=== PATIENT | female | born 1995 | race Caucasian/White ===

== ENCOUNTER 2018-02-27 17:17 | Emergency (ER) | payer BC, OTHER ==
[~2018-02-27] VITALS: Ht 160 cm; Wt 59.0 kg
--- OUTSIDE RECORDS SUMMARY | 2018-02-27 17:25 | XMS REPORT | Continuity of Care Document ---
Author Author [facility] Organization [facility] Address Unknown Phone Unavailable Allergies Active Description Code Type Severity Reaction Onset Reported/Identified Relationship to Patient Clinical Status Yes No Known Drug Intolerances No Known Drug Intolerances Drug Allergy Unknown N/A 1997 Yes AMOXICILLIN [id number] Drug Allergy N/A hives 08/25/1999 Yes OMNICEF 39091 Drug Allergy N/A HIVES 02/28/2009 Yes No Known Drug Intolerances No Known Drug Intolerances Drug Allergy Unknown UNKNOWN 12/08/2014 Yes penicillin penicillin Drug Allergy Unknown UNKNOWN 12/08/2014 Yes No Known Drug Intolerances No Known Drug Intolerances Drug Allergy Unknown UNKNOWN 12/08/2014 Yes penicillin penicillin Drug Allergy Unknown UNKNOWN 12/08/2014 Yes penicillin penicillin Drug Allergy Unknown hives 03/23/2015 Yes penicillin penicillin Drug Allergy Unknown hives 03/23/2015 Medications Medication Packaging Start Date Stop Date Route Dosage Sig NITROFURANTOIN MACROCRYSTAL 01/19 AZO TABS 01/19/2015 ORTHO TRI-CYCLEN LO 02/06/2015 Oral 0.18/0.215/0.25 Problems There is no data. Procedures There is no data. <section xmlns="urn:hl7-org:v3" xmlns:xsi="http:// www.3.org/2001/XMLSchema-instance"> <templateId root= "[email or web address]" /> <templateId root= "[id number]" /> <code codeSystemName="LOINC" codeSystem= "[id number]" code="50073-0" displayName="Results" /> <title>Results< /title> <text> <table> <thead> <tr> <th>Test</th> <th>Result</th> <th>Range</th> </tr> </thead> < tbody> <tr> < colspan="10">UR TEST - 03/23/15 10:02< /th> </tr> <tr> <td>UR TEST</td> <td> NEGATIVE </td> <td>NEGATIVE</td> </tr> <tr> <th colspan="10">CALCIUM IONIZED - 04/20/15 13:10</th> </tr> <tr> <td>CALCIUM IONIZED</td> <td>4.7 mg/dL</td> <td>4.5-5.3< /td> </tr> <tr> < colspan="10">METABOLIC PANEL, COMPREHN - 04/20/15 13:10</th> </tr> <tr> <td>POTASSIUM</ td> <td>3.7 mmol/L</td> <td>3.5-5.3</td> </tr> < tr> <td>ANION GAP</td> <td>8 mmol/L</td> <td>5-15</td > </tr> <tr> <td>GLUCOSE</td> <td>73 mg/dL</td> <td>70-99</td> </tr> <tr> <td>CALCIUM</td> <td>8.8 mg/dL</td> <td>8.5-10.1</td> </tr> <tr> <td>BLOOD UREA NITROGEN</td> <td>9 mg/dL</td> <td>7-20< /td> </tr> <tr> <td>CREATININE</td> <td>0.9 mg/ dL</td> <td>0.5-1.0</td> </tr> <tr> <td>SODIUM</ td> <td>140 mmol/L</td> <td>135-148</td> </tr> < tr> <td>CHLORIDE</td> <td>104 mmol/L</td> <td>98-110< /td> </tr> <tr> <td>AST/SGOT</td> <td>12 Units/L </td> <td>10-37</td> </tr> <tr> <td>ALT/SGPT</td > <td>12 Units/L</td> <td>< 66</td> </tr> <tr > <td>CARBON DIOXIDE</td> <td>28 mmol/L</td> <td>21- 32</td> </tr> <tr> <td>TOTAL PROTEIN</td> <td> 8.0 gm/dL</td> <td>5.7-8.0</td> </tr> <tr> <td> ALBUMIN</td> <td>3.8 gm/dL</td> <td>3.4-5.0</td> </tr> <tr> <td>BILI TOTAL</td> <td>0.5 mg/dL</td> < td>0.0-1.0</td> </tr> <tr> <td>ALKALINE PHOSPHATASE TOTAL </td> <td>61 IU/L</td> <td>45-117</td> </tr> <tr > <th colspan="10">PHOSPHORUS - 04/20/15 13:10</th> </tr> <tr> <td>PHOSPHORUS</td> <td>3.6 mg/dL</td> <td>2.5 -4.9</td> </tr> <tr> <th colspan="10">T4 FREE - 04/20/15 13:10</th> </tr> <tr> <td>T4 FREE</td> <td>1.1 ng/dL</td> <td>0.8-1.3</td> </tr> <tr> <th colspan="10">THYROID STIM HORMONE (TSH) - 04/20/15 13:10</th> </tr> <tr> <td>THYROID STIM HORMONE (TSH)</td> <td>2.63 uIU/mL</ td> <td>0.46-4.13</td> </tr> <tr> <th colspan= "10">PARATHYROID HORMONE (INTACT) - 04/20/15 13:10</th> </tr> <tr > <td>PARATHYROID HORMONE (INTACT)</td> <td>35 pg/mL</td> <td>14-85</td> </tr> <tr> <th colspan="10">VITAMIN D 25-HYDROXY - 04/20/15 13:10</th> </tr> <tr> <td> VITAMIN D 25-HYDROXY</td> <td>26.1 ng/mL</td> <td>30.0-100.0</ td> </tr> <tr> <th colspan="10">URINALYSIS, ROUTINE - 02/25 12:12</th> </tr> <tr> <td>UA LEUKOCYTE ESTERASE DIPSTICK</td> <td>1+ </td> <td>NEGATIVE</td> </tr> <tr> <td>UA NITRITE DIPSTICK</td> <td>NEGATIVE </td> <td>NEGATIVE</td> </tr> <tr> <td>UA PROTEIN DIPSTICK </td> <td>1+ </td> <td>NEGATIVE</td> </tr> <tr> <td>UA GLUCOSE DIPSTICK</td> <td>NEGATIVE </td> <td> NEGATIVE</td> </tr> <tr> <td>UA KETONE DIPSTICK</td> <td>4+ </td> <td>NEGATIVE</td> </tr> <tr> <td>UA UROBILINOGEN DIPSTICK</td> <td>3+ </td> <td>NORMAL</td > </tr> <tr> <td>UA BILIRUBIN DIPSTICK</td> <td> 2+ </td> <td>NEGATIVE</td> </tr> <tr> <td>UA BLOOD DIPSTICK</td> <td>1+ </td> <td>NEGATIVE</td> </tr > <tr> <td>UA SPECIFIC GRAVITY</td> <td>1.025 </td> <td>1.015-1.025</td> </tr> <tr> <td>UR PH</td> <td>6.0 </td> <td>5.0-7.0</td> </tr> <tr> <th colspan="10">UA MICROSCOPIC - 11/11/15 12:12</th> </tr> <tr > <td>UA BACTERIA</td> <td>4+ </td> <td>NEGATIVE</td > </tr> <tr> <td>UA EPITHELIAL CELLS</td> <td>4 + epi/hpf</td> <td>0 - 1+</td> </tr> <tr> <td> UA RBC</td> <td>3-5 rbc/hpf</td> <td>0 - 3</td> </tr> <tr> <td>UA VOLUME FOR EXAM</td> <td>12.0 mL</td> <td>(12mL STD)</td> </tr> <tr> <td>UA WBC</td> <td>5-10 wbc/hpf</td> <td>0 - 5</td> </tr> <tr> < colspan="10">UR TEST - 11/11/15 12:12</th> </tr> <tr> <td>UR TEST</td> <td>NEGATIVE </td> <td>NEGATIVE</td> </tr> <tr> <th colspan="10">CBC W/ DIFF - 11/13/15 09:27</th> </tr> <tr> <td>BASOPHIL #</td > <td>0.1 k/cumm</td> <td>0.0-0.2</td> </tr> <tr > <td>BASOPHIL %</td> <td>2 %</td> <td>0-1</ td> </tr> <tr> <td>COMMENT</td> <td>REVIEWED </ td> <td /> </tr> <tr> <td>GRANULOCYTE #</td> <td>1.9 k/cumm</td> <td>2.0-9.0</td> </tr> <tr> <td>GRANULOCYTE %</td> <td>42 %</td> <td>50-75 </td> </tr> <tr> <td>LYMPHOCYTE #</td> <td>1.9 k /cumm</td> <td>1.0-4.0</td> </tr> <tr> <td> LYMPHOCYTE %</td> <td>42 %</td> <td>20-30</td> </tr> <tr> <td>MEAN CELL HGB</td> <td>29.6 pg</td> <td>27.0-33.0</td> </tr> <tr> <td>MEAN CELL HGB CONCENTRATION</td> <td>34.5 g/dL</td> <td>32.0-37.0</td> </tr> <tr> <td>MEAN CELL VOLUME</td> <td>85.8 fl</td > <td>80.0-100.0</td> </tr> <tr> <td>MONOCYTE #< /td> <td>0.6 k/cumm</td> <td>0.1-1.0</td> </tr> <tr> <td>MONOCYTE %</td> <td>14 %</td> <td>4- 6</td> </tr> <tr> <td>RED BLOOD CELL</td> <td> 4.59 m/cumm</td> <td>4.00-6.00</td> </tr> <tr> < td>RED CELL DISTRIBUTION WIDTH</td> <td>13.4 %</td> <td> 11.0-15.6</td> </tr> <tr> <td>WHITE BLOOD CELL</td> <td>4.5 k/cumm</td> <td>5.0-10.0</td> </tr> <tr> <td>HEMOGLOBIN</td> <td>13.6 gm/dL</td> <td>12.0-16.0</ td> </tr> <tr> <td>HEMATOCRIT</td> <td>39.4 &#37 ;</td> <td>37.0-47.0</td> </tr> <tr> <td> PLATELET COUNT</td> <td>155 k/cumm</td> <td>150-400</td> </tr> <tr> <th colspan="10">HEPATIC FUNCTION PANEL - 09:27</th> </tr> <tr> <td>BILI UNCONJUGATED</td> <td>0.8 mg/dL</td> <td>0.0-0.7</td> </tr> <tr> <td>AST/SGOT</td> <td>91 Units/L</td> <td>10-37</td> </tr> <tr> <td>ALT/SGPT</td> <td>69 Units/L</td> <td>< 66</td> </tr> <tr> <td>TOTAL PROTEIN</td > <td>7.2 gm/dL</td> <td>6.4-8.2</td> </tr> <tr > <td>ALBUMIN</td> <td>3.2 gm/dL</td> <td>3.4-5.0</td > </tr> <tr> <td>BILI TOTAL</td> <td>1.5 mg/dL</ td> <td>0.0-1.0</td> </tr> <tr> <td>ALKALINE PHOSPHATASE TOTAL</td> <td>118 IU/L</td> <td>45-117</td> </tr> <tr> <td>BILI CONJUGATED</td> <td>0.7 mg/dL</ td> <td>0.0-0.3</td> </tr> <tr> <th colspan="10 ">LIPASE - 11/13/15 09:27</th> </tr> <tr> <td>LIPASE</td > <td>169 Units/L</td> <td>73-393</td> </tr> <tr > <th colspan="10">INFECTIOUS MONO SCREEN - 11/13/15 09:27</th> </tr> <tr> <td>INFECTIOUS MONO SCREEN</td> <td> POSITIVE </td> <td>NEGATIVE</td> </tr> <tr> <th colspan="10">HEPATITIS PANEL-ACUTE - 11/13/15 09:27</th> </tr> <tr > <td>AB HEPATITIS A IGM</td> <td>NEGATIVE </td> <td> NEGATIVE</td> </tr> <tr> <td>AG HEPATITIS B SURF.</td> <td>NEGATIVE </td> <td>NEGATIVE</td> </tr> <tr> <td>AB HEPATITIS B CORE IGM</td> <td>NEGATIVE </td> < td>NEGATIVE</td> </tr> <tr> <td>AB HEPATITIS C</td> <td>NEGATIVE </td> <td>NEGATIVE</td> </tr> <tr> <th colspan="10">CHEM/HEM PROFILE-BEDSIDE - 11/13/15 09:35</th> </ tr> <tr> <td>POTASSIUM</td> <td>3.6 mmol/L</td> <td>3.5-5.3</td> </tr> <tr> <td>METHOD</td> < td>Bedside </td> <td /> </tr> <tr> <td>ANION GAP </td> <td>13 mmol/L</td> <td>10-20</td> </tr> < tr> <td>METHOD</td> <td>Bedside </td> <td /> < /tr> <tr> <td>GLUCOSE</td> <td>80 mg/dL</td> < td>70-99</td> </tr> <tr> <td>BLOOD UREA NITROGEN</td> <td>11 mg/dL</td> <td>7-20</td> </tr> <tr> <td>CREATININE</td> <td>1.3 mg/dL</td> <td>0.5-1.0</td> </tr> <tr> <td>HEMOGLOBIN</td> <td>12.2 gm/dL</td > <td>12.0-16.0</td> </tr> <tr> <td>HEMATOCRIT</ td> <td>36.0 %</td> <td>37.0-47.0</td> </tr> <tr> <td>SODIUM</td> <td>135 mmol/L</td> <td>135- 148</td> </tr> <tr> <td>CHLORIDE</td> <td>105 mmol/L</td> <td>98-110</td> </tr> <tr> <td> CARBON DIOXIDE</td> <td>21 mmol/L</td> <td>21-32</td> < /tr> <tr> <td>CALCIUM IONIZED</td> <td>4.4 mg/dL</td> <td>4.5-5.3</td> </tr> <tr> <th colspan="10"> URINALYSIS, ROUTINE - 11/13/15 09:44</th> </tr> <tr> <td> UA LEUKOCYTE ESTERASE DIPSTICK</td> <td>TRACE </td> <td> NEGATIVE</td> </tr> <tr> <td>UA NITRITE DIPSTICK</td> <td>NEGATIVE </td> <td>NEGATIVE</td> </tr> <tr> <td>UA PROTEIN DIPSTICK</td> <td>TRACE </td> <td> NEGATIVE</td> </tr> <tr> <td>UA GLUCOSE DIPSTICK</td> <td>NEGATIVE </td> <td>NEGATIVE</td> </tr> <tr> <td>UA KETONE DIPSTICK</td> <td>2+ </td> <td>NEGATIVE< /td> </tr> <tr> <td>UA UROBILINOGEN DIPSTICK</td> <td>2+ </td> <td>NORMAL</td> </tr> <tr> <td> UA BILIRUBIN DIPSTICK</td> <td>2+ </td> <td>NEGATIVE</td> </tr> <tr> <td>UA BLOOD DIPSTICK</td> <td>TRACE </ td> <td>NEGATIVE</td> </tr> <tr> <td>UA SPECIFIC GRAVITY</td> <td>1.010 </td> <td>1.015-1.025</td> </tr> <tr> <td>UR PH</td> <td>5.5 </td> < td>5.0-7.0</td> </tr> <tr> < colspan="10">UA MICROSCOPIC - 11/13/15 09:44</th> </tr> <tr> <td>UA BACTERIA</td> <td>2+ </td> <td>NEGATIVE</td> </tr> <tr> <td>UA EPITHELIAL CELLS</td> <td>4+ epi/hpf</td> <td>0 - 1+</td> </tr> <tr> <td>UA RBC</td> <td>3-5 rbc/hpf</td> <td>0 - 3</td> </tr> <tr> <td>UA VOLUME FOR EXAM</td> <td>12.0 mL</td> <td>(12mL STD)< /td> </tr> <tr> <td>UA WBC</td> <td>5-10 wbc/hpf </td> <td>0 - 5</td> </tr> <tr> <th colspan="10 ">UR TEST - 11/13/15 09:44</th> </tr> <tr> <td> UR TEST</td> <td>NEGATIVE </td> <td>NEGATIVE</td> </tr> <tr> <th colspan="10">VIRUS RESPIRATORY PROFILE - 14:11</th> </tr> <tr> <td>Microbiology</td> <td> </td> <td /> </tr> <tr> <th colspan="10 ">METABOLIC PANEL, COMPREHN - 11/14/15 04:25</th> </tr> <tr> <td>POTASSIUM</td> <td>3.2 mmol/L</td> <td>3.5-5.3</td> </tr> <tr> <td>EST GFR (MDRD)</td> <td>59 mL/min </td> <td>> 59</td> </tr> <tr> <td>ANION GAP< /td> <td>9 mmol/L</td> <td>5-15</td> </tr> <tr> <td>EST CrCl (CG)</td> <td>> 60 mL/min</td> <td>& gt; 59</td> </tr> <tr> <td>GLUCOSE</td> <td>116 mg/dL</td> <td>70-99</td> </tr> <tr> <td>CALCIUM </td> <td>7.9 mg/dL</td> <td>8.5-10.1</td> </tr> <tr> <td>BLOOD UREA NITROGEN</td> <td>7 mg/dL</td> <td>7-20</td> </tr> <tr> <td>CREATININE</td> <td >1.2 mg/dL</td> <td>0.5-1.0</td> </tr> <tr> <td> SODIUM</td> <td>139 mmol/L</td> <td>135-148</td> </tr> <tr> <td>CHLORIDE</td> <td>106 mmol/L</td> < td>98-110</td> </tr> <tr> <td>AST/SGOT</td> <td> 80 Units/L</td> <td>10-37</td> </tr> <tr> <td> ALT/SGPT</td> <td>68 Units/L</td> <td>< 66</td> </tr > <tr> <td>CARBON DIOXIDE</td> <td>24 mmol/L</td> <td>21-32</td> </tr> <tr> <td>TOTAL PROTEIN</td> <td>5.9 gm/dL</td> <td>6.4-8.2</td> </tr> <tr> <td>ALBUMIN</td> <td>2.4 gm/dL</td> <td>3.4-5.0</td> </tr> <tr> <td>BILI TOTAL</td> <td>1.0 mg/dL</td > <td>0.0-1.0</td> </tr> <tr> <td>ALKALINE PHOSPHATASE TOTAL</td> <td>102 IU/L</td> <td>45-117</td> </tr> <tr> < colspan="10">CBC W/DIFF - 11/14/15 04:25</th> </tr> <tr> <td>COMMENT</td> <td>REVIEWED </td> <td /> </tr> <tr> <td>GRANULOCYTE #</td> <td>1.7 k/cumm</td> <td>2.0-9.0</td> </tr> <tr> <td>GRANULOCYTE %</td> <td>38 %</td> <td>50-75</ td> </tr> <tr> <td>LYMPHOCYTE #</td> <td>2.2 k/ cumm</td> <td>1.0-4.0</td> </tr> <tr> <td> LYMPHOCYTE %</td> <td>50 %</td> <td>20-30</td> </tr> <tr> <td>MEAN CELL HGB</td> <td>29.7 pg</td> <td>27.0-33.0</td> </tr> <tr> <td>MEAN CELL HGB CONCENTRATION</td> <td>33.7 g/dL</td> <td>32.0-37.0</td> </tr> <tr> <td>MEAN CELL VOLUME</td> <td>88.1 fl</td > <td>80.0-100.0</td> </tr> <tr> <td>MONOCYTE #< /td> <td>0.5 k/cumm</td> <td>0.1-1.0</td> </tr> <tr> <td>MONOCYTE %</td> <td>11 %</td> <td>4- 6</td> </tr> <tr> <td>RED BLOOD CELL</td> <td> 3.87 m/cumm</td> <td>4.00-6.00</td> </tr> <tr> < td>RED CELL DISTRIBUTION WIDTH</td> <td>13.2 %</td> <td> 11.0-15.6</td> </tr> <tr> <td>WHITE BLOOD CELL</td> <td>4.4 k/cumm</td> <td>5.0-10.0</td> </tr> <tr> <td>HEMOGLOBIN</td> <td>11.5 gm/dL</td> <td>12.0-16.0</ td> </tr> <tr> <td>HEMATOCRIT</td> <td>34.1 &#37 ;</td> <td>37.0-47.0</td> </tr> <tr> <td> PLATELET COUNT</td> <td>153 k/cumm</td> <td>150-450</td> </tr> <tr> <th colspan="10">AB MONIQUE SAUL VIR VCA-ACUTE - 11/14/15 04:25</th> </tr> <tr> <td>AB EBV VIRAL CAPSID AG IGM</td> <td>POSITIVE </td> <td>NEGATIVE</td> </tr> <tr> <td>AB EBV VIRAL CAPSID AG IGG</td> <td>40 </td> <td><10</td> </tr> <tr> <th colspan="10"> CBC W/DIFF - 11/15/15 09:31</th> </tr> <tr> <td>COMMENT</ td> <td>REVIEWED </td> <td /> </tr> <tr> <td>GRANULOCYTE #</td> <td>1.5 k/cumm</td> <td>2.0-9.0</td > </tr> <tr> <td>GRANULOCYTE %</td> <td>31 & #37;</td> <td>50-75</td> </tr> <tr> <td> LYMPHOCYTE #</td> <td>2.4 k/cumm</td> <td>1.0-4.0</td> </tr> <tr> <td>LYMPHOCYTE %</td> <td>51 %</td> <td>20-30</td> </tr> <tr> <td>MEAN CELL HGB</td > <td>30.0 pg</td> <td>27.0-33.0</td> </tr> <tr > <td>MEAN CELL HGB CONCENTRATION</td> <td>34.1 g/dL</td> <td>32.0-37.0</td> </tr> <tr> <td>MEAN CELL VOLUME< /td> <td>88.0 fl</td> <td>80.0-100.0</td> </tr> <tr> <td>MONOCYTE #</td> <td>0.9 k/cumm</td> <td>0.1- 1.0</td> </tr> <tr> <td>MONOCYTE %</td> <td> 18 %</td> <td>4-6</td> </tr> <tr> <td>RED BLOOD CELL</td> <td>3.93 m/cumm</td> <td>4.00-6.00</td> </tr> <tr> <td>RED CELL DISTRIBUTION WIDTH</td> <td> 13.6 %</td> <td>11.0-15.6</td> </tr> <tr> < td>WHITE BLOOD CELL</td> <td>4.7 k/cumm</td> <td>5.0-10.0</td > </tr> <tr> <td>HEMOGLOBIN</td> <td>11.8 gm/dL< /td> <td>12.0-16.0</td> </tr> <tr> <td> HEMATOCRIT</td> <td>34.6 %</td> <td>37.0-47.0</td> </tr> <tr> <td>PLATELET COUNT</td> <td>158 k/cumm</td> <td>150-450</td> </tr> <tr> <td>REACTIVE LYMPH< /td> <td>NOTED </td> <td /> </tr> <tr> <th colspan="10">RENAL FUNCTION PANEL - 11/15/15 09:31</th> </tr> <tr> <td>POTASSIUM</td> <td>3.4 mmol/L</td> <td>3.5- 5.3</td> </tr> <tr> <td>EST GFR (MDRD)</td> <td> > 60 mL/min</td> <td>> 59</td> </tr> <tr> <td>ANION GAP</td> <td>8 mmol/L</td> <td>5-15</td> </tr > <tr> <td>EST CrCl (CG)</td> <td>> 60 mL/min</td> <td>> 59</td> </tr> <tr> <td>GLUCOSE</td> <td>107 mg/dL</td> <td>70-99</td> </tr> <tr> <td>CALCIUM</td> <td>8.1 mg/dL</td> <td>8.5-10.1</td> </tr> <tr> <td>BLOOD UREA NITROGEN</td> <td>3 mg/ dL</td> <td>7-20</td> </tr> <tr> <td>CREATININE< /td> <td>1.0 mg/dL</td> <td>0.5-1.0</td> </tr> < tr> <td>SODIUM</td> <td>141 mmol/L</td> <td>135-148</ td> </tr> <tr> <td>CHLORIDE</td> <td>108 mmol/L< /td> <td>98-110</td> </tr> <tr> <td>CARBON DIOXIDE</td> <td>25 mmol/L</td> <td>21-32</td> </tr> <tr> <td>ALBUMIN</td> <td>2.4 gm/dL</td> <td> 3.4-5.0</td> </tr> <tr> <td>PHOSPHORUS</td> <td> 2.4 mg/dL</td> <td>2.5-4.9</td> </tr> <tr> < colspan="10">CBC W/DIFF - 11/16/15 04:24</th> </tr> <tr> <td>GRANULOCYTE #</td> <td>1.2 k/cumm</td> <td>2.0-9.0</td> </tr> <tr> <td>LYMPHOCYTE #</td> <td>3.0 k/cumm</ td> <td>1.0-4.0</td> </tr> <tr> <td>LYMPHOCYTE & #37;</td> <td>69 %</td> <td>20-30</td> </tr> <tr> <td>MEAN CELL HGB</td> <td>30.0 pg</td> <td> 27.0-33.0</td> </tr> <tr> <td>MEAN CELL HGB CONCENTRATION </td> <td>33.7 g/dL</td> <td>32.0-37.0</td> </tr> <tr> <td>MEAN CELL VOLUME</td> <td>89.0 fl</td> < td>80.0-100.0</td> </tr> <tr> <td>MONOCYTE #</td> <td>0.1 k/cumm</td> <td>0.1-1.0</td> </tr> <tr> <td>MONOCYTE %</td> <td>3 %</td> <td>4-6</td> </tr> <tr> <td>RED BLOOD CELL</td> <td>4.00 m/cumm< /td> <td>4.00-6.00</td> </tr> <tr> <td>RED CELL DISTRIBUTION WIDTH</td> <td>13.3 %</td> <td>11.0-15.6</td > </tr> <tr> <td>WHITE BLOOD CELL</td> <td>4.3 k /cumm</td> <td>5.0-10.0</td> </tr> <tr> <td> HEMOGLOBIN</td> <td>12.0 gm/dL</td> <td>12.0-16.0</td> </tr> <tr> <td>HEMATOCRIT</td> <td>35.6 %</td> <td>37.0-47.0</td> </tr> <tr> <td>PLATELET COUNT</ td> <td>154 k/cumm</td> <td>150-450</td> </tr> < tr> <th colspan="10">MANUAL DIFF(R) - 11/16/15 04:24</th> </tr> <tr> <td>BAND %</td> <td>4 %</td> <td >0-10</td> </tr> <tr> <td>DIFFERENTIAL</td> <td> MANUAL </td> <td /> </tr> <tr> <td>RBC MORPH</td > <td>NORMAL </td> <td /> </tr> <tr> < td>SEGMENTED NEUTROPHIL %</td> <td>24 %</td> <td>50-70 </td> </tr> <tr> <th colspan="10">METABOLIC PANEL, COMPREHN - 11/16/15 04:24</th> </tr> <tr> <td>POTASSIUM</ td> <td>3.0 mmol/L</td> <td>3.5-5.3</td> </tr> < tr> <td>EST GFR (MDRD)</td> <td>> 60 mL/min</td> < td>> 59</td> </tr> <tr> <td>ANION GAP</td> < td>6 mmol/L</td> <td>5-15</td> </tr> <tr> <td> EST CrCl (CG)</td> <td>> 60 mL/min</td> <td>> 59</td> </tr> <tr> <td>GLUCOSE</td> <td>104 mg/dL</td> <td>70-99</td> </tr> <tr> <td>CALCIUM</td> <td>8.3 mg/dL</td> <td>8.5-10.1</td> </tr> <tr> <td>BLOOD UREA NITROGEN</td> <td>2 mg/dL</td> <td>7-20</ td> </tr> <tr> <td>CREATININE</td> <td>0.9 mg/dL </td> <td>0.5-1.0</td> </tr> <tr> <td>SODIUM</td > <td>141 mmol/L</td> <td>135-148</td> </tr> <tr > <td>CHLORIDE</td> <td>107 mmol/L</td> <td>98-110</ td> </tr> <tr> <td>AST/SGOT</td> <td>241 Units/L </td> <td>10-37</td> </tr> <tr> <td>ALT/SGPT</td > <td>206 Units/L</td> <td>< 66</td> </tr> < tr> <td>CARBON DIOXIDE</td> <td>28 mmol/L</td> <td>21 -32</td> </tr> <tr> <td>TOTAL PROTEIN</td> <td> 6.1 gm/dL</td> <td>6.4-8.2</td> </tr> <tr> <td> ALBUMIN</td> <td>2.4 gm/dL</td> <td>3.4-5.0</td> </tr> <tr> <td>BILI TOTAL</td> <td>1.6 mg/dL</td> < td>0.0-1.0</td> </tr> <tr> <td>ALKALINE PHOSPHATASE TOTAL </td> <td>156 IU/L</td> <td>45-117</td> </tr> </ tbody> </table> </text> <entry> <organizer moodCode="EVN" classCode= "BATTERY"> <templateId root="[id number]...4.1" /> <id nullFlavor="NA" /> <code codeSystem="local" code="PREGU" displayName="UR TEST" /> <statusCode code="completed" /> <component> <observation moodCode="EVN" classCode="OBS"> <templateId root= "[id number]...4.2" /> <id nullFlavor="NA" /> < code codeSystem="local" code="PREGU" displayName="UR TEST" /> <statusCode code="completed" /> <effectiveTime value="[id number]" / > <value unit="" xsi:type="PQ" value="NEGATIVE" /> < referenceRange> <observationRange> <text>NEGATIVE</text > </observationRange> </referenceRange> </observation > </component> </organizer> </entry> <entry> <organizer moodCode= "EVN" classCode="BATTERY"> <templateId root="[id number].1 " /> <id nullFlavor="NA" /> <code codeSystem="local" code="CAION" displayName="CALCIUM IONIZED" /> <statusCode code="completed" /> < component> <observation moodCode="EVN" classCode="OBS"> < templateId root="[id number]...4.2" /> <id nullFlavor="NA " /> <code codeSystem="local" code="CAION" displayName="CALCIUM IONIZED " /> <statusCode code="completed" /> <effectiveTime value= "[id number]" /> <value unit="mg/dL" xsi:type="PQ" value="4.7" /> <referenceRange> <observationRange> <text>4.5-5.3< /text> </observationRange> </referenceRange> </ observation> </component> </organizer> </entry> <entry> <organizer moodCode="EVN" classCode="BATTERY"> <templateId root= "[id number]" /> <id nullFlavor="NA" /> <code codeSystem="local" code="METABC" displayName="METABOLIC PANEL, COMPREHN" /> <statusCode code="completed" /> <component> <observation moodCode= "EVN" classCode="OBS"> <templateId root="03.28.840.1.073408.10..22.4.2 " /> <id nullFlavor="NA" /> <code codeSystem="local" code="K" displayName="POTASSIUM" /> <statusCode code="completed" /> < effectiveTime value="[id number]" /> <value unit="mmol/L" xsi:type="PQ " value="3.7" /> <referenceRange> <observationRange> <text>3.5-5.3</text> </observationRange> </ referenceRange> </observation> </component> <component> <observation moodCode="EVN" classCode="OBS"> <templateId root= "03.28.840.1.544621.10.22.4.2" /> <id nullFlavor="NA" /> < code codeSystem="local" code="GAP" displayName="ANION GAP" /> < statusCode code="completed" /> <effectiveTime value="157951771255" /> <value unit="mmol/L" xsi:type="PQ" value="8" /> < referenceRange> <observationRange> <text>5-15</text> </observationRange> </referenceRange> </observation> </component> <component> <observation moodCode="EVN" classCode= "OBS"> <templateId root="216.840.1.975640.10..22.4.2" /> < id nullFlavor="NA" /> <code codeSystem="local" code="GLU" displayName= "GLUCOSE" /> <statusCode code="completed" /> <effectiveTime value="394811284693" /> <value unit="mg/dL" xsi:type="PQ" value="73" / > <referenceRange> <observationRange> <text>70- 99</text> </observationRange> </referenceRange> </ observation> </component> <component> <observation moodCode= "EVN" classCode="OBS"> <templateId root="03.28.840.1.809684...4.2 " /> <id nullFlavor="NA" /> <code codeSystem="local" code="CA " displayName="CALCIUM" /> <statusCode code="completed" /> < effectiveTime value="462931543320" /> <value unit="mg/dL" xsi:type="PQ " value="8.8" /> <referenceRange> <observationRange> <text>8.5-10.1</text> </observationRange> </ referenceRange> </observation> </component> <component> <observation moodCode="EVN" classCode="OBS"> <templateId root= "16.840.1.395976.10..22.4.2" /> <id nullFlavor="NA" /> < code codeSystem="local" code="BUN" displayName="BLOOD UREA NITROGEN" /> <statusCode code="completed" /> <effectiveTime value="404309289367" / > <value unit="mg/dL" xsi:type="PQ" value="9" /> < referenceRange> <observationRange> <text>7-20</text> </observationRange> </referenceRange> </observation> </component> <component> <observation moodCode="EVN" classCode= "OBS"> <templateId root="16.840.1.036916.10...4.2" /> < id nullFlavor="NA" /> <code codeSystem="local" code="CREAT" displayName ="CREATININE" /> <statusCode code="completed" /> < effectiveTime value="674951993517" /> <value unit="mg/dL" xsi:type="PQ " value="0.9" /> <referenceRange> <observationRange> <text>0.5-1.0</text> </observationRange> </ referenceRange> </observation> </component> <component> <observation moodCode="EVN" classCode="OBS"> <templateId root= "03.28.840.1.206019...4.2" /> <id nullFlavor="NA" /> < code codeSystem="local" code="NA" displayName="SODIUM" /> <statusCode code="completed" /> <effectiveTime value="348095456177" /> < value unit="mmol/L" xsi:type="PQ" value="140" /> <referenceRange> <observationRange> <text>135-148</text> </ observationRange> </referenceRange> </observation> </ component> <component> <observation moodCode="EVN" classCode="OBS"> <templateId root="03.28.840.1.324150.10.20.22.4.2" /> <id nullFlavor="NA" /> <code codeSystem="local" code="CL" displayName= "CHLORIDE" /> <statusCode code="completed" /> <effectiveTime value="381058763876" /> <value unit="mmol/L" xsi:type="PQ" value="104" /> <referenceRange> <observationRange> <text>98 -110</text> </observationRange> </referenceRange> </ observation> </component> <component> <observation moodCode= "EVN" classCode="OBS"> <templateId root="216.840.1.606175.11.29.21.4.2 " /> <id nullFlavor="NA" /> <code codeSystem="local" code="AST " displayName="AST/SGOT" /> <statusCode code="completed" /> < effectiveTime value="429027180233" /> <value unit="Units/L" xsi:type= "PQ" value="12" /> <referenceRange> <observationRange> <text>10-37</text> </observationRange> </ referenceRange> </observation> </component> <component> <observation moodCode="EVN" classCode="OBS"> <templateId root= "03.28.840.1.919095.11.29.21.4.2" /> <id nullFlavor="NA" /> < code codeSystem="local" code="ALT" displayName="ALT/SGPT" /> < statusCode code="completed" /> <effectiveTime value="317574998699" /> <value unit="Units/L" xsi:type="PQ" value="12" /> < referenceRange> <observationRange> <text>< 66</text> </observationRange> </referenceRange> </observation > </component> <component> <observation moodCode="EVN" classCode="OBS"> <templateId root="216.840.1.565018.22.4.2" /> <id nullFlavor="NA" /> <code codeSystem="local" code="CO2" displayName="CARBON DIOXIDE" /> <statusCode code="completed" /> <effectiveTime value="569225212332" /> <value unit="mmol/L" xsi:type ="PQ" value="28" /> <referenceRange> <observationRange> <text>21-32</text> </observationRange> </ referenceRange> </observation> </component> <component> <observation moodCode="EVN" classCode="OBS"> <templateId root= "216.840.1.327430.10..22.4.2" /> <id nullFlavor="NA" /> < code codeSystem="local" code="TP" displayName="TOTAL PROTEIN" /> < statusCode code="completed" /> <effectiveTime value="649682426409" /> <value unit="gm/dL" xsi:type="PQ" value="8.0" /> < referenceRange> <observationRange> <text>5.7-8.0</text> </observationRange> </referenceRange> </observation > </component> <component> <observation moodCode="EVN" classCode="OBS"> <templateId root="16.840.1.505871.10..22.4.2" /> <id nullFlavor="NA" /> <code codeSystem="local" code="ALB" displayName="ALBUMIN" /> <statusCode code="completed" /> < effectiveTime value="335440199567" /> <value unit="gm/dL" xsi:type="PQ " value="3.8" /> <referenceRange> <observationRange> <text>3.4-5.0</text> </observationRange> </ referenceRange> </observation> </component> <component> <observation moodCode="EVN" classCode="OBS"> <templateId root= "03.28.840.1.562034.10.22.4.2" /> <id nullFlavor="NA" /> < code codeSystem="local" code="BILTOT" displayName="BILI TOTAL" /> < statusCode code="completed" /> <effectiveTime value="153269843804" /> <value unit="mg/dL" xsi:type="PQ" value="0.5" /> < referenceRange> <observationRange> <text>0.0-1.0</text> </observationRange> </referenceRange> </observation > </component> <component> <observation moodCode="EVN" classCode="OBS"> <templateId root="840.1.028373.11.29.21.4.2" /> <id nullFlavor="NA" /> <code codeSystem="local" code="ALKP" displayName="ALKALINE PHOSPHATASE TOTAL" /> <statusCode code="completed " /> <effectiveTime value="109405465421" /> <value unit="IU/L " xsi:type="PQ" value="61" /> <referenceRange> < observationRange> <text>45-117</text> </observationRange > </referenceRange> </observation> </component> </ organizer> </entry> <entry> <organizer moodCode="EVN" classCode="BATTERY"> <templateId root="03.28.840.1.669041.1022.4.1" /> <id nullFlavor= "NA" /> <code codeSystem="local" code="PHOS" displayName="PHOSPHORUS" /> <statusCode code="completed" /> <component> <observation moodCode="EVN" classCode="OBS"> <templateId root= "03.28.840.1.398366.102022.4.2" /> <id nullFlavor="NA" /> < code codeSystem="local" code="PHOS" displayName="PHOSPHORUS" /> < statusCode code="completed" /> <effectiveTime value="177063060362" /> <value unit="mg/dL" xsi:type="PQ" value="3.6" /> < referenceRange> <observationRange> <text>2.5-4.9</text> </observationRange> </referenceRange> </observation > </component> </organizer> </entry> <entry> <organizer moodCode= "EVN" classCode="BATTERY"> <templateId root="16.840.1.833886.10.22.4.1 " /> <id nullFlavor="NA" /> <code codeSystem="local" code="T4F" displayName="T4 FREE" /> <statusCode code="completed" /> <component> <observation moodCode="EVN" classCode="OBS"> <templateId root= "16.840.1.232063.10..22.4.2" /> <id nullFlavor="NA" /> < code codeSystem="local" code="T4F" displayName="T4 FREE" /> < statusCode code="completed" /> <effectiveTime value="816790952143" /> <value unit="ng/dL" xsi:type="PQ" value="1.1" /> < referenceRange> <observationRange> <text>0.8-1.3</text> </observationRange> </referenceRange> </observation > </component> </organizer> </entry> <entry> <organizer moodCode= "EVN" classCode="BATTERY"> <templateId root="03.28.840.1.092737.10.2022.4.1 " /> <id nullFlavor="NA" /> <code codeSystem="local" code="TSH" displayName="THYROID STIM HORMONE (TSH)" /> <statusCode code="completed" / > <component> <observation moodCode="EVN" classCode="OBS"> <templateId root="2.16.840.1.627773.10.20.22.4.2" /> <id nullFlavor="NA " /> <code codeSystem="local" code="TSH" displayName="THYROID STIM HORMONE (TSH)" /> <statusCode code="completed" /> < effectiveTime value="035475560628" /> <value unit="uIU/mL" xsi:type="PQ " value="2.63" /> <referenceRange> <observationRange> <text>0.46-4.13</text> </observationRange> </ referenceRange> </observation> </component> </organizer> </entry > <entry> <organizer moodCode="EVN" classCode="BATTERY"> <templateId root="2.16.840.1.856493.10..22.4.1" /> <id nullFlavor="NA" /> <code codeSystem="local" code="PARA" displayName="PARATHYROID HORMONE (INTACT)" /> <statusCode code="completed" /> <component> <observation moodCode ="EVN" classCode="OBS"> <templateId root= "2.16.840.1.065533.10..22.4.2" /> <id nullFlavor="NA" /> < code codeSystem="local" code="PARA" displayName="PARATHYROID HORMONE (INTACT)" / > <statusCode code="completed" /> <effectiveTime value= "136681724904" /> <value unit="pg/mL" xsi:type="PQ" value="35" /> <referenceRange> <observationRange> <text>14-85</ text> </observationRange> </referenceRange> </ observation> </component> </organizer> </entry> <entry> <organizer moodCode="EVN" classCode="BATTERY"> <templateId root= "840.1.342478.10..4.1" /> <id nullFlavor="NA" /> <code codeSystem="local" code="VITD25" displayName="VITAMIN D 25-HYDROXY" /> < statusCode code="completed" /> <component> <observation moodCode= "EVN" classCode="OBS"> <templateId root="840.1.781836.10.4.2 " /> <id nullFlavor="NA" /> <code codeSystem="local" code= "VITD25" displayName="VITAMIN D 25-HYDROXY" /> <statusCode code= "completed" /> <effectiveTime value="895387532907" /> <value unit="ng/mL" xsi:type="PQ" value="26.1" /> <interpretationCode codeSystem="local" code="*" /> <referenceRange> < observationRange> <text>30.0-100.0</text> </ observationRange> </referenceRange> </observation> </ component> </organizer> </entry> <entry> <organizer moodCode="EVN" classCode="BATTERY"> <templateId root="03.28.840.1.353973.22.4.1" /> <id nullFlavor="NA" /> <code codeSystem="local" code="UA" displayName= "URINALYSIS, ROUTINE" /> <statusCode code="completed" /> <component> <observation moodCode="EVN" classCode="OBS"> <templateId root= "03.28.840.1.872305.10..22.4.2" /> <id nullFlavor="NA" /> < code codeSystem="local" code="LEUESU" displayName="UA LEUKOCYTE ESTERASE DIPSTICK" /> <statusCode code="completed" /> <effectiveTime value="" /> <value unit="" xsi:type="PQ" value="1+" /> <interpretationCode codeSystem="local" code="*" /> < referenceRange> <observationRange> <text>NEGATIVE</text > </observationRange> </referenceRange> </observation > </component> <component> <observation moodCode="EVN" classCode="OBS"> <templateId root="216.840.1.327864.10..22.4.2" /> <id nullFlavor="NA" /> <code codeSystem="local" code="NITRIU" displayName="UA NITRITE DIPSTICK" /> <statusCode code="completed" /> <effectiveTime value="" /> <value unit="" xsi:type= "PQ" value="NEGATIVE" /> <referenceRange> <observationRange > <text>NEGATIVE</text> </observationRange> </ referenceRange> </observation> </component> <component> <observation moodCode="EVN" classCode="OBS"> <templateId root= "216.840.1.516582.10.20.22.4.2" /> <id nullFlavor="NA" /> < code codeSystem="local" code="PROTEIU" displayName="UA PROTEIN DIPSTICK" /> <statusCode code="completed" /> <effectiveTime value= "" /> <value unit="" xsi:type="PQ" value="1+" /> < interpretationCode codeSystem="local" code="*" /> <referenceRange> <observationRange> <text>NEGATIVE</text> </ observationRange> </referenceRange> </observation> </ component> <component> <observation moodCode="EVN" classCode="OBS"> <templateId root="16.840.1.949635.10..22.4.2" /> <id nullFlavor="NA" /> <code codeSystem="local" code="DGLUU" displayName= "UA GLUCOSE DIPSTICK" /> <statusCode code="completed" /> < effectiveTime value="122964958344" /> <value unit="" xsi:type="PQ" value="NEGATIVE" /> <referenceRange> <observationRange> <text>NEGATIVE</text> </observationRange> </ referenceRange> </observation> </component> <component> <observation moodCode="EVN" classCode="OBS"> <templateId root= "16.840.1.444667.10..4.2" /> <id nullFlavor="NA" /> < code codeSystem="local" code="KETONU" displayName="UA KETONE DIPSTICK" /> <statusCode code="completed" /> <effectiveTime value="221208773526 " /> <value unit="" xsi:type="PQ" value="4+" /> < interpretationCode codeSystem="local" code="*" /> <referenceRange> <observationRange> <text>NEGATIVE</text> </ observationRange> </referenceRange> </observation> </ component> <component> <observation moodCode="EVN" classCode="OBS"> <templateId root="16.840.1.303074.10.22.4.2" /> <id nullFlavor="NA" /> <code codeSystem="local" code="UROBILU" displayName= "UA UROBILINOGEN DIPSTICK" /> <statusCode code="completed" /> <effectiveTime value="004307147125" /> <value unit="" xsi:type="PQ" value="3+" /> <interpretationCode codeSystem="local" code="*" /> <referenceRange> <observationRange> <text>NORMAL</ text> </observationRange> </referenceRange> </ observation> </component> <component> <observation moodCode= "EVN" classCode="OBS"> <templateId root="03.28.840.1.129449.10.20.22.4.2 " /> <id nullFlavor="NA" /> <code codeSystem="local" code= "BILU" displayName="UA BILIRUBIN DIPSTICK" /> <statusCode code= "completed" /> <effectiveTime value="" /> <value unit="" xsi:type="PQ" value="2+" /> <interpretationCode codeSystem= "local" code="*" /> <referenceRange> <observationRange> <text>NEGATIVE</text> </observationRange> </ referenceRange> </observation> </component> <component> <observation moodCode="EVN" classCode="OBS"> <templateId root= "840.1.085649...4.2" /> <id nullFlavor="NA" /> < code codeSystem="local" code="CAROLE" displayName="UA BLOOD DIPSTICK" /> < statusCode code="completed" /> <effectiveTime value="" /> <value unit="" xsi:type="PQ" value="1+" /> < interpretationCode codeSystem="local" code="*" /> <referenceRange> <observationRange> <text>NEGATIVE</text> </ observationRange> </referenceRange> </observation> </ component> <component> <observation moodCode="EVN" classCode="OBS"> <templateId root="03.28.840.1.207565.10..22.4.2" /> <id nullFlavor="NA" /> <code codeSystem="local" code="SPGRU" displayName= "UA SPECIFIC GRAVITY" /> <statusCode code="completed" /> < effectiveTime value="" /> <value unit="" xsi:type="PQ" value="1.025" /> <referenceRange> <observationRange> <text>1.015-1.025</text> </observationRange> </ referenceRange> </observation> </component> <component> <observation moodCode="EVN" classCode="OBS"> <templateId root= "03.28.840.1.977874.10.4.2" /> <id nullFlavor="NA" /> < code codeSystem="local" code="ECTOR" displayName="UR PH" /> <statusCode code="completed" /> <effectiveTime value="" /> < value unit="" xsi:type="PQ" value="6.0" /> <referenceRange> <observationRange> <text>5.0-7.0</text> </ observationRange> </referenceRange> </observation> </ component> </organizer> </entry> <entry> <organizer moodCode="EVN" classCode="BATTERY"> <templateId root="03.28.840.1.516326.11.29.21.4.1" /> <id nullFlavor="NA" /> <code codeSystem="local" code="UAMICRO" displayName="UA MICROSCOPIC" /> <statusCode code="completed" /> < component> <observation moodCode="EVN" classCode="OBS"> < templateId root="03.28.840.1.416243.22.4.2" /> <id nullFlavor="NA " /> <code codeSystem="local" code="BACU" displayName="UA BACTERIA" /> <statusCode code="completed" /> <effectiveTime value= "" /> <value unit="" xsi:type="PQ" value="4+" /> < interpretationCode codeSystem="local" code="*" /> <referenceRange> <observationRange> <text>NEGATIVE</text> </ observationRange> </referenceRange> </observation> </ component> <component> <observation moodCode="EVN" classCode="OBS"> <templateId root="16.840.1.469089.11.29.21.4.2" /> <id nullFlavor="NA" /> <code codeSystem="local" code="EPIU" displayName=" UA EPITHELIAL CELLS" /> <statusCode code="completed" /> < effectiveTime value="" /> <value unit="epi/hpf" xsi:type= "PQ" value="4+" /> <interpretationCode codeSystem="local" code="*" /> <referenceRange> <observationRange> <text>0 - 1 +</text> </observationRange> </referenceRange> </ observation> </component> <component> <observation moodCode= "EVN" classCode="OBS"> <templateId root="03.28.840.1.420097.10..4.2 " /> <id nullFlavor="NA" /> <code codeSystem="local" code= "RBCU" displayName="UA RBC" /> <statusCode code="completed" /> <effectiveTime value="" /> <value unit="rbc/hpf" xsi:type ="PQ" value="3-5" /> <interpretationCode codeSystem="local" code="*" / > <referenceRange> <observationRange> <text>0 - 3</text> </observationRange> </referenceRange> </ observation> </component> <component> <observation moodCode= "EVN" classCode="OBS"> <templateId root="03.28.840.1.838857.10..4.2 " /> <id nullFlavor="NA" /> <code codeSystem="local" code= "UAVOL" displayName="UA VOLUME FOR EXAM" /> <statusCode code="completed " /> <effectiveTime value="423299834458" /> <value unit="mL" xsi:type="PQ" value="12.0" /> <referenceRange> < observationRange> <text>(12mL STD)</text> </ observationRange> </referenceRange> </observation> </ component> <component> <observation moodCode="EVN" classCode="OBS"> <templateId root="03.28.840.1.571599.11.29.21.4.2" /> <id nullFlavor="NA" /> <code codeSystem="local" code="WBCU" displayName=" UA WBC" /> <statusCode code="completed" /> <effectiveTime value="254221511549" /> <value unit="wbc/hpf" xsi:type="PQ" value="5-10 " /> <interpretationCode codeSystem="local" code="*" /> < referenceRange> <observationRange> <text>0 - 5</text> </observationRange> </referenceRange> </observation> </component> </organizer> </entry> <entry> <organizer moodCode="EVN " classCode="BATTERY"> <templateId root="03.28.840.1.635999.11.29.21.4.1" / > <id nullFlavor="NA" /> <code codeSystem="local" code="PREGU" displayName="UR TEST" /> <statusCode code="completed" /> < component> <observation moodCode="EVN" classCode="OBS"> < templateId root="03.28.840.1.911742.11.29.21.4.2" /> <id nullFlavor="NA " /> <code codeSystem="local" code="PREGU" displayName="UR TEST" /> <statusCode code="completed" /> <effectiveTime value= "934990723186" /> <value unit="" xsi:type="PQ" value="NEGATIVE" /> <referenceRange> <observationRange> <text>NEGATIVE </text> </observationRange> </referenceRange> </ observation> </component> </organizer> </entry> <entry> <organizer moodCode="EVN" classCode="BATTERY"> <templateId root= "03.28.840.1.773682.11.29.21.4.1" /> <id nullFlavor="NA" /> <code codeSystem="local" code="CBCD" displayName="CBC W/DIFF" /> <statusCode code ="completed" /> <component> <observation moodCode="EVN" classCode= "OBS"> <templateId root="03.28.840.1.096310.11.29.21.4.2" /> < id nullFlavor="NA" /> <code codeSystem="local" code="BA#" displayName= "BASOPHIL #" /> <statusCode code="completed" /> < effectiveTime value="216375816487" /> <value unit="k/cumm" xsi:type="PQ " value="0.1" /> <referenceRange> <observationRange> <text>0.0-0.2</text> </observationRange> </ referenceRange> </observation> </component> <component> <observation moodCode="EVN" classCode="OBS"> <templateId root= "16.840.1.420971.11.29.21.4.2" /> <id nullFlavor="NA" /> < code codeSystem="local" code="BA%" displayName="BASOPHIL %" /> <statusCode code="completed" /> <effectiveTime value="987686149448" /> <value unit="%" xsi:type="PQ" value="2" /> < interpretationCode codeSystem="local" code="*" /> <referenceRange> <observationRange> <text>0-1</text> </ observationRange> </referenceRange> </observation> </ component> <component> <observation moodCode="EVN" classCode="OBS"> <templateId root="2.16.840.1.677061.10...4.2" /> <id nullFlavor="NA" /> <code codeSystem="local" code="CBCCOM" displayName= "COMMENT" /> <statusCode code="completed" /> <effectiveTime value="377205443745" /> <value unit="" xsi:type="PQ" value="REVIEWED" / > <referenceRange> <observationRange> <text /> </observationRange> </referenceRange> </observation > </component> <component> <observation moodCode="EVN" classCode="OBS"> <templateId root="2.16.840.1.913978.10.20.22.4.2" /> <id nullFlavor="NA" /> <code codeSystem="local" code="GR#" displayName="GRANULOCYTE #" /> <statusCode code="completed" /> <effectiveTime value="065629317054" /> <value unit="k/cumm" xsi:type= "PQ" value="1.9" /> <interpretationCode codeSystem="local" code="*" /> <referenceRange> <observationRange> <text>2.0- 9.0</text> </observationRange> </referenceRange> </ observation> </component> <component> <observation moodCode= "EVN" classCode="OBS"> <templateId root="16.840.1.243633.10...4.2 " /> <id nullFlavor="NA" /> <code codeSystem="local" code="GR& #37;" displayName="GRANULOCYTE %" /> <statusCode code="completed" / > <effectiveTime value="860438438593" /> <value unit="%" xsi:type="PQ" value="42" /> <interpretationCode codeSystem="local" code ="*" /> <referenceRange> <observationRange> < text>50-75</text> </observationRange> </referenceRange> </observation> </component> <component> <observation moodCode="EVN" classCode="OBS"> <templateId root= "03.28.840.1.633020.11.29.21.4.2" /> <id nullFlavor="NA" /> < code codeSystem="local" code="LY#" displayName="LYMPHOCYTE #" /> < statusCode code="completed" /> <effectiveTime value="534456538137" /> <value unit="k/cumm" xsi:type="PQ" value="1.9" /> < referenceRange> <observationRange> <text>1.0-4.0</text> </observationRange> </referenceRange> </observation > </component> <component> <observation moodCode="EVN" classCode="OBS"> <templateId root="03.28.840.1.123444.10.22.4.2" /> <id nullFlavor="NA" /> <code codeSystem="local" code="LY% " displayName="LYMPHOCYTE %" /> <statusCode code="completed" /> <effectiveTime value="496557848474" /> <value unit="%" xsi: type="PQ" value="42" /> <interpretationCode codeSystem="local" code="* " /> <referenceRange> <observationRange> <text> 20-30</text> </observationRange> </referenceRange> </ observation> </component> <component> <observation moodCode= "EVN" classCode="OBS"> <templateId root="216.840.1.521037.10...4.2 " /> <id nullFlavor="NA" /> <code codeSystem="local" code="MCH " displayName="MEAN CELL HGB" /> <statusCode code="completed" /> <effectiveTime value="652357863931" /> <value unit="pg" xsi:type= "PQ" value="29.6" /> <referenceRange> <observationRange> <text>27.0-33.0</text> </observationRange> </ referenceRange> </observation> </component> <component> <observation moodCode="EVN" classCode="OBS"> <templateId root= "03.28.840.1.171949.10..4.2" /> <id nullFlavor="NA" /> < code codeSystem="local" code="MCHC" displayName="MEAN CELL HGB CONCENTRATION" / > <statusCode code="completed" /> <effectiveTime value= "507028515408" /> <value unit="g/dL" xsi:type="PQ" value="34.5" /> <referenceRange> <observationRange> <text>32.0- 37.0</text> </observationRange> </referenceRange> </ observation> </component> <component> <observation moodCode= "EVN" classCode="OBS"> <templateId root="03.28.840.1.154974.10..22.4.2 " /> <id nullFlavor="NA" /> <code codeSystem="local" code="MCV " displayName="MEAN CELL VOLUME" /> <statusCode code="completed" /> <effectiveTime value="861672216246" /> <value unit="fl" xsi:type ="PQ" value="85.8" /> <referenceRange> <observationRange> <text>80.0-100.0</text> </observationRange> </ referenceRange> </observation> </component> <component> <observation moodCode="EVN" classCode="OBS"> <templateId root= "216.840.1.973261.10..22.4.2" /> <id nullFlavor="NA" /> < code codeSystem="local" code="MO#" displayName="MONOCYTE #" /> < statusCode code="completed" /> <effectiveTime value="922099205580" /> <value unit="k/cumm" xsi:type="PQ" value="0.6" /> < referenceRange> <observationRange> <text>0.1-1.0</text> </observationRange> </referenceRange> </observation > </component> <component> <observation moodCode="EVN" classCode="OBS"> <templateId root="2.16.840.1.676669.10..22.4.2" /> <id nullFlavor="NA" /> <code codeSystem="local" code="MO% " displayName="MONOCYTE %" /> <statusCode code="completed" /> <effectiveTime value="190513489249" /> <value unit="%" xsi: type="PQ" value="14" /> <interpretationCode codeSystem="local" code="* " /> <referenceRange> <observationRange> <text> 4-6</text> </observationRange> </referenceRange> </ observation> </component> <component> <observation moodCode= "EVN" classCode="OBS"> <templateId root="216.840.1.173627.10..4.2 " /> <id nullFlavor="NA" /> <code codeSystem="local" code="RBC " displayName="RED BLOOD CELL" /> <statusCode code="completed" /> <effectiveTime value="585819978672" /> <value unit="m/cumm" xsi: type="PQ" value="4.59" /> <referenceRange> <observationRange > <text>4.00-6.00</text> </observationRange> </ referenceRange> </observation> </component> <component> <observation moodCode="EVN" classCode="OBS"> <templateId root= "216.840.1.972906...4.2" /> <id nullFlavor="NA" /> < code codeSystem="local" code="RDW" displayName="RED CELL DISTRIBUTION WIDTH" /> <statusCode code="completed" /> <effectiveTime value= "055620554234" /> <value unit="%" xsi:type="PQ" value="13.4" /> <referenceRange> <observationRange> <text>11.0- 15.6</text> </observationRange> </referenceRange> </ observation> </component> <component> <observation moodCode= "EVN" classCode="OBS"> <templateId root="16.840.1.007235.10..22.4.2 " /> <id nullFlavor="NA" /> <code codeSystem="local" code="WBC " displayName="WHITE BLOOD CELL" /> <statusCode code="completed" /> <effectiveTime value="759984428606" /> <value unit="k/cumm" xsi: type="PQ" value="4.5" /> <interpretationCode codeSystem="local" code="* " /> <referenceRange> <observationRange> <text> 5.0-10.0</text> </observationRange> </referenceRange> </observation> </component> <component> <observation moodCode ="EVN" classCode="OBS"> <templateId root= "16.840.1.337358.10..22.4.2" /> <id nullFlavor="NA" /> < code codeSystem="local" code="HGBT" displayName="HEMOGLOBIN" /> < statusCode code="completed" /> <effectiveTime value="063868674130" /> <value unit="gm/dL" xsi:type="PQ" value="13.6" /> < referenceRange> <observationRange> <text>12.0-16.0</text > </observationRange> </referenceRange> </observation > </component> <component> <observation moodCode="EVN" classCode="OBS"> <templateId root="840.1.500739.10..4.2" /> <id nullFlavor="NA" /> <code codeSystem="local" code="HCTT" displayName="HEMATOCRIT" /> <statusCode code="completed" /> < effectiveTime value="195050489880" /> <value unit="%" xsi:type="PQ " value="39.4" /> <referenceRange> <observationRange> <text>37.0-47.0</text> </observationRange> </ referenceRange> </observation> </component> <component> <observation moodCode="EVN" classCode="OBS"> <templateId root= "03.28.840.1.696940.10..22.4.2" /> <id nullFlavor="NA" /> < code codeSystem="local" code="PLT" displayName="PLATELET COUNT" /> < statusCode code="completed" /> <effectiveTime value="068893770532" /> <value unit="k/cumm" xsi:type="PQ" value="155" /> < referenceRange> <observationRange> <text>150-400</text> </observationRange> </referenceRange> </observation > </component> </organizer> </entry> <entry> <organizer moodCode= "EVN" classCode="BATTERY"> <templateId root="03.28.840.1.286127.10..22.4.1 " /> <id nullFlavor="NA" /> <code codeSystem="local" code="LIVER" displayName="HEPATIC FUNCTION PANEL" /> <statusCode code="completed" /> <component> <observation moodCode="EVN" classCode="OBS"> < templateId root="03.28.840.1.806267.10..22.4.2" /> <id nullFlavor="NA " /> <code codeSystem="local" code="BILUC" displayName="BILI UNCONJUGATED" /> <statusCode code="completed" /> < effectiveTime value="399713574651" /> <value unit="mg/dL" xsi:type="PQ " value="0.8" /> <interpretationCode codeSystem="local" code="*" /> <referenceRange> <observationRange> <text>0.0-0.7 </text> </observationRange> </referenceRange> </ observation> </component> <component> <observation moodCode= "EVN" classCode="OBS"> <templateId root="03.28.840.1.472123.10..22.4.2 " /> <id nullFlavor="NA" /> <code codeSystem="local" code="AST " displayName="AST/SGOT" /> <statusCode code="completed" /> < effectiveTime value="641060724236" /> <value unit="Units/L" xsi:type= "PQ" value="91" /> <interpretationCode codeSystem="local" code="*" /> <referenceRange> <observationRange> <text>10-37 </text> </observationRange> </referenceRange> </ observation> </component> <component> <observation moodCode= "EVN" classCode="OBS"> <templateId root="216.840.1.390505.10.20.22.4.2 " /> <id nullFlavor="NA" /> <code codeSystem="local" code="ALT " displayName="ALT/SGPT" /> <statusCode code="completed" /> < effectiveTime value="908100823699" /> <value unit="Units/L" xsi:type= "PQ" value="69" /> <interpretationCode codeSystem="local" code="*" /> <referenceRange> <observationRange> <text>< 66</text> </observationRange> </referenceRange> </ observation> </component> <component> <observation moodCode= "EVN" classCode="OBS"> <templateId root="16.840.1.761987.10.20.22.4.2 " /> <id nullFlavor="NA" /> <code codeSystem="local" code="TP " displayName="TOTAL PROTEIN" /> <statusCode code="completed" /> <effectiveTime value="433659748468" /> <value unit="gm/dL" xsi:type ="PQ" value="7.2" /> <referenceRange> <observationRange> <text>6.4-8.2</text> </observationRange> </ referenceRange> </observation> </component> <component> <observation moodCode="EVN" classCode="OBS"> <templateId root= "03.28.840.1.219841.10..22.4.2" /> <id nullFlavor="NA" /> < code codeSystem="local" code="ALB" displayName="ALBUMIN" /> < statusCode code="completed" /> <effectiveTime value="052632258227" /> <value unit="gm/dL" xsi:type="PQ" value="3.2" /> < interpretationCode codeSystem="local" code="*" /> <referenceRange> <observationRange> <text>3.4-5.0</text> </ observationRange> </referenceRange> </observation> </ component> <component> <observation moodCode="EVN" classCode="OBS"> <templateId root="840.1.004526.11.29.21.4.2" /> <id nullFlavor="NA" /> <code codeSystem="local" code="BILTOT" displayName= "BILI TOTAL" /> <statusCode code="completed" /> < effectiveTime value="818580543369" /> <value unit="mg/dL" xsi:type="PQ " value="1.5" /> <interpretationCode codeSystem="local" code="*" /> <referenceRange> <observationRange> <text>0.0-1.0 </text> </observationRange> </referenceRange> </ observation> </component> <component> <observation moodCode= "EVN" classCode="OBS"> <templateId root="03.28.840.1.869476.11.29.21.4.2 " /> <id nullFlavor="NA" /> <code codeSystem="local" code= "ALKP" displayName="ALKALINE PHOSPHATASE TOTAL" /> <statusCode code= "completed" /> <effectiveTime value="935001473824" /> <value unit="IU/L" xsi:type="PQ" value="118" /> <interpretationCode codeSystem ="local" code="*" /> <referenceRange> <observationRange> <text>45-117</text> </observationRange> </ referenceRange> </observation> </component> <component> <observation moodCode="EVN" classCode="OBS"> <templateId root= "03.28.840.1.366338.11.29.21.4.2" /> <id nullFlavor="NA" /> < code codeSystem="local" code="BILC" displayName="BILI CONJUGATED" /> < statusCode code="completed" /> <effectiveTime value="836624621942" /> <value unit="mg/dL" xsi:type="PQ" value="0.7" /> < interpretationCode codeSystem="local" code="*" /> <referenceRange> <observationRange> <text>0.0-0.3</text> </ observationRange> </referenceRange> </observation> </ component> </organizer> </entry> <entry> <organizer moodCode="EVN" classCode="BATTERY"> <templateId root="03.28.840.1.946964.10..4.1" /> <id nullFlavor="NA" /> <code codeSystem="local" code="LIP" displayName ="LIPASE" /> <statusCode code="completed" /> <component> < observation moodCode="EVN" classCode="OBS"> <templateId root= "03.28.840.1.054948.11.29.21.4.2" /> <id nullFlavor="NA" /> < code codeSystem="local" code="LIP" displayName="LIPASE" /> <statusCode code="completed" /> <effectiveTime value="663191867792" /> < value unit="Units/L" xsi:type="PQ" value="169" /> <referenceRange> <observationRange> <text>73-393</text> </ observationRange> </referenceRange> </observation> </ component> </organizer> </entry> <entry> <organizer moodCode="EVN" classCode="BATTERY"> <templateId root="16.840.1.328208.10..4.1" /> <id nullFlavor="NA" /> <code codeSystem="local" code="MONO" displayName="INFECTIOUS MONO SCREEN" /> <statusCode code="completed" /> <component> <observation moodCode="EVN" classCode="OBS"> < templateId root="16.840.1.111955.10..4.2" /> <id nullFlavor="NA " /> <code codeSystem="local" code="MONO" displayName="INFECTIOUS MONO SCREEN" /> <statusCode code="completed" /> <effectiveTime value="180307389202" /> <value unit="" xsi:type="PQ" value="POSITIVE" / > <interpretationCode codeSystem="local" code="*" /> < referenceRange> <observationRange> <text>NEGATIVE</text > </observationRange> </referenceRange> </observation > </component> </organizer> </entry> <entry> <organizer moodCode= "EVN" classCode="BATTERY"> <templateId root="03.28.840.1.549875.10.4.1 " /> <id nullFlavor="NA" /> <code codeSystem="local" code="HEPAT" displayName="HEPATITIS PANEL-ACUTE" /> <statusCode code="completed" /> <component> <observation moodCode="EVN" classCode="OBS"> < templateId root="03.28.840.1.387364...22.4.2" /> <id nullFlavor="NA " /> <code codeSystem="local" code="HAVMAB" displayName="AB HEPATITIS A IGM" /> <statusCode code="completed" /> <effectiveTime value ="589208446071" /> <value unit="" xsi:type="PQ" value="NEGATIVE" /> <referenceRange> <observationRange> <text> NEGATIVE</text> </observationRange> </referenceRange> </observation> </component> <component> <observation moodCode ="EVN" classCode="OBS"> <templateId root= "216.840.1.935313.11.29.21.4.2" /> <id nullFlavor="NA" /> < code codeSystem="local" code="HBSAG" displayName="AG HEPATITIS B SURF." /> <statusCode code="completed" /> <effectiveTime value="424170153121 " /> <value unit="" xsi:type="PQ" value="NEGATIVE" /> < referenceRange> <observationRange> <text>NEGATIVE</text > </observationRange> </referenceRange> </observation > </component> <component> <observation moodCode="EVN" classCode="OBS"> <templateId root="2.16.840.1.113924.11.29.21.4.2" /> <id nullFlavor="NA" /> <code codeSystem="local" code="HBCMAB" displayName="AB HEPATITIS B CORE IGM" /> <statusCode code="completed" / > <effectiveTime value="" /> <value unit="" xsi: type="PQ" value="NEGATIVE" /> <referenceRange> < observationRange> <text>NEGATIVE</text> </ observationRange> </referenceRange> </observation> </ component> <component> <observation moodCode="EVN" classCode="OBS"> <templateId root="03.28.840.1.050502.10..22.4.2" /> <id nullFlavor="NA" /> <code codeSystem="local" code="HCVAB" displayName= "AB HEPATITIS C" /> <statusCode code="completed" /> < effectiveTime value="896757528945" /> <value unit="" xsi:type="PQ" value="NEGATIVE" /> <referenceRange> <observationRange> <text>NEGATIVE</text> </observationRange> </ referenceRange> </observation> </component> </organizer> </entry > <entry> <organizer moodCode="EVN" classCode="BATTERY"> <templateId root="03.28.840.1.262692.10.4.1" /> <id nullFlavor="NA" /> <code codeSystem="local" code="iCHEM8" displayName="CHEM/HEM PROFILE-BEDSIDE" /> <statusCode code="completed" /> <component> <observation moodCode= "EVN" classCode="OBS"> <templateId root="03.28.840.1.198612.11.29.21.4.2 " /> <id nullFlavor="NA" /> <code codeSystem="local" code="K" displayName="POTASSIUM" /> <statusCode code="completed" /> < effectiveTime value="620481631091" /> <value unit="mmol/L" xsi:type="PQ " value="3.6" /> <referenceRange> <observationRange> <text>3.5-5.3</text> </observationRange> </ referenceRange> </observation> </component> <component> <observation moodCode="EVN" classCode="OBS"> <templateId root= "03.28.840.1.404948.11.29.21.4.2" /> <id nullFlavor="NA" /> < code codeSystem="local" code="CMETHOD" displayName="METHOD" /> < statusCode code="completed" /> <effectiveTime value="104778429027" /> <value unit="" xsi:type="PQ" value="Bedside" /> < referenceRange> <observationRange> <text /> < /observationRange> </referenceRange> </observation> </ component> <component> <observation moodCode="EVN" classCode="OBS"> <templateId root="03.28.840.1.060022.22.4.2" /> <id nullFlavor="NA" /> <code codeSystem="local" code="GAP" displayName= "ANION GAP" /> <statusCode code="completed" /> <effectiveTime value="499795281487" /> <value unit="mmol/L" xsi:type="PQ" value="13" / > <referenceRange> <observationRange> <text>10- 20</text> </observationRange> </referenceRange> </ observation> </component> <component> <observation moodCode= "EVN" classCode="OBS"> <templateId root="03.28.840.1.698956.22.4.2 " /> <id nullFlavor="NA" /> <code codeSystem="local" code= "HMETHOD" displayName="METHOD" /> <statusCode code="completed" /> <effectiveTime value="415028875071" /> <value unit="" xsi:type="PQ " value="Bedside" /> <referenceRange> <observationRange> <text /> </observationRange> </referenceRange> </observation> </component> <component> <observation moodCode="EVN" classCode="OBS"> <templateId root= "03.28.840.1.249556.11.29.21.4.2" /> <id nullFlavor="NA" /> < code codeSystem="local" code="GLU" displayName="GLUCOSE" /> < statusCode code="completed" /> <effectiveTime value="635516622377" /> <value unit="mg/dL" xsi:type="PQ" value="80" /> < referenceRange> <observationRange> <text>70-99</text> </observationRange> </referenceRange> </observation> </component> <component> <observation moodCode="EVN" classCode= "OBS"> <templateId root="2.16.840.1.355915.10..22.4.2" /> < id nullFlavor="NA" /> <code codeSystem="local" code="BUN" displayName= "BLOOD UREA NITROGEN" /> <statusCode code="completed" /> < effectiveTime value="664376157755" /> <value unit="mg/dL" xsi:type="PQ " value="11" /> <referenceRange> <observationRange> <text>7-20</text> </observationRange> </referenceRange > </observation> </component> <component> <observation moodCode="EVN" classCode="OBS"> <templateId root= "2.16.840.1.857709.10..22.4.2" /> <id nullFlavor="NA" /> < code codeSystem="local" code="CREAT" displayName="CREATININE" /> < statusCode code="completed" /> <effectiveTime value="434309203645" /> <value unit="mg/dL" xsi:type="PQ" value="1.3" /> < interpretationCode codeSystem="local" code="*" /> <referenceRange> <observationRange> <text>0.5-1.0</text> </ observationRange> </referenceRange> </observation> </ component> <component> <observation moodCode="EVN" classCode="OBS"> <templateId root="216.840.1.964777.10..4.2" /> <id nullFlavor="NA" /> <code codeSystem="local" code="HGBT" displayName= "HEMOGLOBIN" /> <statusCode code="completed" /> < effectiveTime value="952452998611" /> <value unit="gm/dL" xsi:type="PQ " value="12.2" /> <referenceRange> <observationRange> <text>12.0-16.0</text> </observationRange> </ referenceRange> </observation> </component> <component> <observation moodCode="EVN" classCode="OBS"> <templateId root= "216.840.1.661345.11.29.21.4.2" /> <id nullFlavor="NA" /> < code codeSystem="local" code="HCTT" displayName="HEMATOCRIT" /> < statusCode code="completed" /> <effectiveTime value="147157262509" /> <value unit="%" xsi:type="PQ" value="36.0" /> < interpretationCode codeSystem="local" code="*" /> <referenceRange> <observationRange> <text>37.0-47.0</text> </ observationRange> </referenceRange> </observation> </ component> <component> <observation moodCode="EVN" classCode="OBS"> <templateId root="16.840.1.085262.11.29.21.4.2" /> <id nullFlavor="NA" /> <code codeSystem="local" code="NA" displayName= "SODIUM" /> <statusCode code="completed" /> <effectiveTime value="880354688240" /> <value unit="mmol/L" xsi:type="PQ" value="135" /> <referenceRange> <observationRange> <text> 135-148</text> </observationRange> </referenceRange> </observation> </component> <component> <observation moodCode= "EVN" classCode="OBS"> <templateId root="216.840.1.128513.10..22.4.2 " /> <id nullFlavor="NA" /> <code codeSystem="local" code="CL " displayName="CHLORIDE" /> <statusCode code="completed" /> < effectiveTime value="868302874603" /> <value unit="mmol/L" xsi:type="PQ " value="105" /> <referenceRange> <observationRange> <text>98-110</text> </observationRange> </ referenceRange> </observation> </component> <component> <observation moodCode="EVN" classCode="OBS"> <templateId root= "03.28.840.1.338437.10...4.2" /> <id nullFlavor="NA" /> < code codeSystem="local" code="CO2" displayName="CARBON DIOXIDE" /> < statusCode code="completed" /> <effectiveTime value="072141152272" /> <value unit="mmol/L" xsi:type="PQ" value="21" /> < referenceRange> <observationRange> <text>21-32</text> </observationRange> </referenceRange> </observation> </component> <component> <observation moodCode="EVN" classCode= "OBS"> <templateId root="03.28.840.1.524187.10..22.4.2" /> < id nullFlavor="NA" /> <code codeSystem="local" code="CAION" displayName ="CALCIUM IONIZED" /> <statusCode code="completed" /> < effectiveTime value="562141880578" /> <value unit="mg/dL" xsi:type="PQ " value="4.4" /> <interpretationCode codeSystem="local" code="*" /> <referenceRange> <observationRange> <text>4.5-5.3 </text> </observationRange> </referenceRange> </ observation> </component> </organizer> </entry> <entry> <organizer moodCode="EVN" classCode="BATTERY"> <templateId root= "2.16.840.1.873520.10..22.4.1" /> <id nullFlavor="NA" /> <code codeSystem="local" code="UA" displayName="URINALYSIS, ROUTINE" /> < statusCode code="completed" /> <component> <observation moodCode= "EVN" classCode="OBS"> <templateId root="2.16.840.1.015664.10...4.2 " /> <id nullFlavor="NA" /> <code codeSystem="local" code= "LEUESU" displayName="UA LEUKOCYTE ESTERASE DIPSTICK" /> <statusCode code="completed" /> <effectiveTime value="756444592915" /> < value unit="" xsi:type="PQ" value="TRACE" /> <referenceRange> <observationRange> <text>NEGATIVE</text> </ observationRange> </referenceRange> </observation> </ component> <component> <observation moodCode="EVN" classCode="OBS"> <templateId root="216.840.1.217427.10..4.2" /> <id nullFlavor="NA" /> <code codeSystem="local" code="NITRIU" displayName= "UA NITRITE DIPSTICK" /> <statusCode code="completed" /> < effectiveTime value="" /> <value unit="" xsi:type="PQ" value="NEGATIVE" /> <referenceRange> <observationRange> <text>NEGATIVE</text> </observationRange> </ referenceRange> </observation> </component> <component> <observation moodCode="EVN" classCode="OBS"> <templateId root= "16.840.1.695002.11.29.21.4.2" /> <id nullFlavor="NA" /> < code codeSystem="local" code="PROTEIU" displayName="UA PROTEIN DIPSTICK" /> <statusCode code="completed" /> <effectiveTime value= "" /> <value unit="" xsi:type="PQ" value="TRACE" /> <referenceRange> <observationRange> <text>NEGATIVE</ text> </observationRange> </referenceRange> </ observation> </component> <component> <observation moodCode= "EVN" classCode="OBS"> <templateId root="03.28.840.1.909471.11.29.21.4.2 " /> <id nullFlavor="NA" /> <code codeSystem="local" code= "DGLUU" displayName="UA GLUCOSE DIPSTICK" /> <statusCode code= "completed" /> <effectiveTime value="" /> <value unit="" xsi:type="PQ" value="NEGATIVE" /> <referenceRange> < observationRange> <text>NEGATIVE</text> </ observationRange> </referenceRange> </observation> </ component> <component> <observation moodCode="EVN" classCode="OBS"> <templateId root="03.28.840.1.278403.11.29.21.4.2" /> <id nullFlavor="NA" /> <code codeSystem="local" code="KETONU" displayName= "UA KETONE DIPSTICK" /> <statusCode code="completed" /> < effectiveTime value="773829303374" /> <value unit="" xsi:type="PQ" value="2+" /> <interpretationCode codeSystem="local" code="*" /> <referenceRange> <observationRange> <text>NEGATIVE</ text> </observationRange> </referenceRange> </ observation> </component> <component> <observation moodCode= "EVN" classCode="OBS"> <templateId root="216.840.1.016463.10..22.4.2 " /> <id nullFlavor="NA" /> <code codeSystem="local" code= "UROBILU" displayName="UA UROBILINOGEN DIPSTICK" /> <statusCode code= "completed" /> <effectiveTime value="082604143640" /> <value unit="" xsi:type="PQ" value="2+" /> <interpretationCode codeSystem= "local" code="*" /> <referenceRange> <observationRange> <text>NORMAL</text> </observationRange> </ referenceRange> </observation> </component> <component> <observation moodCode="EVN" classCode="OBS"> <templateId root= "216.840.1.028988.10..22.4.2" /> <id nullFlavor="NA" /> < code codeSystem="local" code="BILU" displayName="UA BILIRUBIN DIPSTICK" /> <statusCode code="completed" /> <effectiveTime value="298656775346 " /> <value unit="" xsi:type="PQ" value="2+" /> < interpretationCode codeSystem="local" code="*" /> <referenceRange> <observationRange> <text>NEGATIVE</text> </ observationRange> </referenceRange> </observation> </ component> <component> <observation moodCode="EVN" classCode="OBS"> <templateId root="216.840.1.706129.10..4.2" /> <id nullFlavor="NA" /> <code codeSystem="local" code="CAROLE" displayName="UA BLOOD DIPSTICK" /> <statusCode code="completed" /> < effectiveTime value="" /> <value unit="" xsi:type="PQ" value="TRACE" /> <interpretationCode codeSystem="local" code="*" /> <referenceRange> <observationRange> <text> NEGATIVE</text> </observationRange> </referenceRange> </observation> </component> <component> <observation moodCode ="EVN" classCode="OBS"> <templateId root= "16.840.1.913869.11.29.214.2" /> <id nullFlavor="NA" /> < code codeSystem="local" code="SPGRU" displayName="UA SPECIFIC GRAVITY" /> <statusCode code="completed" /> <effectiveTime value=" " /> <value unit="" xsi:type="PQ" value="1.010" /> < interpretationCode codeSystem="local" code="*" /> <referenceRange> <observationRange> <text>1.015-1.025</text> </ observationRange> </referenceRange> </observation> </ component> <component> <observation moodCode="EVN" classCode="OBS"> <templateId root="16.840.1.149509.11.29.21.4.2" /> <id nullFlavor="NA" /> <code codeSystem="local" code="ECTOR" displayName="UR PH" /> <statusCode code="completed" /> <effectiveTime value= "" /> <value unit="" xsi:type="PQ" value="5.5" /> <referenceRange> <observationRange> <text>5.0-7.0</text > </observationRange> </referenceRange> </observation > </component> </organizer> </entry> <entry> <organizer moodCode= "EVN" classCode="BATTERY"> <templateId root="03.28.840.1.471576.10..22.4.1 " /> <id nullFlavor="NA" /> <code codeSystem="local" code="UAMICRO" displayName="UA MICROSCOPIC" /> <statusCode code="completed" /> < component> <observation moodCode="EVN" classCode="OBS"> < templateId root="16.840.1.436382.10..22.4.2" /> <id nullFlavor="NA " /> <code codeSystem="local" code="BACU" displayName="UA BACTERIA" /> <statusCode code="completed" /> <effectiveTime value= "899644145416" /> <value unit="" xsi:type="PQ" value="2+" /> < interpretationCode codeSystem="local" code="*" /> <referenceRange> <observationRange> <text>NEGATIVE</text> </ observationRange> </referenceRange> </observation> </ component> <component> <observation moodCode="EVN" classCode="OBS"> <templateId root="03.28.840.1.616539.10..22.4.2" /> <id nullFlavor="NA" /> <code codeSystem="local" code="EPIU" displayName=" UA EPITHELIAL CELLS" /> <statusCode code="completed" /> < effectiveTime value="743787075842" /> <value unit="epi/hpf" xsi:type= "PQ" value="4+" /> <interpretationCode codeSystem="local" code="*" /> <referenceRange> <observationRange> <text>0 - 1 +</text> </observationRange> </referenceRange> </ observation> </component> <component> <observation moodCode= "EVN" classCode="OBS"> <templateId root="216.840.1.177488.10.22.4.2 " /> <id nullFlavor="NA" /> <code codeSystem="local" code= "RBCU" displayName="UA RBC" /> <statusCode code="completed" /> <effectiveTime value="554242173160" /> <value unit="rbc/hpf" xsi:type ="PQ" value="3-5" /> <interpretationCode codeSystem="local" code="*" / > <referenceRange> <observationRange> <text>0 - 3</text> </observationRange> </referenceRange> </ observation> </component> <component> <observation moodCode= "EVN" classCode="OBS"> <templateId root="03.28.840.1.755368.11.29.21.4.2 " /> <id nullFlavor="NA" /> <code codeSystem="local" code= "UAVOL" displayName="UA VOLUME FOR EXAM" /> <statusCode code="completed " /> <effectiveTime value="443520139014" /> <value unit="mL" xsi:type="PQ" value="12.0" /> <referenceRange> < observationRange> <text>(12mL STD)</text> </ observationRange> </referenceRange> </observation> </ component> <component> <observation moodCode="EVN" classCode="OBS"> <templateId root="16.840.1.422511.10..22.4.2" /> <id nullFlavor="NA" /> <code codeSystem="local" code="WBCU" displayName=" UA WBC" /> <statusCode code="completed" /> <effectiveTime value="941421082177" /> <value unit="wbc/hpf" xsi:type="PQ" value="5-10 " /> <interpretationCode codeSystem="local" code="*" /> < referenceRange> <observationRange> <text>0 - 5</text> </observationRange> </referenceRange> </observation> </component> </organizer> </entry> <entry> <organizer moodCode="EVN " classCode="BATTERY"> <templateId root="216.840.1.804730.10..22.4.1" / > <id nullFlavor="NA" /> <code codeSystem="local" code="PREGU" displayName="UR TEST" /> <statusCode code="completed" /> < component> <observation moodCode="EVN" classCode="OBS"> < templateId root="216.840.1.993854.10..22.4.2" /> <id nullFlavor="NA " /> <code codeSystem="local" code="PREGU" displayName="UR TEST" /> <statusCode code="completed" /> <effectiveTime value= "270427565598" /> <value unit="" xsi:type="PQ" value="NEGATIVE" /> <referenceRange> <observationRange> <text>NEGATIVE </text> </observationRange> </referenceRange> </ observation> </component> </organizer> </entry> <entry> <organizer moodCode="EVN" classCode="BATTERY"> <templateId root= "216.840.1.579546.10..22.4.1" /> <id nullFlavor="NA" /> <code codeSystem="local" code="VRP" displayName="VIRUS RESPIRATORY PROFILE" /> < statusCode code="completed" /> <component> <observation moodCode= "EVN" classCode="OBS"> <templateId root="2.16.840.1.232643.10..22.4.2 " /> <id nullFlavor="NA" /> <code codeSystem="local" code="MB " displayName="Microbiology" /> <statusCode code="completed" /> <effectiveTime value="555453746716" /> <value xsi:type="ST" value="< pre><b>RESPIRATORY PROFILE</b> See BelowRESPIRATORY PROFILE(F) Nessa Date /Time: 11/13/2015 14:11 Ariela Date/Time: // :SOURCE : NASOPHARYNGEALSPEC DESC: See BelowRESPIRATORY PROFILE(F) Nessa Date/ Time: 11/13/2015 14:11 Ariela Date/Time: 11/13/2015 21:16SOURCE: NASOPHARYNGEALSPEC DESC: ADENOVIRUSNOT DETECTEDBORDETELLA PERTUSSISNOT DETECTEDCHLAMYDIA PNEUMONIAENOT DETECTEDCORONAVIRUS 229ENOT DETECTEDCORONAVIRUS [id number] DETECTEDCORONAVIRUS [id number] DETECTEDCORONAVIRUS FU99NOH DETECTEDHUMAN METAPNEUMOVIRUSNOT DETECTEDINFLUENZA A 2009 H1NOT DETECTEDINFLUENZA A H1NOT DETECTEDINFLUENZA A H3NOT DETECTEDINFLUENZA ANOT DETECTEDINFLUENZA BNOT DETECTEDMYCOPLASMA PNEUMONIAENOT DETECTEDPARAINFLUENZA 1NOT DETECTEDPARAINFLUENZA 2NOT DETECTEDPARAINFLUENZA 3NOT DETECTEDPARAINFLUENZA 4NOT DETECTEDRHINOVIRUS/ENTEROVIRUSNOT DETECTEDRSVNOT DETECTEDNELSON [facility] SYSTEM[address] [place] [address]</pre>" /> <referenceRange> <observationRange> <text /> </observationRange> </referenceRange> </observation> </ component> </organizer> </entry> <entry> <organizer moodCode="EVN" classCode="BATTERY"> <templateId root="2.16.840.1.373617.10..22.4.1" /> <id nullFlavor="NA" /> <code codeSystem="local" code="METABC" displayName="METABOLIC PANEL, COMPREHN" /> <statusCode code="completed" /> <component> <observation moodCode="EVN" classCode="OBS"> < templateId root="03.28.840.1.001912.10...4.2" /> <id nullFlavor="NA " /> <code codeSystem="local" code="K" displayName="POTASSIUM" /> <statusCode code="completed" /> <effectiveTime value="605328111557 " /> <value unit="mmol/L" xsi:type="PQ" value="3.2" /> < interpretationCode codeSystem="local" code="*" /> <referenceRange> <observationRange> <text>3.5-5.3</text> </ observationRange> </referenceRange> </observation> </ component> <component> <observation moodCode="EVN" classCode="OBS"> <templateId root="840.1.953755...4.2" /> <id nullFlavor="NA" /> <code codeSystem="local" code="eGFR" displayName= "EST GFR (MDRD)" /> <statusCode code="completed" /> < effectiveTime value="117472254355" /> <value unit="mL/min" xsi:type="PQ " value="59" /> <interpretationCode codeSystem="local" code="*" /> <referenceRange> <observationRange> <text>> 59< /text> </observationRange> </referenceRange> </ observation> </component> <component> <observation moodCode= "EVN" classCode="OBS"> <templateId root="03.28.840.1.497884.10...4.2 " /> <id nullFlavor="NA" /> <code codeSystem="local" code="GAP " displayName="ANION GAP" /> <statusCode code="completed" /> < effectiveTime value="" /> <value unit="mmol/L" xsi:type="PQ " value="9" /> <referenceRange> <observationRange> <text>5-15</text> </observationRange> </referenceRange > </observation> </component> <component> <observation moodCode="EVN" classCode="OBS"> <templateId root= "2.16.840.1.210878.10..22.4.2" /> <id nullFlavor="NA" /> < code codeSystem="local" code="eCrCl" displayName="EST CrCl (CG)" /> < statusCode code="completed" /> <effectiveTime value="" /> <value unit="mL/min" xsi:type="PQ" value="> 60" /> < referenceRange> <observationRange> <text>> 59</text> </observationRange> </referenceRange> </observation > </component> <component> <observation moodCode="EVN" classCode="OBS"> <templateId root="2.16.840.1.170921.10..22.4.2" /> <id nullFlavor="NA" /> <code codeSystem="local" code="GLU" displayName="GLUCOSE" /> <statusCode code="completed" /> < effectiveTime value="" /> <value unit="mg/dL" xsi:type="PQ " value="116" /> <interpretationCode codeSystem="local" code="*" /> <referenceRange> <observationRange> <text>70-99</ text> </observationRange> </referenceRange> </ observation> </component> <component> <observation moodCode= "EVN" classCode="OBS"> <templateId root="216.840.1.812704.10..22.4.2 " /> <id nullFlavor="NA" /> <code codeSystem="local" code="CA " displayName="CALCIUM" /> <statusCode code="completed" /> < effectiveTime value="" /> <value unit="mg/dL" xsi:type="PQ " value="7.9" /> <interpretationCode codeSystem="local" code="*" /> <referenceRange> <observationRange> <text>8.5- 10.1</text> </observationRange> </referenceRange> </ observation> </component> <component> <observation moodCode= "EVN" classCode="OBS"> <templateId root="16.840.1.614998.11.29.21.4.2 " /> <id nullFlavor="NA" /> <code codeSystem="local" code="BUN " displayName="BLOOD UREA NITROGEN" /> <statusCode code="completed" /> <effectiveTime value="" /> <value unit="mg/dL" xsi:type="PQ" value="7" /> <referenceRange> < observationRange> <text>7-20</text> </observationRange> </referenceRange> </observation> </component> < component> <observation moodCode="EVN" classCode="OBS"> < templateId root="16.840.1.112287.10..22.4.2" /> <id nullFlavor="NA " /> <code codeSystem="local" code="CREAT" displayName="CREATININE" /> <statusCode code="completed" /> <effectiveTime value= "" /> <value unit="mg/dL" xsi:type="PQ" value="1.2" /> <interpretationCode codeSystem="local" code="*" /> < referenceRange> <observationRange> <text>0.5-1.0</text> </observationRange> </referenceRange> </observation > </component> <component> <observation moodCode="EVN" classCode="OBS"> <templateId root="16.840.1.641624.10..4.2" /> <id nullFlavor="NA" /> <code codeSystem="local" code="NA" displayName="SODIUM" /> <statusCode code="completed" /> < effectiveTime value="" /> <value unit="mmol/L" xsi:type="PQ " value="139" /> <referenceRange> <observationRange> <text>135-148</text> </observationRange> </ referenceRange> </observation> </component> <component> <observation moodCode="EVN" classCode="OBS"> <templateId root= "840.1.733827.11.29.21.4.2" /> <id nullFlavor="NA" /> < code codeSystem="local" code="CL" displayName="CHLORIDE" /> < statusCode code="completed" /> <effectiveTime value="" /> <value unit="mmol/L" xsi:type="PQ" value="106" /> < referenceRange> <observationRange> <text>98-110</text> </observationRange> </referenceRange> </observation> </component> <component> <observation moodCode="EVN" classCode ="OBS"> <templateId root="03.28.840.1.415190.11.29.21.4.2" /> < id nullFlavor="NA" /> <code codeSystem="local" code="AST" displayName= "AST/SGOT" /> <statusCode code="completed" /> <effectiveTime value="767233213411" /> <value unit="Units/L" xsi:type="PQ" value="80" /> <interpretationCode codeSystem="local" code="*" /> < referenceRange> <observationRange> <text>10-37</text> </observationRange> </referenceRange> </observation> </component> <component> <observation moodCode="EVN" classCode= "OBS"> <templateId root="216.840.1.447499.10..22.4.2" /> < id nullFlavor="NA" /> <code codeSystem="local" code="ALT" displayName= "ALT/SGPT" /> <statusCode code="completed" /> <effectiveTime value="869274099742" /> <value unit="Units/L" xsi:type="PQ" value="68" /> <interpretationCode codeSystem="local" code="*" /> < referenceRange> <observationRange> <text>< 66</text> </observationRange> </referenceRange> </observation > </component> <component> <observation moodCode="EVN" classCode="OBS"> <templateId root="03.28.840.1.508476.10.20.22.4.2" /> <id nullFlavor="NA" /> <code codeSystem="local" code="CO2" displayName="CARBON DIOXIDE" /> <statusCode code="completed" /> <effectiveTime value="998851639409" /> <value unit="mmol/L" xsi:type ="PQ" value="24" /> <referenceRange> <observationRange> <text>21-32</text> </observationRange> </ referenceRange> </observation> </component> <component> <observation moodCode="EVN" classCode="OBS"> <templateId root= "03.28.840.1.713732.10.22.4.2" /> <id nullFlavor="NA" /> < code codeSystem="local" code="TP" displayName="TOTAL PROTEIN" /> < statusCode code="completed" /> <effectiveTime value="" /> <value unit="gm/dL" xsi:type="PQ" value="5.9" /> < interpretationCode codeSystem="local" code="*" /> <referenceRange> <observationRange> <text>6.4-8.2</text> </ observationRange> </referenceRange> </observation> </ component> <component> <observation moodCode="EVN" classCode="OBS"> <templateId root="840.1.911402.10.4.2" /> <id nullFlavor="NA" /> <code codeSystem="local" code="ALB" displayName= "ALBUMIN" /> <statusCode code="completed" /> <effectiveTime value="" /> <value unit="gm/dL" xsi:type="PQ" value="2.4" / > <interpretationCode codeSystem="local" code="*" /> < referenceRange> <observationRange> <text>3.4-5.0</text> </observationRange> </referenceRange> </observation > </component> <component> <observation moodCode="EVN" classCode="OBS"> <templateId root="840.1.856578.10.22.4.2" /> <id nullFlavor="NA" /> <code codeSystem="local" code="BILTOT" displayName="BILI TOTAL" /> <statusCode code="completed" /> < effectiveTime value="" /> <value unit="mg/dL" xsi:type="PQ " value="1.0" /> <referenceRange> <observationRange> <text>0.0-1.0</text> </observationRange> </ referenceRange> </observation> </component> <component> <observation moodCode="EVN" classCode="OBS"> <templateId root= "16.840.1.647599.10..22.4.2" /> <id nullFlavor="NA" /> < code codeSystem="local" code="ALKP" displayName="ALKALINE PHOSPHATASE TOTAL" /> <statusCode code="completed" /> <effectiveTime value= "156222457039" /> <value unit="IU/L" xsi:type="PQ" value="102" /> <referenceRange> <observationRange> <text>45-117</ text> </observationRange> </referenceRange> </ observation> </component> </organizer> </entry> <entry> <organizer moodCode="EVN" classCode="BATTERY"> <templateId root= "03.28.840.1.639977.10...4.1" /> <id nullFlavor="NA" /> <code codeSystem="local" code="CBCD" displayName="CBC W/DIFF" /> <statusCode code ="completed" /> <component> <observation moodCode="EVN" classCode= "OBS"> <templateId root="03.28.840.1.540317.10..22.4.2" /> < id nullFlavor="NA" /> <code codeSystem="local" code="CBCCOM" displayName="COMMENT" /> <statusCode code="completed" /> < effectiveTime value="223616605575" /> <value unit="" xsi:type="PQ" value="REVIEWED" /> <referenceRange> <observationRange> <text /> </observationRange> </referenceRange> </observation> </component> <component> <observation moodCode="EVN" classCode="OBS"> <templateId root= "16.840.1.214351.11.29.21.4.2" /> <id nullFlavor="NA" /> < code codeSystem="local" code="GR#" displayName="GRANULOCYTE #" /> < statusCode code="completed" /> <effectiveTime value="287422892599" /> <value unit="k/cumm" xsi:type="PQ" value="1.7" /> < interpretationCode codeSystem="local" code="*" /> <referenceRange> <observationRange> <text>2.0-9.0</text> </ observationRange> </referenceRange> </observation> </ component> <component> <observation moodCode="EVN" classCode="OBS"> <templateId root="03.28.840.1.363474.11.29.214.2" /> <id nullFlavor="NA" /> <code codeSystem="local" code="GR%" displayName= "GRANULOCYTE %" /> <statusCode code="completed" /> < effectiveTime value="167461984493" /> <value unit="%" xsi:type="PQ " value="38" /> <interpretationCode codeSystem="local" code="*" /> <referenceRange> <observationRange> <text>50-75</ text> </observationRange> </referenceRange> </ observation> </component> <component> <observation moodCode= "EVN" classCode="OBS"> <templateId root="16.840.1.972357.11.29.21.4.2 " /> <id nullFlavor="NA" /> <code codeSystem="local" code="LY# " displayName="LYMPHOCYTE #" /> <statusCode code="completed" /> <effectiveTime value="159890972306" /> <value unit="k/cumm" xsi:type ="PQ" value="2.2" /> <referenceRange> <observationRange> <text>1.0-4.0</text> </observationRange> </ referenceRange> </observation> </component> <component> <observation moodCode="EVN" classCode="OBS"> <templateId root= "16.840.1.134979.1022.4.2" /> <id nullFlavor="NA" /> < code codeSystem="local" code="LY%" displayName="LYMPHOCYTE %" /> <statusCode code="completed" /> <effectiveTime value="831399430845" /> <value unit="%" xsi:type="PQ" value="50" /> < interpretationCode codeSystem="local" code="*" /> <referenceRange> <observationRange> <text>20-30</text> </ observationRange> </referenceRange> </observation> </ component> <component> <observation moodCode="EVN" classCode="OBS"> <templateId root="16.840.1.502611.1022.4.2" /> <id nullFlavor="NA" /> <code codeSystem="local" code="MCH" displayName= "MEAN CELL HGB" /> <statusCode code="completed" /> < effectiveTime value="646923515223" /> <value unit="pg" xsi:type="PQ" value="29.7" /> <referenceRange> <observationRange> <text>27.0-33.0</text> </observationRange> </ referenceRange> </observation> </component> <component> <observation moodCode="EVN" classCode="OBS"> <templateId root= "03.28.840.1.838756.22.4.2" /> <id nullFlavor="NA" /> < code codeSystem="local" code="MCHC" displayName="MEAN CELL HGB CONCENTRATION" / > <statusCode code="completed" /> <effectiveTime value= "506885571288" /> <value unit="g/dL" xsi:type="PQ" value="33.7" /> <referenceRange> <observationRange> <text>32.0- 37.0</text> </observationRange> </referenceRange> </ observation> </component> <component> <observation moodCode= "EVN" classCode="OBS"> <templateId root="216.840.1.590806.11.29.21.4.2 " /> <id nullFlavor="NA" /> <code codeSystem="local" code="MCV " displayName="MEAN CELL VOLUME" /> <statusCode code="completed" /> <effectiveTime value="214344625910" /> <value unit="fl" xsi:type ="PQ" value="88.1" /> <referenceRange> <observationRange> <text>80.0-100.0</text> </observationRange> </ referenceRange> </observation> </component> <component> <observation moodCode="EVN" classCode="OBS"> <templateId root= "16.840.1.884250.22.4.2" /> <id nullFlavor="NA" /> < code codeSystem="local" code="MO#" displayName="MONOCYTE #" /> < statusCode code="completed" /> <effectiveTime value="523715448969" /> <value unit="k/cumm" xsi:type="PQ" value="0.5" /> < referenceRange> <observationRange> <text>0.1-1.0</text> </observationRange> </referenceRange> </observation > </component> <component> <observation moodCode="EVN" classCode="OBS"> <templateId root="216.840.1.745377.10..4.2" /> <id nullFlavor="NA" /> <code codeSystem="local" code="MO% " displayName="MONOCYTE %" /> <statusCode code="completed" /> <effectiveTime value="139874315171" /> <value unit="%" xsi: type="PQ" value="11" /> <interpretationCode codeSystem="local" code="* " /> <referenceRange> <observationRange> <text> 4-6</text> </observationRange> </referenceRange> </ observation> </component> <component> <observation moodCode= "EVN" classCode="OBS"> <templateId root="16.840.1.875292.11.29.21.4.2 " /> <id nullFlavor="NA" /> <code codeSystem="local" code="RBC " displayName="RED BLOOD CELL" /> <statusCode code="completed" /> <effectiveTime value="360479613874" /> <value unit="m/cumm" xsi: type="PQ" value="3.87" /> <interpretationCode codeSystem="local" code= "*" /> <referenceRange> <observationRange> < text>4.00-6.00</text> </observationRange> </referenceRange> </observation> </component> <component> <observation moodCode="EVN" classCode="OBS"> <templateId root= "16.840.1.808988.11.29.21.4.2" /> <id nullFlavor="NA" /> < code codeSystem="local" code="RDW" displayName="RED CELL DISTRIBUTION WIDTH" /> <statusCode code="completed" /> <effectiveTime value= "445787201222" /> <value unit="%" xsi:type="PQ" value="13.2" /> <referenceRange> <observationRange> <text>11.0- 15.6</text> </observationRange> </referenceRange> </ observation> </component> <component> <observation moodCode= "EVN" classCode="OBS"> <templateId root="216.840.1.601047.10..22.4.2 " /> <id nullFlavor="NA" /> <code codeSystem="local" code="WBC " displayName="WHITE BLOOD CELL" /> <statusCode code="completed" /> <effectiveTime value="386801675924" /> <value unit="k/cumm" xsi: type="PQ" value="4.4" /> <interpretationCode codeSystem="local" code="* " /> <referenceRange> <observationRange> <text> 5.0-10.0</text> </observationRange> </referenceRange> </observation> </component> <component> <observation moodCode ="EVN" classCode="OBS"> <templateId root= "16.840.1.422816.10.20.22.4.2" /> <id nullFlavor="NA" /> < code codeSystem="local" code="HGBT" displayName="HEMOGLOBIN" /> < statusCode code="completed" /> <effectiveTime value="319277935382" /> <value unit="gm/dL" xsi:type="PQ" value="11.5" /> < interpretationCode codeSystem="local" code="*" /> <referenceRange> <observationRange> <text>12.0-16.0</text> </ observationRange> </referenceRange> </observation> </ component> <component> <observation moodCode="EVN" classCode="OBS"> <templateId root="03.28.840.1.499183.10..22.4.2" /> <id nullFlavor="NA" /> <code codeSystem="local" code="HCTT" displayName= "HEMATOCRIT" /> <statusCode code="completed" /> < effectiveTime value="724549088272" /> <value unit="%" xsi:type="PQ " value="34.1" /> <interpretationCode codeSystem="local" code="*" /> <referenceRange> <observationRange> <text>37.0- 47.0</text> </observationRange> </referenceRange> </ observation> </component> <component> <observation moodCode= "EVN" classCode="OBS"> <templateId root="03.28.840.1.915339.11.29.21.4.2 " /> <id nullFlavor="NA" /> <code codeSystem="local" code="PLT " displayName="PLATELET COUNT" /> <statusCode code="completed" /> <effectiveTime value="182490965046" /> <value unit="k/cumm" xsi: type="PQ" value="153" /> <referenceRange> <observationRange > <text>150-450</text> </observationRange> </ referenceRange> </observation> </component> </organizer> </entry > <entry> <organizer moodCode="EVN" classCode="BATTERY"> <templateId root="03.28.840.1.973342.10..22.4.1" /> <id nullFlavor="NA" /> <code codeSystem="local" code="EBVAB" displayName="AB MONIQUE SAUL VIR [facility]-ACUTE" /> <statusCode code="completed" /> <component> <observation moodCode="EVN" classCode="OBS"> <templateId root= "840.1.006406.10..4.2" /> <id nullFlavor="NA" /> < code codeSystem="local" code="EBVMAB" displayName="AB EBV VIRAL CAPSID AG IGM" / > <statusCode code="completed" /> <effectiveTime value= "761043049295" /> <value unit="" xsi:type="PQ" value="POSITIVE" /> <interpretationCode codeSystem="local" code="*" /> < referenceRange> <observationRange> <text>NEGATIVE</text > </observationRange> </referenceRange> </observation > </component> <component> <observation moodCode="EVN" classCode="OBS"> <templateId root="840.1.253576.11.29.21.4.2" /> <id nullFlavor="NA" /> <code codeSystem="local" code="EBVGAB" displayName="AB EBV VIRAL CAPSID AG IGG" /> <statusCode code="completed " /> <effectiveTime value="821603043279" /> <value unit="" xsi :type="PQ" value="40" /> <referenceRange> <observationRange > <text><10</text> </observationRange> </ referenceRange> </observation> </component> </organizer> </entry > <entry> <organizer moodCode="EVN" classCode="BATTERY"> <templateId root="840.1.311347.11.29.21.4.1" /> <id nullFlavor="NA" /> <code codeSystem="local" code="CBCD" displayName="CBC W/DIFF" /> <statusCode code ="completed" /> <component> <observation moodCode="EVN" classCode= "OBS"> <templateId root="840.1.714318.11.29.21.4.2" /> < id nullFlavor="NA" /> <code codeSystem="local" code="CBCCOM" displayName="COMMENT" /> <statusCode code="completed" /> < effectiveTime value="983672822827" /> <value unit="" xsi:type="PQ" value="REVIEWED" /> <referenceRange> <observationRange> <text /> </observationRange> </referenceRange> </observation> </component> <component> <observation moodCode="EVN" classCode="OBS"> <templateId root= "216.840.1.271801.11.29.21.4.2" /> <id nullFlavor="NA" /> < code codeSystem="local" code="GR#" displayName="GRANULOCYTE #" /> < statusCode code="completed" /> <effectiveTime value="575870205362" /> <value unit="k/cumm" xsi:type="PQ" value="1.5" /> < interpretationCode codeSystem="local" code="*" /> <referenceRange> <observationRange> <text>2.0-9.0</text> </ observationRange> </referenceRange> </observation> </ component> <component> <observation moodCode="EVN" classCode="OBS"> <templateId root="16.840.1.911867.11.29.21.4.2" /> <id nullFlavor="NA" /> <code codeSystem="local" code="GR%" displayName= "GRANULOCYTE %" /> <statusCode code="completed" /> < effectiveTime value="419320899305" /> <value unit="%" xsi:type="PQ " value="31" /> <interpretationCode codeSystem="local" code="*" /> <referenceRange> <observationRange> <text>50-75</ text> </observationRange> </referenceRange> </ observation> </component> <component> <observation moodCode= "EVN" classCode="OBS"> <templateId root="216.840.1.685869.10.2022.4.2 " /> <id nullFlavor="NA" /> <code codeSystem="local" code="LY# " displayName="LYMPHOCYTE #" /> <statusCode code="completed" /> <effectiveTime value="895342571913" /> <value unit="k/cumm" xsi:type ="PQ" value="2.4" /> <referenceRange> <observationRange> <text>1.0-4.0</text> </observationRange> </ referenceRange> </observation> </component> <component> <observation moodCode="EVN" classCode="OBS"> <templateId root= "03.28.840.1.578910.104.2" /> <id nullFlavor="NA" /> < code codeSystem="local" code="LY%" displayName="LYMPHOCYTE %" /> <statusCode code="completed" /> <effectiveTime value="650419786272" /> <value unit="%" xsi:type="PQ" value="51" /> < interpretationCode codeSystem="local" code="*" /> <referenceRange> <observationRange> <text>20-30</text> </ observationRange> </referenceRange> </observation> </ component> <component> <observation moodCode="EVN" classCode="OBS"> <templateId root="16.840.1.479028.10.4.2" /> <id nullFlavor="NA" /> <code codeSystem="local" code="MCH" displayName= "MEAN CELL HGB" /> <statusCode code="completed" /> < effectiveTime value="074180769716" /> <value unit="pg" xsi:type="PQ" value="30.0" /> <referenceRange> <observationRange> <text>27.0-33.0</text> </observationRange> </ referenceRange> </observation> </component> <component> <observation moodCode="EVN" classCode="OBS"> <templateId root= "216.840.1.000215.10...4.2" /> <id nullFlavor="NA" /> < code codeSystem="local" code="MCHC" displayName="MEAN CELL HGB CONCENTRATION" / > <statusCode code="completed" /> <effectiveTime value= "134983507148" /> <value unit="g/dL" xsi:type="PQ" value="34.1" /> <referenceRange> <observationRange> <text>32.0- 37.0</text> </observationRange> </referenceRange> </ observation> </component> <component> <observation moodCode= "EVN" classCode="OBS"> <templateId root="03.28.840.1.758140.10...4.2 " /> <id nullFlavor="NA" /> <code codeSystem="local" code="MCV " displayName="MEAN CELL VOLUME" /> <statusCode code="completed" /> <effectiveTime value="787132327096" /> <value unit="fl" xsi:type ="PQ" value="88.0" /> <referenceRange> <observationRange> <text>80.0-100.0</text> </observationRange> </ referenceRange> </observation> </component> <component> <observation moodCode="EVN" classCode="OBS"> <templateId root= "16.840.1.160561.10.4.2" /> <id nullFlavor="NA" /> < code codeSystem="local" code="MO#" displayName="MONOCYTE #" /> < statusCode code="completed" /> <effectiveTime value="807782132995" /> <value unit="k/cumm" xsi:type="PQ" value="0.9" /> < referenceRange> <observationRange> <text>0.1-1.0</text> </observationRange> </referenceRange> </observation > </component> <component> <observation moodCode="EVN" classCode="OBS"> <templateId root="216.840.1.554475.11.29.214.2" /> <id nullFlavor="NA" /> <code codeSystem="local" code="MO% " displayName="MONOCYTE %" /> <statusCode code="completed" /> <effectiveTime value="168600097016" /> <value unit="%" xsi: type="PQ" value="18" /> <interpretationCode codeSystem="local" code="* " /> <referenceRange> <observationRange> <text> 4-6</text> </observationRange> </referenceRange> </ observation> </component> <component> <observation moodCode= "EVN" classCode="OBS"> <templateId root="216.840.1.377682.104.2 " /> <id nullFlavor="NA" /> <code codeSystem="local" code="RBC " displayName="RED BLOOD CELL" /> <statusCode code="completed" /> <effectiveTime value="832209884265" /> <value unit="m/cumm" xsi: type="PQ" value="3.93" /> <interpretationCode codeSystem="local" code= "*" /> <referenceRange> <observationRange> < text>4.00-6.00</text> </observationRange> </referenceRange> </observation> </component> <component> <observation moodCode="EVN" classCode="OBS"> <templateId root= "03.28.840.1.450266.10.20.22.4.2" /> <id nullFlavor="NA" /> < code codeSystem="local" code="RDW" displayName="RED CELL DISTRIBUTION WIDTH" /> <statusCode code="completed" /> <effectiveTime value= "087389141094" /> <value unit="%" xsi:type="PQ" value="13.6" /> <referenceRange> <observationRange> <text>11.0- 15.6</text> </observationRange> </referenceRange> </ observation> </component> <component> <observation moodCode= "EVN" classCode="OBS"> <templateId root="03.28.840.1.681037.10.22.4.2 " /> <id nullFlavor="NA" /> <code codeSystem="local" code="WBC " displayName="WHITE BLOOD CELL" /> <statusCode code="completed" /> <effectiveTime value="169144381564" /> <value unit="k/cumm" xsi: type="PQ" value="4.7" /> <interpretationCode codeSystem="local" code="* " /> <referenceRange> <observationRange> <text> 5.0-10.0</text> </observationRange> </referenceRange> </observation> </component> <component> <observation moodCode ="EVN" classCode="OBS"> <templateId root= "03.28.840.1.152693.10.20.22.4.2" /> <id nullFlavor="NA" /> < code codeSystem="local" code="HGBT" displayName="HEMOGLOBIN" /> < statusCode code="completed" /> <effectiveTime value="549032781263" /> <value unit="gm/dL" xsi:type="PQ" value="11.8" /> < interpretationCode codeSystem="local" code="*" /> <referenceRange> <observationRange> <text>12.0-16.0</text> </ observationRange> </referenceRange> </observation> </ component> <component> <observation moodCode="EVN" classCode="OBS"> <templateId root="2.16.840.1.033092.10.20.22.4.2" /> <id nullFlavor="NA" /> <code codeSystem="local" code="HCTT" displayName= "HEMATOCRIT" /> <statusCode code="completed" /> < effectiveTime value="294445963520" /> <value unit="%" xsi:type="PQ " value="34.6" /> <interpretationCode codeSystem="local" code="*" /> <referenceRange> <observationRange> <text>37.0- 47.0</text> </observationRange> </referenceRange> </ observation> </component> <component> <observation moodCode= "EVN" classCode="OBS"> <templateId root="2.16.840.1.796857.10..22.4.2 " /> <id nullFlavor="NA" /> <code codeSystem="local" code="PLT " displayName="PLATELET COUNT" /> <statusCode code="completed" /> <effectiveTime value="451360409192" /> <value unit="k/cumm" xsi: type="PQ" value="158" /> <referenceRange> <observationRange > <text>150-450</text> </observationRange> </ referenceRange> </observation> </component> <component> <observation moodCode="EVN" classCode="OBS"> <templateId root= "03.28.840.1.920614.10...4.2" /> <id nullFlavor="NA" /> < code codeSystem="local" code="REACTIVELYMPH" displayName="REACTIVE LYMPH" /> <statusCode code="completed" /> <effectiveTime value= "950601803681" /> <value unit="" xsi:type="PQ" value="NOTED" /> <referenceRange> <observationRange> <text /> </observationRange> </referenceRange> </observation> </ component> </organizer> </entry> <entry> <organizer moodCode="EVN" classCode="BATTERY"> <templateId root="03.28.840.1.326388.10...4.1" /> <id nullFlavor="NA" /> <code codeSystem="local" code="RENAL" displayName="RENAL FUNCTION PANEL" /> <statusCode code="completed" /> <component> <observation moodCode="EVN" classCode="OBS"> < templateId root="16.840.1.601776.10..22.4.2" /> <id nullFlavor="NA " /> <code codeSystem="local" code="K" displayName="POTASSIUM" /> <statusCode code="completed" /> <effectiveTime value="329296244105 " /> <value unit="mmol/L" xsi:type="PQ" value="3.4" /> < interpretationCode codeSystem="local" code="*" /> <referenceRange> <observationRange> <text>3.5-5.3</text> </ observationRange> </referenceRange> </observation> </ component> <component> <observation moodCode="EVN" classCode="OBS"> <templateId root="03.28.840.1.321810.22.4.2" /> <id nullFlavor="NA" /> <code codeSystem="local" code="eGFR" displayName= "EST GFR (MDRD)" /> <statusCode code="completed" /> < effectiveTime value="222219236288" /> <value unit="mL/min" xsi:type="PQ " value="> 60" /> <referenceRange> <observationRange> <text>> 59</text> </observationRange> </ referenceRange> </observation> </component> <component> <observation moodCode="EVN" classCode="OBS"> <templateId root= "216.840.1.371655.11.29.21.4.2" /> <id nullFlavor="NA" /> < code codeSystem="local" code="GAP" displayName="ANION GAP" /> < statusCode code="completed" /> <effectiveTime value="399633302401" /> <value unit="mmol/L" xsi:type="PQ" value="8" /> < referenceRange> <observationRange> <text>5-15</text> </observationRange> </referenceRange> </observation> </component> <component> <observation moodCode="EVN" classCode= "OBS"> <templateId root="16.840.1.864433.11.29.21.4.2" /> < id nullFlavor="NA" /> <code codeSystem="local" code="eCrCl" displayName ="EST CrCl (CG)" /> <statusCode code="completed" /> < effectiveTime value="753693271249" /> <value unit="mL/min" xsi:type="PQ " value="> 60" /> <referenceRange> <observationRange> <text>> 59</text> </observationRange> </ referenceRange> </observation> </component> <component> <observation moodCode="EVN" classCode="OBS"> <templateId root= "216.840.1.216195.10..4.2" /> <id nullFlavor="NA" /> < code codeSystem="local" code="GLU" displayName="GLUCOSE" /> < statusCode code="completed" /> <effectiveTime value="181816121148" /> <value unit="mg/dL" xsi:type="PQ" value="107" /> < interpretationCode codeSystem="local" code="*" /> <referenceRange> <observationRange> <text>70-99</text> </ observationRange> </referenceRange> </observation> </ component> <component> <observation moodCode="EVN" classCode="OBS"> <templateId root="16.840.1.828876.11.29.21.4.2" /> <id nullFlavor="NA" /> <code codeSystem="local" code="CA" displayName= "CALCIUM" /> <statusCode code="completed" /> <effectiveTime value="969910525554" /> <value unit="mg/dL" xsi:type="PQ" value="8.1" / > <interpretationCode codeSystem="local" code="*" /> < referenceRange> <observationRange> <text>8.5-10.1</text > </observationRange> </referenceRange> </observation > </component> <component> <observation moodCode="EVN" classCode="OBS"> <templateId root="216.840.1.756664.11.29.21.4.2" /> <id nullFlavor="NA" /> <code codeSystem="local" code="BUN" displayName="BLOOD UREA NITROGEN" /> <statusCode code="completed" /> <effectiveTime value="548183438700" /> <value unit="mg/dL" xsi: type="PQ" value="3" /> <interpretationCode codeSystem="local" code="*" /> <referenceRange> <observationRange> <text>7- 20</text> </observationRange> </referenceRange> </ observation> </component> <component> <observation moodCode= "EVN" classCode="OBS"> <templateId root="16.840.1.955422.11.29.21.4.2 " /> <id nullFlavor="NA" /> <code codeSystem="local" code= "CREAT" displayName="CREATININE" /> <statusCode code="completed" /> <effectiveTime value="949294564104" /> <value unit="mg/dL" xsi: type="PQ" value="1.0" /> <referenceRange> <observationRange > <text>0.5-1.0</text> </observationRange> </ referenceRange> </observation> </component> <component> <observation moodCode="EVN" classCode="OBS"> <templateId root= "03.28.840.1.185485.11.29.21.4.2" /> <id nullFlavor="NA" /> < code codeSystem="local" code="NA" displayName="SODIUM" /> <statusCode code="completed" /> <effectiveTime value="138384163538" /> < value unit="mmol/L" xsi:type="PQ" value="141" /> <referenceRange> <observationRange> <text>135-148</text> </ observationRange> </referenceRange> </observation> </ component> <component> <observation moodCode="EVN" classCode="OBS"> <templateId root="16.840.1.899163..22.4.2" /> <id nullFlavor="NA" /> <code codeSystem="local" code="CL" displayName= "CHLORIDE" /> <statusCode code="completed" /> <effectiveTime value="974601634389" /> <value unit="mmol/L" xsi:type="PQ" value="108" /> <referenceRange> <observationRange> <text>98 -110</text> </observationRange> </referenceRange> </ observation> </component> <component> <observation moodCode= "EVN" classCode="OBS"> <templateId root="2.16.840.1.540906.10..22.4.2 " /> <id nullFlavor="NA" /> <code codeSystem="local" code="CO2 " displayName="CARBON DIOXIDE" /> <statusCode code="completed" /> <effectiveTime value="298290737157" /> <value unit="mmol/L" xsi: type="PQ" value="25" /> <referenceRange> <observationRange> <text>21-32</text> </observationRange> </ referenceRange> </observation> </component> <component> <observation moodCode="EVN" classCode="OBS"> <templateId root= "2.16.840.1.172511.10..22.4.2" /> <id nullFlavor="NA" /> < code codeSystem="local" code="ALB" displayName="ALBUMIN" /> < statusCode code="completed" /> <effectiveTime value="299578348643" /> <value unit="gm/dL" xsi:type="PQ" value="2.4" /> < interpretationCode codeSystem="local" code="*" /> <referenceRange> <observationRange> <text>3.4-5.0</text> </ observationRange> </referenceRange> </observation> </ component> <component> <observation moodCode="EVN" classCode="OBS"> <templateId root="16.840.1.963164.10..22.4.2" /> <id nullFlavor="NA" /> <code codeSystem="local" code="PHOS" displayName= "PHOSPHORUS" /> <statusCode code="completed" /> < effectiveTime value="777514636591" /> <value unit="mg/dL" xsi:type="PQ " value="2.4" /> <interpretationCode codeSystem="local" code="*" /> <referenceRange> <observationRange> <text>2.5-4.9 </text> </observationRange> </referenceRange> </ observation> </component> </organizer> </entry> <entry> <organizer moodCode="EVN" classCode="BATTERY"> <templateId root= "16.840.1.743060.10..22.4.1" /> <id nullFlavor="NA" /> <code codeSystem="local" code="CBCD" displayName="CBC W/DIFF" /> <statusCode code ="completed" /> <component> <observation moodCode="EVN" classCode= "OBS"> <templateId root="16.840.1.771007.10..22.4.2" /> < id nullFlavor="NA" /> <code codeSystem="local" code="GR#" displayName= "GRANULOCYTE #" /> <statusCode code="completed" /> < effectiveTime value="153929631819" /> <value unit="k/cumm" xsi:type="PQ " value="1.2" /> <interpretationCode codeSystem="local" code="*" /> <referenceRange> <observationRange> <text>2.0-9.0 </text> </observationRange> </referenceRange> </ observation> </component> <component> <observation moodCode= "EVN" classCode="OBS"> <templateId root="16.840.1.879924.10.22.4.2 " /> <id nullFlavor="NA" /> <code codeSystem="local" code="LY# " displayName="LYMPHOCYTE #" /> <statusCode code="completed" /> <effectiveTime value="" /> <value unit="k/cumm" xsi:type ="PQ" value="3.0" /> <referenceRange> <observationRange> <text>1.0-4.0</text> </observationRange> </ referenceRange> </observation> </component> <component> <observation moodCode="EVN" classCode="OBS"> <templateId root= "03.28.840.1.598138.10.4.2" /> <id nullFlavor="NA" /> < code codeSystem="local" code="LY%" displayName="LYMPHOCYTE %" /> <statusCode code="completed" /> <effectiveTime value="" /> <value unit="%" xsi:type="PQ" value="69" /> < interpretationCode codeSystem="local" code="*" /> <referenceRange> <observationRange> <text>20-30</text> </ observationRange> </referenceRange> </observation> </ component> <component> <observation moodCode="EVN" classCode="OBS"> <templateId root="03.28.840.1.858663.10.22.4.2" /> <id nullFlavor="NA" /> <code codeSystem="local" code="MCH" displayName= "MEAN CELL HGB" /> <statusCode code="completed" /> < effectiveTime value="" /> <value unit="pg" xsi:type="PQ" value="30.0" /> <referenceRange> <observationRange> <text>27.0-33.0</text> </observationRange> </ referenceRange> </observation> </component> <component> <observation moodCode="EVN" classCode="OBS"> <templateId root= "03.28.840.1.999596.10.20.22.4.2" /> <id nullFlavor="NA" /> < code codeSystem="local" code="MCHC" displayName="MEAN CELL HGB CONCENTRATION" / > <statusCode code="completed" /> <effectiveTime value= "566504029004" /> <value unit="g/dL" xsi:type="PQ" value="33.7" /> <referenceRange> <observationRange> <text>32.0- 37.0</text> </observationRange> </referenceRange> </ observation> </component> <component> <observation moodCode= "EVN" classCode="OBS"> <templateId root="840.1.383414.10.2022.4.2 " /> <id nullFlavor="NA" /> <code codeSystem="local" code="MCV " displayName="MEAN CELL VOLUME" /> <statusCode code="completed" /> <effectiveTime value="483549347325" /> <value unit="fl" xsi:type ="PQ" value="89.0" /> <referenceRange> <observationRange> <text>80.0-100.0</text> </observationRange> </ referenceRange> </observation> </component> <component> <observation moodCode="EVN" classCode="OBS"> <templateId root= "03.28.840.1.273948.10.20.22.4.2" /> <id nullFlavor="NA" /> < code codeSystem="local" code="MO#" displayName="MONOCYTE #" /> < statusCode code="completed" /> <effectiveTime value="202592240328" /> <value unit="k/cumm" xsi:type="PQ" value="0.1" /> < referenceRange> <observationRange> <text>0.1-1.0</text> </observationRange> </referenceRange> </observation > </component> <component> <observation moodCode="EVN" classCode="OBS"> <templateId root="2.16.840.1.687206.10.20.22.4.2" /> <id nullFlavor="NA" /> <code codeSystem="local" code="MO% " displayName="MONOCYTE %" /> <statusCode code="completed" /> <effectiveTime value="326530653983" /> <value unit="%" xsi: type="PQ" value="3" /> <interpretationCode codeSystem="local" code="*" /> <referenceRange> <observationRange> <text>4- 6</text> </observationRange> </referenceRange> </ observation> </component> <component> <observation moodCode= "EVN" classCode="OBS"> <templateId root="2.16.840.1.726581.10.20.22.4.2 " /> <id nullFlavor="NA" /> <code codeSystem="local" code="RBC " displayName="RED BLOOD CELL" /> <statusCode code="completed" /> <effectiveTime value="700358428685" /> <value unit="m/cumm" xsi: type="PQ" value="4.00" /> <referenceRange> <observationRange > <text>4.00-6.00</text> </observationRange> </ referenceRange> </observation> </component> <component> <observation moodCode="EVN" classCode="OBS"> <templateId root= "03.28.840.1.686394.10.20.22.4.2" /> <id nullFlavor="NA" /> < code codeSystem="local" code="RDW" displayName="RED CELL DISTRIBUTION WIDTH" /> <statusCode code="completed" /> <effectiveTime value= "" /> <value unit="%" xsi:type="PQ" value="13.3" /> <referenceRange> <observationRange> <text>11.0- 15.6</text> </observationRange> </referenceRange> </ observation> </component> <component> <observation moodCode= "EVN" classCode="OBS"> <templateId root="840.1.907577.1022.4.2 " /> <id nullFlavor="NA" /> <code codeSystem="local" code="WBC " displayName="WHITE BLOOD CELL" /> <statusCode code="completed" /> <effectiveTime value="" /> <value unit="k/cumm" xsi: type="PQ" value="4.3" /> <interpretationCode codeSystem="local" code="* " /> <referenceRange> <observationRange> <text> 5.0-10.0</text> </observationRange> </referenceRange> </observation> </component> <component> <observation moodCode ="EVN" classCode="OBS"> <templateId root= "03.28.840.1.135140.10.2022.4.2" /> <id nullFlavor="NA" /> < code codeSystem="local" code="HGBT" displayName="HEMOGLOBIN" /> < statusCode code="completed" /> <effectiveTime value="261103420704" /> <value unit="gm/dL" xsi:type="PQ" value="12.0" /> < referenceRange> <observationRange> <text>12.0-16.0</text > </observationRange> </referenceRange> </observation > </component> <component> <observation moodCode="EVN" classCode="OBS"> <templateId root="216.840.1.665217.10.20.22.4.2" /> <id nullFlavor="NA" /> <code codeSystem="local" code="HCTT" displayName="HEMATOCRIT" /> <statusCode code="completed" /> < effectiveTime value="626801378905" /> <value unit="%" xsi:type="PQ " value="35.6" /> <interpretationCode codeSystem="local" code="*" /> <referenceRange> <observationRange> <text>37.0- 47.0</text> </observationRange> </referenceRange> </ observation> </component> <component> <observation moodCode= "EVN" classCode="OBS"> <templateId root="03.28.840.1.983168.10...4.2 " /> <id nullFlavor="NA" /> <code codeSystem="local" code="PLT " displayName="PLATELET COUNT" /> <statusCode code="completed" /> <effectiveTime value="867400014891" /> <value unit="k/cumm" xsi: type="PQ" value="154" /> <referenceRange> <observationRange > <text>150-450</text> </observationRange> </ referenceRange> </observation> </component> </organizer> </entry > <entry> <organizer moodCode="EVN" classCode="BATTERY"> <templateId root="216.840.1.289507.10..22.4.1" /> <id nullFlavor="NA" /> <code codeSystem="local" code="DIFFM" displayName="MANUAL DIFF(R)" /> < statusCode code="completed" /> <component> <observation moodCode= "EVN" classCode="OBS"> <templateId root="03.28.840.1.644296.11.29.21.4.2 " /> <id nullFlavor="NA" /> <code codeSystem="local" code= "BAND%" displayName="BAND %" /> <statusCode code="completed" / > <effectiveTime value="" /> <value unit="%" xsi:type="PQ" value="4" /> <referenceRange> < observationRange> <text>0-10</text> </observationRange> </referenceRange> </observation> </component> < component> <observation moodCode="EVN" classCode="OBS"> < templateId root="840.1.229601.11.29.214.2" /> <id nullFlavor="NA " /> <code codeSystem="local" code="MANDIFF" displayName="DIFFERENTIAL " /> <statusCode code="completed" /> <effectiveTime value= "" /> <value unit="" xsi:type="PQ" value="MANUAL" /> <referenceRange> <observationRange> <text /> </observationRange> </referenceRange> </observation> < /component> <component> <observation moodCode="EVN" classCode="OBS" > <templateId root="840.1.391765.11.29.21.4.2" /> <id nullFlavor="NA" /> <code codeSystem="local" code="RMORPH" displayName= "RBC MORPH" /> <statusCode code="completed" /> <effectiveTime value="" /> <value unit="" xsi:type="PQ" value="NORMAL" /> <referenceRange> <observationRange> <text /> </observationRange> </referenceRange> </observation> </component> <component> <observation moodCode="EVN" classCode ="OBS"> <templateId root="840.1.126028.10.2022.4.2" /> < id nullFlavor="NA" /> <code codeSystem="local" code="SEG%" displayName="SEGMENTED NEUTROPHIL %" /> <statusCode code="completed " /> <effectiveTime value="618118251629" /> <value unit="% " xsi:type="PQ" value="24" /> <interpretationCode codeSystem="local" code="*" /> <referenceRange> <observationRange> <text>50-70</text> </observationRange> </referenceRange> </observation> </component> </organizer> </entry> <entry> < organizer moodCode="EVN" classCode="BATTERY"> <templateId root= "840.1.551669.1022.4.1" /> <id nullFlavor="NA" /> <code codeSystem="local" code="METABC" displayName="METABOLIC PANEL, COMPREHN" /> <statusCode code="completed" /> <component> <observation moodCode= "EVN" classCode="OBS"> <templateId root="840.1.908783.10.2022.4.2 " /> <id nullFlavor="NA" /> <code codeSystem="local" code="K" displayName="POTASSIUM" /> <statusCode code="completed" /> < effectiveTime value="586387511164" /> <value unit="mmol/L" xsi:type="PQ " value="3.0" /> <interpretationCode codeSystem="local" code="*" /> <referenceRange> <observationRange> <text>3.5-5.3 </text> </observationRange> </referenceRange> </ observation> </component> <component> <observation moodCode= "EVN" classCode="OBS"> <templateId root="16.840.1.491813.10...4.2 " /> <id nullFlavor="NA" /> <code codeSystem="local" code= "eGFR" displayName="EST GFR (MDRD)" /> <statusCode code="completed" /> <effectiveTime value="206479378879" /> <value unit="mL/min" xsi:type="PQ" value="> 60" /> <referenceRange> < observationRange> <text>> 59</text> </ observationRange> </referenceRange> </observation> </ component> <component> <observation moodCode="EVN" classCode="OBS"> <templateId root="03.28.840.1.022570.10.4.2" /> <id nullFlavor="NA" /> <code codeSystem="local" code="GAP" displayName= "ANION GAP" /> <statusCode code="completed" /> <effectiveTime value="071758312191" /> <value unit="mmol/L" xsi:type="PQ" value="6" / > <referenceRange> <observationRange> <text>5- 15</text> </observationRange> </referenceRange> </ observation> </component> <component> <observation moodCode= "EVN" classCode="OBS"> <templateId root="03.28.840.1.701625.10.20.22.4.2 " /> <id nullFlavor="NA" /> <code codeSystem="local" code= "eCrCl" displayName="EST CrCl (CG)" /> <statusCode code="completed" /> <effectiveTime value="060018626747" /> <value unit="mL/min" xsi:type="PQ" value="> 60" /> <referenceRange> < observationRange> <text>> 59</text> </ observationRange> </referenceRange> </observation> </ component> <component> <observation moodCode="EVN" classCode="OBS"> <templateId root="216.840.1.521818.10..22.4.2" /> <id nullFlavor="NA" /> <code codeSystem="local" code="GLU" displayName= "GLUCOSE" /> <statusCode code="completed" /> <effectiveTime value="762278564993" /> <value unit="mg/dL" xsi:type="PQ" value="104" / > <interpretationCode codeSystem="local" code="*" /> < referenceRange> <observationRange> <text>70-99</text> </observationRange> </referenceRange> </observation> </component> <component> <observation moodCode="EVN" classCode= "OBS"> <templateId root="16.840.1.777055.10.20.22.4.2" /> < id nullFlavor="NA" /> <code codeSystem="local" code="CA" displayName= "CALCIUM" /> <statusCode code="completed" /> <effectiveTime value="818344833768" /> <value unit="mg/dL" xsi:type="PQ" value="8.3" / > <interpretationCode codeSystem="local" code="*" /> < referenceRange> <observationRange> <text>8.5-10.1</text > </observationRange> </referenceRange> </observation > </component> <component> <observation moodCode="EVN" classCode="OBS"> <templateId root="216.840.1.531226.10..22.4.2" /> <id nullFlavor="NA" /> <code codeSystem="local" code="BUN" displayName="BLOOD UREA NITROGEN" /> <statusCode code="completed" /> <effectiveTime value="105686223681" /> <value unit="mg/dL" xsi: type="PQ" value="2" /> <interpretationCode codeSystem="local" code="*" /> <referenceRange> <observationRange> <text>7- 20</text> </observationRange> </referenceRange> </ observation> </component> <component> <observation moodCode= "EVN" classCode="OBS"> <templateId root="16.840.1.594217.10..22.4.2 " /> <id nullFlavor="NA" /> <code codeSystem="local" code= "CREAT" displayName="CREATININE" /> <statusCode code="completed" /> <effectiveTime value="818683176926" /> <value unit="mg/dL" xsi: type="PQ" value="0.9" /> <referenceRange> <observationRange > <text>0.5-1.0</text> </observationRange> </ referenceRange> </observation> </component> <component> <observation moodCode="EVN" classCode="OBS"> <templateId root= "16.840.1.408680.10.20.22.4.2" /> <id nullFlavor="NA" /> < code codeSystem="local" code="NA" displayName="SODIUM" /> <statusCode code="completed" /> <effectiveTime value="067383761086" /> < value unit="mmol/L" xsi:type="PQ" value="141" /> <referenceRange> <observationRange> <text>135-148</text> </ observationRange> </referenceRange> </observation> </ component> <component> <observation moodCode="EVN" classCode="OBS"> <templateId root="2.16.840.1.573324.10.4.2" /> <id nullFlavor="NA" /> <code codeSystem="local" code="CL" displayName= "CHLORIDE" /> <statusCode code="completed" /> <effectiveTime value="" /> <value unit="mmol/L" xsi:type="PQ" value="107" /> <referenceRange> <observationRange> <text>98 -110</text> </observationRange> </referenceRange> </ observation> </component> <component> <observation moodCode= "EVN" classCode="OBS"> <templateId root="216.840.1.710147.11.29.21.4.2 " /> <id nullFlavor="NA" /> <code codeSystem="local" code="AST " displayName="AST/SGOT" /> <statusCode code="completed" /> < effectiveTime value="" /> <value unit="Units/L" xsi:type= "PQ" value="241" /> <interpretationCode codeSystem="local" code="*" /> <referenceRange> <observationRange> <text>10- 37</text> </observationRange> </referenceRange> </ observation> </component> <component> <observation moodCode= "EVN" classCode="OBS"> <templateId root="216.840.1.064718...4.2 " /> <id nullFlavor="NA" /> <code codeSystem="local" code="ALT " displayName="ALT/SGPT" /> <statusCode code="completed" /> < effectiveTime value="" /> <value unit="Units/L" xsi:type= "PQ" value="206" /> <interpretationCode codeSystem="local" code="*" /> <referenceRange> <observationRange> <text>&lt ; 66</text> </observationRange> </referenceRange> </ observation> </component> <component> <observation moodCode= "EVN" classCode="OBS"> <templateId root="216.840.1.233615.1022.4.2 " /> <id nullFlavor="NA" /> <code codeSystem="local" code="CO2 " displayName="CARBON DIOXIDE" /> <statusCode code="completed" /> <effectiveTime value="738818971912" /> <value unit="mmol/L" xsi: type="PQ" value="28" /> <referenceRange> <observationRange> <text>21-32</text> </observationRange> </ referenceRange> </observation> </component> <component> <observation moodCode="EVN" classCode="OBS"> <templateId root= "03.28.840.1.728615.11.29.21.4.2" /> <id nullFlavor="NA" /> < code codeSystem="local" code="TP" displayName="TOTAL PROTEIN" /> < statusCode code="completed" /> <effectiveTime value="154247341233" /> <value unit="gm/dL" xsi:type="PQ" value="6.1" /> < interpretationCode codeSystem="local" code="*" /> <referenceRange> <observationRange> <text>6.4-8.2</text> </ observationRange> </referenceRange> </observation> </ component> <component> <observation moodCode="EVN" classCode="OBS"> <templateId root="16.840.1.220313.10.20.22.4.2" /> <id nullFlavor="NA" /> <code codeSystem="local" code="ALB" displayName= "ALBUMIN" /> <statusCode code="completed" /> <effectiveTime value="" /> <value unit="gm/dL" xsi:type="PQ" value="2.4" / > <interpretationCode codeSystem="local" code="*" /> < referenceRange> <observationRange> <text>3.4-5.0</text> </observationRange> </referenceRange> </observation > </component> <component> <observation moodCode="EVN" classCode="OBS"> <templateId root="16.840.1.552304.11.29.214.2" /> <id nullFlavor="NA" /> <code codeSystem="local" code="BILTOT" displayName="BILI TOTAL" /> <statusCode code="completed" /> < effectiveTime value="" /> <value unit="mg/dL" xsi:type="PQ " value="1.6" /> <interpretationCode codeSystem="local" code="*" /> <referenceRange> <observationRange> <text>0.0-1.0 </text> </observationRange> </referenceRange> </ observation> </component> <component> <observation moodCode= "EVN" classCode="OBS"> <templateId root="16.840.1.487452.104.2 " /> <id nullFlavor="NA" /> <code codeSystem="local" code= "ALKP" displayName="ALKALINE PHOSPHATASE TOTAL" /> <statusCode code= "completed" /> <effectiveTime value="" /> <value unit="IU/L" xsi:type="PQ" value="156" /> <interpretationCode codeSystem ="local" code="*" /> <referenceRange> <observationRange> <text>45-117</text> </observationRange> </ referenceRange> </observation> </component> </organizer> </entry ></section> Encounters ACCT No. Visit Date/Time Discharge Status Pt. Type Provider Facility Loc./Unit Complaint [id number] 11/14/2015 11:12:00 11/16/2015 15:00:00 DIS Inpatient Geri Bauman MD, Janak [facility] E.T4 [id number] 03/23/2015 09:46:00 03/23/2015 11:29:00 DIS Emergency Davie BARBER, Pradeep [facility] E.ED [id number] 01/20/2018 15:48:24 01/20/2018 15:48:24 DIS Outpatient [id number] 11/13/2015 09:05:00 11/13/2015 13:05:00 DIS Emergency Tanmay SAAVEDRA, Scott Randolph [facility] W.MARCO [id number] 11/11/2015 11:52:00 11/11/2015 13:38:00 DIS Emergency Dejuan BARBER, Jose [facility].ED [id number] 04/20/2015 12:48:00 04/20/2015 12:48:00 DIS Outpatient Miki BARBER, Andres Costa [facility] W.[place] [id number] 12/08/2014 20:48:00 12/08/2014 22:12:00 DIS Emergency Kingsley BARBER, Carl Quach [facility] W.EDN
--- NOTE | 2018-02-27 18:16 | Diagnostic Imaging Report ---
PROCEDURE: CT head and CT cervical spine without contrast. TECHNIQUE: Multiple contiguous axial images were obtained through the brain and cervical spine without the use of intravenous contrast. Sagittal and coronal reformations through the cervical spine were then performed. INDICATION: Fall, headache, neck pain. COMPARISON: None. FINDINGS: CT head: Ventricles are normal in size, shape, and position. There is no midline shift or mass effect. There is no hemorrhage or evidence of acute ischemia. No extra-axial fluid collection is seen. There is no skull fracture. Paranasal sinuses and mastoids are normal. IMPRESSION: Negative CT head. CT cervical spine: Alignment is normal. There is no subluxation or fracture. No degeneration is seen. No osseous lesion. Paraspinous soft tissues are normal. IMPRESSION: No traumatic malalignment or fracture. Dictated by: Dictated on workstation # [id number]
--- NOTE | 2018-02-27 18:27 | ED Head Injury ---
General Chief Complaint: Head/Cervical Problems Stated Complaint: PAIN IN HEAD, PRESSURE, EYE PAIN HITTING HEAD Nursing Triage Note: Pt. advises last night at approximately 8pm she was pulling laundry out of the dryer when she hit the back of her head. She advises headache and continual neck pain today that has not improved. She advises she took 3 advil at approximately 1430. She denies loss of consciousness at the time of the incident. Source: patient Exam Limitations: no limitations History of Present Illness Date Seen by Provider: Feb 27, 2018 Time Seen by Provider: 18:50 Initial Comments 22-year-old female who presents to the emergency room with complaints of head and neck pain. She reports last night after removing laundry from the prior she struck the back of her head on the dryer door. She denies loss of consciousness. She reports that her head pain has gradually became worse throughout the day and is not improving with ibuprofen and Tylenol. Occurred: yesterday Location: occipital, global Method of Injury: direct blow Loss of Consciousness: no loss of consciousness Associated Systoms: Denies Symptoms Allergies and Home Medications Allergies Uncoded Allergies: PCN (Allergy, Unknown, 02/27/18) Patient Home Medication List Home Medication List Reviewed: Yes Review of Systems Review of Systems Constitutional: see HPI, dizziness Musculoskeletal: see HPI, neck pain Psychiatric/Neurological: See HPI, Headache All Other Systems Reviewed Negative Unless Noted: Yes Past Wijrfme-Vgymbs-Qrbxpo Hx Past Med/Social Hx: Reviewed Nursing Past Med/Soc Hx Patient Social History Alcohol Use: Denies Use Recreational Drug Use: No Smoking Status: Never a Smoker 2nd Hand Smoke Exposure: No Recent Foreign Travel: No Contact w/Someone Who Travel: No Recent Infectious Disease Expo: No Recent Hopitalizations: No Seasonal Allergies Seasonal Allergies: No Past Medical History Surgeries: Yes (dental) Respiratory: No Cardiac: No Neurological: No Genitourinary: No Gastrointestinal: No Musculoskeletal: No Endocrine: No HEENT: No Cancer: No Psychosocial: No Blood Disorders: No Family Medical History Reviewed Nursing Family Hx Physical Exam Vital Signs Vital Signs - First Documented 02/27/18 17:38 Pulse 78 Resp 14 B/P (MAP) 103/62 (76) Pulse Ox 100 O2 Delivery Room Air Capillary Refill : Less Than 3 Seconds Height, Weight, BMI Height: 5'3.00" Weight: 130lbs. oz. 58.442876st; BMI Method:Stated General Appearance: WD/WN, no apparent distress HEENT: PERRL/EOMI, normal ENT inspection, TMs normal, pharynx normal Neck: full range of motion, supple, normal inspection, tender midline Cardiovascular: normal peripheral pulses, regular rate, rhythm, no edema, no gallop, no JVD, no murmur Respiratory: chest non-tender, lungs clear, normal breath sounds, no respiratory distress, no accessory muscle use Extremities: normal capillary refill Psychiatric: alert, oriented x 3 Crainal Nerves: normal hearing, normal speech, PERRL Coordination/Gait: normal finger to nose, normal gait Motor/Sensory: no motor deficit, no sensory deficit Skin: normal color, warm/dry Lincoln Coma Score Best Eye Response: (4) Open Spontaneously Best Verbal Response: (5) Oriented Best Motor Response: (6) Obeys Commands Chriss Total: 15 Progress/Results/Core Measures Results/Orders My Orders Orders - JAYANT HODGE Ct Head/Cervical Spine Wo (02/27/18 17:42) Vital Signs/I&O Blood Pressure Mean: 76 Progress Progress Note : Time: 18:26 Progress Note I have seen and evaluated the patient. I have informed her of imaging studies. She agrees with plan of care, plans for discharge, return precautions were given. Diagnostic Imaging Diagonstic Imaging: CT Plain Films/CT/US/NM/MRI: c-spine, head Comments NAME: LUIS HUERTAS [facility] REC#: [id number] PHYSICIAN: JAYANT HODGE CC: BENI HODGE DANIEL J Page 2 of 2 RADIOLOGY REPORT [facility], [place] CC: BENI HODGE DANIEL J Page 1 of 1 RADIOLOGY REPORT NAME: LUIS HUERTAS [facility] REC#: [id number] PT STATUS: REG ER : 1995 PHYSICIAN: JAYANT HODGE ADMIT DATE: 02/27/18/ER Signed Date of Exam: 02/27/18 CT HEAD/CERVICAL SPINE WO PROCEDURE: CT head and CT cervical spine without contrast. TECHNIQUE: Multiple contiguous axial images were obtained through the brain and cervical spine without the use of intravenous contrast. Sagittal and coronal reformations through the cervical spine were then performed. INDICATION: Fall, headache, neck pain. COMPARISON: None. FINDINGS: CT head: Ventricles are normal in size, shape, and position. There is no midline shift or mass effect. There is no hemorrhage or evidence of acute ischemia. No extra-axial fluid collection is seen. There is no skull fracture. Paranasal sinuses and mastoids are normal. IMPRESSION: Negative CT head. CT cervical spine: Alignment is normal. There is no subluxation or fracture. No degeneration is seen. No osseous lesion. Paraspinous soft tissues are normal. IMPRESSION: No traumatic malalignment or fracture. Dictated by: Dictated on workstation # [id number] Dict: 02/27/181811 Trans: 02/27/181825 Interpreted by: KISHAN WIGGINS Electronically signed by: KISHAN WIGGINS 02/27/181825 Reviewed: Reviewed by Ok Departure Impression Primary Impression: Concussion without loss of consciousness Additional Impression: Headache Disposition: 01 HOME, SELF-CARE Condition: Stable/Unchanged Departure-Patient Inst. Decision time for Depature: 18:26 Patient Instructions: Concussion, Adult (DC) Add. Discharge Instructions: You may continue to use ibuprofen and Tylenol as directed by the bottle for pain relief. Reduce stimulation such as bright lights, loud noises, television, phone or tablet screens as much as possible. Follow-up with her primary care provider within 1 week for recheck. Return back to the emergency room for worsening symptoms or concerns as needed. All discharge instructions reviewed with patient and/or family. Voiced understanding. JAYANT HODGE Feb 27, 2018 18:27
[2018-02-27 18:38] VITALS: BP 103/62
== END 2018-02-27 18:38 | disposition home or self-care (01) ==
LOC: ER 17:21
DX: S06.0X0A Concussion without loss of consciousness, initial encounter (principal); R51 Headache; R40.2142 Coma scale, eyes open, spontaneous, at arrival to emergency department; R40.2252 Coma scale, best verbal response, oriented, at arrival to emergency department; R40.2362 Coma scale, best motor response, obeys commands, at arrival to emergency department; Z88.0 Allergy status to penicillin; W22.09XA Striking against other stationary object, initial encounter
CPT/HCPCS: 70450; 72125

== ENCOUNTER 2018-04-30 16:12 | Emergency (ER) | payer BC ==
[~2018-04-30] VITALS: Ht 160 cm; Wt 56.7 kg
--- OUTSIDE RECORDS SUMMARY | 2018-04-30 16:16 | XMS REPORT | Continuity of Care Document ---
Author Author [facility] Organization [facility] Address Unknown Phone Unavailable Allergies Active Description Code Type Severity Reaction Onset Reported/Identified Relationship to Patient Clinical Status Yes No Known Drug Intolerances No Known Drug Intolerances Drug Allergy Unknown N/A 1997 Yes AMOXICILLIN [id number] Drug Allergy N/A hives 08/25/1999 Yes OMNICEF 36152 Drug Allergy N/A HIVES 02/28/2009 Yes No [...] penicillin Drug Allergy Unknown hives 03/23/2015 Yes PCN PCN Unknown N/ A 02/27/2018 Medications Medication Packaging Start Date Stop Date Route Dosage Sig NITROFURANTOIN MACROCRYSTAL 01/19 AZO TABS 01/19/2015 ORTHO TRI-CYCLEN LO 02/06/2015 Oral 0.18/0.215/0.25 Problems Date Dx Coded Attending Type Code Diagnosis Diagnosed By 02/27/2018 JAYANT HODGE Ot R40.2142 COMA SCALE, EYES OPEN, SPONTANEOUS, EMR 02/27/2018 JAYANT HODGE Ot R40.2252 COMA SCALE, BEST VERBAL RESPONSE, ORIENT 02/27/2018 JAYANT HODGE Ot R40.2362 COMA SCALE, BEST MOTOR RESPONSE, OBEYS C 02/27/2018 JAYANT HODGE Ot R51 HEADACHE 02/27/2018 JAYANT HODGE Ot S06.0X0A CONCUSSION WITHOUT LOSS OF CONSCIOUSNESS 02/27/2018 JAYANT HODGE Ot W22.09XA STRIKING AGAINST OTHER STATIONARY OBJECT 02/27/2018 JAYANT HODGE Ot Z88.0 ALLERGY STATUS TO PENICILLIN 03/05/2018 JAYANT HODGE Ot R40.2142 COMA SCALE, EYES OPEN, SPONTANEOUS, EMR 03/05/2018 JAYANT HODGE Ot R40.2252 COMA SCALE, BEST VERBAL RESPONSE, ORIENT 03/05/2018 JAYANT HODGE Ot R40.2362 COMA SCALE, BEST MOTOR RESPONSE, OBEYS C 03/05/2018 JAYANT HODGE Ot R51 HEADACHE 03/05/2018 JAYANT HODGE Ot S06.0X0A CONCUSSION WITHOUT LOSS OF CONSCIOUSNESS 03/05/2018 JAYANT HODGE Ot W22.09XA STRIKING AGAINST OTHER STATIONARY OBJECT 03/05/2018 JAYANT HODGE Ot Z88.0 ALLERGY STATUS TO PENICILLIN Procedures There is no data. <section xmlns="urn:hl7-org:v3" xmlns:xsi="http:// www.SearchMe[employer].org/2001/XMLSchema-instance"> <templateId root= "2.16.840.1.282612.10.20.22.2.3" /> <templateId root= "2.16.840.1.800133.10.20.22.2.3.1" /> <code codeSystemName="LOINC" codeSystem= "2.16.840.1.837742.6.1" code="62428-5" displayName="Results" /> <title>Results< /title> <text> <table> <thead> <tr> <th>Test</th> <th>Result</th> <th>Range</th> </tr> </thead> < tbody> <tr> <th colspan="10">UR TEST - 03/23/15 10:02< /th> </tr> <tr> <td>UR TEST</td> <td> NEGATIVE </td> <td>NEGATIVE</td> </tr> <tr> <th colspan="10">CALCIUM IONIZED - 04/20/15 13:10</th> </tr> <tr> <td>CALCIUM IONIZED</td> <td>4.7 mg/dL</td> <td>4.5-5.3< /td> </tr> <tr> <th colspan="10">METABOLIC PANEL, COMPREHN - 04/20/15 13:10</th> </tr> [...] <td>5-10 wbc/hpf</td> <td>0 - 5</td> </tr> <tr> <th colspan="10">UR TEST - 11/11/15 12:12</th> </tr> <tr> [...] <td>CALCIUM IONIZED</td> <td>4.4 mg/dL</td> <td>4.5-5.3</td> </tr> <tr> < colspan="10"> URINALYSIS, ROUTINE - 11/13/15 09:44</th> </tr> [...] PH</td> <td>5.5 </td> < td>5.0-7.0</td> </tr> <tr> <th colspan="10">UA MICROSCOPIC - 11/13/15 09:44</th> </tr> <tr> [...] </text> <entry> <organizer moodCode="EVN" classCode= "BATTERY"> <templateId root="216.840.1.837365.10..22.4.1" /> <id nullFlavor="NA" /> <code codeSystem="local" code="PREGU" displayName="UR TEST" /> <statusCode code="completed" /> <component> <observation moodCode="EVN" classCode="OBS"> <templateId root= "216.840.1.177053.10..22.4.2" /> <id nullFlavor="NA" /> < code codeSystem="local" code="PREGU" displayName="UR TEST" /> <statusCode code="completed" /> <effectiveTime value="805312395381" / > <value unit="" xsi:type="PQ" value="NEGATIVE" /> < referenceRange> <observationRange> <text>NEGATIVE</text > </observationRange> </referenceRange> </observation > </component> </organizer> </entry> <entry> <organizer moodCode= "EVN" classCode="BATTERY"> <templateId root="216.840.1.637589.10..22.4.1 " /> <id nullFlavor="NA" /> <code codeSystem="local" code="CAION" displayName="CALCIUM IONIZED" /> <statusCode code="completed" /> < component> <observation moodCode="EVN" classCode="OBS"> < templateId root="216.840.1.373479..22.4.2" /> <id nullFlavor="NA " /> <code codeSystem="local" code="CAION" displayName="CALCIUM IONIZED " /> <statusCode code="completed" /> <effectiveTime value= "119594740072" /> <value unit="mg/dL" xsi:type="PQ" value="4.7" /> <referenceRange> <observationRange> <text>4.5-5.3< /text> </observationRange> </referenceRange> </ observation> </component> </organizer> </entry> <entry> <organizer moodCode="EVN" classCode="BATTERY"> <templateId root= "216.840.1.928189.10..22.4.1" /> <id nullFlavor="NA" /> <code codeSystem="local" code="METABC" displayName="METABOLIC PANEL, COMPREHN" /> <statusCode code="completed" /> <component> <observation moodCode= "EVN" classCode="OBS"> <templateId root="216.840.1.309124.10..22.4.2 " /> <id nullFlavor="NA" /> <code codeSystem="local" code="K" displayName="POTASSIUM" /> <statusCode code="completed" /> < effectiveTime value="019144693027" /> <value unit="mmol/L" xsi:type="PQ " value="3.7" /> <referenceRange> <observationRange> <text>3.5-5.3</text> </observationRange> </ referenceRange> </observation> </component> <component> <observation moodCode="EVN" classCode="OBS"> <templateId root= "16.840.1.300141.10..4.2" /> <id nullFlavor="NA" /> < code codeSystem="local" code="GAP" displayName="ANION GAP" /> < statusCode code="completed" /> <effectiveTime value="593671723003" /> <value unit="mmol/L" xsi:type="PQ" value="8" /> < referenceRange> <observationRange> <text>5-15</text> </observationRange> </referenceRange> </observation> </component> <component> <observation moodCode="EVN" classCode= "OBS"> <templateId root="16.840.1.709569.10.22.4.2" /> < id nullFlavor="NA" /> <code codeSystem="local" code="GLU" displayName= "GLUCOSE" /> <statusCode code="completed" /> <effectiveTime value="679143792701" /> <value unit="mg/dL" xsi:type="PQ" value="73" / > <referenceRange> <observationRange> <text>70- 99</text> </observationRange> </referenceRange> </ observation> </component> <component> <observation moodCode= "EVN" classCode="OBS"> <templateId root="216.840.1.027782.10..22.4.2 " /> <id nullFlavor="NA" /> <code codeSystem="local" code="CA " displayName="CALCIUM" /> <statusCode code="completed" /> < effectiveTime value="185080971406" /> <value unit="mg/dL" xsi:type="PQ " value="8.8" /> <referenceRange> <observationRange> <text>8.5-10.1</text> </observationRange> </ referenceRange> </observation> </component> <component> <observation moodCode="EVN" classCode="OBS"> <templateId root= "03.28.840.1.066906.11.29.21.4.2" /> <id nullFlavor="NA" /> < code codeSystem="local" code="BUN" displayName="BLOOD UREA NITROGEN" /> <statusCode code="completed" /> <effectiveTime value="210066456297" / > <value unit="mg/dL" xsi:type="PQ" value="9" /> < referenceRange> <observationRange> <text>7-20</text> </observationRange> </referenceRange> </observation> </component> <component> <observation moodCode="EVN" classCode= "OBS"> <templateId root="03.28.840.1.903234...22.4.2" /> < id nullFlavor="NA" /> <code codeSystem="local" code="CREAT" displayName ="CREATININE" /> <statusCode code="completed" /> < effectiveTime value="466174766967" /> <value unit="mg/dL" xsi:type="PQ " value="0.9" /> <referenceRange> <observationRange> <text>0.5-1.0</text> </observationRange> </ referenceRange> </observation> </component> <component> <observation moodCode="EVN" classCode="OBS"> <templateId root= "216.840.1.043534.10...4.2" /> <id nullFlavor="NA" /> < code codeSystem="local" code="NA" displayName="SODIUM" /> <statusCode code="completed" /> <effectiveTime value="106574204408" /> < value unit="mmol/L" xsi:type="PQ" value="140" /> <referenceRange> <observationRange> <text>135-148</text> </ observationRange> </referenceRange> </observation> </ component> <component> <observation moodCode="EVN" classCode="OBS"> <templateId root="03.28.840.1.375480.10..4.2" /> <id nullFlavor="NA" /> <code codeSystem="local" code="CL" displayName= "CHLORIDE" /> <statusCode code="completed" /> <effectiveTime value="372145877341" /> <value unit="mmol/L" xsi:type="PQ" value="104" /> <referenceRange> <observationRange> <text>98 -110</text> </observationRange> </referenceRange> </ observation> </component> <component> <observation moodCode= "EVN" classCode="OBS"> <templateId root="03.28.840.1.583095.10.20.22.4.2 " /> <id nullFlavor="NA" /> <code codeSystem="local" code="AST " displayName="AST/SGOT" /> <statusCode code="completed" /> < effectiveTime value="715944325962" /> <value unit="Units/L" xsi:type= "PQ" value="12" /> <referenceRange> <observationRange> <text>10-37</text> </observationRange> </ referenceRange> </observation> </component> <component> <observation moodCode="EVN" classCode="OBS"> <templateId root= "16.840.1.990351.11.29.21.4.2" /> <id nullFlavor="NA" /> < code codeSystem="local" code="ALT" displayName="ALT/SGPT" /> < statusCode code="completed" /> <effectiveTime value="303857717471" /> <value unit="Units/L" xsi:type="PQ" value="12" /> < referenceRange> <observationRange> <text>< 66</text> </observationRange> </referenceRange> </observation > </component> <component> <observation moodCode="EVN" classCode="OBS"> <templateId root="16.840.1.999450.11.29.21.4.2" /> <id nullFlavor="NA" /> <code codeSystem="local" code="CO2" displayName="CARBON DIOXIDE" /> <statusCode code="completed" /> <effectiveTime value="779888648215" /> <value unit="mmol/L" xsi:type ="PQ" value="28" /> <referenceRange> <observationRange> <text>21-32</text> </observationRange> </ referenceRange> </observation> </component> <component> <observation moodCode="EVN" classCode="OBS"> <templateId root= "216.840.1.046928.11.29.21.4.2" /> <id nullFlavor="NA" /> < code codeSystem="local" code="TP" displayName="TOTAL PROTEIN" /> < statusCode code="completed" /> <effectiveTime value="806706370532" /> <value unit="gm/dL" xsi:type="PQ" value="8.0" /> < referenceRange> <observationRange> <text>5.7-8.0</text> </observationRange> </referenceRange> </observation > </component> <component> <observation moodCode="EVN" classCode="OBS"> <templateId root="2.16.840.1.604317.10..22.4.2" /> <id nullFlavor="NA" /> <code codeSystem="local" code="ALB" displayName="ALBUMIN" /> <statusCode code="completed" /> < effectiveTime value="665399036406" /> <value unit="gm/dL" xsi:type="PQ " value="3.8" /> <referenceRange> <observationRange> <text>3.4-5.0</text> </observationRange> </ referenceRange> </observation> </component> <component> <observation moodCode="EVN" classCode="OBS"> <templateId root= "216.840.1.103330.10..22.4.2" /> <id nullFlavor="NA" /> < code codeSystem="local" code="BILTOT" displayName="BILI TOTAL" /> < statusCode code="completed" /> <effectiveTime value="130553125927" /> <value unit="mg/dL" xsi:type="PQ" value="0.5" /> < referenceRange> <observationRange> <text>0.0-1.0</text> </observationRange> </referenceRange> </observation > </component> <component> <observation moodCode="EVN" classCode="OBS"> <templateId root="16.840.1.787397.10...4.2" /> <id nullFlavor="NA" /> <code codeSystem="local" code="ALKP" displayName="ALKALINE PHOSPHATASE TOTAL" /> <statusCode code="completed " /> <effectiveTime value="774890680666" /> <value unit="IU/L " xsi:type="PQ" value="61" /> <referenceRange> < observationRange> <text>45-117</text> </observationRange > </referenceRange> </observation> </component> </ organizer> </entry> <entry> <organizer moodCode="EVN" classCode="BATTERY"> <templateId root="216.840.1.896226.10...4.1" /> <id nullFlavor= "NA" /> <code codeSystem="local" code="PHOS" displayName="PHOSPHORUS" /> <statusCode code="completed" /> <component> <observation moodCode="EVN" classCode="OBS"> <templateId root= "216.840.1.970101.10...4.2" /> <id nullFlavor="NA" /> < code codeSystem="local" code="PHOS" displayName="PHOSPHORUS" /> < statusCode code="completed" /> <effectiveTime value="451215923539" /> <value unit="mg/dL" xsi:type="PQ" value="3.6" /> < referenceRange> <observationRange> <text>2.5-4.9</text> </observationRange> </referenceRange> </observation > </component> </organizer> </entry> <entry> <organizer moodCode= "EVN" classCode="BATTERY"> <templateId root="16.840.1.975064.10..22.4.1 " /> <id nullFlavor="NA" /> <code codeSystem="local" code="T4F" displayName="T4 FREE" /> <statusCode code="completed" /> <component> <observation moodCode="EVN" classCode="OBS"> <templateId root= "16.840.1.166127.10...4.2" /> <id nullFlavor="NA" /> < code codeSystem="local" code="T4F" displayName="T4 FREE" /> < statusCode code="completed" /> <effectiveTime value="736273660919" /> <value unit="ng/dL" xsi:type="PQ" value="1.1" /> < referenceRange> <observationRange> <text>0.8-1.3</text> </observationRange> </referenceRange> </observation > </component> </organizer> </entry> <entry> <organizer moodCode= "EVN" classCode="BATTERY"> <templateId root="03.28.840.1.720856....4.1 " /> <id nullFlavor="NA" /> <code codeSystem="local" code="TSH" displayName="THYROID STIM HORMONE (TSH)" /> <statusCode code="completed" / > <component> <observation moodCode="EVN" classCode="OBS"> <templateId root="16.840.1.950246.10...4.2" /> <id nullFlavor="NA " /> <code codeSystem="local" code="TSH" displayName="THYROID STIM HORMONE (TSH)" /> <statusCode code="completed" /> < effectiveTime value="229260758353" /> <value unit="uIU/mL" xsi:type="PQ " value="2.63" /> <referenceRange> <observationRange> <text>0.46-4.13</text> </observationRange> </ referenceRange> </observation> </component> </organizer> </entry > <entry> <organizer moodCode="EVN" classCode="BATTERY"> <templateId root="03.28.840.1.447584.10..22.4.1" /> <id nullFlavor="NA" /> <code codeSystem="local" code="PARA" displayName="PARATHYROID HORMONE (INTACT)" /> <statusCode code="completed" /> <component> <observation moodCode ="EVN" classCode="OBS"> <templateId root= "840.1.488249....4.2" /> <id nullFlavor="NA" /> < code codeSystem="local" code="PARA" displayName="PARATHYROID HORMONE (INTACT)" / > <statusCode code="completed" /> <effectiveTime value= "718754957718" /> <value unit="pg/mL" xsi:type="PQ" value="35" /> <referenceRange> <observationRange> <text>14-85</ text> </observationRange> </referenceRange> </ observation> </component> </organizer> </entry> <entry> <organizer moodCode="EVN" classCode="BATTERY"> <templateId root= "840.1.512769...22.4.1" /> <id nullFlavor="NA" /> <code codeSystem="local" code="VITD25" displayName="VITAMIN D 25-HYDROXY" /> < statusCode code="completed" /> <component> <observation moodCode= "EVN" classCode="OBS"> <templateId root="03.28.840.1.924084.10..22.4.2 " /> <id nullFlavor="NA" /> <code codeSystem="local" code= "VITD25" displayName="VITAMIN D 25-HYDROXY" /> <statusCode code= "completed" /> <effectiveTime value="394433714486" /> <value unit="ng/mL" xsi:type="PQ" value="26.1" /> <interpretationCode codeSystem="local" code="*" /> <referenceRange> < observationRange> <text>30.0-100.0</text> </ observationRange> </referenceRange> </observation> </ component> </organizer> </entry> <entry> <organizer moodCode="EVN" classCode="BATTERY"> <templateId root="216.840.1.419728.10..22.4.1" /> <id nullFlavor="NA" /> <code codeSystem="local" code="UA" displayName= "URINALYSIS, ROUTINE" /> <statusCode code="completed" /> <component> <observation moodCode="EVN" classCode="OBS"> <templateId root= "216.840.1.740427.10..22.4.2" /> <id nullFlavor="NA" /> < code codeSystem="local" code="LEUESU" displayName="UA LEUKOCYTE ESTERASE DIPSTICK" /> <statusCode code="completed" /> <effectiveTime value="483418578497" /> <value unit="" xsi:type="PQ" value="1+" /> <interpretationCode codeSystem="local" code="*" /> < referenceRange> <observationRange> <text>NEGATIVE</text > </observationRange> </referenceRange> </observation > </component> <component> <observation moodCode="EVN" classCode="OBS"> <templateId root="216.840.1.293285.10..22.4.2" /> <id nullFlavor="NA" /> <code codeSystem="local" code="NITRIU" displayName="UA NITRITE DIPSTICK" /> <statusCode code="completed" /> <effectiveTime value="" /> <value unit="" xsi:type= "PQ" value="NEGATIVE" /> <referenceRange> <observationRange > <text>NEGATIVE</text> </observationRange> </ referenceRange> </observation> </component> <component> <observation moodCode="EVN" classCode="OBS"> <templateId root= "2.16.840.1.762771.10..22.4.2" /> <id nullFlavor="NA" /> < code codeSystem="local" code="PROTEIU" displayName="UA PROTEIN DIPSTICK" /> <statusCode code="completed" /> <effectiveTime value= "" /> <value unit="" xsi:type="PQ" value="1+" /> < interpretationCode codeSystem="local" code="*" /> <referenceRange> <observationRange> <text>NEGATIVE</text> </ observationRange> </referenceRange> </observation> </ component> <component> <observation moodCode="EVN" classCode="OBS"> <templateId root="2.16.840.1.477876.10..22.4.2" /> <id nullFlavor="NA" /> <code codeSystem="local" code="DGLUU" displayName= "UA GLUCOSE DIPSTICK" /> <statusCode code="completed" /> < effectiveTime value="" /> <value unit="" xsi:type="PQ" value="NEGATIVE" /> <referenceRange> <observationRange> <text>NEGATIVE</text> </observationRange> </ referenceRange> </observation> </component> <component> <observation moodCode="EVN" classCode="OBS"> <templateId root= "16.840.1.953433.10..22.4.2" /> <id nullFlavor="NA" /> < code codeSystem="local" code="KETONU" displayName="UA KETONE DIPSTICK" /> <statusCode code="completed" /> <effectiveTime value=" " /> <value unit="" xsi:type="PQ" value="4+" /> < interpretationCode codeSystem="local" code="*" /> <referenceRange> <observationRange> <text>NEGATIVE</text> </ observationRange> </referenceRange> </observation> </ component> <component> <observation moodCode="EVN" classCode="OBS"> <templateId root="03.28.840.1.392598...4.2" /> <id nullFlavor="NA" /> <code codeSystem="local" code="UROBILU" displayName= "UA UROBILINOGEN DIPSTICK" /> <statusCode code="completed" /> <effectiveTime value="" /> <value unit="" xsi:type="PQ" value="3+" /> <interpretationCode codeSystem="local" code="*" /> <referenceRange> <observationRange> <text>NORMAL</ text> </observationRange> </referenceRange> </ observation> </component> <component> <observation moodCode= "EVN" classCode="OBS"> <templateId root="16.840.1.816409.10..22.4.2 " /> <id nullFlavor="NA" /> <code codeSystem="local" code= "BILU" displayName="UA BILIRUBIN DIPSTICK" /> <statusCode code= "completed" /> <effectiveTime value="" /> <value unit="" xsi:type="PQ" value="2+" /> <interpretationCode codeSystem= "local" code="*" /> <referenceRange> <observationRange> <text>NEGATIVE</text> </observationRange> </ referenceRange> </observation> </component> <component> <observation moodCode="EVN" classCode="OBS"> <templateId root= "216.840.1.638394.10..4.2" /> <id nullFlavor="NA" /> < code codeSystem="local" code="CAROLE" displayName="UA BLOOD DIPSTICK" /> < statusCode code="completed" /> <effectiveTime value="" /> <value unit="" xsi:type="PQ" value="1+" /> < interpretationCode codeSystem="local" code="*" /> <referenceRange> <observationRange> <text>NEGATIVE</text> </ observationRange> </referenceRange> </observation> </ component> <component> <observation moodCode="EVN" classCode="OBS"> <templateId root="03.28.840.1.757170.11.29.21.4.2" /> <id nullFlavor="NA" /> <code codeSystem="local" code="SPGRU" displayName= "UA SPECIFIC GRAVITY" /> <statusCode code="completed" /> < effectiveTime value="" /> <value unit="" xsi:type="PQ" value="1.025" /> <referenceRange> <observationRange> <text>1.015-1.025</text> </observationRange> </ referenceRange> </observation> </component> <component> <observation moodCode="EVN" classCode="OBS"> <templateId root= "16.840.1.996931.10..4.2" /> <id nullFlavor="NA" /> < code codeSystem="local" code="ECTOR" displayName="UR PH" /> <statusCode code="completed" /> <effectiveTime value="" /> < value unit="" xsi:type="PQ" value="6.0" /> <referenceRange> <observationRange> <text>5.0-7.0</text> </ observationRange> </referenceRange> </observation> </ component> </organizer> </entry> <entry> <organizer moodCode="EVN" classCode="BATTERY"> <templateId root="16.840.1.172481.10..4.1" /> <id nullFlavor="NA" /> <code codeSystem="local" code="UAMICRO" displayName="UA MICROSCOPIC" /> <statusCode code="completed" /> < component> <observation moodCode="EVN" classCode="OBS"> < templateId root="03.28.840.1.692396.10...4.2" /> <id nullFlavor="NA " /> <code codeSystem="local" code="BACU" displayName="UA BACTERIA" /> <statusCode code="completed" /> <effectiveTime value= "" /> <value unit="" xsi:type="PQ" value="4+" /> < interpretationCode codeSystem="local" code="*" /> <referenceRange> <observationRange> <text>NEGATIVE</text> </ observationRange> </referenceRange> </observation> </ component> <component> <observation moodCode="EVN" classCode="OBS"> <templateId root="03.28.840.1.789296.10..4.2" /> <id nullFlavor="NA" /> <code codeSystem="local" code="EPIU" displayName=" UA EPITHELIAL CELLS" /> <statusCode code="completed" /> < effectiveTime value="" /> <value unit="epi/hpf" xsi:type= "PQ" value="4+" /> <interpretationCode codeSystem="local" code="*" /> <referenceRange> <observationRange> <text>0 - 1 +</text> </observationRange> </referenceRange> </ observation> </component> <component> <observation moodCode= "EVN" classCode="OBS"> <templateId root="216.840.1.833221.10.20.22.4.2 " /> <id nullFlavor="NA" /> <code codeSystem="local" code= "RBCU" displayName="UA RBC" /> <statusCode code="completed" /> <effectiveTime value="" /> <value unit="rbc/hpf" xsi:type ="PQ" value="3-5" /> <interpretationCode codeSystem="local" code="*" / > <referenceRange> <observationRange> <text>0 - 3</text> </observationRange> </referenceRange> </ observation> </component> <component> <observation moodCode= "EVN" classCode="OBS"> <templateId root="216.840.1.945033.10.20.22.4.2 " /> <id nullFlavor="NA" /> <code codeSystem="local" code= "UAVOL" displayName="UA VOLUME FOR EXAM" /> <statusCode code="completed " /> <effectiveTime value="" /> <value unit="mL" xsi:type="PQ" value="12.0" /> <referenceRange> < observationRange> <text>(12mL STD)</text> </ observationRange> </referenceRange> </observation> </ component> <component> <observation moodCode="EVN" classCode="OBS"> <templateId root="216.840.1.553934.10..22.4.2" /> <id nullFlavor="NA" /> <code codeSystem="local" code="WBCU" displayName=" UA WBC" /> <statusCode code="completed" /> <effectiveTime value="177249146278" /> <value unit="wbc/hpf" xsi:type="PQ" value="5-10 " /> <interpretationCode codeSystem="local" code="*" /> < referenceRange> <observationRange> <text>0 - 5</text> </observationRange> </referenceRange> </observation> </component> </organizer> </entry> <entry> <organizer moodCode="EVN " classCode="BATTERY"> <templateId root="216.840.1.737762.10..22.4.1" / > <id nullFlavor="NA" /> <code codeSystem="local" code="PREGU" displayName="UR TEST" /> <statusCode code="completed" /> < component> <observation moodCode="EVN" classCode="OBS"> < templateId root="216.840.1.790992.10..22.4.2" /> <id nullFlavor="NA " /> <code codeSystem="local" code="PREGU" displayName="UR TEST" /> <statusCode code="completed" /> <effectiveTime value= "957740131353" /> <value unit="" xsi:type="PQ" value="NEGATIVE" /> <referenceRange> <observationRange> <text>NEGATIVE </text> </observationRange> </referenceRange> </ observation> </component> </organizer> </entry> <entry> <organizer moodCode="EVN" classCode="BATTERY"> <templateId root= "[id number]" /> <id nullFlavor="NA" /> <code codeSystem="local" code="CBCD" displayName="CBC W/DIFF" /> <statusCode code ="completed" /> <component> <observation moodCode="EVN" classCode= "OBS"> <templateId root="[id number]" /> < id nullFlavor="NA" /> <code codeSystem="local" code="BA#" displayName= "BASOPHIL #" /> <statusCode code="completed" /> < effectiveTime value="[id number]" /> <value unit="k/cumm" xsi:type="PQ " value="0.1" /> <referenceRange> <observationRange> <text>0.0-0.2</text> </observationRange> </ referenceRange> </observation> </component> <component> <observation moodCode="EVN" classCode="OBS"> <templateId root= "[id number]" /> <id nullFlavor="NA" /> < code codeSystem="local" code="BA%" displayName="BASOPHIL %" /> <statusCode code="completed" /> <effectiveTime value="276588649428" /> <value unit="%" xsi:type="PQ" value="2" /> < interpretationCode codeSystem="local" code="*" /> <referenceRange> <observationRange> <text>0-1</text> </ observationRange> </referenceRange> </observation> </ component> <component> <observation moodCode="EVN" classCode="OBS"> <templateId root="216.840.1.739918.11.29.21.4.2" /> <id nullFlavor="NA" /> <code codeSystem="local" code="CBCCOM" displayName= "COMMENT" /> <statusCode code="completed" /> <effectiveTime value="033973538856" /> <value unit="" xsi:type="PQ" value="REVIEWED" / > <referenceRange> <observationRange> <text /> </observationRange> </referenceRange> </observation > </component> <component> <observation moodCode="EVN" classCode="OBS"> <templateId root="2.16.840.1.068721.10..22.4.2" /> <id nullFlavor="NA" /> <code codeSystem="local" code="GR#" displayName="GRANULOCYTE #" /> <statusCode code="completed" /> <effectiveTime value="254283667386" /> <value unit="k/cumm" xsi:type= "PQ" value="1.9" /> <interpretationCode codeSystem="local" code="*" /> <referenceRange> <observationRange> <text>2.0- 9.0</text> </observationRange> </referenceRange> </ observation> </component> <component> <observation moodCode= "EVN" classCode="OBS"> <templateId root="2.16.840.1.109101.10..22.4.2 " /> <id nullFlavor="NA" /> <code codeSystem="local" code="GR& #37;" displayName="GRANULOCYTE %" /> <statusCode code="completed" / > <effectiveTime value="222140604483" /> <value unit="%" xsi:type="PQ" value="42" /> <interpretationCode codeSystem="local" code ="*" /> <referenceRange> <observationRange> < text>50-75</text> </observationRange> </referenceRange> </observation> </component> <component> <observation moodCode="EVN" classCode="OBS"> <templateId root= "216.840.1.387470.10..4.2" /> <id nullFlavor="NA" /> < code codeSystem="local" code="LY#" displayName="LYMPHOCYTE #" /> < statusCode code="completed" /> <effectiveTime value="884506893340" /> <value unit="k/cumm" xsi:type="PQ" value="1.9" /> < referenceRange> <observationRange> <text>1.0-4.0</text> </observationRange> </referenceRange> </observation > </component> <component> <observation moodCode="EVN" classCode="OBS"> <templateId root="216.840.1.502031.11.29.214.2" /> <id nullFlavor="NA" /> <code codeSystem="local" code="LY% " displayName="LYMPHOCYTE %" /> <statusCode code="completed" /> <effectiveTime value="468872378911" /> <value unit="%" xsi: type="PQ" value="42" /> <interpretationCode codeSystem="local" code="* " /> <referenceRange> <observationRange> <text> 20-30</text> </observationRange> </referenceRange> </ observation> </component> <component> <observation moodCode= "EVN" classCode="OBS"> <templateId root="16.840.1.018864.10..4.2 " /> <id nullFlavor="NA" /> <code codeSystem="local" code="MCH " displayName="MEAN CELL HGB" /> <statusCode code="completed" /> <effectiveTime value="242529587226" /> <value unit="pg" xsi:type= "PQ" value="29.6" /> <referenceRange> <observationRange> <text>27.0-33.0</text> </observationRange> </ referenceRange> </observation> </component> <component> <observation moodCode="EVN" classCode="OBS"> <templateId root= "216.840.1.820599.10..22.4.2" /> <id nullFlavor="NA" /> < code codeSystem="local" code="MCHC" displayName="MEAN CELL HGB CONCENTRATION" / > <statusCode code="completed" /> <effectiveTime value= "162922823722" /> <value unit="g/dL" xsi:type="PQ" value="34.5" /> <referenceRange> <observationRange> <text>32.0- 37.0</text> </observationRange> </referenceRange> </ observation> </component> <component> <observation moodCode= "EVN" classCode="OBS"> <templateId root="03.28.840.1.982907.10...4.2 " /> <id nullFlavor="NA" /> <code codeSystem="local" code="MCV " displayName="MEAN CELL VOLUME" /> <statusCode code="completed" /> <effectiveTime value="665344308588" /> <value unit="fl" xsi:type ="PQ" value="85.8" /> <referenceRange> <observationRange> <text>80.0-100.0</text> </observationRange> </ referenceRange> </observation> </component> <component> <observation moodCode="EVN" classCode="OBS"> <templateId root= "216.840.1.730428.10..22.4.2" /> <id nullFlavor="NA" /> < code codeSystem="local" code="MO#" displayName="MONOCYTE #" /> < statusCode code="completed" /> <effectiveTime value="675491668657" /> <value unit="k/cumm" xsi:type="PQ" value="0.6" /> < referenceRange> <observationRange> <text>0.1-1.0</text> </observationRange> </referenceRange> </observation > </component> <component> <observation moodCode="EVN" classCode="OBS"> <templateId root="2.16.840.1.707489.10...4.2" /> <id nullFlavor="NA" /> <code codeSystem="local" code="MO% " displayName="MONOCYTE %" /> <statusCode code="completed" /> <effectiveTime value="744181868030" /> <value unit="%" xsi: type="PQ" value="14" /> <interpretationCode codeSystem="local" code="* " /> <referenceRange> <observationRange> <text> 4-6</text> </observationRange> </referenceRange> </ observation> </component> <component> <observation moodCode= "EVN" classCode="OBS"> <templateId root="2.16.840.1.786662.10..22.4.2 " /> <id nullFlavor="NA" /> <code codeSystem="local" code="RBC " displayName="RED BLOOD CELL" /> <statusCode code="completed" /> <effectiveTime value="200225458386" /> <value unit="m/cumm" xsi: type="PQ" value="4.59" /> <referenceRange> <observationRange > <text>4.00-6.00</text> </observationRange> </ referenceRange> </observation> </component> <component> <observation moodCode="EVN" classCode="OBS"> <templateId root= "216.840.1.900909.10..4.2" /> <id nullFlavor="NA" /> < code codeSystem="local" code="RDW" displayName="RED CELL DISTRIBUTION WIDTH" /> <statusCode code="completed" /> <effectiveTime value= "142543579170" /> <value unit="%" xsi:type="PQ" value="13.4" /> <referenceRange> <observationRange> <text>11.0- 15.6</text> </observationRange> </referenceRange> </ observation> </component> <component> <observation moodCode= "EVN" classCode="OBS"> <templateId root="03.28.840.1.294355.11.29.214.2 " /> <id nullFlavor="NA" /> <code codeSystem="local" code="WBC " displayName="WHITE BLOOD CELL" /> <statusCode code="completed" /> <effectiveTime value="635141191622" /> <value unit="k/cumm" xsi: type="PQ" value="4.5" /> <interpretationCode codeSystem="local" code="* " /> <referenceRange> <observationRange> <text> 5.0-10.0</text> </observationRange> </referenceRange> </observation> </component> <component> <observation moodCode ="EVN" classCode="OBS"> <templateId root= "16.840.1.972103...4.2" /> <id nullFlavor="NA" /> < code codeSystem="local" code="HGBT" displayName="HEMOGLOBIN" /> < statusCode code="completed" /> <effectiveTime value="378820545373" /> <value unit="gm/dL" xsi:type="PQ" value="13.6" /> < referenceRange> <observationRange> <text>12.0-16.0</text > </observationRange> </referenceRange> </observation > </component> <component> <observation moodCode="EVN" classCode="OBS"> <templateId root="2.16.840.1.337464.10..22.4.2" /> <id nullFlavor="NA" /> <code codeSystem="local" code="HCTT" displayName="HEMATOCRIT" /> <statusCode code="completed" /> < effectiveTime value="797416187086" /> <value unit="%" xsi:type="PQ " value="39.4" /> <referenceRange> <observationRange> <text>37.0-47.0</text> </observationRange> </ referenceRange> </observation> </component> <component> <observation moodCode="EVN" classCode="OBS"> <templateId root= "216.840.1.957733.10..22.4.2" /> <id nullFlavor="NA" /> < code codeSystem="local" code="PLT" displayName="PLATELET COUNT" /> < statusCode code="completed" /> <effectiveTime value="608066330026" /> <value unit="k/cumm" xsi:type="PQ" value="155" /> < referenceRange> <observationRange> <text>150-400</text> </observationRange> </referenceRange> </observation > </component> </organizer> </entry> <entry> <organizer moodCode= "EVN" classCode="BATTERY"> <templateId root="2.16.840.1.735654.10.20.22.4.1 " /> <id nullFlavor="NA" /> <code codeSystem="local" code="LIVER" displayName="HEPATIC FUNCTION PANEL" /> <statusCode code="completed" /> <component> <observation moodCode="EVN" classCode="OBS"> < templateId root="16.840.1.015917.10..22.4.2" /> <id nullFlavor="NA " /> <code codeSystem="local" code="BILUC" displayName="BILI UNCONJUGATED" /> <statusCode code="completed" /> < effectiveTime value="808030333152" /> <value unit="mg/dL" xsi:type="PQ " value="0.8" /> <interpretationCode codeSystem="local" code="*" /> <referenceRange> <observationRange> <text>0.0-0.7 </text> </observationRange> </referenceRange> </ observation> </component> <component> <observation moodCode= "EVN" classCode="OBS"> <templateId root="03.28.840.1.102073.10...4.2 " /> <id nullFlavor="NA" /> <code codeSystem="local" code="AST " displayName="AST/SGOT" /> <statusCode code="completed" /> < effectiveTime value="440100206550" /> <value unit="Units/L" xsi:type= "PQ" value="91" /> <interpretationCode codeSystem="local" code="*" /> <referenceRange> <observationRange> <text>10-37 </text> </observationRange> </referenceRange> </ observation> </component> <component> <observation moodCode= "EVN" classCode="OBS"> <templateId root="03.28.840.1.763064.10..22.4.2 " /> <id nullFlavor="NA" /> <code codeSystem="local" code="ALT " displayName="ALT/SGPT" /> <statusCode code="completed" /> < effectiveTime value="011973675945" /> <value unit="Units/L" xsi:type= "PQ" value="69" /> <interpretationCode codeSystem="local" code="*" /> <referenceRange> <observationRange> <text>< 66</text> </observationRange> </referenceRange> </ observation> </component> <component> <observation moodCode= "EVN" classCode="OBS"> <templateId root="216.840.1.856572.11.29.21.4.2 " /> <id nullFlavor="NA" /> <code codeSystem="local" code="TP " displayName="TOTAL PROTEIN" /> <statusCode code="completed" /> <effectiveTime value="" /> <value unit="gm/dL" xsi:type ="PQ" value="7.2" /> <referenceRange> <observationRange> <text>6.4-8.2</text> </observationRange> </ referenceRange> </observation> </component> <component> <observation moodCode="EVN" classCode="OBS"> <templateId root= "216.840.1.171897.1022.4.2" /> <id nullFlavor="NA" /> < code codeSystem="local" code="ALB" displayName="ALBUMIN" /> < statusCode code="completed" /> <effectiveTime value="" /> <value unit="gm/dL" xsi:type="PQ" value="3.2" /> < interpretationCode codeSystem="local" code="*" /> <referenceRange> <observationRange> <text>3.4-5.0</text> </ observationRange> </referenceRange> </observation> </ component> <component> <observation moodCode="EVN" classCode="OBS"> <templateId root="216.840.1.139443.10..4.2" /> <id nullFlavor="NA" /> <code codeSystem="local" code="BILTOT" displayName= "BILI TOTAL" /> <statusCode code="completed" /> < effectiveTime value="" /> <value unit="mg/dL" xsi:type="PQ " value="1.5" /> <interpretationCode codeSystem="local" code="*" /> <referenceRange> <observationRange> <text>0.0-1.0 </text> </observationRange> </referenceRange> </ observation> </component> <component> <observation moodCode= "EVN" classCode="OBS"> <templateId root="16.840.1.347300.11.29.21.4.2 " /> <id nullFlavor="NA" /> <code codeSystem="local" code= "ALKP" displayName="ALKALINE PHOSPHATASE TOTAL" /> <statusCode code= "completed" /> <effectiveTime value="580869852691" /> <value unit="IU/L" xsi:type="PQ" value="118" /> <interpretationCode codeSystem ="local" code="*" /> <referenceRange> <observationRange> <text>45-117</text> </observationRange> </ referenceRange> </observation> </component> <component> <observation moodCode="EVN" classCode="OBS"> <templateId root= "216.840.1.515719.11.29.21.4.2" /> <id nullFlavor="NA" /> < code codeSystem="local" code="BILC" displayName="BILI CONJUGATED" /> < statusCode code="completed" /> <effectiveTime value="649971272702" /> <value unit="mg/dL" xsi:type="PQ" value="0.7" /> < interpretationCode codeSystem="local" code="*" /> <referenceRange> <observationRange> <text>0.0-0.3</text> </ observationRange> </referenceRange> </observation> </ component> </organizer> </entry> <entry> <organizer moodCode="EVN" classCode="BATTERY"> <templateId root="216.840.1.310920.10..22.4.1" /> <id nullFlavor="NA" /> <code codeSystem="local" code="LIP" displayName ="LIPASE" /> <statusCode code="completed" /> <component> < observation moodCode="EVN" classCode="OBS"> <templateId root= "216.840.1.870429.10...4.2" /> <id nullFlavor="NA" /> < code codeSystem="local" code="LIP" displayName="LIPASE" /> <statusCode code="completed" /> <effectiveTime value="750365135126" /> < value unit="Units/L" xsi:type="PQ" value="169" /> <referenceRange> <observationRange> <text>73-393</text> </ observationRange> </referenceRange> </observation> </ component> </organizer> </entry> <entry> <organizer moodCode="EVN" classCode="BATTERY"> <templateId root="216.840.1.358658.10..22.4.1" /> <id nullFlavor="NA" /> <code codeSystem="local" code="MONO" displayName="INFECTIOUS MONO SCREEN" /> <statusCode code="completed" /> <component> <observation moodCode="EVN" classCode="OBS"> < templateId root="16.840.1.217041.10..22.4.2" /> <id nullFlavor="NA " /> <code codeSystem="local" code="MONO" displayName="INFECTIOUS MONO SCREEN" /> <statusCode code="completed" /> <effectiveTime value="016126072631" /> <value unit="" xsi:type="PQ" value="POSITIVE" / > <interpretationCode codeSystem="local" code="*" /> < referenceRange> <observationRange> <text>NEGATIVE</text > </observationRange> </referenceRange> </observation > </component> </organizer> </entry> <entry> <organizer moodCode= "EVN" classCode="BATTERY"> <templateId root="16.840.1.709111.10..22.4.1 " /> <id nullFlavor="NA" /> <code codeSystem="local" code="HEPAT" displayName="HEPATITIS PANEL-ACUTE" /> <statusCode code="completed" /> <component> <observation moodCode="EVN" classCode="OBS"> < templateId root="216.840.1.640338.10..22.4.2" /> <id nullFlavor="NA " /> <code codeSystem="local" code="HAVMAB" displayName="AB HEPATITIS A IGM" /> <statusCode code="completed" /> <effectiveTime value ="509995610368" /> <value unit="" xsi:type="PQ" value="NEGATIVE" /> <referenceRange> <observationRange> <text> NEGATIVE</text> </observationRange> </referenceRange> </observation> </component> <component> <observation moodCode ="EVN" classCode="OBS"> <templateId root= "16.840.1.354666.11.29.22.4.2" /> <id nullFlavor="NA" /> < code codeSystem="local" code="HBSAG" displayName="AG HEPATITIS B SURF." /> <statusCode code="completed" /> <effectiveTime value="644827181404 " /> <value unit="" xsi:type="PQ" value="NEGATIVE" /> < referenceRange> <observationRange> <text>NEGATIVE</text > </observationRange> </referenceRange> </observation > </component> <component> <observation moodCode="EVN" classCode="OBS"> <templateId root="2.16.840.1.123617.10...4.2" /> <id nullFlavor="NA" /> <code codeSystem="local" code="HBCMAB" displayName="AB HEPATITIS B CORE IGM" /> <statusCode code="completed" / > <effectiveTime value="699448089373" /> <value unit="" xsi: type="PQ" value="NEGATIVE" /> <referenceRange> < observationRange> <text>NEGATIVE</text> </ observationRange> </referenceRange> </observation> </ component> <component> <observation moodCode="EVN" classCode="OBS"> <templateId root="2.16.840.1.407020.10...4.2" /> <id nullFlavor="NA" /> <code codeSystem="local" code="HCVAB" displayName= "AB HEPATITIS C" /> <statusCode code="completed" /> < effectiveTime value="079600033902" /> <value unit="" xsi:type="PQ" value="NEGATIVE" /> <referenceRange> <observationRange> <text>NEGATIVE</text> </observationRange> </ referenceRange> </observation> </component> </organizer> </entry > <entry> <organizer moodCode="EVN" classCode="BATTERY"> <templateId root="16.840.1.909785.10..22.4.1" /> <id nullFlavor="NA" /> <code codeSystem="local" code="iCHEM8" displayName="CHEM/HEM PROFILE-BEDSIDE" /> <statusCode code="completed" /> <component> <observation moodCode= "EVN" classCode="OBS"> <templateId root="03.28.840.1.378397.11.29.21.4.2 " /> <id nullFlavor="NA" /> <code codeSystem="local" code="K" displayName="POTASSIUM" /> <statusCode code="completed" /> < effectiveTime value="548619415420" /> <value unit="mmol/L" xsi:type="PQ " value="3.6" /> <referenceRange> <observationRange> <text>3.5-5.3</text> </observationRange> </ referenceRange> </observation> </component> <component> <observation moodCode="EVN" classCode="OBS"> <templateId root= "03.28.840.1.676607.11.29.21.4.2" /> <id nullFlavor="NA" /> < code codeSystem="local" code="CMETHOD" displayName="METHOD" /> < statusCode code="completed" /> <effectiveTime value="629861669779" /> <value unit="" xsi:type="PQ" value="Bedside" /> < referenceRange> <observationRange> <text /> < /observationRange> </referenceRange> </observation> </ component> <component> <observation moodCode="EVN" classCode="OBS"> <templateId root="03.28.840.1.349097...4.2" /> <id nullFlavor="NA" /> <code codeSystem="local" code="GAP" displayName= "ANION GAP" /> <statusCode code="completed" /> <effectiveTime value="468783555748" /> <value unit="mmol/L" xsi:type="PQ" value="13" / > <referenceRange> <observationRange> <text>10- 20</text> </observationRange> </referenceRange> </ observation> </component> <component> <observation moodCode= "EVN" classCode="OBS"> <templateId root="03.28.840.1.591892..22.4.2 " /> <id nullFlavor="NA" /> <code codeSystem="local" code= "HMETHOD" displayName="METHOD" /> <statusCode code="completed" /> <effectiveTime value="104243235021" /> <value unit="" xsi:type="PQ " value="Bedside" /> <referenceRange> <observationRange> <text /> </observationRange> </referenceRange> </observation> </component> <component> <observation moodCode="EVN" classCode="OBS"> <templateId root= "03.28.840.1.298765.22.4.2" /> <id nullFlavor="NA" /> < code codeSystem="local" code="GLU" displayName="GLUCOSE" /> < statusCode code="completed" /> <effectiveTime value="213150988194" /> <value unit="mg/dL" xsi:type="PQ" value="80" /> < referenceRange> <observationRange> <text>70-99</text> </observationRange> </referenceRange> </observation> </component> <component> <observation moodCode="EVN" classCode= "OBS"> <templateId root="03.28.840.1.090031.11.29.21.4.2" /> < id nullFlavor="NA" /> <code codeSystem="local" code="BUN" displayName= "BLOOD UREA NITROGEN" /> <statusCode code="completed" /> < effectiveTime value="881138718416" /> <value unit="mg/dL" xsi:type="PQ " value="11" /> <referenceRange> <observationRange> <text>7-20</text> </observationRange> </referenceRange > </observation> </component> <component> <observation moodCode="EVN" classCode="OBS"> <templateId root= "2.16.840.1.297821.11.29.21.4.2" /> <id nullFlavor="NA" /> < code codeSystem="local" code="CREAT" displayName="CREATININE" /> < statusCode code="completed" /> <effectiveTime value="323441490089" /> <value unit="mg/dL" xsi:type="PQ" value="1.3" /> < interpretationCode codeSystem="local" code="*" /> <referenceRange> <observationRange> <text>0.5-1.0</text> </ observationRange> </referenceRange> </observation> </ component> <component> <observation moodCode="EVN" classCode="OBS"> <templateId root="2.16.840.1.975541.11.29.21.4.2" /> <id nullFlavor="NA" /> <code codeSystem="local" code="HGBT" displayName= "HEMOGLOBIN" /> <statusCode code="completed" /> < effectiveTime value="215231919798" /> <value unit="gm/dL" xsi:type="PQ " value="12.2" /> <referenceRange> <observationRange> <text>12.0-16.0</text> </observationRange> </ referenceRange> </observation> </component> <component> <observation moodCode="EVN" classCode="OBS"> <templateId root= "216.840.1.687007.10...4.2" /> <id nullFlavor="NA" /> < code codeSystem="local" code="HCTT" displayName="HEMATOCRIT" /> < statusCode code="completed" /> <effectiveTime value="585947391863" /> <value unit="%" xsi:type="PQ" value="36.0" /> < interpretationCode codeSystem="local" code="*" /> <referenceRange> <observationRange> <text>37.0-47.0</text> </ observationRange> </referenceRange> </observation> </ component> <component> <observation moodCode="EVN" classCode="OBS"> <templateId root="16.840.1.568483.11.29.21.4.2" /> <id nullFlavor="NA" /> <code codeSystem="local" code="NA" displayName= "SODIUM" /> <statusCode code="completed" /> <effectiveTime value="572872505409" /> <value unit="mmol/L" xsi:type="PQ" value="135" /> <referenceRange> <observationRange> <text> 135-148</text> </observationRange> </referenceRange> </observation> </component> <component> <observation moodCode= "EVN" classCode="OBS"> <templateId root="216.840.1.032607.10..4.2 " /> <id nullFlavor="NA" /> <code codeSystem="local" code="CL " displayName="CHLORIDE" /> <statusCode code="completed" /> < effectiveTime value="167958998954" /> <value unit="mmol/L" xsi:type="PQ " value="105" /> <referenceRange> <observationRange> <text>98-110</text> </observationRange> </ referenceRange> </observation> </component> <component> <observation moodCode="EVN" classCode="OBS"> <templateId root= "16.840.1.887571.10..22.4.2" /> <id nullFlavor="NA" /> < code codeSystem="local" code="CO2" displayName="CARBON DIOXIDE" /> < statusCode code="completed" /> <effectiveTime value="765303562907" /> <value unit="mmol/L" xsi:type="PQ" value="21" /> < referenceRange> <observationRange> <text>21-32</text> </observationRange> </referenceRange> </observation> </component> <component> <observation moodCode="EVN" classCode= "OBS"> <templateId root="16.840.1.007225.10...4.2" /> < id nullFlavor="NA" /> <code codeSystem="local" code="CAION" displayName ="CALCIUM IONIZED" /> <statusCode code="completed" /> < effectiveTime value="836291582136" /> <value unit="mg/dL" xsi:type="PQ " value="4.4" /> <interpretationCode codeSystem="local" code="*" /> <referenceRange> <observationRange> <text>4.5-5.3 </text> </observationRange> </referenceRange> </ observation> </component> </organizer> </entry> <entry> <organizer moodCode="EVN" classCode="BATTERY"> <templateId root= "16.840.1.571176.10..22.4.1" /> <id nullFlavor="NA" /> <code codeSystem="local" code="UA" displayName="URINALYSIS, ROUTINE" /> < statusCode code="completed" /> <component> <observation moodCode= "EVN" classCode="OBS"> <templateId root="16.840.1.831814.10.4.2 " /> <id nullFlavor="NA" /> <code codeSystem="local" code= "LEUESU" displayName="UA LEUKOCYTE ESTERASE DIPSTICK" /> <statusCode code="completed" /> <effectiveTime value="" /> < value unit="" xsi:type="PQ" value="TRACE" /> <referenceRange> <observationRange> <text>NEGATIVE</text> </ observationRange> </referenceRange> </observation> </ component> <component> <observation moodCode="EVN" classCode="OBS"> <templateId root="03.28.840.1.006290.11.29.21.4.2" /> <id nullFlavor="NA" /> <code codeSystem="local" code="NITRIU" displayName= "UA NITRITE DIPSTICK" /> <statusCode code="completed" /> < effectiveTime value="" /> <value unit="" xsi:type="PQ" value="NEGATIVE" /> <referenceRange> <observationRange> <text>NEGATIVE</text> </observationRange> </ referenceRange> </observation> </component> <component> <observation moodCode="EVN" classCode="OBS"> <templateId root= "03.28.840.1.732873.10.4.2" /> <id nullFlavor="NA" /> < code codeSystem="local" code="PROTEIU" displayName="UA PROTEIN DIPSTICK" /> <statusCode code="completed" /> <effectiveTime value= "624337175121" /> <value unit="" xsi:type="PQ" value="TRACE" /> <referenceRange> <observationRange> <text>NEGATIVE</ text> </observationRange> </referenceRange> </ observation> </component> <component> <observation moodCode= "EVN" classCode="OBS"> <templateId root="216.840.1.385405.10..22.4.2 " /> <id nullFlavor="NA" /> <code codeSystem="local" code= "DGLUU" displayName="UA GLUCOSE DIPSTICK" /> <statusCode code= "completed" /> <effectiveTime value="" /> <value unit="" xsi:type="PQ" value="NEGATIVE" /> <referenceRange> < observationRange> <text>NEGATIVE</text> </ observationRange> </referenceRange> </observation> </ component> <component> <observation moodCode="EVN" classCode="OBS"> <templateId root="03.28.840.1.313017.10...4.2" /> <id nullFlavor="NA" /> <code codeSystem="local" code="KETONU" displayName= "UA KETONE DIPSTICK" /> <statusCode code="completed" /> < effectiveTime value="" /> <value unit="" xsi:type="PQ" value="2+" /> <interpretationCode codeSystem="local" code="*" /> <referenceRange> <observationRange> <text>NEGATIVE</ text> </observationRange> </referenceRange> </ observation> </component> <component> <observation moodCode= "EVN" classCode="OBS"> <templateId root="03.28.840.1.274742.10..22.4.2 " /> <id nullFlavor="NA" /> <code codeSystem="local" code= "UROBILU" displayName="UA UROBILINOGEN DIPSTICK" /> <statusCode code= "completed" /> <effectiveTime value="138123040632" /> <value unit="" xsi:type="PQ" value="2+" /> <interpretationCode codeSystem= "local" code="*" /> <referenceRange> <observationRange> <text>NORMAL</text> </observationRange> </ referenceRange> </observation> </component> <component> <observation moodCode="EVN" classCode="OBS"> <templateId root= "2.16.840.1.003737.10..22.4.2" /> <id nullFlavor="NA" /> < code codeSystem="local" code="BILU" displayName="UA BILIRUBIN DIPSTICK" /> <statusCode code="completed" /> <effectiveTime value="902110366814 " /> <value unit="" xsi:type="PQ" value="2+" /> < interpretationCode codeSystem="local" code="*" /> <referenceRange> <observationRange> <text>NEGATIVE</text> </ observationRange> </referenceRange> </observation> </ component> <component> <observation moodCode="EVN" classCode="OBS"> <templateId root="2.16.840.1.775783.10...4.2" /> <id nullFlavor="NA" /> <code codeSystem="local" code="CAROLE" displayName="UA BLOOD DIPSTICK" /> <statusCode code="completed" /> < effectiveTime value="424931135148" /> <value unit="" xsi:type="PQ" value="TRACE" /> <interpretationCode codeSystem="local" code="*" /> <referenceRange> <observationRange> <text> NEGATIVE</text> </observationRange> </referenceRange> </observation> </component> <component> <observation moodCode ="EVN" classCode="OBS"> <templateId root= "216.840.1.111712.10..4.2" /> <id nullFlavor="NA" /> < code codeSystem="local" code="SPGRU" displayName="UA SPECIFIC GRAVITY" /> <statusCode code="completed" /> <effectiveTime value=" " /> <value unit="" xsi:type="PQ" value="1.010" /> < interpretationCode codeSystem="local" code="*" /> <referenceRange> <observationRange> <text>1.015-1.025</text> </ observationRange> </referenceRange> </observation> </ component> <component> <observation moodCode="EVN" classCode="OBS"> <templateId root="03.28.840.1.365920.11.29.21.4.2" /> <id nullFlavor="NA" /> <code codeSystem="local" code="ECTOR" displayName="UR PH" /> <statusCode code="completed" /> <effectiveTime value= "425334124528" /> <value unit="" xsi:type="PQ" value="5.5" /> <referenceRange> <observationRange> <text>5.0-7.0</text > </observationRange> </referenceRange> </observation > </component> </organizer> </entry> <entry> <organizer moodCode= "EVN" classCode="BATTERY"> <templateId root="216.840.1.995069.11.29.21.4.1 " /> <id nullFlavor="NA" /> <code codeSystem="local" code="UAMICRO" displayName="UA MICROSCOPIC" /> <statusCode code="completed" /> < component> <observation moodCode="EVN" classCode="OBS"> < templateId root="216.840.1.658940.10..4.2" /> <id nullFlavor="NA " /> <code codeSystem="local" code="BACU" displayName="UA BACTERIA" /> <statusCode code="completed" /> <effectiveTime value= "124368893020" /> <value unit="" xsi:type="PQ" value="2+" /> < interpretationCode codeSystem="local" code="*" /> <referenceRange> <observationRange> <text>NEGATIVE</text> </ observationRange> </referenceRange> </observation> </ component> <component> <observation moodCode="EVN" classCode="OBS"> <templateId root="16.840.1.578798.11.29.21.4.2" /> <id nullFlavor="NA" /> <code codeSystem="local" code="EPIU" displayName=" UA EPITHELIAL CELLS" /> <statusCode code="completed" /> < effectiveTime value="" /> <value unit="epi/hpf" xsi:type= "PQ" value="4+" /> <interpretationCode codeSystem="local" code="*" /> <referenceRange> <observationRange> <text>0 - 1 +</text> </observationRange> </referenceRange> </ observation> </component> <component> <observation moodCode= "EVN" classCode="OBS"> <templateId root="16.840.1.761686.11.29.21.4.2 " /> <id nullFlavor="NA" /> <code codeSystem="local" code= "RBCU" displayName="UA RBC" /> <statusCode code="completed" /> <effectiveTime value="432612526588" /> <value unit="rbc/hpf" xsi:type ="PQ" value="3-5" /> <interpretationCode codeSystem="local" code="*" / > <referenceRange> <observationRange> <text>0 - 3</text> </observationRange> </referenceRange> </ observation> </component> <component> <observation moodCode= "EVN" classCode="OBS"> <templateId root="2.16.840.1.060464.10.22.4.2 " /> <id nullFlavor="NA" /> <code codeSystem="local" code= "UAVOL" displayName="UA VOLUME FOR EXAM" /> <statusCode code="completed " /> <effectiveTime value="038220866649" /> <value unit="mL" xsi:type="PQ" value="12.0" /> <referenceRange> < observationRange> <text>(12mL STD)</text> </ observationRange> </referenceRange> </observation> </ component> <component> <observation moodCode="EVN" classCode="OBS"> <templateId root="2.16.840.1.748773.10...4.2" /> <id nullFlavor="NA" /> <code codeSystem="local" code="WBCU" displayName=" UA WBC" /> <statusCode code="completed" /> <effectiveTime value="958093114316" /> <value unit="wbc/hpf" xsi:type="PQ" value="5-10 " /> <interpretationCode codeSystem="local" code="*" /> < referenceRange> <observationRange> <text>0 - 5</text> </observationRange> </referenceRange> </observation> </component> </organizer> </entry> <entry> <organizer moodCode="EVN " classCode="BATTERY"> <templateId root="2.16.840.1.900982.10.20.22.4.1" / > <id nullFlavor="NA" /> <code codeSystem="local" code="PREGU" displayName="UR TEST" /> <statusCode code="completed" /> < component> <observation moodCode="EVN" classCode="OBS"> < templateId root="2.16.840.1.078944.10..22.4.2" /> <id nullFlavor="NA " /> <code codeSystem="local" code="PREGU" displayName="UR TEST" /> <statusCode code="completed" /> <effectiveTime value= "737258101586" /> <value unit="" xsi:type="PQ" value="NEGATIVE" /> <referenceRange> <observationRange> <text>NEGATIVE </text> </observationRange> </referenceRange> </ observation> </component> </organizer> </entry> <entry> <organizer moodCode="EVN" classCode="BATTERY"> <templateId root= "2.16.840.1.097572.10..22.4.1" /> <id nullFlavor="NA" /> <code codeSystem="local" code="VRP" displayName="VIRUS RESPIRATORY PROFILE" /> < statusCode code="completed" /> <component> <observation moodCode= "EVN" classCode="OBS"> <templateId root="216.840.1.172282.10.20.22.4.2 " /> <id nullFlavor="NA" /> <code codeSystem="local" code="MB " displayName="Microbiology" /> <statusCode code="completed" /> <effectiveTime value="874097470949" /> <value xsi:type="ST" value="< pre><b>RESPIRATORY PROFILE</b> See BelowRESPIRATORY PROFILE(F) Nessa Date /Time: 11/13/2015 14:11 Ariela Date/Time: // :SOURCE : NASOPHARYNGEALSPEC DESC: See BelowRESPIRATORY PROFILE(F) Nessa Date/ Time: 11/13/2015 14:11 Ariela Date/Time: 11/13/2015 21:16SOURCE: NASOPHARYNGEALSPEC DESC: ADENOVIRUSNOT DETECTEDBORDETELLA PERTUSSISNOT DETECTEDCHLAMYDIA PNEUMONIAENOT DETECTEDCORONAVIRUS 229ENOT DETECTEDCORONAVIRUS GAJ6MNA DETECTEDCORONAVIRUS RS75UCK DETECTEDCORONAVIRUS RH73XIZ DETECTEDHUMAN METAPNEUMOVIRUSNOT DETECTEDINFLUENZA A 2009 H1NOT DETECTEDINFLUENZA A H1NOT DETECTEDINFLUENZA A H3NOT DETECTEDINFLUENZA ANOT DETECTEDINFLUENZA BNOT DETECTEDMYCOPLASMA PNEUMONIAENOT DETECTEDPARAINFLUENZA 1NOT DETECTEDPARAINFLUENZA 2NOT DETECTEDPARAINFLUENZA 3NOT DETECTEDPARAINFLUENZA 4NOT DETECTEDRHINOVIRUS/ENTEROVIRUSNOT DETECTEDRSVNOT DETECTEDSAN[facility] [place] [address]</pre>" /> <referenceRange> <observationRange> <text /> </observationRange> </referenceRange> </observation> </ component> </organizer> </entry> <entry> <organizer moodCode="EVN" classCode="BATTERY"> <templateId root="2.16.840.1.435278.10..4.1" /> <id nullFlavor="NA" /> <code codeSystem="local" code="METABC" displayName="METABOLIC PANEL, COMPREHN" /> <statusCode code="completed" /> <component> <observation moodCode="EVN" classCode="OBS"> < templateId root="2.16.840.1.527836.10...4.2" /> <id nullFlavor="NA " /> <code codeSystem="local" code="K" displayName="POTASSIUM" /> <statusCode code="completed" /> <effectiveTime value="703893507763 " /> <value unit="mmol/L" xsi:type="PQ" value="3.2" /> < interpretationCode codeSystem="local" code="*" /> <referenceRange> <observationRange> <text>3.5-5.3</text> </ observationRange> </referenceRange> </observation> </ component> <component> <observation moodCode="EVN" classCode="OBS"> <templateId root="03.28.840.1.644392.11.29.21.4.2" /> <id nullFlavor="NA" /> <code codeSystem="local" code="eGFR" displayName= "EST GFR (MDRD)" /> <statusCode code="completed" /> < effectiveTime value="207443430207" /> <value unit="mL/min" xsi:type="PQ " value="59" /> <interpretationCode codeSystem="local" code="*" /> <referenceRange> <observationRange> <text>> 59< /text> </observationRange> </referenceRange> </ observation> </component> <component> <observation moodCode= "EVN" classCode="OBS"> <templateId root="03.28.840.1.951626.11.29.21.4.2 " /> <id nullFlavor="NA" /> <code codeSystem="local" code="GAP " displayName="ANION GAP" /> <statusCode code="completed" /> < effectiveTime value="020238318040" /> <value unit="mmol/L" xsi:type="PQ " value="9" /> <referenceRange> <observationRange> <text>5-15</text> </observationRange> </referenceRange > </observation> </component> <component> <observation moodCode="EVN" classCode="OBS"> <templateId root= "03.28.840.1.309035...4.2" /> <id nullFlavor="NA" /> < code codeSystem="local" code="eCrCl" displayName="EST CrCl (CG)" /> < statusCode code="completed" /> <effectiveTime value="" /> <value unit="mL/min" xsi:type="PQ" value="> 60" /> < referenceRange> <observationRange> <text>> 59</text> </observationRange> </referenceRange> </observation > </component> <component> <observation moodCode="EVN" classCode="OBS"> <templateId root="2.16.840.1.927493.10..22.4.2" /> <id nullFlavor="NA" /> <code codeSystem="local" code="GLU" displayName="GLUCOSE" /> <statusCode code="completed" /> < effectiveTime value="" /> <value unit="mg/dL" xsi:type="PQ " value="116" /> <interpretationCode codeSystem="local" code="*" /> <referenceRange> <observationRange> <text>70-99</ text> </observationRange> </referenceRange> </ observation> </component> <component> <observation moodCode= "EVN" classCode="OBS"> <templateId root="2.16.840.1.526657.10..22.4.2 " /> <id nullFlavor="NA" /> <code codeSystem="local" code="CA " displayName="CALCIUM" /> <statusCode code="completed" /> < effectiveTime value="" /> <value unit="mg/dL" xsi:type="PQ " value="7.9" /> <interpretationCode codeSystem="local" code="*" /> <referenceRange> <observationRange> <text>8.5- 10.1</text> </observationRange> </referenceRange> </ observation> </component> <component> <observation moodCode= "EVN" classCode="OBS"> <templateId root="216.840.1.714420.11.29.21.4.2 " /> <id nullFlavor="NA" /> <code codeSystem="local" code="BUN " displayName="BLOOD UREA NITROGEN" /> <statusCode code="completed" /> <effectiveTime value="" /> <value unit="mg/dL" xsi:type="PQ" value="7" /> <referenceRange> < observationRange> <text>7-20</text> </observationRange> </referenceRange> </observation> </component> < component> <observation moodCode="EVN" classCode="OBS"> < templateId root="216.840.1.480410.11.29.21.4.2" /> <id nullFlavor="NA " /> <code codeSystem="local" code="CREAT" displayName="CREATININE" /> <statusCode code="completed" /> <effectiveTime value= "" /> <value unit="mg/dL" xsi:type="PQ" value="1.2" /> <interpretationCode codeSystem="local" code="*" /> < referenceRange> <observationRange> <text>0.5-1.0</text> </observationRange> </referenceRange> </observation > </component> <component> <observation moodCode="EVN" classCode="OBS"> <templateId root="16.840.1.810053.11.29.21.4.2" /> <id nullFlavor="NA" /> <code codeSystem="local" code="NA" displayName="SODIUM" /> <statusCode code="completed" /> < effectiveTime value="" /> <value unit="mmol/L" xsi:type="PQ " value="139" /> <referenceRange> <observationRange> <text>135-148</text> </observationRange> </ referenceRange> </observation> </component> <component> <observation moodCode="EVN" classCode="OBS"> <templateId root= "216.840.1.385613.10.20.22.4.2" /> <id nullFlavor="NA" /> < code codeSystem="local" code="CL" displayName="CHLORIDE" /> < statusCode code="completed" /> <effectiveTime value="542363593879" /> <value unit="mmol/L" xsi:type="PQ" value="106" /> < referenceRange> <observationRange> <text>98-110</text> </observationRange> </referenceRange> </observation> </component> <component> <observation moodCode="EVN" classCode ="OBS"> <templateId root="03.28.840.1.691309.10..22.4.2" /> < id nullFlavor="NA" /> <code codeSystem="local" code="AST" displayName= "AST/SGOT" /> <statusCode code="completed" /> <effectiveTime value="072905522967" /> <value unit="Units/L" xsi:type="PQ" value="80" /> <interpretationCode codeSystem="local" code="*" /> < referenceRange> <observationRange> <text>10-37</text> </observationRange> </referenceRange> </observation> </component> <component> <observation moodCode="EVN" classCode= "OBS"> <templateId root="03.28.840.1.246878.10.20.22.4.2" /> < id nullFlavor="NA" /> <code codeSystem="local" code="ALT" displayName= "ALT/SGPT" /> <statusCode code="completed" /> <effectiveTime value="281087215314" /> <value unit="Units/L" xsi:type="PQ" value="68" /> <interpretationCode codeSystem="local" code="*" /> < referenceRange> <observationRange> <text>< 66</text> </observationRange> </referenceRange> </observation > </component> <component> <observation moodCode="EVN" classCode="OBS"> <templateId root="2.16.840.1.425959.10..22.4.2" /> <id nullFlavor="NA" /> <code codeSystem="local" code="CO2" displayName="CARBON DIOXIDE" /> <statusCode code="completed" /> <effectiveTime value="" /> <value unit="mmol/L" xsi:type ="PQ" value="24" /> <referenceRange> <observationRange> <text>21-32</text> </observationRange> </ referenceRange> </observation> </component> <component> <observation moodCode="EVN" classCode="OBS"> <templateId root= "216.840.1.617290.10..22.4.2" /> <id nullFlavor="NA" /> < code codeSystem="local" code="TP" displayName="TOTAL PROTEIN" /> < statusCode code="completed" /> <effectiveTime value="374534938655" /> <value unit="gm/dL" xsi:type="PQ" value="5.9" /> < interpretationCode codeSystem="local" code="*" /> <referenceRange> <observationRange> <text>6.4-8.2</text> </ observationRange> </referenceRange> </observation> </ component> <component> <observation moodCode="EVN" classCode="OBS"> <templateId root="216.840.1.345318.10...4.2" /> <id nullFlavor="NA" /> <code codeSystem="local" code="ALB" displayName= "ALBUMIN" /> <statusCode code="completed" /> <effectiveTime value="" /> <value unit="gm/dL" xsi:type="PQ" value="2.4" / > <interpretationCode codeSystem="local" code="*" /> < referenceRange> <observationRange> <text>3.4-5.0</text> </observationRange> </referenceRange> </observation > </component> <component> <observation moodCode="EVN" classCode="OBS"> <templateId root="16.840.1.028209.11.29.21.4.2" /> <id nullFlavor="NA" /> <code codeSystem="local" code="BILTOT" displayName="BILI TOTAL" /> <statusCode code="completed" /> < effectiveTime value="" /> <value unit="mg/dL" xsi:type="PQ " value="1.0" /> <referenceRange> <observationRange> <text>0.0-1.0</text> </observationRange> </ referenceRange> </observation> </component> <component> <observation moodCode="EVN" classCode="OBS"> <templateId root= "216.840.1.769162.10..4.2" /> <id nullFlavor="NA" /> < code codeSystem="local" code="ALKP" displayName="ALKALINE PHOSPHATASE TOTAL" /> <statusCode code="completed" /> <effectiveTime value= "" /> <value unit="IU/L" xsi:type="PQ" value="102" /> <referenceRange> <observationRange> <text>45-117</ text> </observationRange> </referenceRange> </ observation> </component> </organizer> </entry> <entry> <organizer moodCode="EVN" classCode="BATTERY"> <templateId root= "16.840.1.445267.10..4.1" /> <id nullFlavor="NA" /> <code codeSystem="local" code="CBCD" displayName="CBC W/DIFF" /> <statusCode code ="completed" /> <component> <observation moodCode="EVN" classCode= "OBS"> <templateId root="16.840.1.257377.10..4.2" /> < id nullFlavor="NA" /> <code codeSystem="local" code="CBCCOM" displayName="COMMENT" /> <statusCode code="completed" /> < effectiveTime value="883367153398" /> <value unit="" xsi:type="PQ" value="REVIEWED" /> <referenceRange> <observationRange> <text /> </observationRange> </referenceRange> </observation> </component> <component> <observation moodCode="EVN" classCode="OBS"> <templateId root= "16.840.1.785203.10.4.2" /> <id nullFlavor="NA" /> < code codeSystem="local" code="GR#" displayName="GRANULOCYTE #" /> < statusCode code="completed" /> <effectiveTime value="253721826015" /> <value unit="k/cumm" xsi:type="PQ" value="1.7" /> < interpretationCode codeSystem="local" code="*" /> <referenceRange> <observationRange> <text>2.0-9.0</text> </ observationRange> </referenceRange> </observation> </ component> <component> <observation moodCode="EVN" classCode="OBS"> <templateId root="03.28.840.1.937803.10.2022.4.2" /> <id nullFlavor="NA" /> <code codeSystem="local" code="GR%" displayName= "GRANULOCYTE %" /> <statusCode code="completed" /> < effectiveTime value="610004249751" /> <value unit="%" xsi:type="PQ " value="38" /> <interpretationCode codeSystem="local" code="*" /> <referenceRange> <observationRange> <text>50-75</ text> </observationRange> </referenceRange> </ observation> </component> <component> <observation moodCode= "EVN" classCode="OBS"> <templateId root="840.1.724123.11.29.21.4.2 " /> <id nullFlavor="NA" /> <code codeSystem="local" code="LY# " displayName="LYMPHOCYTE #" /> <statusCode code="completed" /> <effectiveTime value="625168176012" /> <value unit="k/cumm" xsi:type ="PQ" value="2.2" /> <referenceRange> <observationRange> <text>1.0-4.0</text> </observationRange> </ referenceRange> </observation> </component> <component> <observation moodCode="EVN" classCode="OBS"> <templateId root= "03.28.840.1.558103.102022.4.2" /> <id nullFlavor="NA" /> < code codeSystem="local" code="LY%" displayName="LYMPHOCYTE %" /> <statusCode code="completed" /> <effectiveTime value="933047855178" /> <value unit="%" xsi:type="PQ" value="50" /> < interpretationCode codeSystem="local" code="*" /> <referenceRange> <observationRange> <text>20-30</text> </ observationRange> </referenceRange> </observation> </ component> <component> <observation moodCode="EVN" classCode="OBS"> <templateId root="03.28.840.1.571176.10.20.22.4.2" /> <id nullFlavor="NA" /> <code codeSystem="local" code="MCH" displayName= "MEAN CELL HGB" /> <statusCode code="completed" /> < effectiveTime value="966712588636" /> <value unit="pg" xsi:type="PQ" value="29.7" /> <referenceRange> <observationRange> <text>27.0-33.0</text> </observationRange> </ referenceRange> </observation> </component> <component> <observation moodCode="EVN" classCode="OBS"> <templateId root= "03.28.840.1.929894.10.20.22.4.2" /> <id nullFlavor="NA" /> < code codeSystem="local" code="MCHC" displayName="MEAN CELL HGB CONCENTRATION" / > <statusCode code="completed" /> <effectiveTime value= "090989320346" /> <value unit="g/dL" xsi:type="PQ" value="33.7" /> <referenceRange> <observationRange> <text>32.0- 37.0</text> </observationRange> </referenceRange> </ observation> </component> <component> <observation moodCode= "EVN" classCode="OBS"> <templateId root="03.28.830.1.341669.11.29.21.4.2 " /> <id nullFlavor="NA" /> <code codeSystem="local" code="MCV " displayName="MEAN CELL VOLUME" /> <statusCode code="completed" /> <effectiveTime value="881352717472" /> <value unit="fl" xsi:type ="PQ" value="88.1" /> <referenceRange> <observationRange> <text>80.0-100.0</text> </observationRange> </ referenceRange> </observation> </component> <component> <observation moodCode="EVN" classCode="OBS"> <templateId root= "216.840.1.258367.11.29.21.4.2" /> <id nullFlavor="NA" /> < code codeSystem="local" code="MO#" displayName="MONOCYTE #" /> < statusCode code="completed" /> <effectiveTime value="" /> <value unit="k/cumm" xsi:type="PQ" value="0.5" /> < referenceRange> <observationRange> <text>0.1-1.0</text> </observationRange> </referenceRange> </observation > </component> <component> <observation moodCode="EVN" classCode="OBS"> <templateId root="03.28.840.1.581756.11.29.21.4.2" /> <id nullFlavor="NA" /> <code codeSystem="local" code="MO% " displayName="MONOCYTE %" /> <statusCode code="completed" /> <effectiveTime value="780007471792" /> <value unit="%" xsi: type="PQ" value="11" /> <interpretationCode codeSystem="local" code="* " /> <referenceRange> <observationRange> <text> 4-6</text> </observationRange> </referenceRange> </ observation> </component> <component> <observation moodCode= "EVN" classCode="OBS"> <templateId root="216.840.1.882594.10.20.22.4.2 " /> <id nullFlavor="NA" /> <code codeSystem="local" code="RBC " displayName="RED BLOOD CELL" /> <statusCode code="completed" /> <effectiveTime value="417360304923" /> <value unit="m/cumm" xsi: type="PQ" value="3.87" /> <interpretationCode codeSystem="local" code= "*" /> <referenceRange> <observationRange> < text>4.00-6.00</text> </observationRange> </referenceRange> </observation> </component> <component> <observation moodCode="EVN" classCode="OBS"> <templateId root= "840.1.631091...4.2" /> <id nullFlavor="NA" /> < code codeSystem="local" code="RDW" displayName="RED CELL DISTRIBUTION WIDTH" /> <statusCode code="completed" /> <effectiveTime value= "385844132409" /> <value unit="%" xsi:type="PQ" value="13.2" /> <referenceRange> <observationRange> <text>11.0- 15.6</text> </observationRange> </referenceRange> </ observation> </component> <component> <observation moodCode= "EVN" classCode="OBS"> <templateId root="03.28.840.1.209609.10.20.22.4.2 " /> <id nullFlavor="NA" /> <code codeSystem="local" code="WBC " displayName="WHITE BLOOD CELL" /> <statusCode code="completed" /> <effectiveTime value="857632519395" /> <value unit="k/cumm" xsi: type="PQ" value="4.4" /> <interpretationCode codeSystem="local" code="* " /> <referenceRange> <observationRange> <text> 5.0-10.0</text> </observationRange> </referenceRange> </observation> </component> <component> <observation moodCode ="EVN" classCode="OBS"> <templateId root= "216.840.1.067675.10.20.22.4.2" /> <id nullFlavor="NA" /> < code codeSystem="local" code="HGBT" displayName="HEMOGLOBIN" /> < statusCode code="completed" /> <effectiveTime value="983496253835" /> <value unit="gm/dL" xsi:type="PQ" value="11.5" /> < interpretationCode codeSystem="local" code="*" /> <referenceRange> <observationRange> <text>12.0-16.0</text> </ observationRange> </referenceRange> </observation> </ component> <component> <observation moodCode="EVN" classCode="OBS"> <templateId root="2.16.840.1.423852.10.20.22.4.2" /> <id nullFlavor="NA" /> <code codeSystem="local" code="HCTT" displayName= "HEMATOCRIT" /> <statusCode code="completed" /> < effectiveTime value="395318515547" /> <value unit="%" xsi:type="PQ " value="34.1" /> <interpretationCode codeSystem="local" code="*" /> <referenceRange> <observationRange> <text>37.0- 47.0</text> </observationRange> </referenceRange> </ observation> </component> <component> <observation moodCode= "EVN" classCode="OBS"> <templateId root="2.16.840.1.212070.10..22.4.2 " /> <id nullFlavor="NA" /> <code codeSystem="local" code="PLT " displayName="PLATELET COUNT" /> <statusCode code="completed" /> <effectiveTime value="221975017532" /> <value unit="k/cumm" xsi: type="PQ" value="153" /> <referenceRange> <observationRange > <text>150-450</text> </observationRange> </ referenceRange> </observation> </component> </organizer> </entry > <entry> <organizer moodCode="EVN" classCode="BATTERY"> <templateId root="2.16.840.1.512001.10..22.4.1" /> <id nullFlavor="NA" /> <code codeSystem="local" code="EBVAB" displayName="AB MONIQUE SAUL VIR VCA-ACUTE" /> <statusCode code="completed" /> <component> <observation moodCode="EVN" classCode="OBS"> <templateId root= "2.16.840.1.659300.10.20.22.4.2" /> <id nullFlavor="NA" /> < code codeSystem="local" code="EBVMAB" displayName="AB EBV VIRAL CAPSID AG IGM" / > <statusCode code="completed" /> <effectiveTime value= "488089175001" /> <value unit="" xsi:type="PQ" value="POSITIVE" /> <interpretationCode codeSystem="local" code="*" /> < referenceRange> <observationRange> <text>NEGATIVE</text > </observationRange> </referenceRange> </observation > </component> <component> <observation moodCode="EVN" classCode="OBS"> <templateId root="840.1.929759.10..4.2" /> <id nullFlavor="NA" /> <code codeSystem="local" code="EBVGAB" displayName="AB EBV VIRAL CAPSID AG IGG" /> <statusCode code="completed " /> <effectiveTime value="390238365083" /> <value unit="" xsi :type="PQ" value="40" /> <referenceRange> <observationRange > <text><10</text> </observationRange> </ referenceRange> </observation> </component> </organizer> </entry > <entry> <organizer moodCode="EVN" classCode="BATTERY"> <templateId root="840.1.845000.10..4.1" /> <id nullFlavor="NA" /> <code codeSystem="local" code="CBCD" displayName="CBC W/DIFF" /> <statusCode code ="completed" /> <component> <observation moodCode="EVN" classCode= "OBS"> <templateId root="840.1.348926.10...4.2" /> < id nullFlavor="NA" /> <code codeSystem="local" code="CBCCOM" displayName="COMMENT" /> <statusCode code="completed" /> < effectiveTime value="846839332998" /> <value unit="" xsi:type="PQ" value="REVIEWED" /> <referenceRange> <observationRange> <text /> </observationRange> </referenceRange> </observation> </component> <component> <observation moodCode="EVN" classCode="OBS"> <templateId root= "840.1.611847.11.29.21.4.2" /> <id nullFlavor="NA" /> < code codeSystem="local" code="GR#" displayName="GRANULOCYTE #" /> < statusCode code="completed" /> <effectiveTime value="932421948653" /> <value unit="k/cumm" xsi:type="PQ" value="1.5" /> < interpretationCode codeSystem="local" code="*" /> <referenceRange> <observationRange> <text>2.0-9.0</text> </ observationRange> </referenceRange> </observation> </ component> <component> <observation moodCode="EVN" classCode="OBS"> <templateId root="16.840.1.017188.11.29.21.4.2" /> <id nullFlavor="NA" /> <code codeSystem="local" code="GR%" displayName= "GRANULOCYTE %" /> <statusCode code="completed" /> < effectiveTime value="123973316286" /> <value unit="%" xsi:type="PQ " value="31" /> <interpretationCode codeSystem="local" code="*" /> <referenceRange> <observationRange> <text>50-75</ text> </observationRange> </referenceRange> </ observation> </component> <component> <observation moodCode= "EVN" classCode="OBS"> <templateId root="03.28.840.1.195558.10.4.2 " /> <id nullFlavor="NA" /> <code codeSystem="local" code="LY# " displayName="LYMPHOCYTE #" /> <statusCode code="completed" /> <effectiveTime value="930356281418" /> <value unit="k/cumm" xsi:type ="PQ" value="2.4" /> <referenceRange> <observationRange> <text>1.0-4.0</text> </observationRange> </ referenceRange> </observation> </component> <component> <observation moodCode="EVN" classCode="OBS"> <templateId root= "16.840.1.596333.10.2022.4.2" /> <id nullFlavor="NA" /> < code codeSystem="local" code="LY%" displayName="LYMPHOCYTE %" /> <statusCode code="completed" /> <effectiveTime value="517388508569" /> <value unit="%" xsi:type="PQ" value="51" /> < interpretationCode codeSystem="local" code="*" /> <referenceRange> <observationRange> <text>20-30</text> </ observationRange> </referenceRange> </observation> </ component> <component> <observation moodCode="EVN" classCode="OBS"> <templateId root="03.28.840.1.693068.10.4.2" /> <id nullFlavor="NA" /> <code codeSystem="local" code="MCH" displayName= "MEAN CELL HGB" /> <statusCode code="completed" /> < effectiveTime value="198381970793" /> <value unit="pg" xsi:type="PQ" value="30.0" /> <referenceRange> <observationRange> <text>27.0-33.0</text> </observationRange> </ referenceRange> </observation> </component> <component> <observation moodCode="EVN" classCode="OBS"> <templateId root= "03.28.840.1.525051.10.2022.4.2" /> <id nullFlavor="NA" /> < code codeSystem="local" code="MCHC" displayName="MEAN CELL HGB CONCENTRATION" / > <statusCode code="completed" /> <effectiveTime value= "951446676562" /> <value unit="g/dL" xsi:type="PQ" value="34.1" /> <referenceRange> <observationRange> <text>32.0- 37.0</text> </observationRange> </referenceRange> </ observation> </component> <component> <observation moodCode= "EVN" classCode="OBS"> <templateId root="03.28.840.1.029404.10..4.2 " /> <id nullFlavor="NA" /> <code codeSystem="local" code="MCV " displayName="MEAN CELL VOLUME" /> <statusCode code="completed" /> <effectiveTime value="408092172817" /> <value unit="fl" xsi:type ="PQ" value="88.0" /> <referenceRange> <observationRange> <text>80.0-100.0</text> </observationRange> </ referenceRange> </observation> </component> <component> <observation moodCode="EVN" classCode="OBS"> <templateId root= "03.28.840.1.858420.11.29.21.4.2" /> <id nullFlavor="NA" /> < code codeSystem="local" code="MO#" displayName="MONOCYTE #" /> < statusCode code="completed" /> <effectiveTime value="233838077547" /> <value unit="k/cumm" xsi:type="PQ" value="0.9" /> < referenceRange> <observationRange> <text>0.1-1.0</text> </observationRange> </referenceRange> </observation > </component> <component> <observation moodCode="EVN" classCode="OBS"> <templateId root="03.28.840.1.007335.11.29.21.4.2" /> <id nullFlavor="NA" /> <code codeSystem="local" code="MO% " displayName="MONOCYTE %" /> <statusCode code="completed" /> <effectiveTime value="197266915511" /> <value unit="%" xsi: type="PQ" value="18" /> <interpretationCode codeSystem="local" code="* " /> <referenceRange> <observationRange> <text> 4-6</text> </observationRange> </referenceRange> </ observation> </component> <component> <observation moodCode= "EVN" classCode="OBS"> <templateId root="16.840.1.668466.10..4.2 " /> <id nullFlavor="NA" /> <code codeSystem="local" code="RBC " displayName="RED BLOOD CELL" /> <statusCode code="completed" /> <effectiveTime value="936627986441" /> <value unit="m/cumm" xsi: type="PQ" value="3.93" /> <interpretationCode codeSystem="local" code= "*" /> <referenceRange> <observationRange> < text>4.00-6.00</text> </observationRange> </referenceRange> </observation> </component> <component> <observation moodCode="EVN" classCode="OBS"> <templateId root= "03.28.840.1.132638.10.22.4.2" /> <id nullFlavor="NA" /> < code codeSystem="local" code="RDW" displayName="RED CELL DISTRIBUTION WIDTH" /> <statusCode code="completed" /> <effectiveTime value= "268800808430" /> <value unit="%" xsi:type="PQ" value="13.6" /> <referenceRange> <observationRange> <text>11.0- 15.6</text> </observationRange> </referenceRange> </ observation> </component> <component> <observation moodCode= "EVN" classCode="OBS"> <templateId root="16.840.1.721583.10.20.22.4.2 " /> <id nullFlavor="NA" /> <code codeSystem="local" code="WBC " displayName="WHITE BLOOD CELL" /> <statusCode code="completed" /> <effectiveTime value="087595550455" /> <value unit="k/cumm" xsi: type="PQ" value="4.7" /> <interpretationCode codeSystem="local" code="* " /> <referenceRange> <observationRange> <text> 5.0-10.0</text> </observationRange> </referenceRange> </observation> </component> <component> <observation moodCode ="EVN" classCode="OBS"> <templateId root= "03.28.840.1.524075.10.22.4.2" /> <id nullFlavor="NA" /> < code codeSystem="local" code="HGBT" displayName="HEMOGLOBIN" /> < statusCode code="completed" /> <effectiveTime value="829571075669" /> <value unit="gm/dL" xsi:type="PQ" value="11.8" /> < interpretationCode codeSystem="local" code="*" /> <referenceRange> <observationRange> <text>12.0-16.0</text> </ observationRange> </referenceRange> </observation> </ component> <component> <observation moodCode="EVN" classCode="OBS"> <templateId root="16.840.1.968983.10.20.22.4.2" /> <id nullFlavor="NA" /> <code codeSystem="local" code="HCTT" displayName= "HEMATOCRIT" /> <statusCode code="completed" /> < effectiveTime value="397175774244" /> <value unit="%" xsi:type="PQ " value="34.6" /> <interpretationCode codeSystem="local" code="*" /> <referenceRange> <observationRange> <text>37.0- 47.0</text> </observationRange> </referenceRange> </ observation> </component> <component> <observation moodCode= "EVN" classCode="OBS"> <templateId root="2.16.840.1.806660.10...4.2 " /> <id nullFlavor="NA" /> <code codeSystem="local" code="PLT " displayName="PLATELET COUNT" /> <statusCode code="completed" /> <effectiveTime value="022521198429" /> <value unit="k/cumm" xsi: type="PQ" value="158" /> <referenceRange> <observationRange > <text>150-450</text> </observationRange> </ referenceRange> </observation> </component> <component> <observation moodCode="EVN" classCode="OBS"> <templateId root= "2.16.840.1.281172.10...4.2" /> <id nullFlavor="NA" /> < code codeSystem="local" code="REACTIVELYMPH" displayName="REACTIVE LYMPH" /> <statusCode code="completed" /> <effectiveTime value= "785701687637" /> <value unit="" xsi:type="PQ" value="NOTED" /> <referenceRange> <observationRange> <text /> </observationRange> </referenceRange> </observation> </ component> </organizer> </entry> <entry> <organizer moodCode="EVN" classCode="BATTERY"> <templateId root="03.28.840.1.384538.10..22.4.1" /> <id nullFlavor="NA" /> <code codeSystem="local" code="RENAL" displayName="RENAL FUNCTION PANEL" /> <statusCode code="completed" /> <component> <observation moodCode="EVN" classCode="OBS"> < templateId root="03.28.840.1.552615.10..22.4.2" /> <id nullFlavor="NA " /> <code codeSystem="local" code="K" displayName="POTASSIUM" /> <statusCode code="completed" /> <effectiveTime value="280413958056 " /> <value unit="mmol/L" xsi:type="PQ" value="3.4" /> < interpretationCode codeSystem="local" code="*" /> <referenceRange> <observationRange> <text>3.5-5.3</text> </ observationRange> </referenceRange> </observation> </ component> <component> <observation moodCode="EVN" classCode="OBS"> <templateId root="03.28.840.1.912493.10...4.2" /> <id nullFlavor="NA" /> <code codeSystem="local" code="eGFR" displayName= "EST GFR (MDRD)" /> <statusCode code="completed" /> < effectiveTime value="409102885092" /> <value unit="mL/min" xsi:type="PQ " value="> 60" /> <referenceRange> <observationRange> <text>> 59</text> </observationRange> </ referenceRange> </observation> </component> <component> <observation moodCode="EVN" classCode="OBS"> <templateId root= "840.1.454293.10..22.4.2" /> <id nullFlavor="NA" /> < code codeSystem="local" code="GAP" displayName="ANION GAP" /> < statusCode code="completed" /> <effectiveTime value="602849049459" /> <value unit="mmol/L" xsi:type="PQ" value="8" /> < referenceRange> <observationRange> <text>5-15</text> </observationRange> </referenceRange> </observation> </component> <component> <observation moodCode="EVN" classCode= "OBS"> <templateId root="2.16.840.1.633193...4.2" /> < id nullFlavor="NA" /> <code codeSystem="local" code="eCrCl" displayName ="EST CrCl (CG)" /> <statusCode code="completed" /> < effectiveTime value="489893034470" /> <value unit="mL/min" xsi:type="PQ " value="> 60" /> <referenceRange> <observationRange> <text>> 59</text> </observationRange> </ referenceRange> </observation> </component> <component> <observation moodCode="EVN" classCode="OBS"> <templateId root= "216.840.1.508529.11.29.21.4.2" /> <id nullFlavor="NA" /> < code codeSystem="local" code="GLU" displayName="GLUCOSE" /> < statusCode code="completed" /> <effectiveTime value="027145394525" /> <value unit="mg/dL" xsi:type="PQ" value="107" /> < interpretationCode codeSystem="local" code="*" /> <referenceRange> <observationRange> <text>70-99</text> </ observationRange> </referenceRange> </observation> </ component> <component> <observation moodCode="EVN" classCode="OBS"> <templateId root="16.840.1.521329.10.2022.4.2" /> <id nullFlavor="NA" /> <code codeSystem="local" code="CA" displayName= "CALCIUM" /> <statusCode code="completed" /> <effectiveTime value="166537841589" /> <value unit="mg/dL" xsi:type="PQ" value="8.1" / > <interpretationCode codeSystem="local" code="*" /> < referenceRange> <observationRange> <text>8.5-10.1</text > </observationRange> </referenceRange> </observation > </component> <component> <observation moodCode="EVN" classCode="OBS"> <templateId root="03.28.840.1.956342.22.4.2" /> <id nullFlavor="NA" /> <code codeSystem="local" code="BUN" displayName="BLOOD UREA NITROGEN" /> <statusCode code="completed" /> <effectiveTime value="718863387802" /> <value unit="mg/dL" xsi: type="PQ" value="3" /> <interpretationCode codeSystem="local" code="*" /> <referenceRange> <observationRange> <text>7- 20</text> </observationRange> </referenceRange> </ observation> </component> <component> <observation moodCode= "EVN" classCode="OBS"> <templateId root="03.28.840.1.452747.10.20.22.4.2 " /> <id nullFlavor="NA" /> <code codeSystem="local" code= "CREAT" displayName="CREATININE" /> <statusCode code="completed" /> <effectiveTime value="205872442806" /> <value unit="mg/dL" xsi: type="PQ" value="1.0" /> <referenceRange> <observationRange > <text>0.5-1.0</text> </observationRange> </ referenceRange> </observation> </component> <component> <observation moodCode="EVN" classCode="OBS"> <templateId root= "16.840.1.915536.10...4.2" /> <id nullFlavor="NA" /> < code codeSystem="local" code="NA" displayName="SODIUM" /> <statusCode code="completed" /> <effectiveTime value="337943906099" /> < value unit="mmol/L" xsi:type="PQ" value="141" /> <referenceRange> <observationRange> <text>135-148</text> </ observationRange> </referenceRange> </observation> </ component> <component> <observation moodCode="EVN" classCode="OBS"> <templateId root="03.28.840.1.903635.11.29.21.4.2" /> <id nullFlavor="NA" /> <code codeSystem="local" code="CL" displayName= "CHLORIDE" /> <statusCode code="completed" /> <effectiveTime value="025269605256" /> <value unit="mmol/L" xsi:type="PQ" value="108" /> <referenceRange> <observationRange> <text>98 -110</text> </observationRange> </referenceRange> </ observation> </component> <component> <observation moodCode= "EVN" classCode="OBS"> <templateId root="16.840.1.029062.10.22.4.2 " /> <id nullFlavor="NA" /> <code codeSystem="local" code="CO2 " displayName="CARBON DIOXIDE" /> <statusCode code="completed" /> <effectiveTime value="217374295822" /> <value unit="mmol/L" xsi: type="PQ" value="25" /> <referenceRange> <observationRange> <text>21-32</text> </observationRange> </ referenceRange> </observation> </component> <component> <observation moodCode="EVN" classCode="OBS"> <templateId root= "216.840.1.232597.10...4.2" /> <id nullFlavor="NA" /> < code codeSystem="local" code="ALB" displayName="ALBUMIN" /> < statusCode code="completed" /> <effectiveTime value="248850815938" /> <value unit="gm/dL" xsi:type="PQ" value="2.4" /> < interpretationCode codeSystem="local" code="*" /> <referenceRange> <observationRange> <text>3.4-5.0</text> </ observationRange> </referenceRange> </observation> </ component> <component> <observation moodCode="EVN" classCode="OBS"> <templateId root="16.840.1.728665.10..22.4.2" /> <id nullFlavor="NA" /> <code codeSystem="local" code="PHOS" displayName= "PHOSPHORUS" /> <statusCode code="completed" /> < effectiveTime value="705015002793" /> <value unit="mg/dL" xsi:type="PQ " value="2.4" /> <interpretationCode codeSystem="local" code="*" /> <referenceRange> <observationRange> <text>2.5-4.9 </text> </observationRange> </referenceRange> </ observation> </component> </organizer> </entry> <entry> <organizer moodCode="EVN" classCode="BATTERY"> <templateId root= "16.840.1.729786.11.29.21.4.1" /> <id nullFlavor="NA" /> <code codeSystem="local" code="CBCD" displayName="CBC W/DIFF" /> <statusCode code ="completed" /> <component> <observation moodCode="EVN" classCode= "OBS"> <templateId root="16.840.1.665719.11.29.21.4.2" /> < id nullFlavor="NA" /> <code codeSystem="local" code="GR#" displayName= "GRANULOCYTE #" /> <statusCode code="completed" /> < effectiveTime value="543407166546" /> <value unit="k/cumm" xsi:type="PQ " value="1.2" /> <interpretationCode codeSystem="local" code="*" /> <referenceRange> <observationRange> <text>2.0-9.0 </text> </observationRange> </referenceRange> </ observation> </component> <component> <observation moodCode= "EVN" classCode="OBS"> <templateId root="03.28.840.1.828941.11.29.21.4.2 " /> <id nullFlavor="NA" /> <code codeSystem="local" code="LY# " displayName="LYMPHOCYTE #" /> <statusCode code="completed" /> <effectiveTime value="930318789500" /> <value unit="k/cumm" xsi:type ="PQ" value="3.0" /> <referenceRange> <observationRange> <text>1.0-4.0</text> </observationRange> </ referenceRange> </observation> </component> <component> <observation moodCode="EVN" classCode="OBS"> <templateId root= "216.840.1.371081.10..4.2" /> <id nullFlavor="NA" /> < code codeSystem="local" code="LY%" displayName="LYMPHOCYTE %" /> <statusCode code="completed" /> <effectiveTime value="" /> <value unit="%" xsi:type="PQ" value="69" /> < interpretationCode codeSystem="local" code="*" /> <referenceRange> <observationRange> <text>20-30</text> </ observationRange> </referenceRange> </observation> </ component> <component> <observation moodCode="EVN" classCode="OBS"> <templateId root="216.840.1.505879.11.29.214.2" /> <id nullFlavor="NA" /> <code codeSystem="local" code="MCH" displayName= "MEAN CELL HGB" /> <statusCode code="completed" /> < effectiveTime value="271837011214" /> <value unit="pg" xsi:type="PQ" value="30.0" /> <referenceRange> <observationRange> <text>27.0-33.0</text> </observationRange> </ referenceRange> </observation> </component> <component> <observation moodCode="EVN" classCode="OBS"> <templateId root= "216.840.1.838002.10..4.2" /> <id nullFlavor="NA" /> < code codeSystem="local" code="MCHC" displayName="MEAN CELL HGB CONCENTRATION" / > <statusCode code="completed" /> <effectiveTime value= "" /> <value unit="g/dL" xsi:type="PQ" value="33.7" /> <referenceRange> <observationRange> <text>32.0- 37.0</text> </observationRange> </referenceRange> </ observation> </component> <component> <observation moodCode= "EVN" classCode="OBS"> <templateId root="03.28.840.1.198259.10.4.2 " /> <id nullFlavor="NA" /> <code codeSystem="local" code="MCV " displayName="MEAN CELL VOLUME" /> <statusCode code="completed" /> <effectiveTime value="807195497700" /> <value unit="fl" xsi:type ="PQ" value="89.0" /> <referenceRange> <observationRange> <text>80.0-100.0</text> </observationRange> </ referenceRange> </observation> </component> <component> <observation moodCode="EVN" classCode="OBS"> <templateId root= "840.1.058215.11.29.21.4.2" /> <id nullFlavor="NA" /> < code codeSystem="local" code="MO#" displayName="MONOCYTE #" /> < statusCode code="completed" /> <effectiveTime value="849905415397" /> <value unit="k/cumm" xsi:type="PQ" value="0.1" /> < referenceRange> <observationRange> <text>0.1-1.0</text> </observationRange> </referenceRange> </observation > </component> <component> <observation moodCode="EVN" classCode="OBS"> <templateId root="03.28.840.1.112542.10.22.4.2" /> <id nullFlavor="NA" /> <code codeSystem="local" code="MO% " displayName="MONOCYTE %" /> <statusCode code="completed" /> <effectiveTime value="478766632176" /> <value unit="%" xsi: type="PQ" value="3" /> <interpretationCode codeSystem="local" code="*" /> <referenceRange> <observationRange> <text>4- 6</text> </observationRange> </referenceRange> </ observation> </component> <component> <observation moodCode= "EVN" classCode="OBS"> <templateId root="2.16.840.1.644817.10..22.4.2 " /> <id nullFlavor="NA" /> <code codeSystem="local" code="RBC " displayName="RED BLOOD CELL" /> <statusCode code="completed" /> <effectiveTime value="" /> <value unit="m/cumm" xsi: type="PQ" value="4.00" /> <referenceRange> <observationRange > <text>4.00-6.00</text> </observationRange> </ referenceRange> </observation> </component> <component> <observation moodCode="EVN" classCode="OBS"> <templateId root= "2.16.840.1.315188.10..22.4.2" /> <id nullFlavor="NA" /> < code codeSystem="local" code="RDW" displayName="RED CELL DISTRIBUTION WIDTH" /> <statusCode code="completed" /> <effectiveTime value= "751062360717" /> <value unit="%" xsi:type="PQ" value="13.3" /> <referenceRange> <observationRange> <text>11.0- 15.6</text> </observationRange> </referenceRange> </ observation> </component> <component> <observation moodCode= "EVN" classCode="OBS"> <templateId root="216.840.1.431614.10.20.22.4.2 " /> <id nullFlavor="NA" /> <code codeSystem="local" code="WBC " displayName="WHITE BLOOD CELL" /> <statusCode code="completed" /> <effectiveTime value="" /> <value unit="k/cumm" xsi: type="PQ" value="4.3" /> <interpretationCode codeSystem="local" code="* " /> <referenceRange> <observationRange> <text> 5.0-10.0</text> </observationRange> </referenceRange> </observation> </component> <component> <observation moodCode ="EVN" classCode="OBS"> <templateId root= "03.28.840.1.456070.11.29.21.4.2" /> <id nullFlavor="NA" /> < code codeSystem="local" code="HGBT" displayName="HEMOGLOBIN" /> < statusCode code="completed" /> <effectiveTime value="" /> <value unit="gm/dL" xsi:type="PQ" value="12.0" /> < referenceRange> <observationRange> <text>12.0-16.0</text > </observationRange> </referenceRange> </observation > </component> <component> <observation moodCode="EVN" classCode="OBS"> <templateId root="16.840.1.068332.10.20.22.4.2" /> <id nullFlavor="NA" /> <code codeSystem="local" code="HCTT" displayName="HEMATOCRIT" /> <statusCode code="completed" /> < effectiveTime value="" /> <value unit="%" xsi:type="PQ " value="35.6" /> <interpretationCode codeSystem="local" code="*" /> <referenceRange> <observationRange> <text>37.0- 47.0</text> </observationRange> </referenceRange> </ observation> </component> <component> <observation moodCode= "EVN" classCode="OBS"> <templateId root="216.840.1.586457.11.29.21.4.2 " /> <id nullFlavor="NA" /> <code codeSystem="local" code="PLT " displayName="PLATELET COUNT" /> <statusCode code="completed" /> <effectiveTime value="643423114273" /> <value unit="k/cumm" xsi: type="PQ" value="154" /> <referenceRange> <observationRange > <text>150-450</text> </observationRange> </ referenceRange> </observation> </component> </organizer> </entry > <entry> <organizer moodCode="EVN" classCode="BATTERY"> <templateId root="03.28.840.1.706532.11.29.21.4.1" /> <id nullFlavor="NA" /> <code codeSystem="local" code="DIFFM" displayName="MANUAL DIFF(R)" /> < statusCode code="completed" /> <component> <observation moodCode= "EVN" classCode="OBS"> <templateId root="03.28.840.1.829597.11.29.21.4.2 " /> <id nullFlavor="NA" /> <code codeSystem="local" code= "BAND%" displayName="BAND %" /> <statusCode code="completed" / > <effectiveTime value="894281024857" /> <value unit="%" xsi:type="PQ" value="4" /> <referenceRange> < observationRange> <text>0-10</text> </observationRange> </referenceRange> </observation> </component> < component> <observation moodCode="EVN" classCode="OBS"> < templateId root="16.840.1.145943.102022.4.2" /> <id nullFlavor="NA " /> <code codeSystem="local" code="MANDIFF" displayName="DIFFERENTIAL " /> <statusCode code="completed" /> <effectiveTime value= "" /> <value unit="" xsi:type="PQ" value="MANUAL" /> <referenceRange> <observationRange> <text /> </observationRange> </referenceRange> </observation> < /component> <component> <observation moodCode="EVN" classCode="OBS" > <templateId root="03.28.840.1.921630.1022.4.2" /> <id nullFlavor="NA" /> <code codeSystem="local" code="RMORPH" displayName= "RBC MORPH" /> <statusCode code="completed" /> <effectiveTime value="" /> <value unit="" xsi:type="PQ" value="NORMAL" /> <referenceRange> <observationRange> <text /> </observationRange> </referenceRange> </observation> </component> <component> <observation moodCode="EVN" classCode ="OBS"> <templateId root="03.28.840.1.888668.10.2022.4.2" /> < id nullFlavor="NA" /> <code codeSystem="local" code="SEG%" displayName="SEGMENTED NEUTROPHIL %" /> <statusCode code="completed " /> <effectiveTime value="" /> <value unit="% " xsi:type="PQ" value="24" /> <interpretationCode codeSystem="local" code="*" /> <referenceRange> <observationRange> <text>50-70</text> </observationRange> </referenceRange> </observation> </component> </organizer> </entry> <entry> < organizer moodCode="EVN" classCode="BATTERY"> <templateId root= "03.28.840.1.420881.10..4.1" /> <id nullFlavor="NA" /> <code codeSystem="local" code="METABC" displayName="METABOLIC PANEL, COMPREHN" /> <statusCode code="completed" /> <component> <observation moodCode= "EVN" classCode="OBS"> <templateId root="03.28.840.1.291349.10..4.2 " /> <id nullFlavor="NA" /> <code codeSystem="local" code="K" displayName="POTASSIUM" /> <statusCode code="completed" /> < effectiveTime value="165612701593" /> <value unit="mmol/L" xsi:type="PQ " value="3.0" /> <interpretationCode codeSystem="local" code="*" /> <referenceRange> <observationRange> <text>3.5-5.3 </text> </observationRange> </referenceRange> </ observation> </component> <component> <observation moodCode= "EVN" classCode="OBS"> <templateId root="03.28.840.1.555733.11.29.21.4.2 " /> <id nullFlavor="NA" /> <code codeSystem="local" code= "eGFR" displayName="EST GFR (MDRD)" /> <statusCode code="completed" /> <effectiveTime value="168031308379" /> <value unit="mL/min" xsi:type="PQ" value="> 60" /> <referenceRange> < observationRange> <text>> 59</text> </ observationRange> </referenceRange> </observation> </ component> <component> <observation moodCode="EVN" classCode="OBS"> <templateId root="03.28.840.1.580867.10..22.4.2" /> <id nullFlavor="NA" /> <code codeSystem="local" code="GAP" displayName= "ANION GAP" /> <statusCode code="completed" /> <effectiveTime value="980184407121" /> <value unit="mmol/L" xsi:type="PQ" value="6" / > <referenceRange> <observationRange> <text>5- 15</text> </observationRange> </referenceRange> </ observation> </component> <component> <observation moodCode= "EVN" classCode="OBS"> <templateId root="840.1.212815.10...4.2 " /> <id nullFlavor="NA" /> <code codeSystem="local" code= "eCrCl" displayName="EST CrCl (CG)" /> <statusCode code="completed" /> <effectiveTime value="242479701956" /> <value unit="mL/min" xsi:type="PQ" value="> 60" /> <referenceRange> < observationRange> <text>> 59</text> </ observationRange> </referenceRange> </observation> </ component> <component> <observation moodCode="EVN" classCode="OBS"> <templateId root="03.28.840.1.814511.10.20.22.4.2" /> <id nullFlavor="NA" /> <code codeSystem="local" code="GLU" displayName= "GLUCOSE" /> <statusCode code="completed" /> <effectiveTime value="921048437200" /> <value unit="mg/dL" xsi:type="PQ" value="104" / > <interpretationCode codeSystem="local" code="*" /> < referenceRange> <observationRange> <text>70-99</text> </observationRange> </referenceRange> </observation> </component> <component> <observation moodCode="EVN" classCode= "OBS"> <templateId root="216.840.1.066201.10.20.22.4.2" /> < id nullFlavor="NA" /> <code codeSystem="local" code="CA" displayName= "CALCIUM" /> <statusCode code="completed" /> <effectiveTime value="554180902801" /> <value unit="mg/dL" xsi:type="PQ" value="8.3" / > <interpretationCode codeSystem="local" code="*" /> < referenceRange> <observationRange> <text>8.5-10.1</text > </observationRange> </referenceRange> </observation > </component> <component> <observation moodCode="EVN" classCode="OBS"> <templateId root="2.16.840.1.589411.10.20.22.4.2" /> <id nullFlavor="NA" /> <code codeSystem="local" code="BUN" displayName="BLOOD UREA NITROGEN" /> <statusCode code="completed" /> <effectiveTime value="169106982096" /> <value unit="mg/dL" xsi: type="PQ" value="2" /> <interpretationCode codeSystem="local" code="*" /> <referenceRange> <observationRange> <text>7- 20</text> </observationRange> </referenceRange> </ observation> </component> <component> <observation moodCode= "EVN" classCode="OBS"> <templateId root="16.840.1.792967.10..22.4.2 " /> <id nullFlavor="NA" /> <code codeSystem="local" code= "CREAT" displayName="CREATININE" /> <statusCode code="completed" /> <effectiveTime value="036739319159" /> <value unit="mg/dL" xsi: type="PQ" value="0.9" /> <referenceRange> <observationRange > <text>0.5-1.0</text> </observationRange> </ referenceRange> </observation> </component> <component> <observation moodCode="EVN" classCode="OBS"> <templateId root= "16.840.1.481942.10...4.2" /> <id nullFlavor="NA" /> < code codeSystem="local" code="NA" displayName="SODIUM" /> <statusCode code="completed" /> <effectiveTime value="" /> < value unit="mmol/L" xsi:type="PQ" value="141" /> <referenceRange> <observationRange> <text>135-148</text> </ observationRange> </referenceRange> </observation> </ component> <component> <observation moodCode="EVN" classCode="OBS"> <templateId root="03.28.840.1.457820.10.20.22.4.2" /> <id nullFlavor="NA" /> <code codeSystem="local" code="CL" displayName= "CHLORIDE" /> <statusCode code="completed" /> <effectiveTime value="406616485898" /> <value unit="mmol/L" xsi:type="PQ" value="107" /> <referenceRange> <observationRange> <text>98 -110</text> </observationRange> </referenceRange> </ observation> </component> <component> <observation moodCode= "EVN" classCode="OBS"> <templateId root="216.840.1.772868.10..4.2 " /> <id nullFlavor="NA" /> <code codeSystem="local" code="AST " displayName="AST/SGOT" /> <statusCode code="completed" /> < effectiveTime value="" /> <value unit="Units/L" xsi:type= "PQ" value="241" /> <interpretationCode codeSystem="local" code="*" /> <referenceRange> <observationRange> <text>10- 37</text> </observationRange> </referenceRange> </ observation> </component> <component> <observation moodCode= "EVN" classCode="OBS"> <templateId root="03.28.840.1.874393.11.29.21.4.2 " /> <id nullFlavor="NA" /> <code codeSystem="local" code="ALT " displayName="ALT/SGPT" /> <statusCode code="completed" /> < effectiveTime value="645793247331" /> <value unit="Units/L" xsi:type= "PQ" value="206" /> <interpretationCode codeSystem="local" code="*" /> <referenceRange> <observationRange> <text>&lt ; 66</text> </observationRange> </referenceRange> </ observation> </component> <component> <observation moodCode= "EVN" classCode="OBS"> <templateId root="16.840.1.807230.11.29.21.4.2 " /> <id nullFlavor="NA" /> <code codeSystem="local" code="CO2 " displayName="CARBON DIOXIDE" /> <statusCode code="completed" /> <effectiveTime value="810953341596" /> <value unit="mmol/L" xsi: type="PQ" value="28" /> <referenceRange> <observationRange> <text>21-32</text> </observationRange> </ referenceRange> </observation> </component> <component> <observation moodCode="EVN" classCode="OBS"> <templateId root= "03.28.840.1.948258.22.4.2" /> <id nullFlavor="NA" /> < code codeSystem="local" code="TP" displayName="TOTAL PROTEIN" /> < statusCode code="completed" /> <effectiveTime value="723783503799" /> <value unit="gm/dL" xsi:type="PQ" value="6.1" /> < interpretationCode codeSystem="local" code="*" /> <referenceRange> <observationRange> <text>6.4-8.2</text> </ observationRange> </referenceRange> </observation> </ component> <component> <observation moodCode="EVN" classCode="OBS"> <templateId root="03.28.840.1.413379.10.22.4.2" /> <id nullFlavor="NA" /> <code codeSystem="local" code="ALB" displayName= "ALBUMIN" /> <statusCode code="completed" /> <effectiveTime value="983241932570" /> <value unit="gm/dL" xsi:type="PQ" value="2.4" / > <interpretationCode codeSystem="local" code="*" /> < referenceRange> <observationRange> <text>3.4-5.0</text> </observationRange> </referenceRange> </observation > </component> <component> <observation moodCode="EVN" classCode="OBS"> <templateId root="03.28.830.1.058196.10.20.22.4.2" /> <id nullFlavor="NA" /> <code codeSystem="local" code="BILTOT" displayName="BILI TOTAL" /> <statusCode code="completed" /> < effectiveTime value="122740207038" /> <value unit="mg/dL" xsi:type="PQ " value="1.6" /> <interpretationCode codeSystem="local" code="*" /> <referenceRange> <observationRange> <text>0.0-1.0 </text> </observationRange> </referenceRange> </ observation> </component> <component> <observation moodCode= "EVN" classCode="OBS"> <templateId root="2.16.840.1.273685.10.20.22.4.2 " /> <id nullFlavor="NA" /> <code codeSystem="local" code= "ALKP" displayName="ALKALINE PHOSPHATASE TOTAL" /> <statusCode code= "completed" /> <effectiveTime value="890303312130" /> <value unit="IU/L" xsi:type="PQ" value="156" /> <interpretationCode codeSystem ="local" code="*" /> <referenceRange> <observationRange> <text>45-117</text> </observationRange> </ referenceRange> </observation> </component> </organizer> </entry ></section> Encounters ACCT No. Visit Date/Time Discharge Status Pt. Type Provider Facility Loc./Unit Complaint [id number] 11/14/2015 11:12:00 11/16/2015 15:00:00 DIS Inpatient Geri Bauman MD, [facility] ER E.T4 [id number] 03/23/2015 09:46:00 03/23/2015 11:29:00 DIS Emergency Davie BARBER, Pradeep Mares [facility] & ER E.ED [id number] 01/20/2018 15:48:24 01/20/2018 15:48:24 DIS Outpatient [id number] 11/13/2015 09:05:00 11/13/2015 13:05:00 DIS Emergency Tanmay SAAVEDRA, [facility] W.MARCO [id number] 11/11/2015 11:52:00 11/11/2015 13:38:00 DIS Emergency Dejuan BARBER, [facility].ED [id number] 04/20/2015 12:48:00 04/20/2015 12:48:00 DIS Outpatient Miki BARBER, And[facility] W.WRAU [id number] 12/08/2014 20:48:00 12/08/2014 22:12:00 DIS Emergency Kingsley BARBER, Carl Quach [facility] W.EDN [id number] 02/27/2018 17:21:00 02/27/2018 18:38:00 DIS Emergency JAYANT HODGE [facility] ER PAIN IN HEAD, PRESSURE, EYE PAIN HITTING HEAD
[2018-04-30] MEDS ORDERED: NS IV 1000 ML 1,000 ML IV ONE ×3 (17:44→22:07)
[2018-04-30 18:00] LABS: BASOPHILS % (AUTO) 0 % (0-10); EOSINOPHILS % (AUTO) 0 % (0-10); HEMATOCRIT 40 % (35-52); HEMOGLOBIN 13.6 G/DL (11.5-16.0); LYMPHOCYTES # (AUTO) 0.8 X 10^3 (1.0-4.0); LYMPHOCYTES % (AUTO) 4 % (12-44); MEAN CORPUSCULAR HEMOGLOBIN 30 PG (25-34); MEAN CORPUSCULAR HGB CONC 34 G/DL (32-36); MEAN CORPUSCULAR VOLUME 86 FL (80-99); MEAN PLATELET VOLUME 9.2 FL (7.4-10.4); MONOCYTES % (AUTO) 5 % (0-12); NEUTROPHILS # (AUTO) 17.9 X 10^3 (1.8-7.8); NEUTROPHILS % (AUTO) 91 % (42-75); PLATELET COUNT 304 10^3/uL (130-400); RED CELL DISTRIBUTION WIDTH 12.8 % (10.0-14.5); WHITE BLOOD COUNT 19.7 10^3/uL (4.3-11.0)
[2018-04-30] MEDS ORDERED: fentaNYL INJECTION 100 MCG/2 ML AMP IVP ONE ×3 (18:00→21:30)
[2018-04-30] MEDS ORDERED: ONDANSETRON 4 MG/2 ML (SDV) Z0FRAN IVP ONE (18:00)
[2018-04-30 18:17] LABS: BILIRUBIN,URINE NEGATIVE (NEGATIVE); CLARITY,URINE VERY CLOUDY; COLOR,URINE AMBER; GLUCOSE, URINE (UA) NEGATIVE (NEGATIVE); KETONES,URINE 4+ (NEGATIVE); LEUKOCYTE ESTERASE ,URINE 1+ (NEGATIVE); NITRITE,URINE NEGATIVE (NEGATIVE); PH,URINE 8 (5-9); PROTEIN,URINE 1+ (NEGATIVE); UROBILINOGEN,URINE 1 MG/DL (NORMAL)
[2018-04-30 18:21] LABS: ALANINE AMINOTRANSFERASE 10 U/L (0-55); ALBUMIN 4.4 GM/DL (3.2-4.5); ALKALINE PHOSPHATASE 65 U/L (40-136); BILIRUBIN,TOTAL 1.3 MG/DL (0.1-1.0); BUN/CREATININE RATIO 12; CALCIUM 9.4 MG/DL (8.5-10.1); CARBON DIOXIDE 18 MMOL/L (21-32); CHLORIDE 101 MMOL/L (98-107); CREATININE SERUM 0.85 MG/DL (0.60-1.30); GFR ESTIMATED > 60; GLUCOSE 97 MG/DL (70-105); POTASSIUM 3.8 MMOL/L (3.6-5.0); SODIUM 132 MMOL/L (135-145); TOTAL PROTEIN 7.8 GM/DL (6.4-8.2)
[2018-04-30 18:23] LABS: MAGNESIUM 1.6 MG/DL (1.8-2.4)
[2018-04-30 18:24] LABS: BACTERIA,URINE MODERATE /HPF
[2018-04-30 18:32] LABS: BAND NEUTROPHILS 15 %; EOSINOPHILS % (MANUAL) 1 %; LYMPHOCYTES % (MANUAL) 3 %; MONOCYTES % (MANUAL) 4 %; NEUTROPHILS % (MANUAL) 77 %; RBC MORPH NORMAL
--- NOTE | 2018-04-30 19:11 | Diagnostic Imaging Report ---
CHEST PA/LAT (2 VIEW) Indication: Shortness of air Comparison: None available. Findings: No focal pneumonic consolidation, pleural effusion or pneumothorax. Normal heart size and pulmonary vasculature. Impression: No acute cardiopulmonary process. Dictated by: Dictated on workstation # [id number]
--- NOTE | 2018-04-30 19:12 | Diagnostic Imaging Report ---
INDICATION: Foot pain after fall. COMPARISON: Right ankle radiographs performed concurrently. TECHNIQUE: Three views of the right foot were obtained. FINDINGS: No fracture or traumatic malalignment. Joint spaces are preserved. No radiopaque foreign body. IMPRESSION: No acute osseous abnormality in the right foot. Dictated by: Dictated on workstation # [id number]
--- NOTE | 2018-04-30 19:14 | Diagnostic Imaging Report ---
INDICATION: Right ankle pain after fall. COMPARISON: Right foot radiographs performed concurrently. TECHNIQUE: Three views of the right ankle were obtained without weightbearing. FINDINGS: Moderate soft tissue swelling involving the lateral ankle. No acute fracture. No osteochondral lesion of the talar dome. Joint spaces are preserved. No features of ankle joint effusion. IMPRESSION: Soft tissue swelling without acute fracture. Dictated by: Dictated on workstation # [id number]
[2018-04-30] MEDS ORDERED: HOLD METFORMIN - RECEIVED CONTRAST 20 ML VIAL IV SCH (19:15)
[2018-04-30] MEDS ORDERED: IOHEXOL 350 MG/ML 100 ML (OMNIPAQUE 350) VIAL IV ONE (19:15)
--- NOTE | 2018-04-30 19:26 | Diagnostic Imaging Report ---
PROCEDURE: CT abdomen and pelvis with contrast. TECHNIQUE: Multiple contiguous axial images were obtained through the abdomen and pelvis after administration of intravenous contrast. Auto Exposure Controls were utilized during the CT exam to meet ALARA standards for radiation dose reduction. INDICATION: Left-sided flank pain and hematuria. COMPARISON: None available. FINDINGS: Lower chest: The lung bases are clear. No pericardial or pleural effusion. Peritoneum: No free intraperitoneal air or fluid. Liver and biliary system: The liver is normal. The gallbladder is normal. No biliary duct dilation. Spleen and Pancreas: Spleen is normal. The pancreas enhances normally without mass lesion or peripancreatic inflammatory changes. Adrenals: Normal. tract: The kidneys enhance normally without suspicious mass or obstruction. No renal or ureteral stones. Urinary bladder is distended without wall thickening. Uterus and ovaries are normal in appearance. GI tract: Stomach is partially filled with fluid and air, and there is no wall thickening. No bowel obstruction. No pericolonic inflammatory changes. Normal appendix. Vasculature and Lymph nodes: Normal caliber aorta. No abdominal or pelvic lymphadenopathy. Musculoskeletal: No concerning osseous lesion. IMPRESSION: 1. No urinary tract calculi or features of pyelonephritis. 2. No acute obstructive or inflammatory process elsewhere within the abdomen or pelvis. Dictated by: Dictated on workstation # [id number]
--- NOTE | 2018-04-30 20:00 | ED Abdominal Pain ---
General Chief Complaint: Abdominal/GI Problems Stated Complaint: VOMITING Nursing Triage Note: PT AMB TO TRIAGE WITH COMPLAINT OF ABD PAIN, VOMITING, GENERALIZED PAIN. PT STATES SYMPTOMS HAVE BEEN GOING FOR OVER A MONTH. PT STATES SHE FEELS THIS IS SIMILAR TO WHEN SHE HAD MONO. Sepsis Screen: No Definite Risk Source of Information: Patient Exam Limitations: No Limitations History of Present Illness Date Seen by Provider: May 01, 2018 Time Seen by Provider: 17:46 Initial Comments This 22-year-old young lady presents to the emergency room with numerous symptoms including fever, nausea, vomiting, myalgia, back ache, otalgia, neck pain, left flank and abdominal pain, and shortness of air. Symptoms started this morning. She also reports having episodes of fever, nausea, vomiting, and diarrhea about 6 weeks ago and then again 2 weeks ago that resolved without treatment. She has a secondary complaint of right ankle pain from rolling her ankle last night. Patient is sexually active and has had an estimated 4 partners in the last year. She does not always use protection. She denies any vaginal symptoms. She denies any hematuria or dysuria. She is pale and appears rather ill upon arrival. She is notably tachycardic and initial systolic blood pressure was 84. Allergies and Home Medications Allergies Uncoded Allergies: PCN (Allergy, Unknown, 02/27/18) Patient Home Medication List Home Medication List Reviewed: Yes Review of Systems Review of Systems Constitutional: see HPI EENTM: No Symptoms Reported Respiratory: See HPI Cardiovascular: See HPI Gastrointestinal: See HPI Genitourinary: No Symptoms Reported Musculoskeletal: see HPI Skin: no symptoms reported Psychiatric/Neurological: See HPI Endocrine: No Symptoms Reported Hematologic/Lymphatic: No Symptoms Reported Past Yhngtxy-Bqcftj-Ippjns Hx Past Med/Social Hx: Reviewed Nursing Past Med/Soc Hx Patient Social History Alcohol Use: Denies Use Recreational Drug Use: No Smoking Status: Never a Smoker 2nd Hand Smoke Exposure: No Recent Foreign Travel: No Contact w/Someone Who Travel: No Recent Infectious Disease Expo: No Recent Hopitalizations: No Immunizations Up To Date PED Vaccines UTD: Yes Seasonal Allergies Seasonal Allergies: No Past Medical History Surgeries: Yes (dental) Respiratory: No Cardiac: No Neurological: No : No Reproductive Disorders: No Genitourinary: No Gastrointestinal: No Musculoskeletal: No Endocrine: No HEENT: No Cancer: No Psychosocial: No Blood Disorders: No Physical Exam Vital Signs Vital Signs - First Documented 04/30/18 17:36 Temp 101.5 Pulse 124 Resp 22 B/P (MAP) 84/46 (59) Pulse Ox 100 O2 Delivery Room Air Capillary Refill : Less Than 3 Seconds Height/Weight/BMI Height: 5'3.00" Weight: 125lbs. oz. 56.130075st; BMI Method:Stated General Appearance: WD/WN, moderate distress HEENT: PERRL/EOMI, normal ENT inspection, TMs normal, pharyngeal erythema Neck: supple, normal inspection Respiratory: lungs clear, normal breath sounds, no respiratory distress, no accessory muscle use Cardiovascular: no edema, no murmur, tachycardia Gastrointestinal: normal bowel sounds, soft, tenderness (generalized and more focused in the left) Extremities: non-tender, normal inspection, no pedal edema Neurologic/Psychiatric: v belt finisher II-XII nml as tested, no motor/sensory deficits, alert, normal mood/affect, oriented x 3 Skin: normal color, warm/dry Focused Exam Lactate Level 04/30/18 20:20: Lactic Acid Level 0.90 Lactic Acid Level Laboratory Tests Test 04/30/18 20:20 Lactic Acid Level 0.90 MMOL/L (0.50-2.00) Progress/Results/Core Measures Results/Orders Lab Results Laboratory Tests Test 04/30/18 17:51 04/30/18 17:57 04/30/18 18:05 04/30/18 20:20 Range/Units White Blood Count 19.7 H 4.3-11.0 10^3/uL Red Blood Count 4.60 4.35-5.85 10^6/uL Hemoglobin 13.6 11.5-16.0 G/DL Hematocrit 40 35-52 % Mean Corpuscular Volume 86 80-99 FL Mean Corpuscular Hemoglobin 30 25-34 PG Mean Corpuscular Hemoglobin Concent 34 32-36 G/DL Red Cell Distribution Width 12.8 10.0-14.5 % Platelet Count 304 130-400 10^3/uL Mean Platelet Volume 9.2 7.4-10.4 FL Neutrophils (%) (Auto) 91 H 42-75 % Lymphocytes (%) (Auto) 4 L 12-44 % Monocytes (%) (Auto) 5 0-12 % Eosinophils (%) (Auto) 0 0-10 % Basophils (%) (Auto) 0 0-10 % Neutrophils # (Auto) 17.9 H 1.8-7.8 X 10^3 Lymphocytes # (Auto) 0.8 L 1.0-4.0 X 10^3 Monocytes # (Auto) 1.0 0.0-1.0 X 10^3 Eosinophils # (Auto) 0.0 0.0-0.3 10^3/uL Basophils # (Auto) 0.0 0.0-0.1 10^3/uL Neutrophils % (Manual) 77 % Lymphocytes % (Manual) 3 % Monocytes % (Manual) 4 % Eosinophils % (Manual) 1 % Band Neutrophils 15 % Blood Morphology Comment NORMAL Sodium Level 132 L 135-145 MMOL/L Potassium Level 3.8 3.6-5.0 MMOL/L Chloride Level 101 98-107 MMOL/L Carbon Dioxide Level 18 L 21-32 MMOL/L Anion Gap 13 5-14 MMOL/L Blood Urea Nitrogen 10 7-18 MG/DL Creatinine 0.85 0.60-1.30 MG/DL Estimat Glomerular Filtration Rate > 60 BUN/Creatinine Ratio 12 Glucose Level 97 70-105 MG/DL Calcium Level 9.4 8.5-10.1 MG/DL Corrected Calcium 9.1 8.5-10.1 MG/DL Total Bilirubin 1.3 H 0.1-1.0 MG/DL Aspartate Amino Transf (AST/SGOT) 15 5-34 U/L Alanine Aminotransferase (ALT/SGPT) 10 0-55 U/L Alkaline Phosphatase 65 40-136 U/L C-Reactive Protein High Sensitivity 3.54 H 0.00-0.50 MG/DL Total Protein 7.8 6.4-8.2 GM/DL Albumin 4.4 3.2-4.5 GM/DL Serum Test, Qualitative NEGATIVE NEGATIVE Group A Streptococcus Screen NEGATIVE NEGATIVE Magnesium Level 1.6 L 1.8-2.4 MG/DL Lipase 26 8-78 U/L Monoscreen NEGATIVE NEGATIVE Urine Color DASHA H Urine Clarity VERY CLOUDY H Urine pH 8 5-9 Urine Specific [place] 1.010 L 1.016-1.022 Urine Protein 1+ H NEGATIVE Urine Glucose (UA) NEGATIVE NEGATIVE Urine Ketones 4+ H NEGATIVE Urine Nitrite NEGATIVE NEGATIVE Urine Bilirubin NEGATIVE NEGATIVE Urine Urobilinogen 1 NORMAL MG/DL Urine Leukocyte Esterase 1+ H NEGATIVE Urine RBC (Auto) 1+ H NEGATIVE Urine RBC 5-10 H /HPF Urine WBC 2-5 /HPF Urine Squamous Epithelial Cells 10-25 H /HPF Urine Crystals NONE /LPF Urine Bacteria MODERATE H /HPF Urine Casts NONE /LPF Urine Mucus NEGATIVE /LPF Urine Culture Indicated YES Lactic Acid Level 0.90 0.50-2.00 MMOL/L Test 04/30/18 21:55 04/30/18 23:00 Range/Units CSF Tube Number 4 CSF Appearance CLEAR CSF Color COLORLESS CSF WBC 1 0-5 CELLS CSF RBC 8 H 0-0 CELLS CSF Lymphocytes % CSF Mononuclear WBCs % CSF Polynuclear WBCs % CSF Glucose 57 50-80 MG/DL CSF Total Protein 25 15-40 MG/DL Micro Results Microbiology 04/30/18 Gram Stain - Final, Resulted 04/30/18 CSF Culture, Resulted Pending 04/30/18 Genital Culture, Resulted Pending 04/30/18 UNRULY Preparation - Final, Resulted 04/30/18 Wet Prep - Final, Resulted 04/30/18 Throat Culture - Final, Complete Strep, Beta Hemolytic Group C 04/30/18 Influenza Types A,B Antigen (VAMSI) - Final, Complete My Orders Orders - DONTE ENRIQUEZ MD Cbc With Automated Diff (04/30/18 17:44) Comprehensive Metabolic Panel (04/30/18 17:44) Hcg,Qualitative Serum (04/30/18 17:44) Ua Culture If Indicated (04/30/18 17:44) Saline Lock/Iv-Start (04/30/18 17:44) Ns Iv 1000 Ml (Sodium Chloride 0.9%) (04/30/18 17:44) Manual Differential (04/30/18 17:51) Rapid Strep A Screen (04/30/18 17:57) Influenza A And B Antigens (04/30/18 17:57) Fentanyl Injection (Sublimaze Injection (04/30/18 18:00) Ondansetron Injection (Zofran Injectio (04/30/18 18:00) Monotest (04/30/18 17:57) Lipase (04/30/18 17:57) Magnesium (04/30/18 17:57) Chest Pa/Lat (2 View) (04/30/18 18:12) Urine Culture (04/30/18 18:05) Ns Iv 1000 Ml (Sodium Chloride 0.9%) (04/30/18 18:27) Foot, Right, 3 View (04/30/18 18:36) Ankle, Right, 3 Views (04/30/18 18:36) Ct Abdomen/Pelvis W (04/30/18 18:36) Hs C Reactive Protein (04/30/18 18:38) Iohexol Injection (Omnipaque 350 Mg/Ml 1 (04/30/18 19:15) Received Contrast (Hold Metformin- Contr (04/30/18 19:15) Ketorolac Injection (Toradol Injection) (04/30/18 20:15) Acetaminophen Tablet/Caplet (Tylenol T (04/30/18 20:30) Fentanyl Injection (Sublimaze Injection (04/30/18 20:30) Ceftriaxone For Iv Use (Rocephin For I (04/30/18 20:30) Ct Head Wo (04/30/18 20:20) Csf Cell Count (04/30/18 20:23) Csf Glucose (04/30/18 20:23) Csf Total Protein (04/30/18 20:23) Csf Culture (04/30/18 20:23) Virus Culture (04/30/18 20:23) Blood Culture (04/30/18 20:23) Lactic Acid Analyzer (04/30/18 20:23) Fentanyl Injection (Sublimaze Injection (04/30/18 21:30) Lidocaine 2% Pf 5 Ml (Xylocaine 2% Pf) (04/30/18 21:37) Wet Prep (04/30/18 22:01) Neisseria Gonorrhea Swab (04/30/18 22:01) Genital Culture (04/30/18 22:01) Unruly Prep (04/30/18 22:01) Chlamydia Trachomatis Swab (04/30/18 22:01) Ns Iv 1000 Ml (Sodium Chloride 0.9%) (04/30/18 22:07) Ibuprofen Tablet (Motrin Tablet) (04/30/18 22:15) Medications Given in ED Vital Signs/I&O 04/30/18 04/30/18 17:36 22:43 Temp 101.5 Pulse 124 112 Resp 22 22 B/P (MAP) 84/46 (59) 93/51 Pulse Ox 100 100 O2 Delivery Room Air Room Air 05/01/18 00:00 Intake Total 3020 ml Balance 3020 ml Blood Pressure Mean: 59 Progress Progress Note : Time: 01:22 Progress Note Patient was seen and examined promptly upon arrival. IV fluids were started. Labs were obtained. No source of infection or fever was found. Screens for strep, influenza, and mono were all negative. No source of bacterial infection was identified. Workup proceeded with CT scan of the abdomen and pelvis which also revealed no source of infection. Due to neck pain and headache in the absence of other sources, LP was felt necessary to rule out meningitis. Anesthesia was consulted and performed an LP. Opening pressure was 23.75 cm. CSF was ultimately negative for evidence of infection/meningitis. Patient's pain was treated periodically with fentanyl. Nausea was treated with Zofran. After 2 L of fluid and LP, patient had an episode of hypotension at 2200 with blood pressure of 89/43. A repeat at 22:04 was 93/42 with a map of 58. A third liter of IV fluid was started at that time. Blood pressure did rebound. Patient received 2 g of Rocephin after blood cultures. Rocephin was received prior to LP. Patient was to be admitted at [facility] but then became hypotensive again after the third liter of IV fluid. A fourth liter of IV fluid is now being administered and Levophed is being initiated. I discussed transfer with patient and her mother as there are no ICU beds available at this facility. They are agreeable to transfer. I discussed the case with Dr. Jang, mouse breeder at [facility], who accepts the transfer. Patient will also receive vancomycin for further broad-spectrum antibiotic coverage. Pelvic exam was performed showing a fairly normal-appearing cervix without cervical motion tenderness. There was some thick mucus at the cervical os without evidence of inflammation. Initial screen from vaginal swabs showed moderate WBC but no other evidence of infection. Despite no source of infection, patient has had recurrent episodes of hypotension and was behaving as though she could be septic. Patient is having rebound nausea at this time. Additional Zofran is being given. Patient also received Tylenol and ibuprofen during her ER stay for fever. Diagnostic Imaging Diagonstic Imaging: CT Plain Films/CT/US/NM/MRI: abdomen, pelvis Comments CT scan viewed by me and report reviewed. See report below: NAME: LUIS HUERTAS [facility] REC#: [id number] PT STATUS: REG ER : 1995 PHYSICIAN: DONTE ENRIQUEZ MD ADMIT DATE: 04/30/18/ER Draft Date of Exam:04/30/18 CT ABDOMEN/PELVIS W PROCEDURE: CT abdomen and pelvis with contrast. TECHNIQUE: Multiple contiguous axial images were obtained through the abdomen and pelvis after administration of intravenous contrast. Auto Exposure Controls were utilized during the CT exam to meet ALARA standards for radiation dose reduction. INDICATION: Left-sided flank pain and hematuria. COMPARISON: None available. FINDINGS: Lower chest: The lung bases are clear. No pericardial or pleural effusion. Peritoneum: No free intraperitoneal air or fluid. Liver and biliary system: The liver is normal. The gallbladder is normal. No biliary duct dilation. Spleen and Pancreas: Spleen is normal. The pancreas enhances normally without mass lesion or peripancreatic inflammatory changes. Adrenals: Normal. tract: The kidneys enhance normally without suspicious mass or obstruction. No renal or ureteral stones. Urinary bladder is distended without wall thickening. Uterus and ovaries are normal in appearance. GI tract: Stomach is partially filled with fluid and air, and there is no wall thickening. No bowel obstruction. No pericolonic inflammatory changes. Normal appendix. Vasculature and Lymph nodes: Normal caliber aorta. No abdominal or pelvic lymphadenopathy. Musculoskeletal: No concerning osseous lesion. IMPRESSION: 1. No urinary tract calculi or features of pyelonephritis. 2. No acute obstructive or inflammatory process elsewhere within the abdomen or pelvis. Dictated on workstation # [id number] Dict: 04/30/181921 Trans: 04/30/181925 [id number] Interpreted by: KARISHMA LAY MD Diagonstic Imaging: Xray Plain Films/CT/US/NM/MRI: chest Comments Chest x-ray viewed by me and report reviewed. See report below: NAME: LUIS HUERTAS [facility] REC#: [id number] PT STATUS: REG ER : 1995 PHYSICIAN: DONTE ENRIQUEZ MD ADMIT DATE: 04/30/18/ER Signed Date of Exam: 04/30/18 CHEST PA/LAT (2 VIEW) Indication: Shortness of air Comparison: None available. Findings: No focal pneumonic consolidation, pleural effusion or pneumothorax. Normal heart size and pulmonary vasculature. Impression: No acute cardiopulmonary process. Dictated by: Dictated on workstation # [id number] Dict: 04/30/181907 Trans: 04/30/181908 Interpreted by: KARISHMA LAY MD Electronically signed by: KARISHMA LAY MD 04/30/181908 Diagonstic Imaging: Xray Plain Films/CT/US/NM/MRI: other (right foot) Comments Right foot x-ray viewed by me and report reviewed. See report below: NAME: LUIS HUERTAS [facility] REC#: [id number] PT STATUS: REG ER : 1995 PHYSICIAN: DONTE ENRIQUEZ MD ADMIT DATE: 04/30/18/ER Signed Date of Exam: 04/30/18 FOOT, RIGHT, 3 VIEW INDICATION: Foot pain after fall. COMPARISON: Right ankle radiographs performed concurrently. TECHNIQUE: Three views of the right foot were obtained. FINDINGS: No fracture or traumatic malalignment. Joint spaces are preserved. No radiopaque foreign body. IMPRESSION: No acute osseous abnormality in the right foot. Dictated by: Dictated on workstation # [id number] Dict: 04/30/181908 Trans: 04/30/182216 Interpreted by: KARISHMA LAY MD Electronically signed by: KARISHMA LAY MD 04/30/182216 Diagonstic Imaging: Xray Plain Films/CT/US/NM/MRI: ankle Comments Right ankle x-ray viewed by me and report reviewed. See report below: NAME: LUIS HUERTAS [facility] REC#: [id number] PT STATUS: REG ER : 1995 PHYSICIAN: DONTE ENRIQUEZ MD ADMIT DATE: 04/30/18/ER Signed Date of Exam: 04/30/18 ANKLE, RIGHT, 3 VIEWS INDICATION: Right ankle pain after fall. COMPARISON: Right foot radiographs performed concurrently. TECHNIQUE: Three views of the right ankle were obtained without weightbearing. FINDINGS: Moderate soft tissue swelling involving the lateral ankle. No acute fracture. No osteochondral lesion of the talar dome. Joint spaces are preserved. No features of ankle joint effusion. IMPRESSION: Soft tissue swelling without acute fracture. Dictated by: Dictated on workstation # [id number] Dict: 04/30/181910 Trans: 04/30/182216 Interpreted by: KARISHMA LAY MD Electronically signed by: KARISHMA LAY MD 04/30/182216 Diagonstic Imaging: CT Plain Films/CT/US/NM/MRI: head Comments CT head viewed by me and report reviewed. See report below: NAME: LUIS HUERTAS [facility] REC#: [id number] PT STATUS: REG ER : 1995 PHYSICIAN: DONTE ENRIQUEZ MD ADMIT DATE: 04/30/18/ER Signed Date of Exam: 04/30/18 CT HEAD WO PROCEDURE: CT head without contrast. TECHNIQUE: Multiple contiguous axial images were obtained through the brain without the use of intravenous contrast. Auto Exposure Controls were utilized during the CT exam to meet ALARA standards for radiation dose reduction. INDICATION: Headache. COMPARISON: 02/27/2018 FINDINGS: No hyperdense hemorrhage or space-occupying mass. Hyperattenuation within the vasculature is secondary to recent contrast administration for CT abdomen and pelvis performed less than 2 hours prior. No hydrocephalus or midline shift. Hughes-white matter differentiation is well preserved. No acute skull fracture. Paranasal sinuses and mastoid air cells are clear. IMPRESSION: No acute intracranial process by CT. Dictated by: Dictated on workstation # [id number] Dict: 04/30/182118 Trans: 04/30/182220 Interpreted by: KARISHMA LAY MD Electronically signed by: KARISHMA LAY MD 04/30/182220 Departure Communication (Admissions) Time/Spoke to Admitting Phy: 23:57 Dr. Murphy Impression Primary Impression: Febrile illness Additional Impressions: Tachycardia Nausea vomiting and diarrhea Generalized abdominal pain Leukocytosis Qualified Codes: D72.829 - Elevated white blood cell count, unspecified Right ankle sprain Qualified Codes: S93.401A - Sprain of unspecified ligament of right ankle, initial encounter Hypotension Qualified Codes: I95.9 - Hypotension, unspecified Disposition: 09 ADMITTED INPATIENT Condition: Improved Admissions Decision to Admit Reason: Admit from ER (General) Decision to Admit/Date: Apr 30, 2018 Time/Decision to Admit Time: 20:20 Transfer Time Spoke to Accepting Phy: 00:59 Transfer Progress Notes Transfer excepted by Dr. Jang at [facility]. Transfer Time: 02:42 Method of Transfer: EMS Departure-Patient Inst. Referrals: NO,LOCAL PHYSICIAN (PCP/Family) Primary Care Physician DONTE ENRIQUEZ MD Apr 30, 2018 20:00
[2018-04-30] MEDS ORDERED: KETOROLAC 30 MG/ML VIAL IVP ONE (20:15)
[2018-04-30] MEDS ORDERED: ACETAMINOPHEN 325 MG TABLET PO ONE (20:30)
[2018-04-30] MEDS ORDERED: cefTRIAXone FOR IV USE 2,000 MG in WATER (STERILE) FOR INJECTION 20 ML IV ONE (20:30)
--- NOTE | 2018-04-30 21:27 | Diagnostic Imaging Report ---
PROCEDURE: CT head without contrast. TECHNIQUE: Multiple contiguous axial images were obtained through the brain without the use of intravenous contrast. Auto Exposure Controls were utilized during the CT exam to meet ALARA standards for radiation dose reduction. INDICATION: Headache. COMPARISON: 02/27/2018 FINDINGS: No hyperdense hemorrhage or space-occupying mass. Hyperattenuation within the vasculature is secondary to recent contrast administration for CT abdomen and pelvis performed less than 2 hours prior. No hydrocephalus or midline shift. Hughes-white matter differentiation is well preserved. No acute skull fracture. Paranasal sinuses and mastoid air cells are clear. IMPRESSION: No acute intracranial process by CT. Dictated by: Dictated on workstation # [id number]
[2018-04-30] MEDS ORDERED: LIDOCAINE PF 2% 5 ML (XYLOCAINE) VIAL ONE (21:37)
--- NOTE | 2018-04-30 22:09 | Anesthesia-Procedure Note ---
Procedures/Interventions Procedure Start/Stop/Diagnosis Date of Procedure: Apr 30, 2018 Start Time: 21:30 Referring Physician: Kassy Brief History headache/vomiting/neck pain/ febrile Stop Time: 22:00 Lumbar Puncture Discussed Risk,Benefits: Yes Patient Consents: Yes Position: Lying, L3-4, L4-5, Right Sterile Technique: Yes Opening Pressure: 23.75 Fluid Color: clear Spinal Needle Used: 22g Vargas 3 1/2 inch Procedure Notes Platelet count WNL and CT head negative. Discussed procedure, pt wishes to proceed. Localized with Lido 2% 3mL @ L3-4 interspace. X 1 attempt at this level , with redirect per SRNA, Melech. -heme or parasthesia. Opening pressure 23.75. Clear CSF. Collected 3mL x 4 vials to be sent to lab. Specimens labeled and delivered to lab by ER staff. Pt tolerated procedure well. No adverse issues at this time. SHEILA NORTON CRNA Apr 30, 2018 22:09
[2018-04-30] MEDS ORDERED: IBUPROFEN TABLET 200 MG TAB PO ONE (22:15)
[2018-04-30 22:23] LABS: APPEARANCE,CSF CLEAR; COLOR,CSF COLORLESS; CSF TUBE NUMBER 4; RED BLOOD CELL,CSF 8 CELLS (0-0); WHITE BLOOD CELL,CSF 1 CELLS (0-5)
[2018-04-30 22:32] LABS: CSF GLUCOSE 57 MG/DL (50-80); CSF TOTAL PROTEIN 25 MG/DL (15-40)
--- NOTE | 2018-05-01 00:22 | NUR ---
RN "wasted" the appropriate 50mcg of fentanyl in omnicell after removal. pt then refused medication administration d/t no pain complaints. RN wasted the full vial of 100 mcg of fentanyl in sharps container.
[2018-05-01] MEDS ORDERED: NS IV 1000 ML 1,000 ML IV ONE (00:57)
--- OUTSIDE RECORDS SUMMARY | 2018-05-01 00:59 | XMS REPORT | Continuity of Care Document ---
Author Author [facility] Organization [facility] Address Unknown Phone Unavailable Allergies Active Description Code Type Severity Reaction Onset Reported/Identified Relationship to Patient Clinical Status Yes No Known Drug Intolerances No Known Drug Intolerances Drug Allergy Unknown N/A 1997 Yes AMOXICILLIN [id number] Drug Allergy N/A hives 08/25/1999 Yes OMNICEF 76325 Drug Allergy N/A HIVES 02/28/2009 Yes No [...] There is no data. <section xmlns="urn:hl7-org:v3" xmlns:xsi="http:// www.[place].org/2001/XMLSchema-instance"> <templateId root= "2.16.840.1.738436.10.20.22.2.3" /> <templateId root= "2.16.840.1.228259.10.20.22.2.3.1" /> <code codeSystemName="LOINC" codeSystem= "2.16.840.1.550874.6.1" code="07900-6" displayName="Results" /> <title>Results< /title> <text> <table> <thead> [...] PHOSPHATASE TOTAL </td> <td>156 IU/L</td> <td>45-117</td> </tr> < tr> <th colspan="10">Complete blood count (CBC) with automated white blood cell (WBC) differential - 04/30/18 17:51</th> </tr> <tr> <td>Blood leukocytes automated count (number/volume)</td> <td> 19.7 10*3/uL</td> <td>4.3-11.0</td> </tr> <tr> < td>Blood erythrocytes automated count (number/volume)</td> <td>4.60 10* 6/uL</td> <td>4.35-5.85</td> </tr> <tr> <td> Venous blood hemoglobin measurement (mass/volume)</td> <td>13.6 g/dL</ td> <td>11.5-16.0</td> </tr> <tr> <td>Blood hematocrit (volume fraction)</td> <td>40 %</td> <td>35-52< /td> </tr> <tr> <td>Automated erythrocyte mean corpuscular volume</td> <td>86 [foz_us]</td> <td>80-99</td> </tr> <tr> <td>Automated erythrocyte mean corpuscular hemoglobin (mass per erythrocyte)</td> <td>30 pg</td> <td>25- 34</td> </tr> <tr> <td>Automated erythrocyte mean corpuscular hemoglobin concentration measurement (mass/volume)</td> <td >34 g/dL</td> <td>32-36</td> </tr> <tr> <td> Automated erythrocyte distribution width ratio</td> <td>12.8 %</td > <td>10.0-14.5</td> </tr> <tr> <td>Automated blood platelet count (count/volume)</td> <td>304 10*3/uL</td> <td>130-400</td> </tr> <tr> <td>Automated blood platelet mean volume measurement</td> <td>9.2 [foz_us]</td> <td>7.4- 10.4</td> </tr> <tr> <td>Automated blood neutrophils/100 leukocytes</td> <td>91 %</td> <td>42-75</td> </tr> <tr> <td>Automated blood lymphocytes/100 leukocytes</td> <td>4 %</td> <td>12-44</td> </tr> <tr> < td>Blood monocytes/100 leukocytes</td> <td>5 %</td> <td>0- 12</td> </tr> <tr> <td>Automated blood eosinophils/100 leukocytes</td> <td>0 %</td> <td>0-10</td> </tr> <tr> <td>Automated blood basophils/100 leukocytes</td> < td>0 %</td> <td>0-10</td> </tr> <tr> <td> Blood neutrophils automated count (number/volume)</td> <td>17.9 10*3</ td> <td>1.8-7.8</td> </tr> <tr> <td>Blood lymphocytes automated count (number/volume)</td> <td>0.8 10*3</td> <td>1.0-4.0</td> </tr> <tr> <td>Blood monocytes automated count (number/volume)</td> <td>1.0 10*3</td> <td>0.0 -1.0</td> </tr> <tr> <td>Automated eosinophil count</td> <td>0.0 10*3/uL</td> <td>0.0-0.3</td> </tr> <tr > <td>Automated blood basophil count (count/volume)</td> <td> 0.0 10*3/uL</td> <td>0.0-0.1</td> </tr> <tr> < th colspan="10">Serum or plasma choriogonadotropin ( test) detection - 04/30/18 17:51</th> </tr> <tr> <td>Serum or plasma choriogonadotropin ( test) detection</td> <td>NEGATIVE </td> <td>NEGATIVE</td> </tr> <tr> <th colspan="10"> Streptococcus pyogenes antigen detection - 04/30/18 17:51</th> </tr> <tr> <td>Streptococcus pyogenes antigen detection</td> <td >NEGATIVE </td> <td>NEGATIVE</td> </tr> <tr> < th colspan="10">Comprehensive metabolic panel - 04/30/18 17:51</th> </tr > <tr> <td>Serum or plasma sodium measurement (moles/volume)</td > <td>132 mmol/L</td> <td>135-145</td> </tr> <tr > <td>Serum or plasma potassium measurement (moles/volume)</td> <td>3.8 mmol/L</td> <td>3.6-5.0</td> </tr> <tr> <td>Serum or plasma chloride measurement (moles/volume)</td> <td> 101 mmol/L</td> <td>98-107</td> </tr> <tr> <td> Carbon dioxide</td> <td>18 mmol/L</td> <td>21-32</td> < /tr> <tr> <td>Serum or plasma anion gap determination (moles/ volume)</td> <td>13 mmol/L</td> <td>5-14</td> </tr> <tr> <td>Serum or plasma urea nitrogen measurement (mass/volume)</ td> <td>10 mg/dL</td> <td>7-18</td> </tr> <tr> <td>Serum or plasma creatinine measurement (mass/volume)</td> <td>0.85 mg/dL</td> <td>0.60-1.30</td> </tr> <tr> <td>Serum or plasma urea nitrogen/creatinine mass ratio</td> <td>12 </td> <td>NRG</td> </tr> <tr> <td>Serum or plasma creatinine measurement with calculation of estimated glomerular filtration rate</td> <td>> </td> <td>NRG</td> </tr> <tr> <td>Serum or plasma glucose measurement (mass/volume)</td > <td>97 mg/dL</td> <td>70-105</td> </tr> <tr> <td>Serum or plasma calcium measurement (mass/volume)</td> <td >9.4 mg/dL</td> <td>8.5-10.1</td> </tr> <tr> <td >Serum or plasma total bilirubin measurement (mass/volume)</td> <td> 1.3 mg/dL</td> <td>0.1-1.0</td> </tr> <tr> <td> Serum or plasma alkaline phosphatase measurement (enzymatic activity/volume)</td > <td>65 U/L</td> <td>40-136</td> </tr> <tr> <td>Serum or plasma aspartate aminotransferase measurement (enzymatic activity/volume)</td> <td>15 U/L</td> <td>5-34</td> </ tr> <tr> <td>Serum or plasma alanine aminotransferase measurement (enzymatic activity/volume)</td> <td>10 U/L</td> < td>0-55</td> </tr> <tr> <td>Serum or plasma protein measurement (mass/volume)</td> <td>7.8 g/dL</td> <td>6.4-8.2</ td> </tr> <tr> <td>Serum or plasma albumin measurement ( mass/volume)</td> <td>4.4 g/dL</td> <td>3.2-4.5</td> </ tr> <tr> <td>CALCIUM CORRECTED</td> <td>9.1 mg/dL</td> <td>8.5-10.1</td> </tr> <tr> <th colspan="10"> Influenza virus A and B antigen detection - 04/30/18 17:51</th> </tr> <tr> <td>FLU RESULT</td> <td>NEGATIVE FOR INFLUENZA A AND B ANTIGENS BY IA </td> <td>NRG</td> </tr> <tr> <th colspan="10">Blood manual differential performed detection - 04/30/18 17 :51</th> </tr> <tr> <td>Blood monocytes/100 leukocytes</ td> <td>4 %</td> <td>NRG</td> </tr> <tr> <td>Manual blood segmented neutrophils/100 leukocytes</td> <td> 77 %</td> <td>NRG</td> </tr> <tr> <td>Blood band neutrophils/100 leukocytes</td> <td>15 %</td> <td>NRG </td> </tr> <tr> <td>Manual blood lymphocytes/100 leukocytes</td> <td>3 %</td> <td>NRG</td> </tr> <tr> <td>Manual eosinophils/100 leukocytes in nose</td> < td>1 %</td> <td>NRG</td> </tr> <tr> <td> Blood erythrocyte morphology finding identification</td> <td>NORMAL </ td> <td>NRG</td> </tr> <tr> <th colspan="10"> Serum or plasma C reactive protein measurement (mass/volume) - 04/30/18 17:51</ th> </tr> <tr> <td>Serum or plasma C reactive protein measurement (mass/volume)</td> <td>3.54 mg/dL</td> <td>0.00- 0.50</td> </tr> <tr> <th colspan="10">Magnesium - 17:57</th> </tr> <tr> <td>Magnesium</td> <td> 1.6 mg/dL</td> <td>1.8-2.4</td> </tr> <tr> <th colspan="10">Lipase - 04/30/18 17:57</th> </tr> <tr> <td> Lipase</td> <td>26 U/L</td> <td>8-78</td> </tr> <tr> <th colspan="10">Serum heterophile antibody titer - 04/30/18 17:57 </th> </tr> <tr> <td>Serum heterophile antibody titer</td > <td>NEGATIVE </td> <td>NEGATIVE</td> </tr> <tr > <th colspan="10">Complete urinalysis with reflex to culture - 18:05</th> </tr> <tr> <td>Urine color determination</ td> <td>DASHA </td> <td>NRG</td> </tr> <tr> <td>Urine clarity determination</td> <td>VERY CLOUDY </td> <td>NRG</td> </tr> <tr> <td>Urine pH measurement by test strip</td> <td>8 </td> <td>5-9</td> </tr> < tr> <td>Specific gravity of urine by test strip</td> <td> 1.010 </td> <td>1.016-1.022</td> </tr> <tr> <td> Urine protein assay by test strip, semi-quantitative</td> <td>1+ </td> <td>NEGATIVE</td> </tr> <tr> <td>Urine glucose detection by automated test strip</td> <td>NEGATIVE </td> <td> NEGATIVE</td> </tr> <tr> <td>Erythrocytes detection in urine sediment by light microscopy</td> <td>1+ </td> <td> NEGATIVE</td> </tr> <tr> <td>Urine ketones detection by automated test strip</td> <td>4+ </td> <td>NEGATIVE</td> </tr> <tr> <td>Urine nitrite detection by test strip</td> <td>NEGATIVE </td> <td>NEGATIVE</td> </tr> <tr> <td>Urine total bilirubin detection by test strip</td> <td> NEGATIVE </td> <td>NEGATIVE</td> </tr> <tr> <td> Urine urobilinogen measurement by automated test strip (mass/volume)</td> <td>1 mg/dL</td> <td>NORMAL</td> </tr> <tr> <td>Urine leukocyte esterase detection by dipstick</td> <td>1+ </td> <td>NEGATIVE</td> </tr> <tr> <td>Automated urine sediment erythrocyte count by microscopy (number/high power field)</td> <td> [HPF]</td> <td>NRG</td> </tr> <tr> <td> Automated urine sediment leukocyte count by microscopy (number/high power field) </td> <td> [HPF]</td> <td>NRG</td> </tr> <tr> <td>Bacteria detection in urine sediment by light microscopy</td> <td>MODERATE </td> <td>NRG</td> </tr> <tr> < td>Squamous epithelial cells detection in urine sediment by light microscopy</td > <td>10-25 </td> <td>NRG</td> </tr> <tr> <td>Crystals detection in urine sediment by light microscopy</td> < td>NONE </td> <td>NRG</td> </tr> <tr> <td>Casts detection in urine sediment by light microscopy</td> <td>NONE </td> <td>NRG</td> </tr> <tr> <td>Mucus detection in urine sediment by light microscopy</td> <td>NEGATIVE </td> <td >NRG</td> </tr> <tr> <td>Complete urinalysis with reflex to culture</td> <td>YES </td> <td>NRG</td> </tr> <tr> <th colspan="10">Blood lactic acid measurement (moles/volume) - 04/30/18 20:20</th> </tr> <tr> <td>Blood lactic acid measurement (moles/volume)</td> <td>0.90 mmol/L</td> <td>0.50- 2.00</td> </tr> <tr> <th colspan="10">Cerebrospinal fluid cell count - 04/30/18 21:55</th> </tr> <tr> <td> Cerebrospinal fluid appearance description</td> <td>CLEAR </td> <td>NRG</td> </tr> <tr> <td>Cerebrospinal fluid color identification</td> <td>COLORLESS </td> <td>NRG</td> </ tr> <tr> <td>Cerebrospinal fluid leukocytes count (number/volume )</td> <td>1 %</td> <td>0-5</td> </tr> <tr> <td>Cerebrospinal fluid erythrocytes count (number/volume)</td> <td>8 %</td> <td>0-0</td> </tr> <tr> <td >Manual cerebrospinal fluid lymphocytes/100 leukocytes</td> <td>TNP </ td> <td>NRG</td> </tr> <tr> <td>Manual cerebrospinal fluid mononuclear cells/100 leukocytes</td> <td>TNP </td > <td>NRG</td> </tr> <tr> <td>Manual cerebrospinal fluid polymorphonuclear cells/100 leukocytes</td> <td> TNP </td> <td>NRG</td> </tr> <tr> <td> Cerebrospinal fluid cell count on specimen from last tube collected</td> <td>4 </td> <td>NRG</td> </tr> <tr> <th colspan="10">Cerebrospinal fluid glucose measurement (mass/volume) - 04/30/18 21 :55</th> </tr> <tr> <td>Cerebrospinal fluid glucose measurement (mass/volume)</td> <td>57 mg/dL</td> <td>50-80</td > </tr> <tr> <th colspan="10">Cerebrospinal fluid protein measurement (mass/volume) - 04/30/18 21:55</th> </tr> <tr > <td>Cerebrospinal fluid protein measurement (mass/volume)</td> <td>25 mg/dL</td> <td>15-40</td> </tr> </tbody> </ table> </text> <entry> <organizer moodCode="EVN" classCode="BATTERY"> <templateId root="[id number]" /> <id nullFlavor="NA" / > <code codeSystem="local" code="PREGU" displayName="UR TEST" /> <statusCode code="completed" /> <component> <observation moodCode="EVN" classCode="OBS"> <templateId root= "16.840.1.019360.11.29.21.4.2" /> <id nullFlavor="NA" /> < code codeSystem="local" code="PREGU" displayName="UR TEST" /> <statusCode code="completed" /> <effectiveTime value="822000860920" / > <value unit="" xsi:type="PQ" value="NEGATIVE" /> < referenceRange> <observationRange> <text>NEGATIVE</text > </observationRange> </referenceRange> </observation > </component> </organizer> </entry> <entry> <organizer moodCode= "EVN" classCode="BATTERY"> <templateId root="16.840.1.096345.11.29.21.4.1 " /> <id nullFlavor="NA" /> <code codeSystem="local" code="CAION" displayName="CALCIUM IONIZED" /> <statusCode code="completed" /> < component> <observation moodCode="EVN" classCode="OBS"> < templateId root="16.840.1.269666.10.4.2" /> <id nullFlavor="NA " /> <code codeSystem="local" code="CAION" displayName="CALCIUM IONIZED " /> <statusCode code="completed" /> <effectiveTime value= "505923789513" /> <value unit="mg/dL" xsi:type="PQ" value="4.7" /> <referenceRange> <observationRange> <text>4.5-5.3< /text> </observationRange> </referenceRange> </ observation> </component> </organizer> </entry> <entry> <organizer moodCode="EVN" classCode="BATTERY"> <templateId root= "216.840.1.100687.10..22.4.1" /> <id nullFlavor="NA" /> <code codeSystem="local" code="METABC" displayName="METABOLIC PANEL, COMPREHN" /> <statusCode code="completed" /> <component> <observation moodCode= "EVN" classCode="OBS"> <templateId root="216.840.1.368943.10...4.2 " /> <id nullFlavor="NA" /> <code codeSystem="local" code="K" displayName="POTASSIUM" /> <statusCode code="completed" /> < effectiveTime value="730428347578" /> <value unit="mmol/L" xsi:type="PQ " value="3.7" /> <referenceRange> <observationRange> <text>3.5-5.3</text> </observationRange> </ referenceRange> </observation> </component> <component> <observation moodCode="EVN" classCode="OBS"> <templateId root= "216.840.1.738331.10..22.4.2" /> <id nullFlavor="NA" /> < code codeSystem="local" code="GAP" displayName="ANION GAP" /> < statusCode code="completed" /> <effectiveTime value="358863872144" /> <value unit="mmol/L" xsi:type="PQ" value="8" /> < referenceRange> <observationRange> <text>5-15</text> </observationRange> </referenceRange> </observation> </component> <component> <observation moodCode="EVN" classCode= "OBS"> <templateId root="216.840.1.839404.10..22.4.2" /> < id nullFlavor="NA" /> <code codeSystem="local" code="GLU" displayName= "GLUCOSE" /> <statusCode code="completed" /> <effectiveTime value="599146031028" /> <value unit="mg/dL" xsi:type="PQ" value="73" / > <referenceRange> <observationRange> <text>70- 99</text> </observationRange> </referenceRange> </ observation> </component> <component> <observation moodCode= "EVN" classCode="OBS"> <templateId root="216.840.1.718979.10..4.2 " /> <id nullFlavor="NA" /> <code codeSystem="local" code="CA " displayName="CALCIUM" /> <statusCode code="completed" /> < effectiveTime value="075027402141" /> <value unit="mg/dL" xsi:type="PQ " value="8.8" /> <referenceRange> <observationRange> <text>8.5-10.1</text> </observationRange> </ referenceRange> </observation> </component> <component> <observation moodCode="EVN" classCode="OBS"> <templateId root= "03.28.840.1.556168.10.22.4.2" /> <id nullFlavor="NA" /> < code codeSystem="local" code="BUN" displayName="BLOOD UREA NITROGEN" /> <statusCode code="completed" /> <effectiveTime value="767590893286" / > <value unit="mg/dL" xsi:type="PQ" value="9" /> < referenceRange> <observationRange> <text>7-20</text> </observationRange> </referenceRange> </observation> </component> <component> <observation moodCode="EVN" classCode= "OBS"> <templateId root="216.840.1.064265.10..22.4.2" /> < id nullFlavor="NA" /> <code codeSystem="local" code="CREAT" displayName ="CREATININE" /> <statusCode code="completed" /> < effectiveTime value="066366431455" /> <value unit="mg/dL" xsi:type="PQ " value="0.9" /> <referenceRange> <observationRange> <text>0.5-1.0</text> </observationRange> </ referenceRange> </observation> </component> <component> <observation moodCode="EVN" classCode="OBS"> <templateId root= "216.840.1.588341.11.29.21.4.2" /> <id nullFlavor="NA" /> < code codeSystem="local" code="NA" displayName="SODIUM" /> <statusCode code="completed" /> <effectiveTime value="788030987601" /> < value unit="mmol/L" xsi:type="PQ" value="140" /> <referenceRange> <observationRange> <text>135-148</text> </ observationRange> </referenceRange> </observation> </ component> <component> <observation moodCode="EVN" classCode="OBS"> <templateId root="16.840.1.447502.10..22.4.2" /> <id nullFlavor="NA" /> <code codeSystem="local" code="CL" displayName= "CHLORIDE" /> <statusCode code="completed" /> <effectiveTime value="541668475875" /> <value unit="mmol/L" xsi:type="PQ" value="104" /> <referenceRange> <observationRange> <text>98 -110</text> </observationRange> </referenceRange> </ observation> </component> <component> <observation moodCode= "EVN" classCode="OBS"> <templateId root="216.840.1.908362.10..4.2 " /> <id nullFlavor="NA" /> <code codeSystem="local" code="AST " displayName="AST/SGOT" /> <statusCode code="completed" /> < effectiveTime value="861451580969" /> <value unit="Units/L" xsi:type= "PQ" value="12" /> <referenceRange> <observationRange> <text>10-37</text> </observationRange> </ referenceRange> </observation> </component> <component> <observation moodCode="EVN" classCode="OBS"> <templateId root= "03.28.840.1.525578.11.29.21.4.2" /> <id nullFlavor="NA" /> < code codeSystem="local" code="ALT" displayName="ALT/SGPT" /> < statusCode code="completed" /> <effectiveTime value="717865327127" /> <value unit="Units/L" xsi:type="PQ" value="12" /> < referenceRange> <observationRange> <text>< 66</text> </observationRange> </referenceRange> </observation > </component> <component> <observation moodCode="EVN" classCode="OBS"> <templateId root="03.28.840.1.077544.10..4.2" /> <id nullFlavor="NA" /> <code codeSystem="local" code="CO2" displayName="CARBON DIOXIDE" /> <statusCode code="completed" /> <effectiveTime value="109683327010" /> <value unit="mmol/L" xsi:type ="PQ" value="28" /> <referenceRange> <observationRange> <text>21-32</text> </observationRange> </ referenceRange> </observation> </component> <component> <observation moodCode="EVN" classCode="OBS"> <templateId root= "16.840.1.268872.10..4.2" /> <id nullFlavor="NA" /> < code codeSystem="local" code="TP" displayName="TOTAL PROTEIN" /> < statusCode code="completed" /> <effectiveTime value="704329492618" /> <value unit="gm/dL" xsi:type="PQ" value="8.0" /> < referenceRange> <observationRange> <text>5.7-8.0</text> </observationRange> </referenceRange> </observation > </component> <component> <observation moodCode="EVN" classCode="OBS"> <templateId root="03.28.840.1.032934.11.29.21.4.2" /> <id nullFlavor="NA" /> <code codeSystem="local" code="ALB" displayName="ALBUMIN" /> <statusCode code="completed" /> < effectiveTime value="924832110214" /> <value unit="gm/dL" xsi:type="PQ " value="3.8" /> <referenceRange> <observationRange> <text>3.4-5.0</text> </observationRange> </ referenceRange> </observation> </component> <component> <observation moodCode="EVN" classCode="OBS"> <templateId root= "03.28.840.1.645819.10..22.4.2" /> <id nullFlavor="NA" /> < code codeSystem="local" code="BILTOT" displayName="BILI TOTAL" /> < statusCode code="completed" /> <effectiveTime value="613784221695" /> <value unit="mg/dL" xsi:type="PQ" value="0.5" /> < referenceRange> <observationRange> <text>0.0-1.0</text> </observationRange> </referenceRange> </observation > </component> <component> <observation moodCode="EVN" classCode="OBS"> <templateId root="03.28.840.1.852922.10.4.2" /> <id nullFlavor="NA" /> <code codeSystem="local" code="ALKP" displayName="ALKALINE PHOSPHATASE TOTAL" /> <statusCode code="completed " /> <effectiveTime value="393035706724" /> <value unit="IU/L " xsi:type="PQ" value="61" /> <referenceRange> < observationRange> <text>45-117</text> </observationRange > </referenceRange> </observation> </component> </ organizer> </entry> <entry> <organizer moodCode="EVN" classCode="BATTERY"> <templateId root="03.28.840.1.161925.11.29.21.4.1" /> <id nullFlavor= "NA" /> <code codeSystem="local" code="PHOS" displayName="PHOSPHORUS" /> <statusCode code="completed" /> <component> <observation moodCode="EVN" classCode="OBS"> <templateId root= "03.28.840.1.244018.1022.4.2" /> <id nullFlavor="NA" /> < code codeSystem="local" code="PHOS" displayName="PHOSPHORUS" /> < statusCode code="completed" /> <effectiveTime value="778975484658" /> <value unit="mg/dL" xsi:type="PQ" value="3.6" /> < referenceRange> <observationRange> <text>2.5-4.9</text> </observationRange> </referenceRange> </observation > </component> </organizer> </entry> <entry> <organizer moodCode= "EVN" classCode="BATTERY"> <templateId root="16.840.1.588289.10..22.4.1 " /> <id nullFlavor="NA" /> <code codeSystem="local" code="T4F" displayName="T4 FREE" /> <statusCode code="completed" /> <component> <observation moodCode="EVN" classCode="OBS"> <templateId root= "216.840.1.055581.10..22.4.2" /> <id nullFlavor="NA" /> < code codeSystem="local" code="T4F" displayName="T4 FREE" /> < statusCode code="completed" /> <effectiveTime value="147924177542" /> <value unit="ng/dL" xsi:type="PQ" value="1.1" /> < referenceRange> <observationRange> <text>0.8-1.3</text> </observationRange> </referenceRange> </observation > </component> </organizer> </entry> <entry> <organizer moodCode= "EVN" classCode="BATTERY"> <templateId root="16.840.1.403029.10..22.4.1 " /> <id nullFlavor="NA" /> <code codeSystem="local" code="TSH" displayName="THYROID STIM HORMONE (TSH)" /> <statusCode code="completed" / > <component> <observation moodCode="EVN" classCode="OBS"> <templateId root="216.840.1.773479.10..22.4.2" /> <id nullFlavor="NA " /> <code codeSystem="local" code="TSH" displayName="THYROID STIM HORMONE (TSH)" /> <statusCode code="completed" /> < effectiveTime value="617348171361" /> <value unit="uIU/mL" xsi:type="PQ " value="2.63" /> <referenceRange> <observationRange> <text>0.46-4.13</text> </observationRange> </ referenceRange> </observation> </component> </organizer> </entry > <entry> <organizer moodCode="EVN" classCode="BATTERY"> <templateId root="216.840.1.635996.10..22.4.1" /> <id nullFlavor="NA" /> <code codeSystem="local" code="PARA" displayName="PARATHYROID HORMONE (INTACT)" /> <statusCode code="completed" /> <component> <observation moodCode ="EVN" classCode="OBS"> <templateId root= "2.16.840.1.405819.10..22.4.2" /> <id nullFlavor="NA" /> < code codeSystem="local" code="PARA" displayName="PARATHYROID HORMONE (INTACT)" / > <statusCode code="completed" /> <effectiveTime value= "304707090501" /> <value unit="pg/mL" xsi:type="PQ" value="35" /> <referenceRange> <observationRange> <text>14-85</ text> </observationRange> </referenceRange> </ observation> </component> </organizer> </entry> <entry> <organizer moodCode="EVN" classCode="BATTERY"> <templateId root= "216.840.1.047139.11.29.21.4.1" /> <id nullFlavor="NA" /> <code codeSystem="local" code="VITD25" displayName="VITAMIN D 25-HYDROXY" /> < statusCode code="completed" /> <component> <observation moodCode= "EVN" classCode="OBS"> <templateId root="[id number] " /> <id nullFlavor="NA" /> <code codeSystem="local" code= "VITD25" displayName="VITAMIN D 25-HYDROXY" /> <statusCode code= "completed" /> <effectiveTime value="[id number]" /> <value unit="ng/mL" xsi:type="PQ" value="26.1" /> <interpretationCode codeSystem="local" code="*" /> <referenceRange> < observationRange> <text>30.0-100.0</text> </ observationRange> </referenceRange> </observation> </ component> </organizer> </entry> <entry> <organizer moodCode="EVN" classCode="BATTERY"> <templateId root="[id number]" /> <id nullFlavor="NA" /> <code codeSystem="local" code="UA" displayName= "URINALYSIS, ROUTINE" /> <statusCode code="completed" /> <component> <observation moodCode="EVN" classCode="OBS"> <templateId root= "[id number]" /> <id nullFlavor="NA" /> < code codeSystem="local" code="LEUESU" displayName="UA LEUKOCYTE ESTERASE DIPSTICK" /> <statusCode code="completed" /> <effectiveTime value="[id number]" /> <value unit="" xsi:type="PQ" value="1+" /> <interpretationCode codeSystem="local" code="*" /> < referenceRange> <observationRange> <text>NEGATIVE</text > </observationRange> </referenceRange> </observation > </component> <component> <observation moodCode="EVN" classCode="OBS"> <templateId root="[id number]..4.2" /> <id nullFlavor="NA" /> <code codeSystem="local" code="NITRIU" displayName="UA NITRITE DIPSTICK" /> <statusCode code="completed" /> <effectiveTime value="" /> <value unit="" xsi:type= "PQ" value="NEGATIVE" /> <referenceRange> <observationRange > <text>NEGATIVE</text> </observationRange> </ referenceRange> </observation> </component> <component> <observation moodCode="EVN" classCode="OBS"> <templateId root= "[id number]..4.2" /> <id nullFlavor="NA" /> < code codeSystem="local" code="PROTEIU" displayName="UA PROTEIN DIPSTICK" /> <statusCode code="completed" /> <effectiveTime value= "" /> <value unit="" xsi:type="PQ" value="1+" /> < interpretationCode codeSystem="local" code="*" /> <referenceRange> <observationRange> <text>NEGATIVE</text> </ observationRange> </referenceRange> </observation> </ component> <component> <observation moodCode="EVN" classCode="OBS"> <templateId root="03.28.840.1.749049.10.2022.4.2" /> <id nullFlavor="NA" /> <code codeSystem="local" code="DGLUU" displayName= "UA GLUCOSE DIPSTICK" /> <statusCode code="completed" /> < effectiveTime value="" /> <value unit="" xsi:type="PQ" value="NEGATIVE" /> <referenceRange> <observationRange> <text>NEGATIVE</text> </observationRange> </ referenceRange> </observation> </component> <component> <observation moodCode="EVN" classCode="OBS"> <templateId root= "216.840.1.079799.10..22.4.2" /> <id nullFlavor="NA" /> < code codeSystem="local" code="KETONU" displayName="UA KETONE DIPSTICK" /> <statusCode code="completed" /> <effectiveTime value=" " /> <value unit="" xsi:type="PQ" value="4+" /> < interpretationCode codeSystem="local" code="*" /> <referenceRange> <observationRange> <text>NEGATIVE</text> </ observationRange> </referenceRange> </observation> </ component> <component> <observation moodCode="EVN" classCode="OBS"> <templateId root="216.840.1.518793.10..22.4.2" /> <id nullFlavor="NA" /> <code codeSystem="local" code="UROBILU" displayName= "UA UROBILINOGEN DIPSTICK" /> <statusCode code="completed" /> <effectiveTime value="" /> <value unit="" xsi:type="PQ" value="3+" /> <interpretationCode codeSystem="local" code="*" /> <referenceRange> <observationRange> <text>NORMAL</ text> </observationRange> </referenceRange> </ observation> </component> <component> <observation moodCode= "EVN" classCode="OBS"> <templateId root="16.840.1.523099.10..4.2 " /> <id nullFlavor="NA" /> <code codeSystem="local" code= "BILU" displayName="UA BILIRUBIN DIPSTICK" /> <statusCode code= "completed" /> <effectiveTime value="" /> <value unit="" xsi:type="PQ" value="2+" /> <interpretationCode codeSystem= "local" code="*" /> <referenceRange> <observationRange> <text>NEGATIVE</text> </observationRange> </ referenceRange> </observation> </component> <component> <observation moodCode="EVN" classCode="OBS"> <templateId root= "03.28.840.1.146248.11.29.21.4.2" /> <id nullFlavor="NA" /> < code codeSystem="local" code="CAROLE" displayName="UA BLOOD DIPSTICK" /> < statusCode code="completed" /> <effectiveTime value="" /> <value unit="" xsi:type="PQ" value="1+" /> < interpretationCode codeSystem="local" code="*" /> <referenceRange> <observationRange> <text>NEGATIVE</text> </ observationRange> </referenceRange> </observation> </ component> <component> <observation moodCode="EVN" classCode="OBS"> <templateId root="16.840.1.793520.11.29.21.4.2" /> <id nullFlavor="NA" /> <code codeSystem="local" code="SPGRU" displayName= "UA SPECIFIC GRAVITY" /> <statusCode code="completed" /> < effectiveTime value="" /> <value unit="" xsi:type="PQ" value="1.025" /> <referenceRange> <observationRange> <text>1.015-1.025</text> </observationRange> </ referenceRange> </observation> </component> <component> <observation moodCode="EVN" classCode="OBS"> <templateId root= "16.840.1.048427.10.2022.4.2" /> <id nullFlavor="NA" /> < code codeSystem="local" code="ECTOR" displayName="UR PH" /> <statusCode code="completed" /> <effectiveTime value="" /> < value unit="" xsi:type="PQ" value="6.0" /> <referenceRange> <observationRange> <text>5.0-7.0</text> </ observationRange> </referenceRange> </observation> </ component> </organizer> </entry> <entry> <organizer moodCode="EVN" classCode="BATTERY"> <templateId root="03.28.840.1.895066.22.4.1" /> <id nullFlavor="NA" /> <code codeSystem="local" code="UAMICRO" displayName="UA MICROSCOPIC" /> <statusCode code="completed" /> < component> <observation moodCode="EVN" classCode="OBS"> < templateId root="03.28.840.1.027681.10.20.22.4.2" /> <id nullFlavor="NA " /> <code codeSystem="local" code="BACU" displayName="UA BACTERIA" /> <statusCode code="completed" /> <effectiveTime value= "" /> <value unit="" xsi:type="PQ" value="4+" /> < interpretationCode codeSystem="local" code="*" /> <referenceRange> <observationRange> <text>NEGATIVE</text> </ observationRange> </referenceRange> </observation> </ component> <component> <observation moodCode="EVN" classCode="OBS"> <templateId root="03.28.840.1.929651.10..22.4.2" /> <id nullFlavor="NA" /> <code codeSystem="local" code="EPIU" displayName=" UA EPITHELIAL CELLS" /> <statusCode code="completed" /> < effectiveTime value="382231616991" /> <value unit="epi/hpf" xsi:type= "PQ" value="4+" /> <interpretationCode codeSystem="local" code="*" /> <referenceRange> <observationRange> <text>0 - 1 +</text> </observationRange> </referenceRange> </ observation> </component> <component> <observation moodCode= "EVN" classCode="OBS"> <templateId root="03.28.840.1.086576.10..4.2 " /> <id nullFlavor="NA" /> <code codeSystem="local" code= "RBCU" displayName="UA RBC" /> <statusCode code="completed" /> <effectiveTime value="986731193631" /> <value unit="rbc/hpf" xsi:type ="PQ" value="3-5" /> <interpretationCode codeSystem="local" code="*" / > <referenceRange> <observationRange> <text>0 - 3</text> </observationRange> </referenceRange> </ observation> </component> <component> <observation moodCode= "EVN" classCode="OBS"> <templateId root="03.28.840.1.611685.10..22.4.2 " /> <id nullFlavor="NA" /> <code codeSystem="local" code= "UAVOL" displayName="UA VOLUME FOR EXAM" /> <statusCode code="completed " /> <effectiveTime value="712148360623" /> <value unit="mL" xsi:type="PQ" value="12.0" /> <referenceRange> < observationRange> <text>(12mL STD)</text> </ observationRange> </referenceRange> </observation> </ component> <component> <observation moodCode="EVN" classCode="OBS"> <templateId root="216.840.1.619288.10.4.2" /> <id nullFlavor="NA" /> <code codeSystem="local" code="WBCU" displayName=" UA WBC" /> <statusCode code="completed" /> <effectiveTime value="" /> <value unit="wbc/hpf" xsi:type="PQ" value="5-10 " /> <interpretationCode codeSystem="local" code="*" /> < referenceRange> <observationRange> <text>0 - 5</text> </observationRange> </referenceRange> </observation> </component> </organizer> </entry> <entry> <organizer moodCode="EVN " classCode="BATTERY"> <templateId root="16.840.1.014033.11.29.21.4.1" / > <id nullFlavor="NA" /> <code codeSystem="local" code="PREGU" displayName="UR TEST" /> <statusCode code="completed" /> < component> <observation moodCode="EVN" classCode="OBS"> < templateId root="03.28.840.1.475135.22.4.2" /> <id nullFlavor="NA " /> <code codeSystem="local" code="PREGU" displayName="UR TEST" /> <statusCode code="completed" /> <effectiveTime value= "557876114736" /> <value unit="" xsi:type="PQ" value="NEGATIVE" /> <referenceRange> <observationRange> <text>NEGATIVE </text> </observationRange> </referenceRange> </ observation> </component> </organizer> </entry> <entry> <organizer moodCode="EVN" classCode="BATTERY"> <templateId root= "03.28.840.1.094939.11.29.21.4.1" /> <id nullFlavor="NA" /> <code codeSystem="local" code="CBCD" displayName="CBC W/DIFF" /> <statusCode code ="completed" /> <component> <observation moodCode="EVN" classCode= "OBS"> <templateId root="03.28.840.1.913979.11.29.21.4.2" /> < id nullFlavor="NA" /> <code codeSystem="local" code="BA#" displayName= "BASOPHIL #" /> <statusCode code="completed" /> < effectiveTime value="989480139301" /> <value unit="k/cumm" xsi:type="PQ " value="0.1" /> <referenceRange> <observationRange> <text>0.0-0.2</text> </observationRange> </ referenceRange> </observation> </component> <component> <observation moodCode="EVN" classCode="OBS"> <templateId root= "03.28.840.1.557923.11.29.21.4.2" /> <id nullFlavor="NA" /> < code codeSystem="local" code="BA%" displayName="BASOPHIL %" /> <statusCode code="completed" /> <effectiveTime value="266475577092" /> <value unit="%" xsi:type="PQ" value="2" /> < interpretationCode codeSystem="local" code="*" /> <referenceRange> <observationRange> <text>0-1</text> </ observationRange> </referenceRange> </observation> </ component> <component> <observation moodCode="EVN" classCode="OBS"> <templateId root="03.28.840.1.927755.10..4.2" /> <id nullFlavor="NA" /> <code codeSystem="local" code="CBCCOM" displayName= "COMMENT" /> <statusCode code="completed" /> <effectiveTime value="350945468989" /> <value unit="" xsi:type="PQ" value="REVIEWED" / > <referenceRange> <observationRange> <text /> </observationRange> </referenceRange> </observation > </component> <component> <observation moodCode="EVN" classCode="OBS"> <templateId root="03.28.840.1.526527.10..4.2" /> <id nullFlavor="NA" /> <code codeSystem="local" code="GR#" displayName="GRANULOCYTE #" /> <statusCode code="completed" /> <effectiveTime value="105341998205" /> <value unit="k/cumm" xsi:type= "PQ" value="1.9" /> <interpretationCode codeSystem="local" code="*" /> <referenceRange> <observationRange> <text>2.0- 9.0</text> </observationRange> </referenceRange> </ observation> </component> <component> <observation moodCode= "EVN" classCode="OBS"> <templateId root="03.28.840.1.890192.10..22.4.2 " /> <id nullFlavor="NA" /> <code codeSystem="local" code="GR& #37;" displayName="GRANULOCYTE %" /> <statusCode code="completed" / > <effectiveTime value="573535215082" /> <value unit="%" xsi:type="PQ" value="42" /> <interpretationCode codeSystem="local" code ="*" /> <referenceRange> <observationRange> < text>50-75</text> </observationRange> </referenceRange> </observation> </component> <component> <observation moodCode="EVN" classCode="OBS"> <templateId root= "2.16.840.1.477561.11.29.21.4.2" /> <id nullFlavor="NA" /> < code codeSystem="local" code="LY#" displayName="LYMPHOCYTE #" /> < statusCode code="completed" /> <effectiveTime value="362372492650" /> <value unit="k/cumm" xsi:type="PQ" value="1.9" /> < referenceRange> <observationRange> <text>1.0-4.0</text> </observationRange> </referenceRange> </observation > </component> <component> <observation moodCode="EVN" classCode="OBS"> <templateId root="2.16.840.1.064270.11.29.21.4.2" /> <id nullFlavor="NA" /> <code codeSystem="local" code="LY% " displayName="LYMPHOCYTE %" /> <statusCode code="completed" /> <effectiveTime value="077721926564" /> <value unit="%" xsi: type="PQ" value="42" /> <interpretationCode codeSystem="local" code="* " /> <referenceRange> <observationRange> <text> 20-30</text> </observationRange> </referenceRange> </ observation> </component> <component> <observation moodCode= "EVN" classCode="OBS"> <templateId root="216.840.1.492111.10.4.2 " /> <id nullFlavor="NA" /> <code codeSystem="local" code="MCH " displayName="MEAN CELL HGB" /> <statusCode code="completed" /> <effectiveTime value="832821295765" /> <value unit="pg" xsi:type= "PQ" value="29.6" /> <referenceRange> <observationRange> <text>27.0-33.0</text> </observationRange> </ referenceRange> </observation> </component> <component> <observation moodCode="EVN" classCode="OBS"> <templateId root= "03.28.840.1.105088.11.29.21.4.2" /> <id nullFlavor="NA" /> < code codeSystem="local" code="MCHC" displayName="MEAN CELL HGB CONCENTRATION" / > <statusCode code="completed" /> <effectiveTime value= "560627420683" /> <value unit="g/dL" xsi:type="PQ" value="34.5" /> <referenceRange> <observationRange> <text>32.0- 37.0</text> </observationRange> </referenceRange> </ observation> </component> <component> <observation moodCode= "EVN" classCode="OBS"> <templateId root="03.28.840.1.669562.11.29.21.4.2 " /> <id nullFlavor="NA" /> <code codeSystem="local" code="MCV " displayName="MEAN CELL VOLUME" /> <statusCode code="completed" /> <effectiveTime value="396272353314" /> <value unit="fl" xsi:type ="PQ" value="85.8" /> <referenceRange> <observationRange> <text>80.0-100.0</text> </observationRange> </ referenceRange> </observation> </component> <component> <observation moodCode="EVN" classCode="OBS"> <templateId root= "2.16.840.1.853035.10...4.2" /> <id nullFlavor="NA" /> < code codeSystem="local" code="MO#" displayName="MONOCYTE #" /> < statusCode code="completed" /> <effectiveTime value="938430644591" /> <value unit="k/cumm" xsi:type="PQ" value="0.6" /> < referenceRange> <observationRange> <text>0.1-1.0</text> </observationRange> </referenceRange> </observation > </component> <component> <observation moodCode="EVN" classCode="OBS"> <templateId root="216.840.1.049729.11.29.21.4.2" /> <id nullFlavor="NA" /> <code codeSystem="local" code="MO% " displayName="MONOCYTE %" /> <statusCode code="completed" /> <effectiveTime value="275344802066" /> <value unit="%" xsi: type="PQ" value="14" /> <interpretationCode codeSystem="local" code="* " /> <referenceRange> <observationRange> <text> 4-6</text> </observationRange> </referenceRange> </ observation> </component> <component> <observation moodCode= "EVN" classCode="OBS"> <templateId root="216.840.1.564765...4.2 " /> <id nullFlavor="NA" /> <code codeSystem="local" code="RBC " displayName="RED BLOOD CELL" /> <statusCode code="completed" /> <effectiveTime value="339811994368" /> <value unit="m/cumm" xsi: type="PQ" value="4.59" /> <referenceRange> <observationRange > <text>4.00-6.00</text> </observationRange> </ referenceRange> </observation> </component> <component> <observation moodCode="EVN" classCode="OBS"> <templateId root= "2.16.840.1.722017.10..22.4.2" /> <id nullFlavor="NA" /> < code codeSystem="local" code="RDW" displayName="RED CELL DISTRIBUTION WIDTH" /> <statusCode code="completed" /> <effectiveTime value= "889972396578" /> <value unit="%" xsi:type="PQ" value="13.4" /> <referenceRange> <observationRange> <text>11.0- 15.6</text> </observationRange> </referenceRange> </ observation> </component> <component> <observation moodCode= "EVN" classCode="OBS"> <templateId root="2.16.840.1.132762.10..22.4.2 " /> <id nullFlavor="NA" /> <code codeSystem="local" code="WBC " displayName="WHITE BLOOD CELL" /> <statusCode code="completed" /> <effectiveTime value="705446752897" /> <value unit="k/cumm" xsi: type="PQ" value="4.5" /> <interpretationCode codeSystem="local" code="* " /> <referenceRange> <observationRange> <text> 5.0-10.0</text> </observationRange> </referenceRange> </observation> </component> <component> <observation moodCode ="EVN" classCode="OBS"> <templateId root= "216.840.1.191151.10..4.2" /> <id nullFlavor="NA" /> < code codeSystem="local" code="HGBT" displayName="HEMOGLOBIN" /> < statusCode code="completed" /> <effectiveTime value="898933769220" /> <value unit="gm/dL" xsi:type="PQ" value="13.6" /> < referenceRange> <observationRange> <text>12.0-16.0</text > </observationRange> </referenceRange> </observation > </component> <component> <observation moodCode="EVN" classCode="OBS"> <templateId root="2.840.1.495106.11.29.21.4.2" /> <id nullFlavor="NA" /> <code codeSystem="local" code="HCTT" displayName="HEMATOCRIT" /> <statusCode code="completed" /> < effectiveTime value="315392446536" /> <value unit="%" xsi:type="PQ " value="39.4" /> <referenceRange> <observationRange> <text>37.0-47.0</text> </observationRange> </ referenceRange> </observation> </component> <component> <observation moodCode="EVN" classCode="OBS"> <templateId root= "216.840.1.088699.11.29.21.4.2" /> <id nullFlavor="NA" /> < code codeSystem="local" code="PLT" displayName="PLATELET COUNT" /> < statusCode code="completed" /> <effectiveTime value="802826393890" /> <value unit="k/cumm" xsi:type="PQ" value="155" /> < referenceRange> <observationRange> <text>150-400</text> </observationRange> </referenceRange> </observation > </component> </organizer> </entry> <entry> <organizer moodCode= "EVN" classCode="BATTERY"> <templateId root="16.840.1.293690.10..4.1 " /> <id nullFlavor="NA" /> <code codeSystem="local" code="LIVER" displayName="HEPATIC FUNCTION PANEL" /> <statusCode code="completed" /> <component> <observation moodCode="EVN" classCode="OBS"> < templateId root="16.840.1.656493.10..4.2" /> <id nullFlavor="NA " /> <code codeSystem="local" code="BILUC" displayName="BILI UNCONJUGATED" /> <statusCode code="completed" /> < effectiveTime value="858564720503" /> <value unit="mg/dL" xsi:type="PQ " value="0.8" /> <interpretationCode codeSystem="local" code="*" /> <referenceRange> <observationRange> <text>0.0-0.7 </text> </observationRange> </referenceRange> </ observation> </component> <component> <observation moodCode= "EVN" classCode="OBS"> <templateId root="03.28.840.1.295632.10..4.2 " /> <id nullFlavor="NA" /> <code codeSystem="local" code="AST " displayName="AST/SGOT" /> <statusCode code="completed" /> < effectiveTime value="077688793649" /> <value unit="Units/L" xsi:type= "PQ" value="91" /> <interpretationCode codeSystem="local" code="*" /> <referenceRange> <observationRange> <text>10-37 </text> </observationRange> </referenceRange> </ observation> </component> <component> <observation moodCode= "EVN" classCode="OBS"> <templateId root="03.28.840.1.459495.10.2022.4.2 " /> <id nullFlavor="NA" /> <code codeSystem="local" code="ALT " displayName="ALT/SGPT" /> <statusCode code="completed" /> < effectiveTime value="801492842218" /> <value unit="Units/L" xsi:type= "PQ" value="69" /> <interpretationCode codeSystem="local" code="*" /> <referenceRange> <observationRange> <text>< 66</text> </observationRange> </referenceRange> </ observation> </component> <component> <observation moodCode= "EVN" classCode="OBS"> <templateId root="840.1.932979.11.29.21.4.2 " /> <id nullFlavor="NA" /> <code codeSystem="local" code="TP " displayName="TOTAL PROTEIN" /> <statusCode code="completed" /> <effectiveTime value="189088847471" /> <value unit="gm/dL" xsi:type ="PQ" value="7.2" /> <referenceRange> <observationRange> <text>6.4-8.2</text> </observationRange> </ referenceRange> </observation> </component> <component> <observation moodCode="EVN" classCode="OBS"> <templateId root= "03.28.840.1.814173.102022.4.2" /> <id nullFlavor="NA" /> < code codeSystem="local" code="ALB" displayName="ALBUMIN" /> < statusCode code="completed" /> <effectiveTime value="" /> <value unit="gm/dL" xsi:type="PQ" value="3.2" /> < interpretationCode codeSystem="local" code="*" /> <referenceRange> <observationRange> <text>3.4-5.0</text> </ observationRange> </referenceRange> </observation> </ component> <component> <observation moodCode="EVN" classCode="OBS"> <templateId root="2.16.840.1.019087.10..4.2" /> <id nullFlavor="NA" /> <code codeSystem="local" code="BILTOT" displayName= "BILI TOTAL" /> <statusCode code="completed" /> < effectiveTime value="" /> <value unit="mg/dL" xsi:type="PQ " value="1.5" /> <interpretationCode codeSystem="local" code="*" /> <referenceRange> <observationRange> <text>0.0-1.0 </text> </observationRange> </referenceRange> </ observation> </component> <component> <observation moodCode= "EVN" classCode="OBS"> <templateId root="2.16.840.1.548994.10.22.4.2 " /> <id nullFlavor="NA" /> <code codeSystem="local" code= "ALKP" displayName="ALKALINE PHOSPHATASE TOTAL" /> <statusCode code= "completed" /> <effectiveTime value="" /> <value unit="IU/L" xsi:type="PQ" value="118" /> <interpretationCode codeSystem ="local" code="*" /> <referenceRange> <observationRange> <text>45-117</text> </observationRange> </ referenceRange> </observation> </component> <component> <observation moodCode="EVN" classCode="OBS"> <templateId root= "216.840.1.427796.10.4.2" /> <id nullFlavor="NA" /> < code codeSystem="local" code="BILC" displayName="BILI CONJUGATED" /> < statusCode code="completed" /> <effectiveTime value="844387428273" /> <value unit="mg/dL" xsi:type="PQ" value="0.7" /> < interpretationCode codeSystem="local" code="*" /> <referenceRange> <observationRange> <text>0.0-0.3</text> </ observationRange> </referenceRange> </observation> </ component> </organizer> </entry> <entry> <organizer moodCode="EVN" classCode="BATTERY"> <templateId root="16.840.1.633885.10..22.4.1" /> <id nullFlavor="NA" /> <code codeSystem="local" code="LIP" displayName ="LIPASE" /> <statusCode code="completed" /> <component> < observation moodCode="EVN" classCode="OBS"> <templateId root= "03.28.840.1.936694.10.4.2" /> <id nullFlavor="NA" /> < code codeSystem="local" code="LIP" displayName="LIPASE" /> <statusCode code="completed" /> <effectiveTime value="277285225211" /> < value unit="Units/L" xsi:type="PQ" value="169" /> <referenceRange> <observationRange> <text>73-393</text> </ observationRange> </referenceRange> </observation> </ component> </organizer> </entry> <entry> <organizer moodCode="EVN" classCode="BATTERY"> <templateId root="840.1.842658.11.29.21.4.1" /> <id nullFlavor="NA" /> <code codeSystem="local" code="MONO" displayName="INFECTIOUS MONO SCREEN" /> <statusCode code="completed" /> <component> <observation moodCode="EVN" classCode="OBS"> < templateId root="840.1.860718.11.29.21.4.2" /> <id nullFlavor="NA " /> <code codeSystem="local" code="MONO" displayName="INFECTIOUS MONO SCREEN" /> <statusCode code="completed" /> <effectiveTime value="992141471192" /> <value unit="" xsi:type="PQ" value="POSITIVE" / > <interpretationCode codeSystem="local" code="*" /> < referenceRange> <observationRange> <text>NEGATIVE</text > </observationRange> </referenceRange> </observation > </component> </organizer> </entry> <entry> <organizer moodCode= "EVN" classCode="BATTERY"> <templateId root="03.28.840.1.446870.11.29.21.4.1 " /> <id nullFlavor="NA" /> <code codeSystem="local" code="HEPAT" displayName="HEPATITIS PANEL-ACUTE" /> <statusCode code="completed" /> <component> <observation moodCode="EVN" classCode="OBS"> < templateId root="03.28.840.1.400461.11.29..4.2" /> <id nullFlavor="NA " /> <code codeSystem="local" code="HAVMAB" displayName="AB HEPATITIS A IGM" /> <statusCode code="completed" /> <effectiveTime value ="" /> <value unit="" xsi:type="PQ" value="NEGATIVE" /> <referenceRange> <observationRange> <text> NEGATIVE</text> </observationRange> </referenceRange> </observation> </component> <component> <observation moodCode ="EVN" classCode="OBS"> <templateId root= "216.840.1.248141.11.29.21.4.2" /> <id nullFlavor="NA" /> < code codeSystem="local" code="HBSAG" displayName="AG HEPATITIS B SURF." /> <statusCode code="completed" /> <effectiveTime value="468383777184 " /> <value unit="" xsi:type="PQ" value="NEGATIVE" /> < referenceRange> <observationRange> <text>NEGATIVE</text > </observationRange> </referenceRange> </observation > </component> <component> <observation moodCode="EVN" classCode="OBS"> <templateId root="03.28.840.1.322818.11.29.21.4.2" /> <id nullFlavor="NA" /> <code codeSystem="local" code="HBCMAB" displayName="AB HEPATITIS B CORE IGM" /> <statusCode code="completed" / > <effectiveTime value="" /> <value unit="" xsi: type="PQ" value="NEGATIVE" /> <referenceRange> < observationRange> <text>NEGATIVE</text> </ observationRange> </referenceRange> </observation> </ component> <component> <observation moodCode="EVN" classCode="OBS"> <templateId root="216.840.1.396825.11.29.21.4.2" /> <id nullFlavor="NA" /> <code codeSystem="local" code="HCVAB" displayName= "AB HEPATITIS C" /> <statusCode code="completed" /> < effectiveTime value="474238382216" /> <value unit="" xsi:type="PQ" value="NEGATIVE" /> <referenceRange> <observationRange> <text>NEGATIVE</text> </observationRange> </ referenceRange> </observation> </component> </organizer> </entry > <entry> <organizer moodCode="EVN" classCode="BATTERY"> <templateId root="16.840.1.576670.10..22.4.1" /> <id nullFlavor="NA" /> <code codeSystem="local" code="iCHEM8" displayName="CHEM/HEM PROFILE-BEDSIDE" /> <statusCode code="completed" /> <component> <observation moodCode= "EVN" classCode="OBS"> <templateId root="16.840.1.166159.10...4.2 " /> <id nullFlavor="NA" /> <code codeSystem="local" code="K" displayName="POTASSIUM" /> <statusCode code="completed" /> < effectiveTime value="777013532004" /> <value unit="mmol/L" xsi:type="PQ " value="3.6" /> <referenceRange> <observationRange> <text>3.5-5.3</text> </observationRange> </ referenceRange> </observation> </component> <component> <observation moodCode="EVN" classCode="OBS"> <templateId root= "16.840.1.976640.10...4.2" /> <id nullFlavor="NA" /> < code codeSystem="local" code="CMETHOD" displayName="METHOD" /> < statusCode code="completed" /> <effectiveTime value="199857354551" /> <value unit="" xsi:type="PQ" value="Bedside" /> < referenceRange> <observationRange> <text /> < /observationRange> </referenceRange> </observation> </ component> <component> <observation moodCode="EVN" classCode="OBS"> <templateId root="16.840.1.439002.11.29.21.4.2" /> <id nullFlavor="NA" /> <code codeSystem="local" code="GAP" displayName= "ANION GAP" /> <statusCode code="completed" /> <effectiveTime value="" /> <value unit="mmol/L" xsi:type="PQ" value="13" / > <referenceRange> <observationRange> <text>10- 20</text> </observationRange> </referenceRange> </ observation> </component> <component> <observation moodCode= "EVN" classCode="OBS"> <templateId root="03.28.840.1.611980.11.29.21.4.2 " /> <id nullFlavor="NA" /> <code codeSystem="local" code= "HMETHOD" displayName="METHOD" /> <statusCode code="completed" /> <effectiveTime value="934187751381" /> <value unit="" xsi:type="PQ " value="Bedside" /> <referenceRange> <observationRange> <text /> </observationRange> </referenceRange> </observation> </component> <component> <observation moodCode="EVN" classCode="OBS"> <templateId root= "03.28.840.1.742706.11.29.21.4.2" /> <id nullFlavor="NA" /> < code codeSystem="local" code="GLU" displayName="GLUCOSE" /> < statusCode code="completed" /> <effectiveTime value="370196525064" /> <value unit="mg/dL" xsi:type="PQ" value="80" /> < referenceRange> <observationRange> <text>70-99</text> </observationRange> </referenceRange> </observation> </component> <component> <observation moodCode="EVN" classCode= "OBS"> <templateId root="216.840.1.228286.10..4.2" /> < id nullFlavor="NA" /> <code codeSystem="local" code="BUN" displayName= "BLOOD UREA NITROGEN" /> <statusCode code="completed" /> < effectiveTime value="200325658993" /> <value unit="mg/dL" xsi:type="PQ " value="11" /> <referenceRange> <observationRange> <text>7-20</text> </observationRange> </referenceRange > </observation> </component> <component> <observation moodCode="EVN" classCode="OBS"> <templateId root= "216.840.1.084446.10..4.2" /> <id nullFlavor="NA" /> < code codeSystem="local" code="CREAT" displayName="CREATININE" /> < statusCode code="completed" /> <effectiveTime value="236398403281" /> <value unit="mg/dL" xsi:type="PQ" value="1.3" /> < interpretationCode codeSystem="local" code="*" /> <referenceRange> <observationRange> <text>0.5-1.0</text> </ observationRange> </referenceRange> </observation> </ component> <component> <observation moodCode="EVN" classCode="OBS"> <templateId root="216.840.1.714488.11.29.214.2" /> <id nullFlavor="NA" /> <code codeSystem="local" code="HGBT" displayName= "HEMOGLOBIN" /> <statusCode code="completed" /> < effectiveTime value="859848985813" /> <value unit="gm/dL" xsi:type="PQ " value="12.2" /> <referenceRange> <observationRange> <text>12.0-16.0</text> </observationRange> </ referenceRange> </observation> </component> <component> <observation moodCode="EVN" classCode="OBS"> <templateId root= "216.840.1.863133.11.29.214.2" /> <id nullFlavor="NA" /> < code codeSystem="local" code="HCTT" displayName="HEMATOCRIT" /> < statusCode code="completed" /> <effectiveTime value="180212863292" /> <value unit="%" xsi:type="PQ" value="36.0" /> < interpretationCode codeSystem="local" code="*" /> <referenceRange> <observationRange> <text>37.0-47.0</text> </ observationRange> </referenceRange> </observation> </ component> <component> <observation moodCode="EVN" classCode="OBS"> <templateId root="216.840.1.683058.11.29.21.4.2" /> <id nullFlavor="NA" /> <code codeSystem="local" code="NA" displayName= "SODIUM" /> <statusCode code="completed" /> <effectiveTime value="665382312761" /> <value unit="mmol/L" xsi:type="PQ" value="135" /> <referenceRange> <observationRange> <text> 135-148</text> </observationRange> </referenceRange> </observation> </component> <component> <observation moodCode= "EVN" classCode="OBS"> <templateId root="216.840.1.188992.10...4.2 " /> <id nullFlavor="NA" /> <code codeSystem="local" code="CL " displayName="CHLORIDE" /> <statusCode code="completed" /> < effectiveTime value="133973023559" /> <value unit="mmol/L" xsi:type="PQ " value="105" /> <referenceRange> <observationRange> <text>98-110</text> </observationRange> </ referenceRange> </observation> </component> <component> <observation moodCode="EVN" classCode="OBS"> <templateId root= "16.840.1.648921.10..4.2" /> <id nullFlavor="NA" /> < code codeSystem="local" code="CO2" displayName="CARBON DIOXIDE" /> < statusCode code="completed" /> <effectiveTime value="926357574612" /> <value unit="mmol/L" xsi:type="PQ" value="21" /> < referenceRange> <observationRange> <text>21-32</text> </observationRange> </referenceRange> </observation> </component> <component> <observation moodCode="EVN" classCode= "OBS"> <templateId root="03.28.840.1.937963.10..22.4.2" /> < id nullFlavor="NA" /> <code codeSystem="local" code="CAION" displayName ="CALCIUM IONIZED" /> <statusCode code="completed" /> < effectiveTime value="737991167925" /> <value unit="mg/dL" xsi:type="PQ " value="4.4" /> <interpretationCode codeSystem="local" code="*" /> <referenceRange> <observationRange> <text>4.5-5.3 </text> </observationRange> </referenceRange> </ observation> </component> </organizer> </entry> <entry> <organizer moodCode="EVN" classCode="BATTERY"> <templateId root= "16.840.1.606760.10..22.4.1" /> <id nullFlavor="NA" /> <code codeSystem="local" code="UA" displayName="URINALYSIS, ROUTINE" /> < statusCode code="completed" /> <component> <observation moodCode= "EVN" classCode="OBS"> <templateId root="216.840.1.699981.10...4.2 " /> <id nullFlavor="NA" /> <code codeSystem="local" code= "LEUESU" displayName="UA LEUKOCYTE ESTERASE DIPSTICK" /> <statusCode code="completed" /> <effectiveTime value="052168127761" /> < value unit="" xsi:type="PQ" value="TRACE" /> <referenceRange> <observationRange> <text>NEGATIVE</text> </ observationRange> </referenceRange> </observation> </ component> <component> <observation moodCode="EVN" classCode="OBS"> <templateId root="03.28.840.1.569606.10...4.2" /> <id nullFlavor="NA" /> <code codeSystem="local" code="NITRIU" displayName= "UA NITRITE DIPSTICK" /> <statusCode code="completed" /> < effectiveTime value="429852061863" /> <value unit="" xsi:type="PQ" value="NEGATIVE" /> <referenceRange> <observationRange> <text>NEGATIVE</text> </observationRange> </ referenceRange> </observation> </component> <component> <observation moodCode="EVN" classCode="OBS"> <templateId root= "03.28.840.1.999609.10.4.2" /> <id nullFlavor="NA" /> < code codeSystem="local" code="PROTEIU" displayName="UA PROTEIN DIPSTICK" /> <statusCode code="completed" /> <effectiveTime value= "" /> <value unit="" xsi:type="PQ" value="TRACE" /> <referenceRange> <observationRange> <text>NEGATIVE</ text> </observationRange> </referenceRange> </ observation> </component> <component> <observation moodCode= "EVN" classCode="OBS"> <templateId root="03.28.840.1.843789.11.29.214.2 " /> <id nullFlavor="NA" /> <code codeSystem="local" code= "DGLUU" displayName="UA GLUCOSE DIPSTICK" /> <statusCode code= "completed" /> <effectiveTime value="" /> <value unit="" xsi:type="PQ" value="NEGATIVE" /> <referenceRange> < observationRange> <text>NEGATIVE</text> </ observationRange> </referenceRange> </observation> </ component> <component> <observation moodCode="EVN" classCode="OBS"> <templateId root="03.28.840.1.308013.10..4.2" /> <id nullFlavor="NA" /> <code codeSystem="local" code="KETONU" displayName= "UA KETONE DIPSTICK" /> <statusCode code="completed" /> < effectiveTime value="" /> <value unit="" xsi:type="PQ" value="2+" /> <interpretationCode codeSystem="local" code="*" /> <referenceRange> <observationRange> <text>NEGATIVE</ text> </observationRange> </referenceRange> </ observation> </component> <component> <observation moodCode= "EVN" classCode="OBS"> <templateId root="03.28.840.1.425078.10..4.2 " /> <id nullFlavor="NA" /> <code codeSystem="local" code= "UROBILU" displayName="UA UROBILINOGEN DIPSTICK" /> <statusCode code= "completed" /> <effectiveTime value="596819173846" /> <value unit="" xsi:type="PQ" value="2+" /> <interpretationCode codeSystem= "local" code="*" /> <referenceRange> <observationRange> <text>NORMAL</text> </observationRange> </ referenceRange> </observation> </component> <component> <observation moodCode="EVN" classCode="OBS"> <templateId root= "03.28.840.1.084433.11.29.21.4.2" /> <id nullFlavor="NA" /> < code codeSystem="local" code="BILU" displayName="UA BILIRUBIN DIPSTICK" /> <statusCode code="completed" /> <effectiveTime value="320251636056 " /> <value unit="" xsi:type="PQ" value="2+" /> < interpretationCode codeSystem="local" code="*" /> <referenceRange> <observationRange> <text>NEGATIVE</text> </ observationRange> </referenceRange> </observation> </ component> <component> <observation moodCode="EVN" classCode="OBS"> <templateId root="03.28.840.1.932107.11.29.21.4.2" /> <id nullFlavor="NA" /> <code codeSystem="local" code="CARLOE" displayName="UA BLOOD DIPSTICK" /> <statusCode code="completed" /> < effectiveTime value="226568461661" /> <value unit="" xsi:type="PQ" value="TRACE" /> <interpretationCode codeSystem="local" code="*" /> <referenceRange> <observationRange> <text> NEGATIVE</text> </observationRange> </referenceRange> </observation> </component> <component> <observation moodCode ="EVN" classCode="OBS"> <templateId root= "2.16.840.1.311480.11.29.21.4.2" /> <id nullFlavor="NA" /> < code codeSystem="local" code="SPGRU" displayName="UA SPECIFIC GRAVITY" /> <statusCode code="completed" /> <effectiveTime value="868190321165 " /> <value unit="" xsi:type="PQ" value="1.010" /> < interpretationCode codeSystem="local" code="*" /> <referenceRange> <observationRange> <text>1.015-1.025</text> </ observationRange> </referenceRange> </observation> </ component> <component> <observation moodCode="EVN" classCode="OBS"> <templateId root="216.840.1.086572.11.29.21.4.2" /> <id nullFlavor="NA" /> <code codeSystem="local" code="ECTOR" displayName="UR PH" /> <statusCode code="completed" /> <effectiveTime value= "485703152447" /> <value unit="" xsi:type="PQ" value="5.5" /> <referenceRange> <observationRange> <text>5.0-7.0</text > </observationRange> </referenceRange> </observation > </component> </organizer> </entry> <entry> <organizer moodCode= "EVN" classCode="BATTERY"> <templateId root="16.840.1.120417.1022.4.1 " /> <id nullFlavor="NA" /> <code codeSystem="local" code="UAMICRO" displayName="UA MICROSCOPIC" /> <statusCode code="completed" /> < component> <observation moodCode="EVN" classCode="OBS"> < templateId root="16.840.1.191396...4.2" /> <id nullFlavor="NA " /> <code codeSystem="local" code="BACU" displayName="UA BACTERIA" /> <statusCode code="completed" /> <effectiveTime value= "757056487783" /> <value unit="" xsi:type="PQ" value="2+" /> < interpretationCode codeSystem="local" code="*" /> <referenceRange> <observationRange> <text>NEGATIVE</text> </ observationRange> </referenceRange> </observation> </ component> <component> <observation moodCode="EVN" classCode="OBS"> <templateId root="03.28.840.1.021112.11.29.21.4.2" /> <id nullFlavor="NA" /> <code codeSystem="local" code="EPIU" displayName=" UA EPITHELIAL CELLS" /> <statusCode code="completed" /> < effectiveTime value="463228720693" /> <value unit="epi/hpf" xsi:type= "PQ" value="4+" /> <interpretationCode codeSystem="local" code="*" /> <referenceRange> <observationRange> <text>0 - 1 +</text> </observationRange> </referenceRange> </ observation> </component> <component> <observation moodCode= "EVN" classCode="OBS"> <templateId root="2.16.840.1.553396.10..4.2 " /> <id nullFlavor="NA" /> <code codeSystem="local" code= "RBCU" displayName="UA RBC" /> <statusCode code="completed" /> <effectiveTime value="" /> <value unit="rbc/hpf" xsi:type ="PQ" value="3-5" /> <interpretationCode codeSystem="local" code="*" / > <referenceRange> <observationRange> <text>0 - 3</text> </observationRange> </referenceRange> </ observation> </component> <component> <observation moodCode= "EVN" classCode="OBS"> <templateId root="216.840.1.188906.11.29.214.2 " /> <id nullFlavor="NA" /> <code codeSystem="local" code= "UAVOL" displayName="UA VOLUME FOR EXAM" /> <statusCode code="completed " /> <effectiveTime value="" /> <value unit="mL" xsi:type="PQ" value="12.0" /> <referenceRange> < observationRange> <text>(12mL STD)</text> </ observationRange> </referenceRange> </observation> </ component> <component> <observation moodCode="EVN" classCode="OBS"> <templateId root="2.16.840.1.578967.10..4.2" /> <id nullFlavor="NA" /> <code codeSystem="local" code="WBCU" displayName=" UA WBC" /> <statusCode code="completed" /> <effectiveTime value="447920608985" /> <value unit="wbc/hpf" xsi:type="PQ" value="5-10 " /> <interpretationCode codeSystem="local" code="*" /> < referenceRange> <observationRange> <text>0 - 5</text> </observationRange> </referenceRange> </observation> </component> </organizer> </entry> <entry> <organizer moodCode="EVN " classCode="BATTERY"> <templateId root="03.28.840.1.516424.10..22.4.1" / > <id nullFlavor="NA" /> <code codeSystem="local" code="PREGU" displayName="UR TEST" /> <statusCode code="completed" /> < component> <observation moodCode="EVN" classCode="OBS"> < templateId root="03.28.840.1.314151.10..22.4.2" /> <id nullFlavor="NA " /> <code codeSystem="local" code="PREGU" displayName="UR TEST" /> <statusCode code="completed" /> <effectiveTime value= "147288546023" /> <value unit="" xsi:type="PQ" value="NEGATIVE" /> <referenceRange> <observationRange> <text>NEGATIVE </text> </observationRange> </referenceRange> </ observation> </component> </organizer> </entry> <entry> <organizer moodCode="EVN" classCode="BATTERY"> <templateId root= "03.28.840.1.542710.10..22.4.1" /> <id nullFlavor="NA" /> <code codeSystem="local" code="VRP" displayName="VIRUS RESPIRATORY PROFILE" /> < statusCode code="completed" /> <component> <observation moodCode= "EVN" classCode="OBS"> <templateId root="840.1.577347.10..22.4.2 " /> <id nullFlavor="NA" /> <code codeSystem="local" code="MB " displayName="Microbiology" /> <statusCode code="completed" /> <effectiveTime value="059004175215" /> <value xsi:type="ST" value="< pre><b>RESPIRATORY PROFILE</b> See BelowRESPIRATORY PROFILE(F) Nessa Date /Time: 11/13/2015 14:11 Ariela Date/Time: // :SOURCE : NASOPHARYNGEALSPEC DESC: See BelowRESPIRATORY PROFILE(F) Nessa Date/ Time: 11/13/2015 14:11 Ariela Date/Time: 11/13/2015 21:16SOURCE: NASOPHARYNGEALSPEC DESC: ADENOVIRUSNOT DETECTEDBORDETELLA PERTUSSISNOT DETECTEDCHLAMYDIA PNEUMONIAENOT DETECTEDCORONAVIRUS 229ENOT DETECTEDCORONAVIRUS DYA7ADE DETECTEDCORONAVIRUS PQ20RZO DETECTEDCORONAVIRUS PB32ANO DETECTEDHUMAN METAPNEUMOVIRUSNOT DETECTEDINFLUENZA A 2009 H1NOT DETECTEDINFLUENZA A H1NOT DETECTEDINFLUENZA A H3NOT DETECTEDINFLUENZA ANOT DETECTEDINFLUENZA BNOT DETECTEDMYCOPLASMA PNEUMONIAENOT DETECTEDPARAINFLUENZA 1NOT DETECTEDPARAINFLUENZA 2NOT DETECTEDPARAINFLUENZA 3NOT DETECTEDPARAINFLUENZA 4NOT DETECTEDRHINOVIRUS/ENTEROVIRUSNOT DETECTEDRSVNOT DETECTEDTOWNER [facility] MED[facility]ENTER[address] [place] [address]</pre>" /> <referenceRange> <observationRange> <text /> </observationRange> </referenceRange> </observation> </ component> </organizer> </entry> <entry> <organizer moodCode="EVN" classCode="BATTERY"> <templateId root="2.16.840.1.199704.10.20.22.4.1" /> <id nullFlavor="NA" /> <code codeSystem="local" code="METABC" displayName="METABOLIC PANEL, COMPREHN" /> <statusCode code="completed" /> <component> <observation moodCode="EVN" classCode="OBS"> < templateId root="16.840.1.162568.10...4.2" /> <id nullFlavor="NA " /> <code codeSystem="local" code="K" displayName="POTASSIUM" /> <statusCode code="completed" /> <effectiveTime value=" " /> <value unit="mmol/L" xsi:type="PQ" value="3.2" /> < interpretationCode codeSystem="local" code="*" /> <referenceRange> <observationRange> <text>3.5-5.3</text> </ observationRange> </referenceRange> </observation> </ component> <component> <observation moodCode="EVN" classCode="OBS"> <templateId root="03.28.840.1.782216.11.29.21.4.2" /> <id nullFlavor="NA" /> <code codeSystem="local" code="eGFR" displayName= "EST GFR (MDRD)" /> <statusCode code="completed" /> < effectiveTime value="" /> <value unit="mL/min" xsi:type="PQ " value="59" /> <interpretationCode codeSystem="local" code="*" /> <referenceRange> <observationRange> <text>> 59< /text> </observationRange> </referenceRange> </ observation> </component> <component> <observation moodCode= "EVN" classCode="OBS"> <templateId root="03.28.840.1.979612.10...4.2 " /> <id nullFlavor="NA" /> <code codeSystem="local" code="GAP " displayName="ANION GAP" /> <statusCode code="completed" /> < effectiveTime value="" /> <value unit="mmol/L" xsi:type="PQ " value="9" /> <referenceRange> <observationRange> <text>5-15</text> </observationRange> </referenceRange > </observation> </component> <component> <observation moodCode="EVN" classCode="OBS"> <templateId root= "216.840.1.178264.10..22.4.2" /> <id nullFlavor="NA" /> < code codeSystem="local" code="eCrCl" displayName="EST CrCl (CG)" /> < statusCode code="completed" /> <effectiveTime value="850809206613" /> <value unit="mL/min" xsi:type="PQ" value="> 60" /> < referenceRange> <observationRange> <text>> 59</text> </observationRange> </referenceRange> </observation > </component> <component> <observation moodCode="EVN" classCode="OBS"> <templateId root="16.840.1.228229.10...4.2" /> <id nullFlavor="NA" /> <code codeSystem="local" code="GLU" displayName="GLUCOSE" /> <statusCode code="completed" /> < effectiveTime value="081335765739" /> <value unit="mg/dL" xsi:type="PQ " value="116" /> <interpretationCode codeSystem="local" code="*" /> <referenceRange> <observationRange> <text>70-99</ text> </observationRange> </referenceRange> </ observation> </component> <component> <observation moodCode= "EVN" classCode="OBS"> <templateId root="16.840.1.209466.10..22.4.2 " /> <id nullFlavor="NA" /> <code codeSystem="local" code="CA " displayName="CALCIUM" /> <statusCode code="completed" /> < effectiveTime value="" /> <value unit="mg/dL" xsi:type="PQ " value="7.9" /> <interpretationCode codeSystem="local" code="*" /> <referenceRange> <observationRange> <text>8.5- 10.1</text> </observationRange> </referenceRange> </ observation> </component> <component> <observation moodCode= "EVN" classCode="OBS"> <templateId root="2.16.840.1.484723.11.29..4.2 " /> <id nullFlavor="NA" /> <code codeSystem="local" code="BUN " displayName="BLOOD UREA NITROGEN" /> <statusCode code="completed" /> <effectiveTime value="" /> <value unit="mg/dL" xsi:type="PQ" value="7" /> <referenceRange> < observationRange> <text>7-20</text> </observationRange> </referenceRange> </observation> </component> < component> <observation moodCode="EVN" classCode="OBS"> < templateId root="2.16.840.1.354270....4.2" /> <id nullFlavor="NA " /> <code codeSystem="local" code="CREAT" displayName="CREATININE" /> <statusCode code="completed" /> <effectiveTime value= "" /> <value unit="mg/dL" xsi:type="PQ" value="1.2" /> <interpretationCode codeSystem="local" code="*" /> < referenceRange> <observationRange> <text>0.5-1.0</text> </observationRange> </referenceRange> </observation > </component> <component> <observation moodCode="EVN" classCode="OBS"> <templateId root="216.840.1.693265.10..22.4.2" /> <id nullFlavor="NA" /> <code codeSystem="local" code="NA" displayName="SODIUM" /> <statusCode code="completed" /> < effectiveTime value="" /> <value unit="mmol/L" xsi:type="PQ " value="139" /> <referenceRange> <observationRange> <text>135-148</text> </observationRange> </ referenceRange> </observation> </component> <component> <observation moodCode="EVN" classCode="OBS"> <templateId root= "216.840.1.632456...4.2" /> <id nullFlavor="NA" /> < code codeSystem="local" code="CL" displayName="CHLORIDE" /> < statusCode code="completed" /> <effectiveTime value="" /> <value unit="mmol/L" xsi:type="PQ" value="106" /> < referenceRange> <observationRange> <text>98-110</text> </observationRange> </referenceRange> </observation> </component> <component> <observation moodCode="EVN" classCode ="OBS"> <templateId root="16.840.1.626306.10..22.4.2" /> < id nullFlavor="NA" /> <code codeSystem="local" code="AST" displayName= "AST/SGOT" /> <statusCode code="completed" /> <effectiveTime value="" /> <value unit="Units/L" xsi:type="PQ" value="80" /> <interpretationCode codeSystem="local" code="*" /> < referenceRange> <observationRange> <text>10-37</text> </observationRange> </referenceRange> </observation> </component> <component> <observation moodCode="EVN" classCode= "OBS"> <templateId root="216.840.1.997601.10..22.4.2" /> < id nullFlavor="NA" /> <code codeSystem="local" code="ALT" displayName= "ALT/SGPT" /> <statusCode code="completed" /> <effectiveTime value="226646028203" /> <value unit="Units/L" xsi:type="PQ" value="68" /> <interpretationCode codeSystem="local" code="*" /> < referenceRange> <observationRange> <text>< 66</text> </observationRange> </referenceRange> </observation > </component> <component> <observation moodCode="EVN" classCode="OBS"> <templateId root="03.28.840.1.966746...4.2" /> <id nullFlavor="NA" /> <code codeSystem="local" code="CO2" displayName="CARBON DIOXIDE" /> <statusCode code="completed" /> <effectiveTime value="021317871534" /> <value unit="mmol/L" xsi:type ="PQ" value="24" /> <referenceRange> <observationRange> <text>21-32</text> </observationRange> </ referenceRange> </observation> </component> <component> <observation moodCode="EVN" classCode="OBS"> <templateId root= "16.840.1.236817.10...4.2" /> <id nullFlavor="NA" /> < code codeSystem="local" code="TP" displayName="TOTAL PROTEIN" /> < statusCode code="completed" /> <effectiveTime value="" /> <value unit="gm/dL" xsi:type="PQ" value="5.9" /> < interpretationCode codeSystem="local" code="*" /> <referenceRange> <observationRange> <text>6.4-8.2</text> </ observationRange> </referenceRange> </observation> </ component> <component> <observation moodCode="EVN" classCode="OBS"> <templateId root="2.16.840.1.205503.10...4.2" /> <id nullFlavor="NA" /> <code codeSystem="local" code="ALB" displayName= "ALBUMIN" /> <statusCode code="completed" /> <effectiveTime value="" /> <value unit="gm/dL" xsi:type="PQ" value="2.4" / > <interpretationCode codeSystem="local" code="*" /> < referenceRange> <observationRange> <text>3.4-5.0</text> </observationRange> </referenceRange> </observation > </component> <component> <observation moodCode="EVN" classCode="OBS"> <templateId root="16.840.1.397195.10..22.4.2" /> <id nullFlavor="NA" /> <code codeSystem="local" code="BILTOT" displayName="BILI TOTAL" /> <statusCode code="completed" /> < effectiveTime value="" /> <value unit="mg/dL" xsi:type="PQ " value="1.0" /> <referenceRange> <observationRange> <text>0.0-1.0</text> </observationRange> </ referenceRange> </observation> </component> <component> <observation moodCode="EVN" classCode="OBS"> <templateId root= "840.1.568041.10.4.2" /> <id nullFlavor="NA" /> < code codeSystem="local" code="ALKP" displayName="ALKALINE PHOSPHATASE TOTAL" /> <statusCode code="completed" /> <effectiveTime value= "911066360279" /> <value unit="IU/L" xsi:type="PQ" value="102" /> <referenceRange> <observationRange> <text>45-117</ text> </observationRange> </referenceRange> </ observation> </component> </organizer> </entry> <entry> <organizer moodCode="EVN" classCode="BATTERY"> <templateId root= "03.28.840.1.267562.11.29.21.4.1" /> <id nullFlavor="NA" /> <code codeSystem="local" code="CBCD" displayName="CBC W/DIFF" /> <statusCode code ="completed" /> <component> <observation moodCode="EVN" classCode= "OBS"> <templateId root="03.28.840.1.896395.10..4.2" /> < id nullFlavor="NA" /> <code codeSystem="local" code="CBCCOM" displayName="COMMENT" /> <statusCode code="completed" /> < effectiveTime value="143394290346" /> <value unit="" xsi:type="PQ" value="REVIEWED" /> <referenceRange> <observationRange> <text /> </observationRange> </referenceRange> </observation> </component> <component> <observation moodCode="EVN" classCode="OBS"> <templateId root= "840.1.548590.11.29.214.2" /> <id nullFlavor="NA" /> < code codeSystem="local" code="GR#" displayName="GRANULOCYTE #" /> < statusCode code="completed" /> <effectiveTime value="140456698148" /> <value unit="k/cumm" xsi:type="PQ" value="1.7" /> < interpretationCode codeSystem="local" code="*" /> <referenceRange> <observationRange> <text>2.0-9.0</text> </ observationRange> </referenceRange> </observation> </ component> <component> <observation moodCode="EVN" classCode="OBS"> <templateId root="16.840.1.374005.11.29.214.2" /> <id nullFlavor="NA" /> <code codeSystem="local" code="GR%" displayName= "GRANULOCYTE %" /> <statusCode code="completed" /> < effectiveTime value="954155901202" /> <value unit="%" xsi:type="PQ " value="38" /> <interpretationCode codeSystem="local" code="*" /> <referenceRange> <observationRange> <text>50-75</ text> </observationRange> </referenceRange> </ observation> </component> <component> <observation moodCode= "EVN" classCode="OBS"> <templateId root="03.28.840.1.563691.104.2 " /> <id nullFlavor="NA" /> <code codeSystem="local" code="LY# " displayName="LYMPHOCYTE #" /> <statusCode code="completed" /> <effectiveTime value="442355225993" /> <value unit="k/cumm" xsi:type ="PQ" value="2.2" /> <referenceRange> <observationRange> <text>1.0-4.0</text> </observationRange> </ referenceRange> </observation> </component> <component> <observation moodCode="EVN" classCode="OBS"> <templateId root= "03.28.840.1.964674.10.20.22.4.2" /> <id nullFlavor="NA" /> < code codeSystem="local" code="LY%" displayName="LYMPHOCYTE %" /> <statusCode code="completed" /> <effectiveTime value="072537339463" /> <value unit="%" xsi:type="PQ" value="50" /> < interpretationCode codeSystem="local" code="*" /> <referenceRange> <observationRange> <text>20-30</text> </ observationRange> </referenceRange> </observation> </ component> <component> <observation moodCode="EVN" classCode="OBS"> <templateId root="840.1.549670.102022.4.2" /> <id nullFlavor="NA" /> <code codeSystem="local" code="MCH" displayName= "MEAN CELL HGB" /> <statusCode code="completed" /> < effectiveTime value="961395314932" /> <value unit="pg" xsi:type="PQ" value="29.7" /> <referenceRange> <observationRange> <text>27.0-33.0</text> </observationRange> </ referenceRange> </observation> </component> <component> <observation moodCode="EVN" classCode="OBS"> <templateId root= "03.28.840.1.179957.10.20.22.4.2" /> <id nullFlavor="NA" /> < code codeSystem="local" code="MCHC" displayName="MEAN CELL HGB CONCENTRATION" / > <statusCode code="completed" /> <effectiveTime value= "111859791911" /> <value unit="g/dL" xsi:type="PQ" value="33.7" /> <referenceRange> <observationRange> <text>32.0- 37.0</text> </observationRange> </referenceRange> </ observation> </component> <component> <observation moodCode= "EVN" classCode="OBS"> <templateId root="03.28.840.1.000281.11.29.21.4.2 " /> <id nullFlavor="NA" /> <code codeSystem="local" code="MCV " displayName="MEAN CELL VOLUME" /> <statusCode code="completed" /> <effectiveTime value="473992510508" /> <value unit="fl" xsi:type ="PQ" value="88.1" /> <referenceRange> <observationRange> <text>80.0-100.0</text> </observationRange> </ referenceRange> </observation> </component> <component> <observation moodCode="EVN" classCode="OBS"> <templateId root= "03.28.840.1.873301.11.29.21.4.2" /> <id nullFlavor="NA" /> < code codeSystem="local" code="MO#" displayName="MONOCYTE #" /> < statusCode code="completed" /> <effectiveTime value="613044386836" /> <value unit="k/cumm" xsi:type="PQ" value="0.5" /> < referenceRange> <observationRange> <text>0.1-1.0</text> </observationRange> </referenceRange> </observation > </component> <component> <observation moodCode="EVN" classCode="OBS"> <templateId root="03.28.840.1.737970.22.4.2" /> <id nullFlavor="NA" /> <code codeSystem="local" code="MO% " displayName="MONOCYTE %" /> <statusCode code="completed" /> <effectiveTime value="188447709459" /> <value unit="%" xsi: type="PQ" value="11" /> <interpretationCode codeSystem="local" code="* " /> <referenceRange> <observationRange> <text> 4-6</text> </observationRange> </referenceRange> </ observation> </component> <component> <observation moodCode= "EVN" classCode="OBS"> <templateId root="16.840.1.686014.10..4.2 " /> <id nullFlavor="NA" /> <code codeSystem="local" code="RBC " displayName="RED BLOOD CELL" /> <statusCode code="completed" /> <effectiveTime value="313677262577" /> <value unit="m/cumm" xsi: type="PQ" value="3.87" /> <interpretationCode codeSystem="local" code= "*" /> <referenceRange> <observationRange> < text>4.00-6.00</text> </observationRange> </referenceRange> </observation> </component> <component> <observation moodCode="EVN" classCode="OBS"> <templateId root= "03.28.840.1.204362.10.22.4.2" /> <id nullFlavor="NA" /> < code codeSystem="local" code="RDW" displayName="RED CELL DISTRIBUTION WIDTH" /> <statusCode code="completed" /> <effectiveTime value= "877630092114" /> <value unit="%" xsi:type="PQ" value="13.2" /> <referenceRange> <observationRange> <text>11.0- 15.6</text> </observationRange> </referenceRange> </ observation> </component> <component> <observation moodCode= "EVN" classCode="OBS"> <templateId root="16.840.1.851223.10.20.22.4.2 " /> <id nullFlavor="NA" /> <code codeSystem="local" code="WBC " displayName="WHITE BLOOD CELL" /> <statusCode code="completed" /> <effectiveTime value="558101303430" /> <value unit="k/cumm" xsi: type="PQ" value="4.4" /> <interpretationCode codeSystem="local" code="* " /> <referenceRange> <observationRange> <text> 5.0-10.0</text> </observationRange> </referenceRange> </observation> </component> <component> <observation moodCode ="EVN" classCode="OBS"> <templateId root= "03.28.840.1.300188.10..22.4.2" /> <id nullFlavor="NA" /> < code codeSystem="local" code="HGBT" displayName="HEMOGLOBIN" /> < statusCode code="completed" /> <effectiveTime value="603957603733" /> <value unit="gm/dL" xsi:type="PQ" value="11.5" /> < interpretationCode codeSystem="local" code="*" /> <referenceRange> <observationRange> <text>12.0-16.0</text> </ observationRange> </referenceRange> </observation> </ component> <component> <observation moodCode="EVN" classCode="OBS"> <templateId root="16.840.1.120309.10.20.22.4.2" /> <id nullFlavor="NA" /> <code codeSystem="local" code="HCTT" displayName= "HEMATOCRIT" /> <statusCode code="completed" /> < effectiveTime value="439616171901" /> <value unit="%" xsi:type="PQ " value="34.1" /> <interpretationCode codeSystem="local" code="*" /> <referenceRange> <observationRange> <text>37.0- 47.0</text> </observationRange> </referenceRange> </ observation> </component> <component> <observation moodCode= "EVN" classCode="OBS"> <templateId root="03.28.840.1.181562.11.29.21.4.2 " /> <id nullFlavor="NA" /> <code codeSystem="local" code="PLT " displayName="PLATELET COUNT" /> <statusCode code="completed" /> <effectiveTime value="522365014781" /> <value unit="k/cumm" xsi: type="PQ" value="153" /> <referenceRange> <observationRange > <text>150-450</text> </observationRange> </ referenceRange> </observation> </component> </organizer> </entry > <entry> <organizer moodCode="EVN" classCode="BATTERY"> <templateId root="03.28.840.1.946894.11.29.21.4.1" /> <id nullFlavor="NA" /> <code codeSystem="local" code="EBVAB" displayName="AB MONIQUE SAUL VIR VCA-ACUTE" /> <statusCode code="completed" /> <component> <observation moodCode="EVN" classCode="OBS"> <templateId root= "16.840.1.986758.10.4.2" /> <id nullFlavor="NA" /> < code codeSystem="local" code="EBVMAB" displayName="AB EBV VIRAL CAPSID AG IGM" / > <statusCode code="completed" /> <effectiveTime value= "774338964763" /> <value unit="" xsi:type="PQ" value="POSITIVE" /> <interpretationCode codeSystem="local" code="*" /> < referenceRange> <observationRange> <text>NEGATIVE</text > </observationRange> </referenceRange> </observation > </component> <component> <observation moodCode="EVN" classCode="OBS"> <templateId root="840.1.375089.10.4.2" /> <id nullFlavor="NA" /> <code codeSystem="local" code="EBVGAB" displayName="AB EBV VIRAL CAPSID AG IGG" /> <statusCode code="completed " /> <effectiveTime value="534174253919" /> <value unit="" xsi :type="PQ" value="40" /> <referenceRange> <observationRange > <text><10</text> </observationRange> </ referenceRange> </observation> </component> </organizer> </entry > <entry> <organizer moodCode="EVN" classCode="BATTERY"> <templateId root="840.1.367482.11.29.21.4.1" /> <id nullFlavor="NA" /> <code codeSystem="local" code="CBCD" displayName="CBC W/DIFF" /> <statusCode code ="completed" /> <component> <observation moodCode="EVN" classCode= "OBS"> <templateId root="03.28.840.1.830620.22.4.2" /> < id nullFlavor="NA" /> <code codeSystem="local" code="CBCCOM" displayName="COMMENT" /> <statusCode code="completed" /> < effectiveTime value="711167584203" /> <value unit="" xsi:type="PQ" value="REVIEWED" /> <referenceRange> <observationRange> <text /> </observationRange> </referenceRange> </observation> </component> <component> <observation moodCode="EVN" classCode="OBS"> <templateId root= "16.840.1.566536.11.29.21.4.2" /> <id nullFlavor="NA" /> < code codeSystem="local" code="GR#" displayName="GRANULOCYTE #" /> < statusCode code="completed" /> <effectiveTime value="455569555917" /> <value unit="k/cumm" xsi:type="PQ" value="1.5" /> < interpretationCode codeSystem="local" code="*" /> <referenceRange> <observationRange> <text>2.0-9.0</text> </ observationRange> </referenceRange> </observation> </ component> <component> <observation moodCode="EVN" classCode="OBS"> <templateId root="03.28.840.1.179698.11.29.21.4.2" /> <id nullFlavor="NA" /> <code codeSystem="local" code="GR%" displayName= "GRANULOCYTE %" /> <statusCode code="completed" /> < effectiveTime value="191727916744" /> <value unit="%" xsi:type="PQ " value="31" /> <interpretationCode codeSystem="local" code="*" /> <referenceRange> <observationRange> <text>50-75</ text> </observationRange> </referenceRange> </ observation> </component> <component> <observation moodCode= "EVN" classCode="OBS"> <templateId root="03.28.830.1.187278.10.2022.4.2 " /> <id nullFlavor="NA" /> <code codeSystem="local" code="LY# " displayName="LYMPHOCYTE #" /> <statusCode code="completed" /> <effectiveTime value="854219146405" /> <value unit="k/cumm" xsi:type ="PQ" value="2.4" /> <referenceRange> <observationRange> <text>1.0-4.0</text> </observationRange> </ referenceRange> </observation> </component> <component> <observation moodCode="EVN" classCode="OBS"> <templateId root= "03.28.840.1.694406.11.29.214.2" /> <id nullFlavor="NA" /> < code codeSystem="local" code="LY%" displayName="LYMPHOCYTE %" /> <statusCode code="completed" /> <effectiveTime value="862165952632" /> <value unit="%" xsi:type="PQ" value="51" /> < interpretationCode codeSystem="local" code="*" /> <referenceRange> <observationRange> <text>20-30</text> </ observationRange> </referenceRange> </observation> </ component> <component> <observation moodCode="EVN" classCode="OBS"> <templateId root="03.28.840.1.951908.10.2022.4.2" /> <id nullFlavor="NA" /> <code codeSystem="local" code="MCH" displayName= "MEAN CELL HGB" /> <statusCode code="completed" /> < effectiveTime value="128377276213" /> <value unit="pg" xsi:type="PQ" value="30.0" /> <referenceRange> <observationRange> <text>27.0-33.0</text> </observationRange> </ referenceRange> </observation> </component> <component> <observation moodCode="EVN" classCode="OBS"> <templateId root= "03.28.840.1.173258.10..4.2" /> <id nullFlavor="NA" /> < code codeSystem="local" code="MCHC" displayName="MEAN CELL HGB CONCENTRATION" / > <statusCode code="completed" /> <effectiveTime value= "327603815771" /> <value unit="g/dL" xsi:type="PQ" value="34.1" /> <referenceRange> <observationRange> <text>32.0- 37.0</text> </observationRange> </referenceRange> </ observation> </component> <component> <observation moodCode= "EVN" classCode="OBS"> <templateId root="03.28.840.1.540358.11.29.21.4.2 " /> <id nullFlavor="NA" /> <code codeSystem="local" code="MCV " displayName="MEAN CELL VOLUME" /> <statusCode code="completed" /> <effectiveTime value="889349518170" /> <value unit="fl" xsi:type ="PQ" value="88.0" /> <referenceRange> <observationRange> <text>80.0-100.0</text> </observationRange> </ referenceRange> </observation> </component> <component> <observation moodCode="EVN" classCode="OBS"> <templateId root= "03.28.840.1.942349.10..4.2" /> <id nullFlavor="NA" /> < code codeSystem="local" code="MO#" displayName="MONOCYTE #" /> < statusCode code="completed" /> <effectiveTime value="705980431880" /> <value unit="k/cumm" xsi:type="PQ" value="0.9" /> < referenceRange> <observationRange> <text>0.1-1.0</text> </observationRange> </referenceRange> </observation > </component> <component> <observation moodCode="EVN" classCode="OBS"> <templateId root="2.16.840.1.981629.10.22.4.2" /> <id nullFlavor="NA" /> <code codeSystem="local" code="MO% " displayName="MONOCYTE %" /> <statusCode code="completed" /> <effectiveTime value="887078753446" /> <value unit="%" xsi: type="PQ" value="18" /> <interpretationCode codeSystem="local" code="* " /> <referenceRange> <observationRange> <text> 4-6</text> </observationRange> </referenceRange> </ observation> </component> <component> <observation moodCode= "EVN" classCode="OBS"> <templateId root="2.16.840.1.316940.10..4.2 " /> <id nullFlavor="NA" /> <code codeSystem="local" code="RBC " displayName="RED BLOOD CELL" /> <statusCode code="completed" /> <effectiveTime value="778513427453" /> <value unit="m/cumm" xsi: type="PQ" value="3.93" /> <interpretationCode codeSystem="local" code= "*" /> <referenceRange> <observationRange> < text>4.00-6.00</text> </observationRange> </referenceRange> </observation> </component> <component> <observation moodCode="EVN" classCode="OBS"> <templateId root= "03.28.840.1.685841.10.20.22.4.2" /> <id nullFlavor="NA" /> < code codeSystem="local" code="RDW" displayName="RED CELL DISTRIBUTION WIDTH" /> <statusCode code="completed" /> <effectiveTime value= "243077712183" /> <value unit="%" xsi:type="PQ" value="13.6" /> <referenceRange> <observationRange> <text>11.0- 15.6</text> </observationRange> </referenceRange> </ observation> </component> <component> <observation moodCode= "EVN" classCode="OBS"> <templateId root="840.1.924272.1022.4.2 " /> <id nullFlavor="NA" /> <code codeSystem="local" code="WBC " displayName="WHITE BLOOD CELL" /> <statusCode code="completed" /> <effectiveTime value="549879923897" /> <value unit="k/cumm" xsi: type="PQ" value="4.7" /> <interpretationCode codeSystem="local" code="* " /> <referenceRange> <observationRange> <text> 5.0-10.0</text> </observationRange> </referenceRange> </observation> </component> <component> <observation moodCode ="EVN" classCode="OBS"> <templateId root= "03.28.840.1.337861.10.2022.4.2" /> <id nullFlavor="NA" /> < code codeSystem="local" code="HGBT" displayName="HEMOGLOBIN" /> < statusCode code="completed" /> <effectiveTime value="490092985168" /> <value unit="gm/dL" xsi:type="PQ" value="11.8" /> < interpretationCode codeSystem="local" code="*" /> <referenceRange> <observationRange> <text>12.0-16.0</text> </ observationRange> </referenceRange> </observation> </ component> <component> <observation moodCode="EVN" classCode="OBS"> <templateId root="216.840.1.382843.10.4.2" /> <id nullFlavor="NA" /> <code codeSystem="local" code="HCTT" displayName= "HEMATOCRIT" /> <statusCode code="completed" /> < effectiveTime value="626199265268" /> <value unit="%" xsi:type="PQ " value="34.6" /> <interpretationCode codeSystem="local" code="*" /> <referenceRange> <observationRange> <text>37.0- 47.0</text> </observationRange> </referenceRange> </ observation> </component> <component> <observation moodCode= "EVN" classCode="OBS"> <templateId root="03.28.840.1.644132.11.29.21.4.2 " /> <id nullFlavor="NA" /> <code codeSystem="local" code="PLT " displayName="PLATELET COUNT" /> <statusCode code="completed" /> <effectiveTime value="288354661743" /> <value unit="k/cumm" xsi: type="PQ" value="158" /> <referenceRange> <observationRange > <text>150-450</text> </observationRange> </ referenceRange> </observation> </component> <component> <observation moodCode="EVN" classCode="OBS"> <templateId root= "16.840.1.394398.10..4.2" /> <id nullFlavor="NA" /> < code codeSystem="local" code="REACTIVELYMPH" displayName="REACTIVE LYMPH" /> <statusCode code="completed" /> <effectiveTime value= "730422922126" /> <value unit="" xsi:type="PQ" value="NOTED" /> <referenceRange> <observationRange> <text /> </observationRange> </referenceRange> </observation> </ component> </organizer> </entry> <entry> <organizer moodCode="EVN" classCode="BATTERY"> <templateId root="03.28.840.1.522637.10...4.1" /> <id nullFlavor="NA" /> <code codeSystem="local" code="RENAL" displayName="RENAL FUNCTION PANEL" /> <statusCode code="completed" /> <component> <observation moodCode="EVN" classCode="OBS"> < templateId root="03.28.840.1.832135.10..22.4.2" /> <id nullFlavor="NA " /> <code codeSystem="local" code="K" displayName="POTASSIUM" /> <statusCode code="completed" /> <effectiveTime value="284389294855 " /> <value unit="mmol/L" xsi:type="PQ" value="3.4" /> < interpretationCode codeSystem="local" code="*" /> <referenceRange> <observationRange> <text>3.5-5.3</text> </ observationRange> </referenceRange> </observation> </ component> <component> <observation moodCode="EVN" classCode="OBS"> <templateId root="03.28.840.1.265208.10..22.4.2" /> <id nullFlavor="NA" /> <code codeSystem="local" code="eGFR" displayName= "EST GFR (MDRD)" /> <statusCode code="completed" /> < effectiveTime value="887867062068" /> <value unit="mL/min" xsi:type="PQ " value="> 60" /> <referenceRange> <observationRange> <text>> 59</text> </observationRange> </ referenceRange> </observation> </component> <component> <observation moodCode="EVN" classCode="OBS"> <templateId root= "16.840.1.173849.10..4.2" /> <id nullFlavor="NA" /> < code codeSystem="local" code="GAP" displayName="ANION GAP" /> < statusCode code="completed" /> <effectiveTime value="852671202789" /> <value unit="mmol/L" xsi:type="PQ" value="8" /> < referenceRange> <observationRange> <text>5-15</text> </observationRange> </referenceRange> </observation> </component> <component> <observation moodCode="EVN" classCode= "OBS"> <templateId root="16.840.1.813154.10...4.2" /> < id nullFlavor="NA" /> <code codeSystem="local" code="eCrCl" displayName ="EST CrCl (CG)" /> <statusCode code="completed" /> < effectiveTime value="218460235509" /> <value unit="mL/min" xsi:type="PQ " value="> 60" /> <referenceRange> <observationRange> <text>> 59</text> </observationRange> </ referenceRange> </observation> </component> <component> <observation moodCode="EVN" classCode="OBS"> <templateId root= "2.840.1.298513.11.29.21.4.2" /> <id nullFlavor="NA" /> < code codeSystem="local" code="GLU" displayName="GLUCOSE" /> < statusCode code="completed" /> <effectiveTime value="823775227706" /> <value unit="mg/dL" xsi:type="PQ" value="107" /> < interpretationCode codeSystem="local" code="*" /> <referenceRange> <observationRange> <text>70-99</text> </ observationRange> </referenceRange> </observation> </ component> <component> <observation moodCode="EVN" classCode="OBS"> <templateId root="216.840.1.967669.11.29.21.4.2" /> <id nullFlavor="NA" /> <code codeSystem="local" code="CA" displayName= "CALCIUM" /> <statusCode code="completed" /> <effectiveTime value="422645459219" /> <value unit="mg/dL" xsi:type="PQ" value="8.1" / > <interpretationCode codeSystem="local" code="*" /> < referenceRange> <observationRange> <text>8.5-10.1</text > </observationRange> </referenceRange> </observation > </component> <component> <observation moodCode="EVN" classCode="OBS"> <templateId root="16.840.1.306884.11.29.21.4.2" /> <id nullFlavor="NA" /> <code codeSystem="local" code="BUN" displayName="BLOOD UREA NITROGEN" /> <statusCode code="completed" /> <effectiveTime value="415552636722" /> <value unit="mg/dL" xsi: type="PQ" value="3" /> <interpretationCode codeSystem="local" code="*" /> <referenceRange> <observationRange> <text>7- 20</text> </observationRange> </referenceRange> </ observation> </component> <component> <observation moodCode= "EVN" classCode="OBS"> <templateId root="216.840.1.801933.10...4.2 " /> <id nullFlavor="NA" /> <code codeSystem="local" code= "CREAT" displayName="CREATININE" /> <statusCode code="completed" /> <effectiveTime value="673500688207" /> <value unit="mg/dL" xsi: type="PQ" value="1.0" /> <referenceRange> <observationRange > <text>0.5-1.0</text> </observationRange> </ referenceRange> </observation> </component> <component> <observation moodCode="EVN" classCode="OBS"> <templateId root= "16.840.1.888085.10..4.2" /> <id nullFlavor="NA" /> < code codeSystem="local" code="NA" displayName="SODIUM" /> <statusCode code="completed" /> <effectiveTime value="897019717335" /> < value unit="mmol/L" xsi:type="PQ" value="141" /> <referenceRange> <observationRange> <text>135-148</text> </ observationRange> </referenceRange> </observation> </ component> <component> <observation moodCode="EVN" classCode="OBS"> <templateId root="16.840.1.958756.10..4.2" /> <id nullFlavor="NA" /> <code codeSystem="local" code="CL" displayName= "CHLORIDE" /> <statusCode code="completed" /> <effectiveTime value="970581108926" /> <value unit="mmol/L" xsi:type="PQ" value="108" /> <referenceRange> <observationRange> <text>98 -110</text> </observationRange> </referenceRange> </ observation> </component> <component> <observation moodCode= "EVN" classCode="OBS"> <templateId root="216.840.1.766244.10..22.4.2 " /> <id nullFlavor="NA" /> <code codeSystem="local" code="CO2 " displayName="CARBON DIOXIDE" /> <statusCode code="completed" /> <effectiveTime value="307867207948" /> <value unit="mmol/L" xsi: type="PQ" value="25" /> <referenceRange> <observationRange> <text>21-32</text> </observationRange> </ referenceRange> </observation> </component> <component> <observation moodCode="EVN" classCode="OBS"> <templateId root= "03.28.840.1.503749.10...4.2" /> <id nullFlavor="NA" /> < code codeSystem="local" code="ALB" displayName="ALBUMIN" /> < statusCode code="completed" /> <effectiveTime value="290215862899" /> <value unit="gm/dL" xsi:type="PQ" value="2.4" /> < interpretationCode codeSystem="local" code="*" /> <referenceRange> <observationRange> <text>3.4-5.0</text> </ observationRange> </referenceRange> </observation> </ component> <component> <observation moodCode="EVN" classCode="OBS"> <templateId root="16.840.1.731255.10..22.4.2" /> <id nullFlavor="NA" /> <code codeSystem="local" code="PHOS" displayName= "PHOSPHORUS" /> <statusCode code="completed" /> < effectiveTime value="640278062369" /> <value unit="mg/dL" xsi:type="PQ " value="2.4" /> <interpretationCode codeSystem="local" code="*" /> <referenceRange> <observationRange> <text>2.5-4.9 </text> </observationRange> </referenceRange> </ observation> </component> </organizer> </entry> <entry> <organizer moodCode="EVN" classCode="BATTERY"> <templateId root= "16.840.1.907234.10..4.1" /> <id nullFlavor="NA" /> <code codeSystem="local" code="CBCD" displayName="CBC W/DIFF" /> <statusCode code ="completed" /> <component> <observation moodCode="EVN" classCode= "OBS"> <templateId root="03.28.840.1.180017.10...4.2" /> < id nullFlavor="NA" /> <code codeSystem="local" code="GR#" displayName= "GRANULOCYTE #" /> <statusCode code="completed" /> < effectiveTime value="655024245309" /> <value unit="k/cumm" xsi:type="PQ " value="1.2" /> <interpretationCode codeSystem="local" code="*" /> <referenceRange> <observationRange> <text>2.0-9.0 </text> </observationRange> </referenceRange> </ observation> </component> <component> <observation moodCode= "EVN" classCode="OBS"> <templateId root="03.28.840.1.393923.11.29.21.4.2 " /> <id nullFlavor="NA" /> <code codeSystem="local" code="LY# " displayName="LYMPHOCYTE #" /> <statusCode code="completed" /> <effectiveTime value="746750166242" /> <value unit="k/cumm" xsi:type ="PQ" value="3.0" /> <referenceRange> <observationRange> <text>1.0-4.0</text> </observationRange> </ referenceRange> </observation> </component> <component> <observation moodCode="EVN" classCode="OBS"> <templateId root= "2.16.840.1.370946.10..4.2" /> <id nullFlavor="NA" /> < code codeSystem="local" code="LY%" displayName="LYMPHOCYTE %" /> <statusCode code="completed" /> <effectiveTime value="259300253181" /> <value unit="%" xsi:type="PQ" value="69" /> < interpretationCode codeSystem="local" code="*" /> <referenceRange> <observationRange> <text>20-30</text> </ observationRange> </referenceRange> </observation> </ component> <component> <observation moodCode="EVN" classCode="OBS"> <templateId root="2.16.840.1.776968.10..4.2" /> <id nullFlavor="NA" /> <code codeSystem="local" code="MCH" displayName= "MEAN CELL HGB" /> <statusCode code="completed" /> < effectiveTime value="613092178617" /> <value unit="pg" xsi:type="PQ" value="30.0" /> <referenceRange> <observationRange> <text>27.0-33.0</text> </observationRange> </ referenceRange> </observation> </component> <component> <observation moodCode="EVN" classCode="OBS"> <templateId root= "16.840.1.681876.1022.4.2" /> <id nullFlavor="NA" /> < code codeSystem="local" code="MCHC" displayName="MEAN CELL HGB CONCENTRATION" / > <statusCode code="completed" /> <effectiveTime value= "" /> <value unit="g/dL" xsi:type="PQ" value="33.7" /> <referenceRange> <observationRange> <text>32.0- 37.0</text> </observationRange> </referenceRange> </ observation> </component> <component> <observation moodCode= "EVN" classCode="OBS"> <templateId root="03.28.840.1.143712.11.29.21.4.2 " /> <id nullFlavor="NA" /> <code codeSystem="local" code="MCV " displayName="MEAN CELL VOLUME" /> <statusCode code="completed" /> <effectiveTime value="" /> <value unit="fl" xsi:type ="PQ" value="89.0" /> <referenceRange> <observationRange> <text>80.0-100.0</text> </observationRange> </ referenceRange> </observation> </component> <component> <observation moodCode="EVN" classCode="OBS"> <templateId root= "03.28.840.1.355285.1022.4.2" /> <id nullFlavor="NA" /> < code codeSystem="local" code="MO#" displayName="MONOCYTE #" /> < statusCode code="completed" /> <effectiveTime value="" /> <value unit="k/cumm" xsi:type="PQ" value="0.1" /> < referenceRange> <observationRange> <text>0.1-1.0</text> </observationRange> </referenceRange> </observation > </component> <component> <observation moodCode="EVN" classCode="OBS"> <templateId root="216.840.1.218494.10.20.22.4.2" /> <id nullFlavor="NA" /> <code codeSystem="local" code="MO% " displayName="MONOCYTE %" /> <statusCode code="completed" /> <effectiveTime value="552568023772" /> <value unit="%" xsi: type="PQ" value="3" /> <interpretationCode codeSystem="local" code="*" /> <referenceRange> <observationRange> <text>4- 6</text> </observationRange> </referenceRange> </ observation> </component> <component> <observation moodCode= "EVN" classCode="OBS"> <templateId root="16.840.1.219071.11.29.21.4.2 " /> <id nullFlavor="NA" /> <code codeSystem="local" code="RBC " displayName="RED BLOOD CELL" /> <statusCode code="completed" /> <effectiveTime value="486720485908" /> <value unit="m/cumm" xsi: type="PQ" value="4.00" /> <referenceRange> <observationRange > <text>4.00-6.00</text> </observationRange> </ referenceRange> </observation> </component> <component> <observation moodCode="EVN" classCode="OBS"> <templateId root= "216.840.1.120430.10.20.22.4.2" /> <id nullFlavor="NA" /> < code codeSystem="local" code="RDW" displayName="RED CELL DISTRIBUTION WIDTH" /> <statusCode code="completed" /> <effectiveTime value= "877118456558" /> <value unit="%" xsi:type="PQ" value="13.3" /> <referenceRange> <observationRange> <text>11.0- 15.6</text> </observationRange> </referenceRange> </ observation> </component> <component> <observation moodCode= "EVN" classCode="OBS"> <templateId root="216.840.1.623251.10.20.22.4.2 " /> <id nullFlavor="NA" /> <code codeSystem="local" code="WBC " displayName="WHITE BLOOD CELL" /> <statusCode code="completed" /> <effectiveTime value="609679099025" /> <value unit="k/cumm" xsi: type="PQ" value="4.3" /> <interpretationCode codeSystem="local" code="* " /> <referenceRange> <observationRange> <text> 5.0-10.0</text> </observationRange> </referenceRange> </observation> </component> <component> <observation moodCode ="EVN" classCode="OBS"> <templateId root= "16.840.1.704197.10..22.4.2" /> <id nullFlavor="NA" /> < code codeSystem="local" code="HGBT" displayName="HEMOGLOBIN" /> < statusCode code="completed" /> <effectiveTime value="665826948112" /> <value unit="gm/dL" xsi:type="PQ" value="12.0" /> < referenceRange> <observationRange> <text>12.0-16.0</text > </observationRange> </referenceRange> </observation > </component> <component> <observation moodCode="EVN" classCode="OBS"> <templateId root="216.840.1.112405.10..22.4.2" /> <id nullFlavor="NA" /> <code codeSystem="local" code="HCTT" displayName="HEMATOCRIT" /> <statusCode code="completed" /> < effectiveTime value="408950515730" /> <value unit="%" xsi:type="PQ " value="35.6" /> <interpretationCode codeSystem="local" code="*" /> <referenceRange> <observationRange> <text>37.0- 47.0</text> </observationRange> </referenceRange> </ observation> </component> <component> <observation moodCode= "EVN" classCode="OBS"> <templateId root="216.840.1.750052...4.2 " /> <id nullFlavor="NA" /> <code codeSystem="local" code="PLT " displayName="PLATELET COUNT" /> <statusCode code="completed" /> <effectiveTime value="127947918934" /> <value unit="k/cumm" xsi: type="PQ" value="154" /> <referenceRange> <observationRange > <text>150-450</text> </observationRange> </ referenceRange> </observation> </component> </organizer> </entry > <entry> <organizer moodCode="EVN" classCode="BATTERY"> <templateId root="2.16.840.1.628388.10..22.4.1" /> <id nullFlavor="NA" /> <code codeSystem="local" code="DIFFM" displayName="MANUAL DIFF(R)" /> < statusCode code="completed" /> <component> <observation moodCode= "EVN" classCode="OBS"> <templateId root="216.840.1.859407.10.22.4.2 " /> <id nullFlavor="NA" /> <code codeSystem="local" code= "BAND%" displayName="BAND %" /> <statusCode code="completed" / > <effectiveTime value="" /> <value unit="%" xsi:type="PQ" value="4" /> <referenceRange> < observationRange> <text>0-10</text> </observationRange> </referenceRange> </observation> </component> < component> <observation moodCode="EVN" classCode="OBS"> < templateId root="216.840.1.108215.10..4.2" /> <id nullFlavor="NA " /> <code codeSystem="local" code="MANDIFF" displayName="DIFFERENTIAL " /> <statusCode code="completed" /> <effectiveTime value= "" /> <value unit="" xsi:type="PQ" value="MANUAL" /> <referenceRange> <observationRange> <text /> </observationRange> </referenceRange> </observation> < /component> <component> <observation moodCode="EVN" classCode="OBS" > <templateId root="216.840.1.347331.10.22.4.2" /> <id nullFlavor="NA" /> <code codeSystem="local" code="RMORPH" displayName= "RBC MORPH" /> <statusCode code="completed" /> <effectiveTime value="" /> <value unit="" xsi:type="PQ" value="NORMAL" /> <referenceRange> <observationRange> <text /> </observationRange> </referenceRange> </observation> </component> <component> <observation moodCode="EVN" classCode ="OBS"> <templateId root="216.840.1.654094.10...4.2" /> < id nullFlavor="NA" /> <code codeSystem="local" code="SEG%" displayName="SEGMENTED NEUTROPHIL %" /> <statusCode code="completed " /> <effectiveTime value="807607175816" /> <value unit="% " xsi:type="PQ" value="24" /> <interpretationCode codeSystem="local" code="*" /> <referenceRange> <observationRange> <text>50-70</text> </observationRange> </referenceRange> </observation> </component> </organizer> </entry> <entry> < organizer moodCode="EVN" classCode="BATTERY"> <templateId root= "216.840.1.889471.10..4.1" /> <id nullFlavor="NA" /> <code codeSystem="local" code="METABC" displayName="METABOLIC PANEL, COMPREHN" /> <statusCode code="completed" /> <component> <observation moodCode= "EVN" classCode="OBS"> <templateId root="216.840.1.526603.10..22.4.2 " /> <id nullFlavor="NA" /> <code codeSystem="local" code="K" displayName="POTASSIUM" /> <statusCode code="completed" /> < effectiveTime value="694990307541" /> <value unit="mmol/L" xsi:type="PQ " value="3.0" /> <interpretationCode codeSystem="local" code="*" /> <referenceRange> <observationRange> <text>3.5-5.3 </text> </observationRange> </referenceRange> </ observation> </component> <component> <observation moodCode= "EVN" classCode="OBS"> <templateId root="216.840.1.207827.10..22.4.2 " /> <id nullFlavor="NA" /> <code codeSystem="local" code= "eGFR" displayName="EST GFR (MDRD)" /> <statusCode code="completed" /> <effectiveTime value="" /> <value unit="mL/min" xsi:type="PQ" value="> 60" /> <referenceRange> < observationRange> <text>> 59</text> </ observationRange> </referenceRange> </observation> </ component> <component> <observation moodCode="EVN" classCode="OBS"> <templateId root="216.840.1.663430.10..4.2" /> <id nullFlavor="NA" /> <code codeSystem="local" code="GAP" displayName= "ANION GAP" /> <statusCode code="completed" /> <effectiveTime value="" /> <value unit="mmol/L" xsi:type="PQ" value="6" / > <referenceRange> <observationRange> <text>5- 15</text> </observationRange> </referenceRange> </ observation> </component> <component> <observation moodCode= "EVN" classCode="OBS"> <templateId root="16.840.1.907727.10..22.4.2 " /> <id nullFlavor="NA" /> <code codeSystem="local" code= "eCrCl" displayName="EST CrCl (CG)" /> <statusCode code="completed" /> <effectiveTime value="" /> <value unit="mL/min" xsi:type="PQ" value="> 60" /> <referenceRange> < observationRange> <text>> 59</text> </ observationRange> </referenceRange> </observation> </ component> <component> <observation moodCode="EVN" classCode="OBS"> <templateId root="840.1.641392.10.20.22.4.2" /> <id nullFlavor="NA" /> <code codeSystem="local" code="GLU" displayName= "GLUCOSE" /> <statusCode code="completed" /> <effectiveTime value="059811335692" /> <value unit="mg/dL" xsi:type="PQ" value="104" / > <interpretationCode codeSystem="local" code="*" /> < referenceRange> <observationRange> <text>70-99</text> </observationRange> </referenceRange> </observation> </component> <component> <observation moodCode="EVN" classCode= "OBS"> <templateId root="840.1.705506.10..22.4.2" /> < id nullFlavor="NA" /> <code codeSystem="local" code="CA" displayName= "CALCIUM" /> <statusCode code="completed" /> <effectiveTime value="019187644109" /> <value unit="mg/dL" xsi:type="PQ" value="8.3" / > <interpretationCode codeSystem="local" code="*" /> < referenceRange> <observationRange> <text>8.5-10.1</text > </observationRange> </referenceRange> </observation > </component> <component> <observation moodCode="EVN" classCode="OBS"> <templateId root="03.28.840.1.432957.10.20.22.4.2" /> <id nullFlavor="NA" /> <code codeSystem="local" code="BUN" displayName="BLOOD UREA NITROGEN" /> <statusCode code="completed" /> <effectiveTime value="563498324106" /> <value unit="mg/dL" xsi: type="PQ" value="2" /> <interpretationCode codeSystem="local" code="*" /> <referenceRange> <observationRange> <text>7- 20</text> </observationRange> </referenceRange> </ observation> </component> <component> <observation moodCode= "EVN" classCode="OBS"> <templateId root="16.840.1.892666.10..22.4.2 " /> <id nullFlavor="NA" /> <code codeSystem="local" code= "CREAT" displayName="CREATININE" /> <statusCode code="completed" /> <effectiveTime value="204828208711" /> <value unit="mg/dL" xsi: type="PQ" value="0.9" /> <referenceRange> <observationRange > <text>0.5-1.0</text> </observationRange> </ referenceRange> </observation> </component> <component> <observation moodCode="EVN" classCode="OBS"> <templateId root= "03.28.840.1.788153.10.20.22.4.2" /> <id nullFlavor="NA" /> < code codeSystem="local" code="NA" displayName="SODIUM" /> <statusCode code="completed" /> <effectiveTime value="348128529776" /> < value unit="mmol/L" xsi:type="PQ" value="141" /> <referenceRange> <observationRange> <text>135-148</text> </ observationRange> </referenceRange> </observation> </ component> <component> <observation moodCode="EVN" classCode="OBS"> <templateId root="840.1.519284.11.29.21.4.2" /> <id nullFlavor="NA" /> <code codeSystem="local" code="CL" displayName= "CHLORIDE" /> <statusCode code="completed" /> <effectiveTime value="" /> <value unit="mmol/L" xsi:type="PQ" value="107" /> <referenceRange> <observationRange> <text>98 -110</text> </observationRange> </referenceRange> </ observation> </component> <component> <observation moodCode= "EVN" classCode="OBS"> <templateId root="216.840.1.646853.11.29.21.4.2 " /> <id nullFlavor="NA" /> <code codeSystem="local" code="AST " displayName="AST/SGOT" /> <statusCode code="completed" /> < effectiveTime value="" /> <value unit="Units/L" xsi:type= "PQ" value="241" /> <interpretationCode codeSystem="local" code="*" /> <referenceRange> <observationRange> <text>10- 37</text> </observationRange> </referenceRange> </ observation> </component> <component> <observation moodCode= "EVN" classCode="OBS"> <templateId root="16.840.1.901180.11.29.21.4.2 " /> <id nullFlavor="NA" /> <code codeSystem="local" code="ALT " displayName="ALT/SGPT" /> <statusCode code="completed" /> < effectiveTime value="" /> <value unit="Units/L" xsi:type= "PQ" value="206" /> <interpretationCode codeSystem="local" code="*" /> <referenceRange> <observationRange> <text>&lt ; 66</text> </observationRange> </referenceRange> </ observation> </component> <component> <observation moodCode= "EVN" classCode="OBS"> <templateId root="216.840.1.138389.10.4.2 " /> <id nullFlavor="NA" /> <code codeSystem="local" code="CO2 " displayName="CARBON DIOXIDE" /> <statusCode code="completed" /> <effectiveTime value="" /> <value unit="mmol/L" xsi: type="PQ" value="28" /> <referenceRange> <observationRange> <text>21-32</text> </observationRange> </ referenceRange> </observation> </component> <component> <observation moodCode="EVN" classCode="OBS"> <templateId root= "16.840.1.343927.11.29.214.2" /> <id nullFlavor="NA" /> < code codeSystem="local" code="TP" displayName="TOTAL PROTEIN" /> < statusCode code="completed" /> <effectiveTime value="291776357754" /> <value unit="gm/dL" xsi:type="PQ" value="6.1" /> < interpretationCode codeSystem="local" code="*" /> <referenceRange> <observationRange> <text>6.4-8.2</text> </ observationRange> </referenceRange> </observation> </ component> <component> <observation moodCode="EVN" classCode="OBS"> <templateId root="216.840.1.527829.11.29.21.4.2" /> <id nullFlavor="NA" /> <code codeSystem="local" code="ALB" displayName= "ALBUMIN" /> <statusCode code="completed" /> <effectiveTime value="678537796547" /> <value unit="gm/dL" xsi:type="PQ" value="2.4" / > <interpretationCode codeSystem="local" code="*" /> < referenceRange> <observationRange> <text>3.4-5.0</text> </observationRange> </referenceRange> </observation > </component> <component> <observation moodCode="EVN" classCode="OBS"> <templateId root="216.840.1.076821.10.20.22.4.2" /> <id nullFlavor="NA" /> <code codeSystem="local" code="BILTOT" displayName="BILI TOTAL" /> <statusCode code="completed" /> < effectiveTime value="046838559201" /> <value unit="mg/dL" xsi:type="PQ " value="1.6" /> <interpretationCode codeSystem="local" code="*" /> <referenceRange> <observationRange> <text>0.0-1.0 </text> </observationRange> </referenceRange> </ observation> </component> <component> <observation moodCode= "EVN" classCode="OBS"> <templateId root="216.840.1.026080.10.20.22.4.2 " /> <id nullFlavor="NA" /> <code codeSystem="local" code= "ALKP" displayName="ALKALINE PHOSPHATASE TOTAL" /> <statusCode code= "completed" /> <effectiveTime value="" /> <value unit="IU/L" xsi:type="PQ" value="156" /> <interpretationCode codeSystem ="local" code="*" /> <referenceRange> <observationRange> <text>45-117</text> </observationRange> </ referenceRange> </observation> </component> </organizer> </entry > <entry> <organizer moodCode="EVN" classCode="BATTERY"> <templateId root="2.16.840.1.555104.10.20.22.4.1" /> <id nullFlavor="NA" /> <code codeSystem="local" code="66771-9" displayName="Complete blood count (CBC) with automated white blood cell (WBC) differential" /> <statusCode code= "completed" /> <component> <observation moodCode="EVN" classCode= "OBS"> <templateId root="2.16.840.1.584503.10.20.22.4.2" /> < id nullFlavor="NA" /> <code codeSystem="local" code="6690-2" displayName="Blood leukocytes automated count (number/volume)" /> < statusCode code="completed" /> <effectiveTime value="" /> <value unit="10*3/uL" xsi:type="PQ" value="19.7" /> < interpretationCode codeSystem="local" code="" /> <referenceRange> <observationRange> <text>4.3-11.0</text> </ observationRange> </referenceRange> </observation> </ component> <component> <observation moodCode="EVN" classCode="OBS"> <templateId root="2.16.840.1.902747.10..22.4.2" /> <id nullFlavor="NA" /> <code codeSystem="local" code="789-8" displayName= "Blood erythrocytes automated count (number/volume)" /> <statusCode code="completed" /> <effectiveTime value="" /> < value unit="10*6/uL" xsi:type="PQ" value="4.60" /> <referenceRange> <observationRange> <text>4.35-5.85</text> </ observationRange> </referenceRange> </observation> </ component> <component> <observation moodCode="EVN" classCode="OBS"> <templateId root="2.16.840.1.889220.10.20.22.4.2" /> <id nullFlavor="NA" /> <code codeSystem="local" code="75892-5" displayName= "Venous blood hemoglobin measurement (mass/volume)" /> <statusCode code ="completed" /> <effectiveTime value="700425518523" /> <value unit="g/dL" xsi:type="PQ" value="13.6" /> <referenceRange> < observationRange> <text>11.5-16.0</text> </ observationRange> </referenceRange> </observation> </ component> <component> <observation moodCode="EVN" classCode="OBS"> <templateId root="216.840.1.252117.11.29.21.4.2" /> <id nullFlavor="NA" /> <code codeSystem="local" code="69996-7" displayName= "Blood hematocrit (volume fraction)" /> <statusCode code="completed" / > <effectiveTime value="201672299936" /> <value unit="%" xsi:type="PQ" value="40" /> <referenceRange> < observationRange> <text>35-52</text> </observationRange > </referenceRange> </observation> </component> < component> <observation moodCode="EVN" classCode="OBS"> < templateId root="2.16.840.1.792758.10..22.4.2" /> <id nullFlavor="NA " /> <code codeSystem="local" code="787-2" displayName="Automated erythrocyte mean corpuscular volume" /> <statusCode code="completed" / > <effectiveTime value="642206922746" /> <value unit="[foz_us] " xsi:type="PQ" value="86" /> <referenceRange> < observationRange> <text>80-99</text> </observationRange > </referenceRange> </observation> </component> < component> <observation moodCode="EVN" classCode="OBS"> < templateId root="2.16.840.1.836918.10.20.22.4.2" /> <id nullFlavor="NA " /> <code codeSystem="local" code="785-6" displayName="Automated erythrocyte mean corpuscular hemoglobin (mass per erythrocyte)" /> < statusCode code="completed" /> <effectiveTime value="387092405866" /> <value unit="pg" xsi:type="PQ" value="30" /> <referenceRange> <observationRange> <text>25-34</text> </ observationRange> </referenceRange> </observation> </ component> <component> <observation moodCode="EVN" classCode="OBS"> <templateId root="2.16.840.1.661872.10...4.2" /> <id nullFlavor="NA" /> <code codeSystem="local" code="786-4" displayName= "Automated erythrocyte mean corpuscular hemoglobin concentration measurement ( mass/volume)" /> <statusCode code="completed" /> < effectiveTime value="680557239495" /> <value unit="g/dL" xsi:type="PQ" value="34" /> <referenceRange> <observationRange> <text>32-36</text> </observationRange> </referenceRange > </observation> </component> <component> <observation moodCode="EVN" classCode="OBS"> <templateId root= "2.16.840.1.349889.11.29.21.4.2" /> <id nullFlavor="NA" /> < code codeSystem="local" code="788-0" displayName="Automated erythrocyte distribution width ratio" /> <statusCode code="completed" /> < effectiveTime value="065326345703" /> <value unit="%" xsi:type="PQ " value="12.8" /> <referenceRange> <observationRange> <text>10.0-14.5</text> </observationRange> </ referenceRange> </observation> </component> <component> <observation moodCode="EVN" classCode="OBS"> <templateId root= "2.16.840.1.643273.11.29.214.2" /> <id nullFlavor="NA" /> < code codeSystem="local" code="777-3" displayName="Automated blood platelet count (count/volume)" /> <statusCode code="completed" /> < effectiveTime value="944129926135" /> <value unit="10*3/uL" xsi:type= "PQ" value="304" /> <referenceRange> <observationRange> <text>130-400</text> </observationRange> </ referenceRange> </observation> </component> <component> <observation moodCode="EVN" classCode="OBS"> <templateId root= "2.16.840.1.457739.11.29.21.4.2" /> <id nullFlavor="NA" /> < code codeSystem="local" code="74224-0" displayName="Automated blood platelet mean volume measurement" /> <statusCode code="completed" /> < effectiveTime value="792462424224" /> <value unit="[foz_us]" xsi:type= "PQ" value="9.2" /> <referenceRange> <observationRange> <text>7.4-10.4</text> </observationRange> </ referenceRange> </observation> </component> <component> <observation moodCode="EVN" classCode="OBS"> <templateId root= "2.16.840.1.286799.10.22.4.2" /> <id nullFlavor="NA" /> < code codeSystem="local" code="770-8" displayName="Automated blood neutrophils/ 100 leukocytes" /> <statusCode code="completed" /> < effectiveTime value="579283593243" /> <value unit="%" xsi:type="PQ " value="91" /> <interpretationCode codeSystem="local" code="" /> <referenceRange> <observationRange> <text>42-75</ text> </observationRange> </referenceRange> </ observation> </component> <component> <observation moodCode= "EVN" classCode="OBS"> <templateId root="216.840.1.710425.10..4.2 " /> <id nullFlavor="NA" /> <code codeSystem="local" code="736 -9" displayName="Automated blood lymphocytes/100 leukocytes" /> < statusCode code="completed" /> <effectiveTime value="060014650445" /> <value unit="%" xsi:type="PQ" value="4" /> < interpretationCode codeSystem="local" code="" /> <referenceRange> <observationRange> <text>12-44</text> </ observationRange> </referenceRange> </observation> </ component> <component> <observation moodCode="EVN" classCode="OBS"> <templateId root="2.16.840.1.207204.10.20.22.4.2" /> <id nullFlavor="NA" /> <code codeSystem="local" code="21221-5" displayName= "Blood monocytes/100 leukocytes" /> <statusCode code="completed" /> <effectiveTime value="903691016022" /> <value unit="%" xsi: type="PQ" value="5" /> <referenceRange> <observationRange> <text>0-12</text> </observationRange> </ referenceRange> </observation> </component> <component> <observation moodCode="EVN" classCode="OBS"> <templateId root= "2.16.840.1.949178.10.20.22.4.2" /> <id nullFlavor="NA" /> < code codeSystem="local" code="713-8" displayName="Automated blood eosinophils/ 100 leukocytes" /> <statusCode code="completed" /> < effectiveTime value="045336335624" /> <value unit="%" xsi:type="PQ " value="0" /> <referenceRange> <observationRange> <text>0-10</text> </observationRange> </referenceRange > </observation> </component> <component> <observation moodCode="EVN" classCode="OBS"> <templateId root= "216.840.1.686883.10.20.22.4.2" /> <id nullFlavor="NA" /> < code codeSystem="local" code="706-2" displayName="Automated blood basophils/100 leukocytes" /> <statusCode code="completed" /> <effectiveTime value="220407972505" /> <value unit="%" xsi:type="PQ" value="0" /> <referenceRange> <observationRange> <text>0-10 </text> </observationRange> </referenceRange> </ observation> </component> <component> <observation moodCode= "EVN" classCode="OBS"> <templateId root="03.28.840.1.453474.10.20.22.4.2 " /> <id nullFlavor="NA" /> <code codeSystem="local" code="751 -8" displayName="Blood neutrophils automated count (number/volume)" /> <statusCode code="completed" /> <effectiveTime value="914499448566" /> <value unit="10*3" xsi:type="PQ" value="17.9" /> < interpretationCode codeSystem="local" code="" /> <referenceRange> <observationRange> <text>1.8-7.8</text> </ observationRange> </referenceRange> </observation> </ component> <component> <observation moodCode="EVN" classCode="OBS"> <templateId root="03.28.840.1.103948.10.22.4.2" /> <id nullFlavor="NA" /> <code codeSystem="local" code="731-0" displayName= "Blood lymphocytes automated count (number/volume)" /> <statusCode code ="completed" /> <effectiveTime value="602299284316" /> <value unit="10*3" xsi:type="PQ" value="0.8" /> <interpretationCode codeSystem ="local" code="" /> <referenceRange> <observationRange> <text>1.0-4.0</text> </observationRange> </ referenceRange> </observation> </component> <component> <observation moodCode="EVN" classCode="OBS"> <templateId root= "03.28.840.1.706046.10.20.22.4.2" /> <id nullFlavor="NA" /> < code codeSystem="local" code="742-7" displayName="Blood monocytes automated count (number/volume)" /> <statusCode code="completed" /> < effectiveTime value="186828325401" /> <value unit="10*3" xsi:type="PQ" value="1.0" /> <referenceRange> <observationRange> <text>0.0-1.0</text> </observationRange> </ referenceRange> </observation> </component> <component> <observation moodCode="EVN" classCode="OBS"> <templateId root= "216.840.1.257720.11.29.21.4.2" /> <id nullFlavor="NA" /> < code codeSystem="local" code="711-2" displayName="Automated eosinophil count" / > <statusCode code="completed" /> <effectiveTime value= "836095401534" /> <value unit="10*3/uL" xsi:type="PQ" value="0.0" /> <referenceRange> <observationRange> <text>0.0- 0.3</text> </observationRange> </referenceRange> </ observation> </component> <component> <observation moodCode= "EVN" classCode="OBS"> <templateId root="216.840.1.179432.11.29.21.4.2 " /> <id nullFlavor="NA" /> <code codeSystem="local" code="704 -7" displayName="Automated blood basophil count (count/volume)" /> < statusCode code="completed" /> <effectiveTime value="389566246329" /> <value unit="10*3/uL" xsi:type="PQ" value="0.0" /> < referenceRange> <observationRange> <text>0.0-0.1</text> </observationRange> </referenceRange> </observation > </component> </organizer> </entry> <entry> <organizer moodCode= "EVN" classCode="BATTERY"> <templateId root="216.840.1.065593.10..22.4.1 " /> <id nullFlavor="NA" /> <code codeSystem="local" code="2117-09" displayName="Serum or plasma choriogonadotropin ( test) detection" /> <statusCode code="completed" /> <component> <observation moodCode="EVN" classCode="OBS"> <templateId root= "16.840.1.364695.11.29.21.4.2" /> <id nullFlavor="NA" /> < code codeSystem="local" code="2117-09" displayName="Serum or plasma choriogonadotropin ( test) detection" /> <statusCode code= "completed" /> <effectiveTime value="" /> <value unit="" xsi:type="PQ" value="NEGATIVE" /> <referenceRange> < observationRange> <text>NEGATIVE</text> </ observationRange> </referenceRange> </observation> </ component> </organizer> </entry> <entry> <organizer moodCode="EVN" classCode="BATTERY"> <templateId root="216.840.1.140267...4.1" /> <id nullFlavor="NA" /> <code codeSystem="local" code="73803-3" displayName="Streptococcus pyogenes antigen detection" /> <statusCode code= "completed" /> <component> <observation moodCode="EVN" classCode= "OBS"> <templateId root="216.840.1.043547.10...4.2" /> < id nullFlavor="NA" /> <code codeSystem="local" code="93514-7" displayName="Streptococcus pyogenes antigen detection" /> <statusCode code="completed" /> <effectiveTime value="445108277240" /> < value unit="" xsi:type="PQ" value="NEGATIVE" /> <referenceRange> <observationRange> <text>NEGATIVE</text> </ observationRange> </referenceRange> </observation> </ component> </organizer> </entry> <entry> <organizer moodCode="EVN" classCode="BATTERY"> <templateId root="16.840.1.776524.10..22.4.1" /> <id nullFlavor="NA" /> <code codeSystem="local" code="68321-8" displayName="Comprehensive metabolic panel" /> <statusCode code="completed " /> <component> <observation moodCode="EVN" classCode="OBS"> <templateId root="16.840.1.280926.10..22.4.2" /> <id nullFlavor ="NA" /> <code codeSystem="local" code="2951-2" displayName="Serum or plasma sodium measurement (moles/volume)" /> <statusCode code= "completed" /> <effectiveTime value="539655012897" /> <value unit="mmol/L" xsi:type="PQ" value="132" /> <interpretationCode codeSystem="local" code="" /> <referenceRange> < observationRange> <text>135-145</text> </ observationRange> </referenceRange> </observation> </ component> <component> <observation moodCode="EVN" classCode="OBS"> <templateId root="03.28.840.1.484876.10.20.22.4.2" /> <id nullFlavor="NA" /> <code codeSystem="local" code="2823-3" displayName= "Serum or plasma potassium measurement (moles/volume)" /> <statusCode code="completed" /> <effectiveTime value="752952360508" /> < value unit="mmol/L" xsi:type="PQ" value="3.8" /> <referenceRange> <observationRange> <text>3.6-5.0</text> </ observationRange> </referenceRange> </observation> </ component> <component> <observation moodCode="EVN" classCode="OBS"> <templateId root="03.28.840.1.392336.10.20.22.4.2" /> <id nullFlavor="NA" /> <code codeSystem="local" code="" displayName= "Serum or plasma chloride measurement (moles/volume)" /> <statusCode code="completed" /> <effectiveTime value="193960338840" /> < value unit="mmol/L" xsi:type="PQ" value="101" /> <referenceRange> <observationRange> <text>98-107</text> </ observationRange> </referenceRange> </observation> </ component> <component> <observation moodCode="EVN" classCode="OBS"> <templateId root="03.28.840.1.884010.10...4.2" /> <id nullFlavor="NA" /> <code codeSystem="local" code="2027-10" displayName= "Carbon dioxide" /> <statusCode code="completed" /> < effectiveTime value="898433741462" /> <value unit="mmol/L" xsi:type="PQ " value="18" /> <interpretationCode codeSystem="local" code="" /> <referenceRange> <observationRange> <text>21-32</ text> </observationRange> </referenceRange> </ observation> </component> <component> <observation moodCode= "EVN" classCode="OBS"> <templateId root="03.28.840.1.997492.10..22.4.2 " /> <id nullFlavor="NA" /> <code codeSystem="local" code= "00967-9" displayName="Serum or plasma anion gap determination (moles/volume)" / > <statusCode code="completed" /> <effectiveTime value= "833493236638" /> <value unit="mmol/L" xsi:type="PQ" value="13" /> <referenceRange> <observationRange> <text>5-14</ text> </observationRange> </referenceRange> </ observation> </component> <component> <observation moodCode= "EVN" classCode="OBS"> <templateId root="2.16.840.1.082659.10.20.22.4.2 " /> <id nullFlavor="NA" /> <code codeSystem="local" code= "3094-0" displayName="Serum or plasma urea nitrogen measurement (mass/volume)" / > <statusCode code="completed" /> <effectiveTime value= "293485854843" /> <value unit="mg/dL" xsi:type="PQ" value="10" /> <referenceRange> <observationRange> <text>7-18</ text> </observationRange> </referenceRange> </ observation> </component> <component> <observation moodCode= "EVN" classCode="OBS"> <templateId root="2.16.840.1.433101.10..22.4.2 " /> <id nullFlavor="NA" /> <code codeSystem="local" code= "2160-0" displayName="Serum or plasma creatinine measurement (mass/volume)" /> <statusCode code="completed" /> <effectiveTime value= "472439965834" /> <value unit="mg/dL" xsi:type="PQ" value="0.85" /> <referenceRange> <observationRange> <text>0.60- 1.30</text> </observationRange> </referenceRange> </ observation> </component> <component> <observation moodCode= "EVN" classCode="OBS"> <templateId root="2.16.840.1.513986.10..22.4.2 " /> <id nullFlavor="NA" /> <code codeSystem="local" code= "3097-3" displayName="Serum or plasma urea nitrogen/creatinine mass ratio" /> <statusCode code="completed" /> <effectiveTime value= "856905180221" /> <value unit="" xsi:type="PQ" value="12" /> < referenceRange> <observationRange> <text>NRG</text> </observationRange> </referenceRange> </observation> </component> <component> <observation moodCode="EVN" classCode= "OBS"> <templateId root="2.16.840.1.362393.10...4.2" /> < id nullFlavor="NA" /> <code codeSystem="local" code="22686-3" displayName="Serum or plasma creatinine measurement with calculation of estimated glomerular filtration rate" /> <statusCode code="completed" / > <effectiveTime value="283857466470" /> <value unit="" xsi: type="PQ" value=">" /> <referenceRange> <observationRange > <text>NRG</text> </observationRange> </ referenceRange> </observation> </component> <component> <observation moodCode="EVN" classCode="OBS"> <templateId root= "2.16.840.1.949568.10..22.4.2" /> <id nullFlavor="NA" /> < code codeSystem="local" code="2345-7" displayName="Serum or plasma glucose measurement (mass/volume)" /> <statusCode code="completed" /> <effectiveTime value="" /> <value unit="mg/dL" xsi:type="PQ " value="97" /> <referenceRange> <observationRange> <text>70-105</text> </observationRange> </ referenceRange> </observation> </component> <component> <observation moodCode="EVN" classCode="OBS"> <templateId root= "2.16.840.1.434382.10..22.4.2" /> <id nullFlavor="NA" /> < code codeSystem="local" code="86495-1" displayName="Serum or plasma calcium measurement (mass/volume)" /> <statusCode code="completed" /> <effectiveTime value="794918060017" /> <value unit="mg/dL" xsi:type="PQ " value="9.4" /> <referenceRange> <observationRange> <text>8.5-10.1</text> </observationRange> </ referenceRange> </observation> </component> <component> <observation moodCode="EVN" classCode="OBS"> <templateId root= "2.16.840.1.338362.10..22.4.2" /> <id nullFlavor="NA" /> < code codeSystem="local" code="1974-03" displayName="Serum or plasma total bilirubin measurement (mass/volume)" /> <statusCode code="completed" / > <effectiveTime value="699959567520" /> <value unit="mg/dL" xsi:type="PQ" value="1.3" /> <interpretationCode codeSystem="local" code="" /> <referenceRange> <observationRange> <text>0.1-1.0</text> </observationRange> </referenceRange > </observation> </component> <component> <observation moodCode="EVN" classCode="OBS"> <templateId root= "2.16.840.1.559613.10.20.22.4.2" /> <id nullFlavor="NA" /> < code codeSystem="local" code="6768" displayName="Serum or plasma alkaline phosphatase measurement (enzymatic activity/volume)" /> <statusCode code="completed" /> <effectiveTime value="890607666512" /> < value unit="U/L" xsi:type="PQ" value="65" /> <referenceRange> <observationRange> <text>40-136</text> </ observationRange> </referenceRange> </observation> </ component> <component> <observation moodCode="EVN" classCode="OBS"> <templateId root="2.16.840.1.348490.10..22.4.2" /> <id nullFlavor="NA" /> <code codeSystem="local" code="1919-09" displayName= "Serum or plasma aspartate aminotransferase measurement (enzymatic activity/ volume)" /> <statusCode code="completed" /> <effectiveTime value="314035958023" /> <value unit="U/L" xsi:type="PQ" value="15" /> <referenceRange> <observationRange> <text>5-34< /text> </observationRange> </referenceRange> </ observation> </component> <component> <observation moodCode= "EVN" classCode="OBS"> <templateId root="2.16.840.1.229720.10..22.4.2 " /> <id nullFlavor="NA" /> <code codeSystem="local" code= "17403-18" displayName="Serum or plasma alanine aminotransferase measurement ( enzymatic activity/volume)" /> <statusCode code="completed" /> <effectiveTime value="492234912043" /> <value unit="U/L" xsi:type="PQ " value="10" /> <referenceRange> <observationRange> <text>0-55</text> </observationRange> </referenceRange > </observation> </component> <component> <observation moodCode="EVN" classCode="OBS"> <templateId root= "216.840.1.705203.10.20.22.4.2" /> <id nullFlavor="NA" /> < code codeSystem="local" code="2885-2" displayName="Serum or plasma protein measurement (mass/volume)" /> <statusCode code="completed" /> <effectiveTime value="480834616164" /> <value unit="g/dL" xsi:type="PQ " value="7.8" /> <referenceRange> <observationRange> <text>6.4-8.2</text> </observationRange> </ referenceRange> </observation> </component> <component> <observation moodCode="EVN" classCode="OBS"> <templateId root= "03.28.840.1.232574.10..22.4.2" /> <id nullFlavor="NA" /> < code codeSystem="local" code="1751-7" displayName="Serum or plasma albumin measurement (mass/volume)" /> <statusCode code="completed" /> <effectiveTime value="245462361909" /> <value unit="g/dL" xsi:type="PQ " value="4.4" /> <referenceRange> <observationRange> <text>3.2-4.5</text> </observationRange> </ referenceRange> </observation> </component> <component> <observation moodCode="EVN" classCode="OBS"> <templateId root= "03.28.840.1.939767.10.20.22.4.2" /> <id nullFlavor="NA" /> < code codeSystem="local" code="CALCIUMCORR" displayName="CALCIUM CORRECTED" /> <statusCode code="completed" /> <effectiveTime value= "613350287686" /> <value unit="mg/dL" xsi:type="PQ" value="9.1" /> <referenceRange> <observationRange> <text>8.5-10.1 </text> </observationRange> </referenceRange> </ observation> </component> </organizer> </entry> <entry> <organizer moodCode="EVN" classCode="BATTERY"> <templateId root= "216.840.1.227284.10.20.22.4.1" /> <id nullFlavor="NA" /> <code codeSystem="local" code="00383-5" displayName="Influenza virus A and B antigen detection" /> <statusCode code="completed" /> <component> < observation moodCode="EVN" classCode="OBS"> <templateId root= "216.840.1.605905.10..22.4.2" /> <id nullFlavor="NA" /> < code codeSystem="local" code="FLURESULT" displayName="FLU RESULT" /> < statusCode code="completed" /> <effectiveTime value="824791148736" /> <value unit="" xsi:type="PQ" value="NEGATIVE FOR INFLUENZA A AND B ANTIGENS BY IA" /> <referenceRange> <observationRange> <text>NRG</text> </observationRange> </ referenceRange> </observation> </component> </organizer> </entry > <entry> <organizer moodCode="EVN" classCode="BATTERY"> <templateId root="216.840.1.520626.10.20.22.4.1" /> <id nullFlavor="NA" /> <code codeSystem="local" code="00406-6" displayName="Blood manual differential performed detection" /> <statusCode code="completed" /> <component> <observation moodCode="EVN" classCode="OBS"> <templateId root= "216.840.1.319736.10..22.4.2" /> <id nullFlavor="NA" /> < code codeSystem="local" code="24424-2" displayName="Blood monocytes/100 leukocytes" /> <statusCode code="completed" /> <effectiveTime value="" /> <value unit="%" xsi:type="PQ" value="4" /> <referenceRange> <observationRange> <text>NRG< /text> </observationRange> </referenceRange> </ observation> </component> <component> <observation moodCode= "EVN" classCode="OBS"> <templateId root="216.840.1.040452.10.22.4.2 " /> <id nullFlavor="NA" /> <code codeSystem="local" code="769 -0" displayName="Manual blood segmented neutrophils/100 leukocytes" /> <statusCode code="completed" /> <effectiveTime value="" /> <value unit="%" xsi:type="PQ" value="77" /> < referenceRange> <observationRange> <text>NRG</text> </observationRange> </referenceRange> </observation> </component> <component> <observation moodCode="EVN" classCode= "OBS"> <templateId root="216.840.1.484582.10.20.22.4.2" /> < id nullFlavor="NA" /> <code codeSystem="local" code="41209-2" displayName="Blood band neutrophils/100 leukocytes" /> <statusCode code ="completed" /> <effectiveTime value="" /> <value unit="%" xsi:type="PQ" value="15" /> <referenceRange> < observationRange> <text>NRG</text> </observationRange> </referenceRange> </observation> </component> < component> <observation moodCode="EVN" classCode="OBS"> < templateId root="03.28.840.1.733997.10.20.22.4.2" /> <id nullFlavor="NA " /> <code codeSystem="local" code="737-7" displayName="Manual blood lymphocytes/100 leukocytes" /> <statusCode code="completed" /> <effectiveTime value="111971757401" /> <value unit="%" xsi:type= "PQ" value="3" /> <referenceRange> <observationRange> <text>NRG</text> </observationRange> </ referenceRange> </observation> </component> <component> <observation moodCode="EVN" classCode="OBS"> <templateId root= "03.28.840.1.783354.10.20.22.4.2" /> <id nullFlavor="NA" /> < code codeSystem="local" code="9727-9" displayName="Manual eosinophils/100 leukocytes in nose" /> <statusCode code="completed" /> < effectiveTime value="218698630357" /> <value unit="%" xsi:type="PQ " value="1" /> <referenceRange> <observationRange> <text>NRG</text> </observationRange> </referenceRange> </observation> </component> <component> <observation moodCode="EVN" classCode="OBS"> <templateId root= "03.28.840.1.960291.10.20.22.4.2" /> <id nullFlavor="NA" /> < code codeSystem="local" code="6742-1" displayName="Blood erythrocyte morphology finding identification" /> <statusCode code="completed" /> < effectiveTime value="955170546652" /> <value unit="" xsi:type="PQ" value="NORMAL" /> <referenceRange> <observationRange> <text>NRG</text> </observationRange> </ referenceRange> </observation> </component> </organizer> </entry > <entry> <organizer moodCode="EVN" classCode="BATTERY"> <templateId root="16.840.1.631141.10.20.22.4.1" /> <id nullFlavor="NA" /> <code codeSystem="local" code="1987-06" displayName="Serum or plasma C reactive protein measurement (mass/volume)" /> <statusCode code="completed" /> <component> <observation moodCode="EVN" classCode="OBS"> < templateId root="16.840.1.285454.10.20.22.4.2" /> <id nullFlavor="NA " /> <code codeSystem="local" code="1987-06" displayName="Serum or plasma C reactive protein measurement (mass/volume)" /> <statusCode code="completed" /> <effectiveTime value="767797487717" /> < value unit="mg/dL" xsi:type="PQ" value="3.54" /> <interpretationCode codeSystem="local" code="" /> <referenceRange> < observationRange> <text>0.00-0.50</text> </ observationRange> </referenceRange> </observation> </ component> </organizer> </entry> <entry> <organizer moodCode="EVN" classCode="BATTERY"> <templateId root="16.840.1.889678.10.20.22.4.1" /> <id nullFlavor="NA" /> <code codeSystem="local" code="" displayName="Magnesium" /> <statusCode code="completed" /> <component > <observation moodCode="EVN" classCode="OBS"> <templateId root= "16.840.1.425991.10.4.2" /> <id nullFlavor="NA" /> < code codeSystem="local" code="" displayName="Magnesium" /> < statusCode code="completed" /> <effectiveTime value="117038333617" /> <value unit="mg/dL" xsi:type="PQ" value="1.6" /> < interpretationCode codeSystem="local" code="" /> <referenceRange> <observationRange> <text>1.8-2.4</text> </ observationRange> </referenceRange> </observation> </ component> </organizer> </entry> <entry> <organizer moodCode="EVN" classCode="BATTERY"> <templateId root="03.28.840.1.860523.10.4.1" /> <id nullFlavor="NA" /> <code codeSystem="local" code="3040" displayName="Lipase" /> <statusCode code="completed" /> <component> <observation moodCode="EVN" classCode="OBS"> <templateId root= "03.28.840.1.991327.10.4.2" /> <id nullFlavor="NA" /> < code codeSystem="local" code="3040-3" displayName="Lipase" /> < statusCode code="completed" /> <effectiveTime value="000671968404" /> <value unit="U/L" xsi:type="PQ" value="26" /> <referenceRange > <observationRange> <text>8-78</text> </ observationRange> </referenceRange> </observation> </ component> </organizer> </entry> <entry> <organizer moodCode="EVN" classCode="BATTERY"> <templateId root="840.1.917586.10.4.1" /> <id nullFlavor="NA" /> <code codeSystem="local" code="10326-9" displayName="Serum heterophile antibody titer" /> <statusCode code= "completed" /> <component> <observation moodCode="EVN" classCode= "OBS"> <templateId root="840.1.230524.11.29.21.4.2" /> < id nullFlavor="NA" /> <code codeSystem="local" code="81485-5" displayName="Serum heterophile antibody titer" /> <statusCode code= "completed" /> <effectiveTime value="240435352310" /> <value unit="" xsi:type="PQ" value="NEGATIVE" /> <referenceRange> < observationRange> <text>NEGATIVE</text> </ observationRange> </referenceRange> </observation> </ component> </organizer> </entry> <entry> <organizer moodCode="EVN" classCode="BATTERY"> <templateId root="840.1.706035.11.29.21.4.1" /> <id nullFlavor="NA" /> <code codeSystem="local" code="91623-6" displayName="Complete urinalysis with reflex to culture" /> <statusCode code="completed" /> <component> <observation moodCode="EVN" classCode="OBS"> <templateId root="03.28.840.1.483085.10..4.2" /> <id nullFlavor="NA" /> <code codeSystem="local" code="5778-6" displayName="Urine color determination" /> <statusCode code="completed " /> <effectiveTime value="629291820905" /> <value unit="" xsi :type="PQ" value="DASHA" /> <interpretationCode codeSystem="local" code ="*" /> <referenceRange> <observationRange> < text>NRG</text> </observationRange> </referenceRange> </observation> </component> <component> <observation moodCode ="EVN" classCode="OBS"> <templateId root= "2.16.840.1.537254.10.20.22.4.2" /> <id nullFlavor="NA" /> < code codeSystem="local" code="50967-2" displayName="Urine clarity determination " /> <statusCode code="completed" /> <effectiveTime value= "590920477449" /> <value unit="" xsi:type="PQ" value="VERY CLOUDY" /> <interpretationCode codeSystem="local" code="*" /> < referenceRange> <observationRange> <text>NRG</text> </observationRange> </referenceRange> </observation> </component> <component> <observation moodCode="EVN" classCode= "OBS"> <templateId root="2.16.840.1.037162.10.20.22.4.2" /> < id nullFlavor="NA" /> <code codeSystem="local" code="5803-2" displayName="Urine pH measurement by test strip" /> <statusCode code= "completed" /> <effectiveTime value="793515082539" /> <value unit="" xsi:type="PQ" value="8" /> <referenceRange> < observationRange> <text>5-9</text> </observationRange> </referenceRange> </observation> </component> < component> <observation moodCode="EVN" classCode="OBS"> < templateId root="16.840.1.556766.10..4.2" /> <id nullFlavor="NA " /> <code codeSystem="local" code="5811-5" displayName="Specific gravity of urine by test strip" /> <statusCode code="completed" /> <effectiveTime value="" /> <value unit="" xsi:type= "PQ" value="1.010" /> <interpretationCode codeSystem="local" code="" /> <referenceRange> <observationRange> <text> 1.016-1.022</text> </observationRange> </referenceRange> </observation> </component> <component> <observation moodCode="EVN" classCode="OBS"> <templateId root= "03.28.840.1.856389.11.29.214.2" /> <id nullFlavor="NA" /> < code codeSystem="local" code="97260-5" displayName="Urine protein assay by test strip, semi-quantitative" /> <statusCode code="completed" /> < effectiveTime value="" /> <value unit="" xsi:type="PQ" value="1+" /> <interpretationCode codeSystem="local" code="*" /> <referenceRange> <observationRange> <text>NEGATIVE</ text> </observationRange> </referenceRange> </ observation> </component> <component> <observation moodCode= "EVN" classCode="OBS"> <templateId root="03.28.840.1.942923.11.29.21.4.2 " /> <id nullFlavor="NA" /> <code codeSystem="local" code= "23764-5" displayName="Urine glucose detection by automated test strip" /> <statusCode code="completed" /> <effectiveTime value="651064306133 " /> <value unit="" xsi:type="PQ" value="NEGATIVE" /> < referenceRange> <observationRange> <text>NEGATIVE</text > </observationRange> </referenceRange> </observation > </component> <component> <observation moodCode="EVN" classCode="OBS"> <templateId root="216.840.1.130209.11.29.21.4.2" /> <id nullFlavor="NA" /> <code codeSystem="local" code="38234-3 " displayName="Erythrocytes detection in urine sediment by light microscopy" /> <statusCode code="completed" /> <effectiveTime value= "604024721787" /> <value unit="" xsi:type="PQ" value="1+" /> < interpretationCode codeSystem="local" code="*" /> <referenceRange> <observationRange> <text>NEGATIVE</text> </ observationRange> </referenceRange> </observation> </ component> <component> <observation moodCode="EVN" classCode="OBS"> <templateId root="216.840.1.581920.11.29.21.4.2" /> <id nullFlavor="NA" /> <code codeSystem="local" code="55738-5" displayName= "Urine ketones detection by automated test strip" /> <statusCode code= "completed" /> <effectiveTime value="355740176350" /> <value unit="" xsi:type="PQ" value="4+" /> <interpretationCode codeSystem= "local" code="*" /> <referenceRange> <observationRange> <text>NEGATIVE</text> </observationRange> </ referenceRange> </observation> </component> <component> <observation moodCode="EVN" classCode="OBS"> <templateId root= "216.840.1.796867.10.22.4.2" /> <id nullFlavor="NA" /> < code codeSystem="local" code="5802-4" displayName="Urine nitrite detection by test strip" /> <statusCode code="completed" /> <effectiveTime value="" /> <value unit="" xsi:type="PQ" value="NEGATIVE" / > <referenceRange> <observationRange> <text> NEGATIVE</text> </observationRange> </referenceRange> </observation> </component> <component> <observation moodCode ="EVN" classCode="OBS"> <templateId root= "2.16.840.1.703520.10..4.2" /> <id nullFlavor="NA" /> < code codeSystem="local" code="5770-3" displayName="Urine total bilirubin detection by test strip" /> <statusCode code="completed" /> < effectiveTime value="" /> <value unit="" xsi:type="PQ" value="NEGATIVE" /> <referenceRange> <observationRange> <text>NEGATIVE</text> </observationRange> </ referenceRange> </observation> </component> <component> <observation moodCode="EVN" classCode="OBS"> <templateId root= "216.840.1.235653.10..22.4.2" /> <id nullFlavor="NA" /> < code codeSystem="local" code="75793-2" displayName="Urine urobilinogen measurement by automated test strip (mass/volume)" /> <statusCode code= "completed" /> <effectiveTime value="" /> <value unit="mg/dL" xsi:type="PQ" value="1" /> <referenceRange> < observationRange> <text>NORMAL</text> </observationRange > </referenceRange> </observation> </component> < component> <observation moodCode="EVN" classCode="OBS"> < templateId root="216.840.1.099314.10..4.2" /> <id nullFlavor="NA " /> <code codeSystem="local" code="5799-2" displayName="Urine leukocyte esterase detection by dipstick" /> <statusCode code= "completed" /> <effectiveTime value="404340081259" /> <value unit="" xsi:type="PQ" value="1+" /> <interpretationCode codeSystem= "local" code="*" /> <referenceRange> <observationRange> <text>NEGATIVE</text> </observationRange> </ referenceRange> </observation> </component> <component> <observation moodCode="EVN" classCode="OBS"> <templateId root= "03.28.840.1.986372.11.29.21.4.2" /> <id nullFlavor="NA" /> < code codeSystem="local" code="71281-6" displayName="Automated urine sediment erythrocyte count by microscopy (number/high power field)" /> < statusCode code="completed" /> <effectiveTime value="364420284040" /> <value unit="[HPF]" xsi:type="PQ" value="" /> < interpretationCode codeSystem="local" code="*" /> <referenceRange> <observationRange> <text>NRG</text> </ observationRange> </referenceRange> </observation> </ component> <component> <observation moodCode="EVN" classCode="OBS"> <templateId root="03.28.840.1.792863.10..4.2" /> <id nullFlavor="NA" /> <code codeSystem="local" code="5821-4" displayName= "Automated urine sediment leukocyte count by microscopy (number/high power field )" /> <statusCode code="completed" /> <effectiveTime value= "765494552699" /> <value unit="[HPF]" xsi:type="PQ" value="" /> <referenceRange> <observationRange> <text>NRG</text> </observationRange> </referenceRange> </observation > </component> <component> <observation moodCode="EVN" classCode="OBS"> <templateId root="216.840.1.454098.10.20.22.4.2" /> <id nullFlavor="NA" /> <code codeSystem="local" code="40376-1 " displayName="Bacteria detection in urine sediment by light microscopy" /> <statusCode code="completed" /> <effectiveTime value= "518084346636" /> <value unit="" xsi:type="PQ" value="MODERATE" /> <interpretationCode codeSystem="local" code="*" /> < referenceRange> <observationRange> <text>NRG</text> </observationRange> </referenceRange> </observation> </component> <component> <observation moodCode="EVN" classCode= "OBS"> <templateId root="2.16.840.1.382035.10.20.22.4.2" /> < id nullFlavor="NA" /> <code codeSystem="local" code="97367-7" displayName="Squamous epithelial cells detection in urine sediment by light microscopy" /> <statusCode code="completed" /> <effectiveTime value="200414992941" /> <value unit="" xsi:type="PQ" value="10-25" /> <interpretationCode codeSystem="local" code="*" /> < referenceRange> <observationRange> <text>NRG</text> </observationRange> </referenceRange> </observation> </component> <component> <observation moodCode="EVN" classCode= "OBS"> <templateId root="216.840.1.999985.10..22.4.2" /> < id nullFlavor="NA" /> <code codeSystem="local" code="05280-7" displayName="Crystals detection in urine sediment by light microscopy" /> <statusCode code="completed" /> <effectiveTime value=" " /> <value unit="" xsi:type="PQ" value="NONE" /> < referenceRange> <observationRange> <text>NRG</text> </observationRange> </referenceRange> </observation> </component> <component> <observation moodCode="EVN" classCode= "OBS"> <templateId root="16.840.1.050205.10...4.2" /> < id nullFlavor="NA" /> <code codeSystem="local" code="14141-1" displayName="Casts detection in urine sediment by light microscopy" /> <statusCode code="completed" /> <effectiveTime value="" /> <value unit="" xsi:type="PQ" value="NONE" /> <referenceRange > <observationRange> <text>NRG</text> </ observationRange> </referenceRange> </observation> </ component> <component> <observation moodCode="EVN" classCode="OBS"> <templateId root="16.840.1.075786.10.20.22.4.2" /> <id nullFlavor="NA" /> <code codeSystem="local" code="8247-9" displayName= "Mucus detection in urine sediment by light microscopy" /> <statusCode code="completed" /> <effectiveTime value="495511277093" /> < value unit="" xsi:type="PQ" value="NEGATIVE" /> <referenceRange> <observationRange> <text>NRG</text> </ observationRange> </referenceRange> </observation> </ component> <component> <observation moodCode="EVN" classCode="OBS"> <templateId root="16.840.1.199404.10.20.22.4.2" /> <id nullFlavor="NA" /> <code codeSystem="local" code="93813-8" displayName= "Complete urinalysis with reflex to culture" /> <statusCode code= "completed" /> <effectiveTime value="014837585115" /> <value unit="" xsi:type="PQ" value="YES" /> <referenceRange> < observationRange> <text>NRG</text> </observationRange> </referenceRange> </observation> </component> </ organizer> </entry> <entry> <organizer moodCode="EVN" classCode="BATTERY"> <templateId root="16.840.1.123400.10.20.22.4.1" /> <id nullFlavor= "NA" /> <code codeSystem="local" code="46136-3" displayName="Blood lactic acid measurement (moles/volume)" /> <statusCode code="completed" /> < component> <observation moodCode="EVN" classCode="OBS"> < templateId root="16.840.1.054522.10.20.22.4.2" /> <id nullFlavor="NA " /> <code codeSystem="local" code="04674-1" displayName="Blood lactic acid measurement (moles/volume)" /> <statusCode code="completed" /> <effectiveTime value="400159603463" /> <value unit="mmol/L" xsi: type="PQ" value="0.90" /> <referenceRange> <observationRange > <text>0.50-2.00</text> </observationRange> </ referenceRange> </observation> </component> </organizer> </entry > <entry> <organizer moodCode="EVN" classCode="BATTERY"> <templateId root="216.840.1.505311.10..22.4.1" /> <id nullFlavor="NA" /> <code codeSystem="local" code="28460-3" displayName="Cerebrospinal fluid cell count" / > <statusCode code="completed" /> <component> <observation moodCode="EVN" classCode="OBS"> <templateId root= "216.840.1.734117.10...4.2" /> <id nullFlavor="NA" /> < code codeSystem="local" code="65199-5" displayName="Cerebrospinal fluid appearance description" /> <statusCode code="completed" /> < effectiveTime value="989905194551" /> <value unit="" xsi:type="PQ" value="CLEAR" /> <referenceRange> <observationRange> <text>NRG</text> </observationRange> </referenceRange > </observation> </component> <component> <observation moodCode="EVN" classCode="OBS"> <templateId root= "2.16.840.1.480959.10..22.4.2" /> <id nullFlavor="NA" /> < code codeSystem="local" code="12031-5" displayName="Cerebrospinal fluid color identification" /> <statusCode code="completed" /> < effectiveTime value="317743432018" /> <value unit="" xsi:type="PQ" value="COLORLESS" /> <referenceRange> <observationRange> <text>NRG</text> </observationRange> </ referenceRange> </observation> </component> <component> <observation moodCode="EVN" classCode="OBS"> <templateId root= "2.16.840.1.530260.10.20.22.4.2" /> <id nullFlavor="NA" /> < code codeSystem="local" code="37659-2" displayName="Cerebrospinal fluid leukocytes count (number/volume)" /> <statusCode code="completed" /> <effectiveTime value="798805038592" /> <value unit="%" xsi: type="PQ" value="1" /> <referenceRange> <observationRange> <text>0-5</text> </observationRange> </ referenceRange> </observation> </component> <component> <observation moodCode="EVN" classCode="OBS"> <templateId root= "216.840.1.970012.10..22.4.2" /> <id nullFlavor="NA" /> < code codeSystem="local" code="17818-6" displayName="Cerebrospinal fluid erythrocytes count (number/volume)" /> <statusCode code="completed" /> <effectiveTime value="114125838967" /> <value unit="%" xsi:type="PQ" value="8" /> <interpretationCode codeSystem="local" code= "" /> <referenceRange> <observationRange> < text>0-0</text> </observationRange> </referenceRange> </observation> </component> <component> <observation moodCode ="EVN" classCode="OBS"> <templateId root= "2.16.840.1.403825.10.20.22.4.2" /> <id nullFlavor="NA" /> < code codeSystem="local" code="83093-1" displayName="Manual cerebrospinal fluid lymphocytes/100 leukocytes" /> <statusCode code="completed" /> <effectiveTime value="493755942123" /> <value unit="" xsi:type="PQ" value="TNP" /> <referenceRange> <observationRange> <text>NRG</text> </observationRange> </referenceRange> </observation> </component> <component> <observation moodCode="EVN" classCode="OBS"> <templateId root= "216.840.1.931462.10.20.22.4.2" /> <id nullFlavor="NA" /> < code codeSystem="local" code="41995-0" displayName="Manual cerebrospinal fluid mononuclear cells/100 leukocytes" /> <statusCode code="completed" /> <effectiveTime value="906939699068" /> <value unit="" xsi:type= "PQ" value="TNP" /> <referenceRange> <observationRange> <text>NRG</text> </observationRange> </ referenceRange> </observation> </component> <component> <observation moodCode="EVN" classCode="OBS"> <templateId root= "840.1.543762.10.22.4.2" /> <id nullFlavor="NA" /> < code codeSystem="local" code="08956-7" displayName="Manual cerebrospinal fluid polymorphonuclear cells/100 leukocytes" /> <statusCode code="completed " /> <effectiveTime value="620083387930" /> <value unit="" xsi :type="PQ" value="TNP" /> <referenceRange> <observationRange > <text>NRG</text> </observationRange> </ referenceRange> </observation> </component> <component> <observation moodCode="EVN" classCode="OBS"> <templateId root= "03.28.840.1.452959.10.2022.4.2" /> <id nullFlavor="NA" /> < code codeSystem="local" code="39030-8" displayName="Cerebrospinal fluid cell count on specimen from last tube collected" /> <statusCode code= "completed" /> <effectiveTime value="183969138440" /> <value unit="" xsi:type="PQ" value="4" /> <referenceRange> < observationRange> <text>NRG</text> </observationRange> </referenceRange> </observation> </component> </ organizer> </entry> <entry> <organizer moodCode="EVN" classCode="BATTERY"> <templateId root="216.840.1.720709.10.20.22.4.1" /> <id nullFlavor= "NA" /> <code codeSystem="local" code="2342-4" displayName="Cerebrospinal fluid glucose measurement (mass/volume)" /> <statusCode code="completed" / > <component> <observation moodCode="EVN" classCode="OBS"> <templateId root="216.840.1.281059.10.20.22.4.2" /> <id nullFlavor="NA " /> <code codeSystem="local" code="2342-4" displayName="Cerebrospinal fluid glucose measurement (mass/volume)" /> <statusCode code="completed " /> <effectiveTime value="158850911459" /> <value unit="mg/dL " xsi:type="PQ" value="57" /> <referenceRange> < observationRange> <text>50-80</text> </observationRange > </referenceRange> </observation> </component> </ organizer> </entry> <entry> <organizer moodCode="EVN" classCode="BATTERY"> <templateId root="16.840.1.880723.10.20.22.4.1" /> <id nullFlavor= "NA" /> <code codeSystem="local" code="2880-3" displayName="Cerebrospinal fluid protein measurement (mass/volume)" /> <statusCode code="completed" / > <component> <observation moodCode="EVN" classCode="OBS"> <templateId root="2.16.840.1.247497.10.20.22.4.2" /> <id nullFlavor="NA " /> <code codeSystem="local" code="2880-3" displayName="Cerebrospinal fluid protein measurement (mass/volume)" /> <statusCode code="completed " /> <effectiveTime value="470629942418" /> <value unit="mg/dL " xsi:type="PQ" value="25" /> <referenceRange> < observationRange> <text>15-40</text> </observationRange > </referenceRange> </observation> </component> </ organizer> </entry></section> Encounters ACCT No. Visit Date/Time Discharge Status Pt. Type Provider Facility Loc./Unit Complaint [id number] 11/14/2015 11:12:00 11/16/2015 15:00:00 DIS Inpatient Geri Bauman MD, Janak Haed [facility] E.T4 [id number] 03/23/2015 09:46:00 03/23/2015 11:29:00 DIS Emergency Davie BARBER, Pradeep Mares [facility] E.ED [id number] 01/20/2018 15:48:24 01/20/2018 15:48:24 DIS Outpatient [id number] 11/13/2015 09:05:00 11/13/2015 13:05:00 DIS Emergency Tanmay SAAVEDRA, Scott Randolph [facility] W.MARCO [id number] 11/11/2015 11:52:00 11/11/2015 13:38:00 DIS Emergency Dejuan BARBER, Jose Torres [facility].ED [id number] 04/20/2015 12:48:00 04/20/2015 12:48:00 [id number] 12/08/2014 20:48:00 12/08/2014 22:12:00 DIS Emergency Kingsley BARBER, [facility] W.EDN [id number] 02/27/2018 17:21:00 02/27/2018 18:38:00 DIS Emergency JAYANT HODGE [facility] ER PAIN IN HEAD, PRESSURE, EYE PAIN HITTING HEAD [id number] 05/01/2018 00:32:00 ACT Inpatient GIOVANNA ELDRIDGE DO [facility] 4TH ABDOMINAL PAIN,TACHYCARDIA,N/V/D
[2018-05-01] MEDS ORDERED: VANCOMYCIN INJECTION 1,000 MG in NS (IVPB) 250 ML IV SCH (01:00)
[2018-05-01] MEDS ORDERED: NOREPINEPHRINE 4 MG in NS (IVPB) 250 ML IV SCH (01:00)
[2018-05-01] MEDS ORDERED: VANCOMYCIN 1000 MG/VIAL ONE (01:11)
[2018-05-01] MEDS ORDERED: NS (IVPB) 250 ML ONE (01:11)
[2018-05-01] MEDS ORDERED: ONDANSETRON 4 MG/2 ML (SDV) Z0FRAN IVP ONE (01:15)
[2018-05-01] MEDS ORDERED: diphenhydrAMINE 25 MG TAB (BENADRYL) PO ONE (02:30)
[2018-05-01 02:34] VITALS: BP 91/47
== END 2018-05-01 02:42 | disposition short-term general hospital (02) ==
LOC: EDUNIT# 16:12 → ER 16:14 → UNDOADMIN 05-01 00:32 → 4TH 05-01 00:32 → ER 05-01 02:42
DX: S93.401A Sprain of unspecified ligament of right ankle, initial encounter (principal); R50.9 Fever, unspecified; R00.0 Tachycardia, unspecified; R11.2 Nausea with vomiting, unspecified; R19.7 Diarrhea, unspecified; D72.819 Decreased white blood cell count, unspecified; R10.84 Generalized abdominal pain; I95.9 Hypotension, unspecified; Z88.0 Allergy status to penicillin; X50.1XXA Overexertion from prolonged static or awkward postures, initial encounter
CPT/HCPCS: 36415; 70450; 71046; 73610; 73630; 74177; 80053; 81000; 82945; 82962; 83605; 83690; 83735; 84157; 84703; 85007; 85027; 86141; 86308; 87040; 87070; 87088; 87205; 87210; 87220; 87252; 87430; 87491; 87591; 87804; 89051